=== PATIENT | female | born 1950 | race Caucasian/White ===

== ENCOUNTER 2020-08-12 10:22 | Emergency (ER) | payer MEDICARE, MEDICAID, SELFPAY ==
[2020-08-12 10:31] VITALS: BP 144/82; PULSE 79; RESP 14; TEMP 36.2; O2SAT 100; BMI 26.2
--- NOTE | 2020-08-12 12:04 | ED.GENADULT ---
HPI - General Adult General Chief complaint: General Medical Stated complaint: RT ARM NUMBNESS Time Seen by Provider: 08/12/20 12:03 History of Present Illness HPI narrative: patient complains of right shoulder pain after getting a flu shot yesterday as well as out of her chronic pain meds for left hip pain with no injury or acute change in the left hip Related Data Home Medications Medication Instructions Recorded Confirmed gabapentin 300 mg capsule mg PO 08/09/20 08/10/20 omeprazole 20 mg capsule,delayed mg PO 08/09/20 08/10/20 release Previous Rx's Medication Instructions Recorded buprenorphine HCl 900 mcg buccal 900 mcg BUCCAL Q12H #60 ea 07/11/20 film mirtazapine 15 mg tablet 15 mg PO DAILY #90 tab 07/26/20 oxycodone-acetaminophen [Percocet] 1 tab PO Q6H PRN #10 tab 08/12/20 Allergies Allergy/AdvReac Type Severity Reaction Status Date / Time aspirin [ASPIRIN] Allergy Mild STOMACH Verified 08/09/20 15:27 UPSET codeine [CODEINE] AdvReac Unknown STOMACH Verified 08/09/20 15:27 UPSET Review of Systems Review of Systems: no fever no chills no dizziness no weakness no rash denies redness or warmth PMFSH Past Medical History Source: nursing notes reviewed Medical History (Updated 08/13/20 @ 00:02 by Emmett Sylvester) Arthritis Back pain Scoliosis Surgical History History of open reduction and internal fixation (ORIF) procedure Family History Family History (Updated 06/21/20 @ 14:09 by Shital Roger Lorri) Father Medical history unknown Mother Medical history unknown Social History Social History (Updated 08/09/20 @ 15:34 by ROSHAN Castillo) Alcohol intake: current Alcohol intake frequency: holidays/special occasions only Smoking Status: Never smoker Advance Directives: No Advance Directives Information Provided: No Physical Exam Vital Signs: Vital Signs: Last Vital Signs Temp 97.2 F 08/12/20 10:31 Pulse 79 08/12/20 10:31 Resp 14 08/12/20 10:31 BP 144/82 H 08/12/20 10:31 Pulse Ox 100 08/12/20 10:31 Body Mass Index 26.2 general appearance comfortable cooperative no acute distress Exam normocephalic atraumatic The neck is supple and nontender Respiratory no acute distress The right shoulder the skin is normal there is no redness no warmth there is pain with movement, there is no swelling, it is neurovascular intact distal, there is tenderness anterior lateral and posterior shoulder but otherwise normal in appearance Skin no rashes Neuro no focal deficit Course Course Course Narrative: x-ray of right shoulder had some arthritic changes She is given a prescription for Percocet for her chronic pain And it she will follow with primary care doctor or orthopedist if her right shoulder pain continues right now there is no evidence of joint infection or bony injury Discharge Plan Discharge Clinical Impression: Acute pain of right shoulder Patient Disposition: Home, Self-Care Additional Instructions: pain in your right shoulder started after your flu shot incidental finding of x-ray showed some arthritis in the right shoulder there is no sign of any infection or serious condition Follow with orthopedist if pain continues For your chronic pain I wrote a 1 time prescription for 10 Percocets, I advise checking with your regular prescriber before you fill it as you may have a pain contract For chronic pain follow with regular doctor Prescriptions: New oxycodone-acetaminophen [Percocet] 5-325 mg tablet 1 tab PO Q6H PRN (Reason: pain) Qty: 10 RF: 0 No Action Belbuca 900 mcg film 900 mcg buccal Q12H Qty: 60 RF: 0 mirtazapine 15 mg tablet 15 mg PO DAILY Qty: 90 RF: 5 gabapentin 300 mg capsule PO RF: 0 omeprazole 20 mg capsule,delayed release(DR/EC) PO RF: 0 Referrals: Lorna Carrera MD [Physician] - 2 days ( right shoulder pain) Interventions: ED Discharge Assessment Last Done: 08/12/20 13:39 Discharge Date/Time: 08/12/20 13:42
--- NOTE | 2020-08-12 12:14 | XR_ITS ---
EXAMINATION: XR SHOULDER, RIGHT CLINICAL INFORMATION: Right shoulder pain. COMPARISON: None TECHNIQUE: Three views of the right shoulder. FINDINGS: Moderate diffuse osteopenia is noted. The bony alignment is intact. The cortices are intact. Mild osteoarthrosis is noted at both the glenohumeral and acromioclavicular joints. The acromioclavicular joint space measures 0.9 cm. Mild soft tissue calcification is noted within the subacromial space. Incidental note is made of cervical osseous ribs on the right, and possibly also on the left (not optimally included within the [id number]). XR/XR shoulder RT min 2V IMPRESSION: 1. Mild osteoarthrosis of the acromioclavicular and glenohumeral joints. 2. Subtle soft tissue calcification within the subacromial space. 3. Right-sided osseous cervical rib and possible left-sided cervical osseous rib as well.
== END 2020-08-12 13:42 | disposition home or self-care (01) ==
PROVIDERS: Emergency Provider Emergency Medicine Emergency Medical Services; PCP Internal Medicine
DX: M25.511 Pain in right shoulder (principal); R93.6 Abnormal findings on diagnostic imaging of limbs; M19.011 Primary osteoarthritis, right shoulder
CPT/HCPCS: 73030; 99283

== ENCOUNTER → 2020-09-05 15:13 | Outpatient (BNVA) | payer MEDICARE, MEDICAID, SELFPAY | PROVIDERS: PCP Internal Medicine; Visit Provider Family Medicine Adult Medicine | DX: M23.91 Unspecified internal derangement of right knee (principal); Z87.81 Personal history of (healed) traumatic fracture; Z79.891 Long term (current) use of opiate analgesic | CPT/HCPCS: 99212 ==

== ENCOUNTER → 2020-09-18 14:44 | Outpatient (BNVA) | payer MEDICARE, MEDICAID, SELFPAY | PROVIDERS: PCP Internal Medicine; Visit Provider Nurse Practitioner Family | DX: M23.91 Unspecified internal derangement of right knee (principal); M17.12 Unilateral primary osteoarthritis, left knee; Z87.81 Personal history of (healed) traumatic fracture | CPT/HCPCS: 99212 ==

== ENCOUNTER → 2020-10-19 15:27 | Outpatient (BNVA) | payer MEDICARE, MEDICAID, SELFPAY | PROVIDERS: PCP Internal Medicine; Visit Provider Family Medicine Adult Medicine | DX: M23.91 Unspecified internal derangement of right knee (principal); Z87.81 Personal history of (healed) traumatic fracture | CPT/HCPCS: 99212 ==

== ENCOUNTER → 2020-11-21 15:38 | Outpatient (BNVA) | payer MEDICARE, MEDICAID, SELFPAY | PROVIDERS: PCP Internal Medicine; Visit Provider Family Medicine Adult Medicine | DX: M23.91 Unspecified internal derangement of right knee (principal); M54.12 Radiculopathy, cervical region; Z87.81 Personal history of (healed) traumatic fracture; Z79.899 Other long term (current) drug therapy | CPT/HCPCS: 99212 ==

== ENCOUNTER → 2021-01-16 14:30 | Outpatient (BNVA) | payer MEDICARE, MEDICAID, SELFPAY | PROVIDERS: PCP Internal Medicine; Visit Provider Family Medicine Adult Medicine | DX: M54.12 Radiculopathy, cervical region (principal); M23.91 Unspecified internal derangement of right knee; Z87.81 Personal history of (healed) traumatic fracture | CPT/HCPCS: Q3014 ==

== ENCOUNTER 2021-02-01 21:38 | Emergency (ER) | payer OTHER, MEDICARE, MEDICAID, SELFPAY ==
--- NOTE | ~2021-02-01 | XR_ITS ---
EXAMINATION: XR HAND, RIGHT CLINICAL INFORMATION: Pain COMPARISON: None TECHNIQUE: 3 views of the right hand FINDINGS: No fracture or dislocation. Osteopenia. Severe degenerative changes at the first carpometacarpal joint with loss of the joint space, sclerosis, and osteophyte formation. There is also joint space loss at the first interphalangeal joint with prominent osteophytes. Moderate degenerative change throughout the remaining interphalangeal joints. The soft tissues appear unremarkable. XR/XR hand wrist RT IMPRESSION: No acute osseous abnormality. Advanced arthritic changes.
--- NOTE | ~2021-02-01 | XR_ITS ---
EXAMINATION: XR KNEE, LEFT XR KNEE, RIGHT CLINICAL INFORMATION: Pain COMPARISON: None TECHNIQUE: 4 views of each knee FINDINGS: Left knee: There is a cannulated screw segment in the distal femoral diametaphysis. This appears chronically positioned with periosteal reaction noted. The bones are osteopenic. No fracture or subluxation. Severe medial compartment joint space narrowing. Mild narrowing at the lateral and patellofemoral compartments. Prominent tricompartmental marginal osteophytes. No joint effusion. Right knee: No fracture or subluxation. There is moderate to severe medial compartment joint space narrowing. Mild patellofemoral compartment narrowing. Prominent tricompartmental marginal osteophytes. On the lateral view of the right knee there is a radiopaque density seen which is likely external to the patient has this is not visualized on the other views. There is a small suprapatellar joint effusion. XR/XR knee RT 3V IMPRESSION: No acute osseous abnormality. Osteopenia. Advanced tricompartmental degenerative changes of both knees. Small right knee joint effusion.
--- NOTE | ~2021-02-01 | XR_ITS ---
EXAMINATION: XR KNEE, LEFT XR KNEE, RIGHT CLINICAL INFORMATION: Pain COMPARISON: None TECHNIQUE: 4 views of each knee FINDINGS: Left knee: There is a cannulated screw segment in the distal femoral diametaphysis. This appears chronically positioned with periosteal reaction noted. The bones are osteopenic. No fracture or subluxation. Severe medial compartment joint space narrowing. Mild narrowing at the lateral and patellofemoral compartments. Prominent tricompartmental marginal osteophytes. No joint effusion. Right knee: No fracture or subluxation. There is moderate to severe medial compartment joint space narrowing. Mild patellofemoral compartment narrowing. Prominent tricompartmental marginal osteophytes. On the lateral view of the right knee there is a radiopaque density seen which is likely external to the patient has this is not visualized on the other views. There is a small suprapatellar joint effusion. XR/XR knee LT 3V IMPRESSION: No acute osseous abnormality. Osteopenia. Advanced tricompartmental degenerative changes of both knees. Small right knee joint effusion.
[2021-02-01 21:47] VITALS: BP 140/76; PULSE 86; RESP 20; TEMP 36.8; O2SAT 100; BMI 24.7
--- NOTE | 2021-02-01 23:25 | PC.NURSE ---
IN ROOM FOR EVAL.
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
--- NOTE | 2021-02-02 01:47 | PC.NURSE ---
PT UPSET AND YELLING AT DR HAMILTON ABOUT HER RIGHT HAND NOT BEING BROKEN ON X-RAY. PT IS NOT BELIEVING THE X-RAY.
== END 2021-02-02 01:53 | disposition home or self-care (01) ==
PROVIDERS: Emergency Provider Emergency Medicine Emergency Medical Services; PCP Family Medicine Adult Medicine
DX: S89.92XA Unspecified injury of left lower leg, initial encounter (principal); S89.91XA Unspecified injury of right lower leg, initial encounter; M79.605 Pain in left leg; M79.604 Pain in right leg; M79.642 Pain in left hand; M79.641 Pain in right hand; V43.52XA Car driver injured in collision with other type car in traffic accident, initial encounter; Y93.9 Activity, unspecified; Y92.410 Unspecified street and highway as the place of occurrence of the external cause; Y99.9 Unspecified external cause status; Z79.899 Other long term (current) drug therapy
CPT/HCPCS: 73110; 73130; 73562; 99283

== ENCOUNTER → 2021-03-13 13:05 | Outpatient (BNVA) | payer MEDICARE, MEDICAID, SELFPAY | PROVIDERS: Visit Provider Family Medicine Adult Medicine | DX: M54.12 Radiculopathy, cervical region (principal); M23.91 Unspecified internal derangement of right knee; Z87.81 Personal history of (healed) traumatic fracture | CPT/HCPCS: 99212 ==

== ENCOUNTER 2021-03-16 16:43 | Emergency (ER) | payer MEDICARE, MEDICAID, SELFPAY ==
--- NOTE | ~2021-03-16 | XR_ITS ---
EXAMINATION: XR chest 1V CLINICAL INFORMATION: Dyspnea COMPARISON: Prior chest x-ray 02/11/2020 TECHNIQUE: XR chest 1V Tubes and lines: None Lungs and pleura: Right apical pleural-based thickening pleural capping unchanged. Lungs otherwise are clear. Heart and mediastinum: The mediastinum is within normal limits.. Bones/soft tissue: Skeletal structures included are normal for patient's age. XR/XR chest 1V IMPRESSION: Right apical pleural-based opacity probably pleural thickening pleural capping unchanged. No radiographic evidence of acute cardiopulmonary disease.
[2021-03-16 17:05] VITALS: BP 149/66; PULSE 71; RESP 16; TEMP 36.7; O2SAT 97; BMI 27.9
--- NOTE | 2021-03-16 17:12 | ECG_ITS ---
Test Reason : SOB/LEG SWELLING Blood Pressure : / mmHG Vent. Rate : 071 BPM Atrial Rate : 071 BPM P-R Int : 168 ms QRS Dur : 074 ms QT Int : 402 ms P-R-T Axes : 038 002 002 degrees QTc Int : 436 ms Normal sinus rhythm Cannot rule out Anterior infarct , age undetermined - more likely from body habitus and lead placement Otherwise normal ECG When compared with ECG of 11-FEB-2020 12:30, No significant change was found Referred By: Generic ED Physician Electronically Signed By:DERIK PALMA
[2021-03-16 18:41] LABS: MANUAL DIFF FLAG NO
[2021-03-16 18:58] LABS: Basophils Percent Auto 0.3 % (0-2); Eosinophils Absolute Auto 0.1 X10*3/uL (0.0-0.4); Eosinophils Percent Auto 0.9 % (0-4); Hematocrit 37.7 % (37-47); Hemoglobin 11.9 g/dl (12.0-16.0); Imm Gran Abs Auto 0.01 X10*3/uL (0.00-0.03); Imm Gran Pct Auto 0.1 % (0.0-0.4); Lymphocytes Absolute Auto 3.2 X10*3/uL (1.2-4.9); Lymphocytes Percent Auto 41.5 % (20-40); Mean Corpuscular HGB Conc 31.6 g/dl (31.0-35.0); Mean Corpuscular Hemoglobin 29.6 pg (27.0-33.0); Mean Corpuscular Volume 93.8 fL (80-98); Mean Platelet Volume 10.2 fL (9.4-12.3); Monocytes Absolute Auto 0.8 X10*3/uL (0.1-1.2); Neutrophils Absolute Auto 3.7 X10*3/uL (2.0-8.3); Neutrophils Percent Auto 47.2 % (45-73); Platelet Count 234 X10*3/uL (160-400); Red Blood Count 4.02 X10*6/uL (4.20-5.50); White Blood Count 7.7 X10*3/uL (4.8-10.8)
[2021-03-16 19:08] LABS: Anion Gap 11 (12-20); Blood Urea Nitrogen 14 mg/dL (9-16); Calcium 9.2 mg/dL (8.4-10.2); Carbon Dioxide 30 mmol/L (22-29); Chloride 105 mmol/L (96-108); Creatinine Clr Calc Pharmacy 79.7; Estimated Glomerular Filt Rate > 60; Glucose Random 89 mg/dL (60-115); Magnesium 2.1 mg/dL (1.6-2.6); Potassium 4.8 mmol/L (3.3-5.1); Sodium 141 mmol/L (135-145)
[2021-03-16 19:15] LABS: B Type Natriuretic Peptide 202 pg/mL (<100); Troponin-I High Sensitivity < 3.5 ng/L (<3.5-17.0)
[2021-03-16 21:27] VITALS: BP 122/67; PULSE 69; RESP 12; O2SAT 100
--- NOTE | 2021-03-16 22:02 | PC.NURSE ---
per ED provider patient was observed storming out of the emergency room complaining of the wait and that she did not want to wait any longer prior to this, this RN had been in to introduce self, assess patient and obtain a new set of vital signs which were stable. during this time, patient was alert and oriented- talking to this RN in a calm and happy demeanor with clear sentences and no evidence of frustration or distress. patient was informed at that time that an ED provider would be in to see her soon and the call chun was given to her with instructions to ring if she needed anything. patient agreeable at that time.
--- NOTE | 2021-03-16 22:03 | ED_ITS ---
HPI - SOB/Dyspnea General Chief Complaint: Dyspnea Stated Complaint: Chest pain/Swelling in legs Time Seen by Provider: 03/16/21 21:59 History of Present Illness HPI Narrative: Patient is a elderly female 70 years old with a history of congestive heart failure. Went to urgent care. Told she might have congestive heart failure sent to the emergency department for further evaluation. Patient claims that she had leg swelling that is been ongoing for years. He has been followed by Dr. Enrique in the past. He has been prescribed Lasix. Usually patient takes approximately 60-80 mg. She self adjust when the swelling gets worse. Patient complained that she has chest pain that is constant. Ongoing for the last couple days. There is no diaphoresis. Patient ambulates without any difficulty. Somehow the swelling actually improved today. Patient denies any coughing congestion upper respiratory symptoms. No diaphoresis. Patient is from home. She normally gets her care at [facility]. Patient has a primary at [facility] unfortunately she just left the practice. Patient is worried that her legs are swollen. She denies any trauma. Both legs are swollen. Patient denies any history of travel. No history of blood clots in the past. Currently not on blood thinners. Related Data Home Medications Medication Instructions Recorded Confirmed omeprazole 20 mg capsule,delayed mg PO 08/09/20 03/16/21 release lidocaine 5 % topical patch 1 patch TOPICAL DAILY 01/09/21 03/16/21 Previous Rx's Medication Instructions Recorded mirtazapine 15 mg tablet 15 mg PO DAILY #90 tab 07/26/20 clonazepam 0.5 mg tablet 0.5 mg PO BID 30 Days #60 tab 09/06/20 dexamethasone 4 mg tablet 4 mg PO DAILY PRN 30 Days #20 tab 11/21/20 gabapentin 300 mg capsule 300 mg PO Q8H 90 Days #270 cap 11/21/20 fluoxetine 20 mg capsule 20 mg PO DAILY #90 cap 02/07/21 ergocalciferol (vitamin D2) 1,250 1,250 mcg PO QWEEK #12 cap 02/28/21 mcg (50,000 unit) capsule buprenorphine HCl 900 mcg buccal 900 mcg BUCCAL Q8H 30 Days #90 ea 03/13/21 film Allergies Allergy/AdvReac Type Severity Reaction Status Date / Time aspirin [ASPIRIN] Allergy Mild STOMACH Verified 03/16/21 16:17 UPSET codeine [CODEINE] AdvReac Unknown STOMACH Verified 03/16/21 16:17 UPSET Review of Systems 2 Review of Systems: Positive shortness of breath. Positive leg swelling positive chest pain no diaphoresis no coughing or congestion or upper respiratory symptoms Yes all other systems are reviewed and are negative [facility] Past Medical History Attestation statement: The following information was validated with the patient. Medical History Arthritis Back pain Cervical radiculopathy Derangement of left knee History of fracture of left hip History of left shoulder fracture Scoliosis Surgical History History of open reduction and internal fixation (ORIF) procedure Family History Family History Father Medical history unknown Mother Medical history unknown Social History Social History Alcohol intake: current Alcohol intake frequency: holidays/special occasions only Advance Directives: No Advance Directives Information Provided: No Physical Exam Vital Signs: Vital Signs: Last Vital Signs Temp 98.0 F 03/16/21 17:05 Pulse 69 03/16/21 21:27 Resp 12 03/16/21 21:27 BP 122/67 03/16/21 21:27 Pulse Ox 100 03/16/21 21:27 Body Mass Index 27.9 Appearance: Alert. Oriented X3. No acute distress. Eyes: Pupils equal, round and reactive to light. ENT: Pharynx normal. Neck: Normal inspection. Neck supple. No lymph nodes noted. No crepitus CVS: Normal heart rate and rhythm. Pulses normal. Normal S1 and S2 Respiratory: No respiratory distress. Breath sounds normal. No Wheezing. No rales Abdomen: Soft and nontender. No rigidity. No distention. good BS x4 Skin: Skin warm and dry. Normal skin color. Normal skin turgor. Extremities: 1+ pitting edema bilaterally up to approximately the distal leg. Neurovascular intact to all extremities. No Lacerations. No Rash Neuro: Oriented X 3. No motor deficit. No sensory deficit. Moving all extermities. No slurred speech MDM - SOB/Dyspnea MDM Narrative Medical decision making narrative: Patient's labs showed a BNP of 200. Otherwise patient's troponin was negative. In the setting patient having chest pain for the last 2 days. Normal EKG. Atypical history for ACS. Risk of ACS still low. Patient's EKG showed a sinus pattern. NV QRS QT within normal limits is no acute ST segment elevation. Patient's BNP is 200 question if patient has mild congestive heart failure causing the leg swelling. Patient's shortness of breath is not positional. She ambulates without any difficulty. Her room air O2 was 100% in the emergency department. This is despite the fact patient has extremely thick nail Arabic. Patient's lungs were clear to exam. Patient worry about her leg swelling. Her risk of having PE is low. Her leg swellings are bilateral. Question of patient had chronic congestive heart failure. Patient does not have follow-up until April. While talking to patient she gets very upset. Wanting to leave. Patient stormed out of the emergency department. Patient told she needs close follow-up. Was sorry that she did not get a chance to see her doctor secondary to COVID. At this time there is no massive evidence of congestive heart failure. Her blood clot risk is low. Per ACS risk is also low. She does need close follow-up. Patient stormed out of the emergency department. She has no fever no chills. Her x-ray showed no evidence of pneumonia. Differential Diagnosis Differential diagnosis: Likely congestive heart failure and pneumonia Lab Data Attestation: I reviewed the patient's lab results. Result diagrams: 03/16/21 18:30 03/16/21 18:30 Labs: Lab Results 03/16/21 03/16/21 03/16/21 Range/Units 18:30 18:30 18:30 WBC 7.7 (4.8-10.8) X10*3/uL RBC 4.02 L (4.20-5.50) X10*6/uL Hgb 11.9 L (12.0-16.0) g/dl Hct 37.7 (37-47) % MCV 93.8 (80-98) fL MCH 29.6 (27.0-33.0) pg MCHC 31.6 (31.0-35.0) g/dl RDW 15.0 (11.0-16.0) % Plt Count 234 (160-400) X10*3/uL MPV 10.2 (9.4-12.3) fL Immature Gran % (Auto) 0.1 (0.0-0.4) % Neut % (Auto) 47.2 (45-73) % Lymph % (Auto) 41.5 H (20-40) % Yancey % (Auto) 10.0 (2-11) % Eos % (Auto) 0.9 (0-4) % Baso % (Auto) 0.3 (0-2) % Lymph # (Auto) 3.2 (1.2-4.9) X10*3/uL Yancey # (Auto) 0.8 (0.1-1.2) X10*3/uL Eos # (Auto) 0.1 (0.0-0.4) X10*3/uL Baso # (Auto) 0.0 (0.0-0.2) X10*3/uL Abs Immat Gran (auto) 0.01 (0.00-0.03) X10*3/uL Absolute Neuts (auto) 3.7 (2.0-8.3) X10*3/uL Absolute Nucleated RBC 0.000 (0.0-0.012) X10*3/uL Nucleated RBC % (auto) 0.0 (0.0-0.2) /100WBC Sodium 141 (135-145) mmol/L Potassium 4.8 (3.3-5.1) mmol/L Chloride 105 (96-108) mmol/L Carbon Dioxide 30 H (22-29) mmol/L Anion Gap 11 L (12-20) BUN 14 (9-16) mg/dL Creatinine 0.67 (0.5-1.4) mg/dL Estim Creat Clear Calc 79.7 Estimated GFR > 60 Random Glucose 89 (60-115) mg/dL Calcium 9.2 (8.4-10.2) mg/dL Magnesium 2.1 (1.6-2.6) mg/dL Troponin I High Sens < 3.5 (<3.5-17.0) ng/L B-Natriuretic Peptide 202 H (<100) pg/mL ECG Data Attestation: I personally reviewed and interpreted this ECG as follows: Interpretation: Sinus heart rate is 70 NV QRS QT within normal limits is no acute ST segment elevation noted. Nonspecific T-wave inversion and flattening noted in the inferior leads. Discharge Plan Discharge Patient Disposition: Elopement Prescriptions: No Action mirtazapine 15 mg tablet 15 mg PO DAILY Qty: 90 RF: 5 clonazepam 0.5 mg tablet 0.5 mg PO BID 30 Days Qty: 60 RF: 0 lidocaine 5 % adhesive patch,medicated 1 patch topical DAILY RF: 0 fluoxetine 20 mg capsule 20 mg PO DAILY Qty: 90 RF: 0 ergocalciferol (vitamin D2) 1,250 mcg (50,000 unit) capsule 1,250 mcg PO QWEEK Qty: 12 RF: 2 omeprazole 20 mg capsule,delayed release(DR/EC) PO RF: 0 gabapentin 300 mg capsule 300 mg PO Q8H 90 Days Qty: 270 RF: 1 dexamethasone 4 mg tablet 4 mg PO DAILY PRN (Reason: breakthrough cervical pain) 30 Days Qty: 20 RF: 1 Belbuca 900 mcg film 900 mcg buccal Q8H 30 Days Qty: 90 RF: 1 Discharge Date/Time: 03/16/21 22:07
== END 2021-03-16 22:07 | disposition left against medical advice (07) ==
PROVIDERS: Emergency Provider Emergency Medicine Emergency Medical Services
DX: R06.00 Dyspnea, unspecified (principal); R60.0 Localized edema; I50.9 Heart failure, unspecified; Z79.899 Other long term (current) drug therapy
CPT/HCPCS: 36415; 71045; 80048; 83735; 83880; 84484; 85025; 93005; 99284

== ENCOUNTER → 2021-03-28 08:03 | Outpatient (BNVA) | payer MEDICARE, MEDICAID, SELFPAY | PROVIDERS: Visit Provider Internal Medicine | CPT/HCPCS: Q3014 ==

== ENCOUNTER → 2021-04-03 13:08 | Outpatient (BNVA) | payer MEDICARE, MEDICAID, SELFPAY | PROVIDERS: Visit Provider Internal Medicine Cardiovascular Disease | DX: I50.30 Unspecified diastolic (congestive) heart failure (principal); R60.0 Localized edema; E66.3 Overweight; Z68.27 Body mass index [BMI] 27.0-27.9, adult; Z88.6 Allergy status to analgesic agent; Z88.5 Allergy status to narcotic agent; Z79.899 Other long term (current) drug therapy | CPT/HCPCS: 99212 ==

== ENCOUNTER 2021-04-06 08:08 | Outpatient (REF) | payer MEDICARE, MEDICAID, SELFPAY ==
[2021-04-06 08:53] LABS: Estimated Average Glucose 94 mg/dL; Hemoglobin A1c % 4.9 %
[2021-04-06 09:03] LABS: Glucose Fasting 83 mg/dL (60-99)
[2021-04-06 09:08] LABS: Cholesterol 138 mg/dL; HDL Cholesterol 40 mg/dL; LDL Cholesterol Calculated 68 mg/dl; Triglycerides 152 mg/dL
[2021-04-06 09:30] LABS: Free T4 (Free Thyroxine) 0.88 ng/dL (0.71-1.85); Thyroid Stimulating Hormone 1.89 uIU/mL (0.32-4.0)
[2021-04-06 10:31] LABS: Glucose 1 Hour 76 mg/dL
[2021-04-06 11:25] LABS: Glucose 2 Hour 63 mg/dL
[2021-04-07 07:26] LABS: LDL Cholesterol Direct 72 mg/dL (<100)
[2021-04-09 18:01] LABS: Adrenocorticotropic Hormone 8 pg/mL (6-50)
== END 2021-04-06 08:09 | disposition home or self-care (01) ==
LOC: HO.LAB 08:08
PROVIDERS: Absent Provider Internal Medicine Cardiovascular Disease; Visit Provider Internal Medicine
DX: Z13.89 Encounter for screening for other disorder (principal)
CPT/HCPCS: 36415; 80061; 82024; 82533; 83036; 83721; 84439; 84443

== ENCOUNTER 2021-04-06 11:22 | Emergency (ER) | payer MEDICARE, MEDICAID, SELFPAY ==
--- NOTE | ~2021-04-06 | XR_ITS ---
EXAMINATION: XR CHEST CLINICAL INFORMATION: SOB. COMPARISON: Chest 03/16/2021 TECHNIQUE: Frontal view of the chest was obtained. FINDINGS: No significant abnormality is noted involving the heart, lungs, mediastinum, bony thorax or soft tissues. XR/XR chest 1V IMPRESSION: Unremarkable chest examination. No change from 03/16/2021.
[2021-04-06 11:59] VITALS: BP 151/63; PULSE 78; RESP 16; TEMP 36.7; O2SAT 100; BMI 27.9
[2021-04-06 12:38] VITALS: BP 148/51; PULSE 83; RESP 20; O2SAT 99
--- NOTE | 2021-04-06 12:43 | ECG_ITS ---
Test Reason : DYSPNEA Blood Pressure : / mmHG Vent. Rate : 073 BPM Atrial Rate : 073 BPM P-R Int : 154 ms QRS Dur : 086 ms QT Int : 412 ms P-R-T Axes : 019 000 -09 degrees QTc Int : 453 ms Normal sinus rhythm Normal ECG When compared with ECG of 16-MAR-2021 16:55, No significant change was found Referred By: Generic ED Physician Electronically Signed By:DERIK PALMA
[2021-04-06 12:57] LABS: MANUAL DIFF FLAG NO
[2021-04-06 13:04] LABS: Basophils Percent Auto 0.4 % (0-2); Eosinophils Absolute Auto 0.2 X10*3/uL (0.0-0.4); Eosinophils Percent Auto 2.1 % (0-4); Hematocrit 39.6 % (37-47); Imm Gran Abs Auto 0.02 X10*3/uL (0.00-0.03); Imm Gran Pct Auto 0.3 % (0.0-0.4); Lymphocytes Absolute Auto 2.5 X10*3/uL (1.2-4.9); Lymphocytes Percent Auto 33.6 % (20-40); Mean Corpuscular HGB Conc 30.3 g/dl (31.0-35.0); Mean Corpuscular Hemoglobin 28.7 pg (27.0-33.0); Mean Corpuscular Volume 94.7 fL (80-98); Mean Platelet Volume 10.1 fL (9.4-12.3); Monocytes Absolute Auto 0.8 X10*3/uL (0.1-1.2); Monocytes Percent Auto 10.1 % (2-11); Neutrophils Percent Auto 53.5 % (45-73); Platelet Count 200 X10*3/uL (160-400); Red Blood Count 4.18 X10*6/uL (4.20-5.50); Red Cell Distribution Width 14.6 % (11.0-16.0); White Blood Count 7.5 X10*3/uL (4.8-10.8)
--- NOTE | 2021-04-06 13:14 | ED.GENADULT ---
HPI - General Adult General Chief complaint: Dyspnea Stated complaint: swollen feet and legs Time Seen by Provider: 04/06/21 12:57 Source: patient Mode of arrival: ambulatory Limitations: no limitations History of Present Illness HPI narrative: Patient comes emergency room complaining of lower extremity edema. Patient states she has had bilateral lower extremity edema for over 10 years. Patient states that she needs to sleep almost sitting up otherwise she gets short of breath. Patient was seen by Dr. Willett 3 days ago, an echocardiogram is pending for the 1st week of April. Also, patient's Lasix was discontinued and she was started on 5 mg of Bumex. Patient states that her feet are more swollen than before her medication was switched. Patient denies chest pain Related Data Home Medications Medication Instructions Recorded Confirmed omeprazole 20 mg capsule,delayed 20 mg PO DAILY cap 03/28/21 04/03/21 release pregabalin 150 mg capsule (Lyrica) 150 mg PO BID 03/28/21 04/03/21 Previous Rx's Medication Instructions Recorded mirtazapine 15 mg tablet 15 mg PO DAILY #90 tab 07/26/20 clonazepam 0.5 mg tablet 0.5 mg PO BID 30 Days #60 tab 09/06/20 fluoxetine 20 mg capsule 20 mg PO DAILY #90 cap 02/07/21 ergocalciferol (vitamin D2) 1,250 1,250 mcg PO QWEEK #12 cap 02/28/21 mcg (50,000 unit) capsule bumetanide 2 mg tablet 2 mg PO DAILY #30 tab 04/03/21 buprenorphine HCl 900 mcg buccal 900 mcg BUCCAL Q8H 30 Days #90 ea 04/05/21 film (Belbuca) bumetanide 2 mg tablet 2 mg PO BID #30 tab 04/06/21 Allergies Allergy/AdvReac Type Severity Reaction Status Date / Time aspirin [ASPIRIN] Allergy Mild STOMACH Verified 03/28/21 08:37 UPSET codeine [CODEINE] AdvReac Unknown STOMACH Verified 03/28/21 08:37 UPSET Review of Systems Review of Systems: Constitutional : No Weight loss, No Fever, No Chills, No Night Sweats, No Fatigue, No Malaise ENT/Mouth : No Hearing loss, No Ear Pain, No Nasal Congestion, No Sinus Pain, No Hoarseness, No sore throat, No Rhinorrhea, No Swallowing Difficulty Eyes: No Eye Pain, No Swelling, No Redness, No Foreign Body, No Discharge, No Vision Changes Cardiovascular : No Chest Pain, No SOB, complaining of dyspnea on exertion, positive orthopnea, bilateral lower extremity edema, no palpitations Respiratory : No Cough, No Sputum, No Wheezing, No Smoke Exposure, No Dyspnea Gastrointestinal : No Nausea, No Vomiting, No Diarrhea, No Constipation, No abdominal Pain, No Hematochezia, No Melena Genitourinary : no irregular bleeding, No Dysuria, No Urinary Frequency, No Hematuria, No Urinary Incontinence, No Urgency, No Flank Pain, No Urinary Flow Changes, No Hesitancy Musculoskeletal : No joint pain, No Myalgias, No Joint Swelling Skin : No Skin Lesions, No rash Neuro : No Weakness, No Numbness, No Paresthesias, No Loss of Consciousness, No Dizziness, No Headache Psych : No Anxiety/Panic, No Depression, No SI/HI/AH/VH, No Social Issues, Heme/Lymph: No Bruising, No Bleeding,No Lymphadenopathy Endocrine : No Polyuria, No Polydipsia, No Temperature Intolerance [facility] Past Medical History Medical History Arthritis Back pain Cervical radiculopathy Derangement of left knee History of fracture of left hip History of left shoulder fracture Overweight (BMI 25.0-29.9) Scoliosis Surgical History History of open reduction and internal fixation (ORIF) procedure Family History Family History Father Medical history unknown Mother Medical history unknown Social History Social History Alcohol intake: current Alcohol intake frequency: does not drink Patient Tobacco Use Status: Never used Tobacco Use of substances other than those prescribed or required for medical reasons: No Advance Directives: No Advance Directives Information Provided: No Physical Exam Vital Signs: Vital Signs: Last Vital Signs Temp 98.0 F 04/06/21 11:59 Pulse 83 04/06/21 12:38 Resp 20 04/06/21 12:38 BP 148/51 H 04/06/21 12:38 Pulse Ox 99 04/06/21 12:38 Body Mass Index 27.9 Const: Other: Appearance: Alert. Oriented X3. No acute distress. Eyes: Pupils equal, round and reactive to light. ENT: Pharynx normal. Neck: Normal inspection. Neck supple. No lymph nodes noted. No crepitus CVS: Normal heart rate and rhythm. Pulses normal. Normal S1 and S2 Respiratory: No respiratory distress. Breath sounds normal. No Wheezing. No rales Abdomen: Soft and nontender. No rigidity. No distention. Skin: Skin warm and dry. Normal skin color. Normal skin turgor. Extremities: Bilateral +3 pitting edema from the feet to both knees, No Lacerations. No Rash Neuro: Oriented X 3. No motor deficit. No sensory deficit. Moving all extermities. No slurred speech. Course Course Course Narrative: I discussed the labs with the patient, at this time, we will go ahead and double her Bumex dose. She is currently taking 2 mg once a day, patient's creatinine is normal, blood pressure between 140 and 150. 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 Willett Medical Decision Making Lab Data Result diagrams: 04/06/21 12:54 04/06/21 12:54 Labs: Lab Results 04/06/21 04/06/21 04/06/21 Range/Units 12:54 12:54 12:54 WBC 7.5 (4.8-10.8) X10*3/uL RBC 4.18 L (4.20-5.50) X10*6/uL Hgb 12.0 (12.0-16.0) g/dl Hct 39.6 (37-47) % MCV 94.7 (80-98) fL MCH 28.7 (27.0-33.0) pg MCHC 30.3 L (31.0-35.0) g/dl RDW 14.6 (11.0-16.0) % Plt Count 200 (160-400) X10*3/uL MPV 10.1 (9.4-12.3) fL Immature Gran % (Auto) 0.3 (0.0-0.4) % Neut % (Auto) 53.5 (45-73) % Lymph % (Auto) 33.6 (20-40) % [place] % (Auto) 10.1 (2-11) % Eos % (Auto) 2.1 (0-4) % Baso % (Auto) 0.4 (0-2) % Lymph # (Auto) 2.5 (1.2-4.9) X10*3/uL [place] # (Auto) 0.8 (0.1-1.2) X10*3/uL Eos # (Auto) 0.2 (0.0-0.4) X10*3/uL Baso # (Auto) 0.0 (0.0-0.2) X10*3/uL Abs Immat Gran (auto) 0.02 (0.00-0.03) X10*3/uL Absolute Neuts (auto) 4.0 (2.0-8.3) X10*3/uL Absolute Nucleated RBC 0.000 (0.0-0.012) X10*3/uL Nucleated RBC % (auto) 0.0 (0.0-0.2) /100WBC Sodium 143 (135-145) mmol/L Potassium 4.5 (3.3-5.1) mmol/L Chloride 105 (96-108) mmol/L Carbon Dioxide 30 H (22-29) mmol/L Anion Gap 13 (12-20) BUN 11 (9-16) mg/dL Creatinine 0.75 (0.5-1.4) mg/dL Estim Creat Clear Calc 71.2 Estimated GFR > 60 Random Glucose 106 (60-115) mg/dL Calcium 9.4 (8.4-10.2) mg/dL Troponin I High Sens < 3.5 (<3.5-17.0) ng/L B-Natriuretic Peptide 69 (<100) pg/mL Imaging Data Chest x-ray: Radiologist's impression: No significant abnormality is noted involving the heart, lungs, mediastinum, bony thorax or soft tissues. XR/XR chest 1V IMPRESSION: Unremarkable chest examination. No change from 03/16/2021. ECG Data Attestation: I personally reviewed and interpreted this ECG as follows: (Normal sinus rhythm, heart rate 73, no ST segment depression or elevation, nonspecific T-wave inversion in lead 3, QTC 453) Discharge Plan Discharge Clinical Impression: Edema of both legs Patient Disposition: Home, Self-Care Instructions: Leg Edema (ED) Additional Instructions: Please follow-up with your primary care physician tomorrow. If you have any worsening or new symptoms, please return to the emergency room or call 911 Prescriptions: New bumetanide 2 mg tablet 2 mg PO BID Qty: 30 RF: 0 No Action mirtazapine 15 mg tablet 15 mg PO DAILY Qty: 90 RF: 5 clonazepam 0.5 mg tablet 0.5 mg PO BID 30 Days Qty: 60 RF: 0 fluoxetine 20 mg capsule 20 mg PO DAILY Qty: 90 RF: 0 ergocalciferol (vitamin D2) 1,250 mcg (50,000 unit) capsule 1,250 mcg PO QWEEK Qty: 12 RF: 2 [place] 900 mcg film 900 mcg buccal Q8H 30 Days Qty: 90 RF: 1 omeprazole 20 mg capsule,delayed release(DR/EC) 20 mg PO DAILY RF: 0 bumetanide 2 mg tablet 2 mg PO DAILY Qty: 30 RF: 1 pregabalin [Lyrica] 150 mg capsule 150 mg PO BID RF: 0 Referrals: Errol Willett MD [Physician] - 2 days (f/u increase in bumex)
[2021-04-06 13:20] LABS: Anion Gap 13 (12-20); Blood Urea Nitrogen 11 mg/dL (9-16); Calcium 9.4 mg/dL (8.4-10.2); Carbon Dioxide 30 mmol/L (22-29); Chloride 105 mmol/L (96-108); Creatinine Clr Calc Pharmacy 71.2; Estimated Glomerular Filt Rate > 60; Glucose Random 106 mg/dL (60-115); Potassium 4.5 mmol/L (3.3-5.1); Sodium 143 mmol/L (135-145)
[2021-04-06 13:28] LABS: B Type Natriuretic Peptide 69 pg/mL (<100); Troponin-I High Sensitivity < 3.5 ng/L (<3.5-17.0)
[2021-04-06 14:18] VITALS: BP 103/68; PULSE 72; RESP 14; O2SAT 100
== END 2021-04-06 14:23 | disposition home or self-care (01) ==
PROVIDERS: Emergency Provider Emergency Medicine
DX: R60.0 Localized edema (principal); R06.02 Shortness of breath
CPT/HCPCS: 36415; 71045; 80048; 80061; 82024; 82533; 83036; 83721; 83880; 84439; 84443; 84484; 85025; 93005; 99284

== ENCOUNTER → 2021-05-08 11:32 | Outpatient (BNVA) | payer OTHER, MEDICARE, MEDICAID, SELFPAY | PROVIDERS: Visit Provider Family Medicine Adult Medicine | DX: M54.9 Dorsalgia, unspecified (principal); M54.12 Radiculopathy, cervical region; M23.92 Unspecified internal derangement of left knee; Z87.81 Personal history of (healed) traumatic fracture; Z88.6 Allergy status to analgesic agent; Z88.5 Allergy status to narcotic agent; Z79.899 Other long term (current) drug therapy | CPT/HCPCS: 99212 ==

== ENCOUNTER → 2021-07-03 11:34 | Outpatient (BNVA) | payer MEDICARE, MEDICAID, SELFPAY | PROVIDERS: Visit Provider Family Medicine Adult Medicine | DX: Z51.81 Encounter for therapeutic drug level monitoring (principal); M54.12 Radiculopathy, cervical region; L03.115 Cellulitis of right lower limb; L03.116 Cellulitis of left lower limb; Z87.81 Personal history of (healed) traumatic fracture | CPT/HCPCS: Q3014 ==

== ENCOUNTER 2021-08-27 06:34 | Observation (INO) | payer MEDICARE, MEDICAID, SELFPAY ==
--- NOTE | ~2021-08-27 | CT_ITS ---
EXAMINATION: CT ABDOMEN AND PELVIS WITH CONTRAST CLINICAL INFORMATION: Upper abdominal pain and vomiting COMPARISON: None TECHNIQUE: Multidetector volumetric images were obtained from the superior aspect of the liver through the pubic symphysis following administration 85 mL of Omnipaque 350 intravenous contrast. Sagittal and coronal reformatted images were obtained on the technologist's workstation. Oral contrast: Yes This CT examination was performed using dose optimization techniques as appropriate, variously including the following: *Automated exposure control *Adjustment of mA and/or kV according to patient size (this includes techniques or standardized protocols for targeted exams where dose is matched to indication/reason for exam; i.e. extremities or head) *Use of iterative reconstruction technique DLP: 577 mGy-cm FINDINGS: LUNG BASES: The visualized lung bases are unremarkable. LIVER, GALLBLADDER, AND BILIARY TREE: The liver is normal in size, shape, and attenuation. No focal hepatic lesion or biliary ductal dilatation is present. The gallbladder is unremarkable with no evidence of radiopaque gallstones, gallbladder wall thickening, or obvious pericholecystic inflammatory changes. PANCREAS: Unremarkable. SPLEEN: Unremarkable. ADRENAL GLANDS: Unremarkable. KIDNEYS AND URETERS: There are multiple bilateral renal cysts, right greater than left. No imaging follow-up needed. The kidneys are otherwise unremarkable. BLADDER: Unremarkable. GASTROINTESTINAL TRACT: There is diverticulosis of the colon. There is no evidence of diverticulitis. There is stool throughout the colon questionable for constipation. There are no dilated loops of bowel to suggest obstruction. The appendix is normal. There is a high attenuation density seen in the second portion duodenum measuring 3 x 19 mm questionable for something the patient is recently ingested. Clinical correlation is recommended. No evidence of obstruction or perforation is seen. The stomach is unremarkable. ABDOMINAL WALL: There is a small umbilical hernia containing fat. LYMPH NODES: Normal. VASCULAR: Unremarkable. PELVIC VISCERA: Unremarkable. OSSEOUS STRUCTURES: There are degenerative changes of the spine and scoliosis. There is a left hip replacement. CT/CT abdomen pelvis w con IMPRESSION: Diverticulosis. No evidence of diverticulitis. Stool throughout the colon questionable for constipation. 3 x 19 mm high attenuation density in the second portion of duodenum, question representing something the patient has ingested. Clinical correlation recommended. No evidence of obstruction or perforation seen. Bilateral renal cysts. Fleischner guidelines were followed.
--- NOTE | ~2021-08-27 | XR_ITS ---
EXAMINATION: XR CHEST CLINICAL INFORMATION: Dyspnea COMPARISON: None TECHNIQUE: Frontal view of the chest was obtained. FINDINGS: The lungs are well-expanded and clear. The heart size and pulmonary vascularity is normal. No gross bony abnormality seen XR/XR chest 1V IMPRESSION: Unremarkable chest exam
[2021-08-27 06:44] VITALS: BP 150/71; PULSE 65; RESP 20; TEMP 36.4; O2SAT 97
--- NOTE | 2021-08-27 06:46 | ECG_ITS ---
Test Reason : chest pain Blood Pressure : / mmHG Vent. Rate : 073 BPM Atrial Rate : 073 BPM P-R Int : 168 ms QRS Dur : 074 ms QT Int : 424 ms P-R-T Axes : 071 037 045 degrees QTc Int : 467 ms Sinus rhythm with marked sinus arrhythmia Otherwise normal ECG When compared with ECG of 06-APR-2021 14:05, T wave inversion no longer evident in Inferior leads Referred By: Generic ED Physician Electronically Signed By:DERIK PALMA
[2021-08-27 07:24] LABS: MANUAL DIFF FLAG NO
[2021-08-27 07:47] LABS: Alanine Aminotransferase 9 U/L (0-31); Albumin Level 4.2 g/dL (3.5-5.0); Alkaline Phosphatase 82 U/L (39-117); Anion Gap 14 (12-20); Aspartate Amino Transferase 17 U/L (5-31); Bilirubin Total 0.4 mg/dL (0.0-1.0); Blood Urea Nitrogen 12 mg/dL (9-16); Calcium 9.3 mg/dL (8.4-10.2); Carbon Dioxide 28 mmol/L (22-29); Chloride 103 mmol/L (96-108); Creatinine Clr Calc Pharmacy 61.5; Estimated Glomerular Filt Rate > 60; Glucose Random 135 mg/dL (60-115); Potassium 3.5 mmol/L (3.3-5.1); Sodium 141 mmol/L (135-145); Total Protein 6.7 g/dL (6.5-8.0)
[2021-08-27 07:51] LABS: Troponin-I High Sensitivity < 3.5 ng/L (<3.5-17.0)
[2021-08-27 08:06] LABS: Basophils Percent Auto 0.1 % (0-2); Eosinophils Percent Auto 0.1 % (0-4); Hematocrit 38.7 % (37.0-47.0); Hemoglobin 12.4 g/dl (12.0-16.0); Imm Gran Abs Auto 0.03 X10*3/uL (0.00-0.03); Imm Gran Pct Auto 0.3 % (0.0-0.4); Lymphocytes Absolute Auto 0.8 X10*3/uL (1.2-4.9); Lymphocytes Percent Auto 8.7 % (20-40); Mean Corpuscular Hemoglobin 29.1 pg (27.0-33.0); Mean Corpuscular Volume 90.8 fL (80.0-98.0); Mean Platelet Volume 9.9 fL (9.4-12.3); Monocytes Absolute Auto 0.5 X10*3/uL (0.1-1.2); Monocytes Percent Auto 5.6 % (2-11); Neutrophils Absolute Auto 7.7 x10*3/uL (2.0-8.3); Neutrophils Percent Auto 85.2 % (45-73); Platelet Count 220 X10*3/uL (160-400); Red Blood Count 4.26 X10*6/uL (4.20-5.50); Red Cell Distribution Width 15.2 % (11.0-16.0)
--- NOTE | 2021-08-27 09:29 | ED_ITS ---
HPI - Abdominal Pain General Chief Complaint: Chest Pain Stated Complaint: ABD PAIN W/VOMITING Time Seen by Provider: 08/27/21 09:28 Source: patient Mode of arrival: EMS Limitations: no limitations History of Present Illness MD elicited complaint: abdominal pain (chest pain, nausea and vomiting) Pertinent past history: none Onset (ago): day(s) (intermittent on and off since two days) Pain Consistency: intermittent Location: chest and epigastric Severity: moderate Quality: fullness Radiation: chest Migration to: no migration Exacerbating factors: eating Relieving factors: nothing Associated symptoms: nausea, vomiting and constipation Related Data Home Medications Medication Instructions Recorded Confirmed omeprazole 20 mg capsule,delayed 20 mg PO DAILY cap 03/28/21 07/03/21 release Previous Rx's Medication Instructions Recorded clonazepam 0.5 mg tablet 0.5 mg PO BID 30 Days #60 tab 09/06/20 ergocalciferol (vitamin D2) 1,250 1,250 mcg PO QWEEK #12 cap 02/28/21 mcg (50,000 unit) capsule bumetanide 2 mg tablet 2 mg PO BID #30 tab 04/06/21 bumetanide 2 mg tablet 2 mg PO DAILY 90 Days #90 tab 04/25/21 naloxone 4 mg/actuation nasal 4 mg INTRANASAL Q2M #2 ea 07/03/21 spray (Narcan) pregabalin 150 mg capsule (Lyrica) 150 mg PO Q8H 30 Days #90 cap 07/03/21 fluoxetine 20 mg capsule 20 mg PO DAILY #90 cap 07/25/21 mirtazapine 15 mg tablet 15 mg PO DAILY #90 tab 07/29/21 furosemide 80 mg tablet (Lasix) 80 mg PO DAILY 90 Days #90 tab 07/30/21 buprenorphine HCl 900 mcg buccal 900 mcg BUCCAL Q12H 30 Days #60 ea 08/22/21 film (Belbuca) Allergies Allergy/AdvReac Type Severity Reaction Status Date / Time aspirin [ASPIRIN] Allergy Mild STOMACH Verified 07/03/21 12:34 UPSET codeine [CODEINE] AdvReac Unknown STOMACH Verified 07/03/21 12:34 UPSET Review of Systems Review of Systems Constitutional : No Weight loss, No Fever, No Chills ENT/Mouth : No sore throat, No Rhinorrhea Eyes: No Swelling, No Redness Cardiovascular : pos Chest Pain, pos SOB, NoEdema Respiratory : No Cough, No Sputum, No Wheezing Gastrointestinal : Positive Nausea, Positive Vomiting, no Diarrhea, positive abdominal Pain, No Hematochezia, No Melena, pos constipation Genitourinary : No Dysuria, No Urinary Frequency, No Hematuria, No Urgency Musculoskeletal : No joint pain, No Myalgias, No Joint Swelling Skin : No Skin Lesions, No rash Neuro : No Weakness, No Numbness, No Dizziness, No Headache Psych : No Anxiety/Panic, No Depression Heme/Lymph: No Bruising, No Lymphadenopathy Endocrine : No Polyuria, No Polydipsia All other systems reviewed and are negative. Physical Exam Vital Signs: Vital Signs: Last Vital Signs Temp 97.5 F 08/27/21 09:40 Pulse 98 08/27/21 14:29 Resp 18 08/27/21 14:29 BP 150/75 H 08/27/21 14:29 Pulse Ox 94 08/27/21 14:29 BMI result Body Mass Index 20.0 Appearance: Alert. Oriented X3. No acute distress. Eyes: Pupils equal, round and reactive to light. ENT: Pharynx mildly dry Neck: Normal inspection. Neck supple. CVS: Normal heart rate and rhythm. Pulses normal. Respiratory: No respiratory distress. Breath sounds normal. Abdomen: Soft and moderate epigastric ttp no rebound mild distention Skin: Skin warm and dry. pale skin color. Normal skin turgor. Extremities: No lower extremity edema. No calf ttp Neuro: Oriented X 3. No motor deficit. No sensory deficit. Course Course Course Narrative: + UA for infection at this time infection suspected 108pm - lactic acid cultures and IV ceftriaxone ordered for UTI if she fails PO challenge will need admission cannot tolerate PO - admit MDM - Abdominal Pain MDM Narrative Medical decision making narrative: 70 yo female hx of CHF but preserved EF, back pain, arthritis here with c/o upper abdominal pain radiating to chest on and off x 2 days worse overnight resulting in vomiting - she denies any abdominal surgery at this time labs, CXR, troponin x 2, CT scan of abdomen to r/o obstruction/mass. IV morphine for pain, Dispo per results and findings. No hyp oxia signs of DVT to suggest VTE Lab Data Result diagrams: 08/27/21 07:20 08/27/21 07:20 Labs: Lab Results 08/27/21 08/27/21 08/27/21 Range/Units 07:20 07:20 07:20 WBC 9.0 (4.8-10.8) X10*3/uL RBC 4.26 (4.20-5.50) X10*6/uL Hgb 12.4 (12.0-16.0) g/dl Hct 38.7 (37.0-47.0) % MCV 90.8 (80.0-98.0) fL MCH 29.1 (27.0-33.0) pg MCHC 32.0 (31.0-35.0) g/dl RDW 15.2 (11.0-16.0) % Plt Count 220 (160-400) X10*3/uL MPV 9.9 (9.4-12.3) fL Immature Gran % (Auto) 0.3 (0.0-0.4) % Neut % (Auto) 85.2 H (45-73) % Lymph % (Auto) 8.7 L (20-40) % [place] % (Auto) 5.6 (2-11) % Eos % (Auto) 0.1 (0-4) % Baso % (Auto) 0.1 (0-2) % Lymph # (Auto) 0.8 L (1.2-4.9) X10*3/uL [place] # (Auto) 0.5 (0.1-1.2) X10*3/uL Eos # (Auto) 0.0 (0.0-0.4) X10*3/uL Baso # (Auto) 0.0 (0.0-0.2) X10*3/uL Abs Immat Gran (auto) 0.03 (0.00-0.03) X10*3/uL Absolute Neuts (auto) 7.7 (2.0-8.3) x10*3/uL Absolute Nucleated RBC 0.000 (0.0-0.012) X10*3/uL Nucleated RBC % (auto) 0.0 (0.0-0.2) /100WBC Sodium 141 (135-145) mmol/L Potassium 3.5 D (3.3-5.1) mmol/L Chloride 103 (96-108) mmol/L Carbon Dioxide 28 (22-29) mmol/L Anion Gap 14 (12-20) BUN 12 (9-16) mg/dL Creatinine 0.73 (0.5-1.4) mg/dL Estim Creat Clear Calc 61.5 Estimated GFR > 60 Random Glucose 135 H (60-115) mg/dL Lactic Acid (0.5-2.0) mmol/L Calcium 9.3 (8.4-10.2) mg/dL Magnesium 1.7 (1.6-2.6) mg/dL Total Bilirubin 0.4 (0.0-1.0) mg/dL AST 17 (5-31) U/L ALT 9 (0-31) U/L Alkaline Phosphatase 82 (39-117) U/L Troponin I High Sens < 3.5 (<3.5-17.0) ng/L Total Protein 6.7 (6.5-8.0) g/dL Albumin 4.2 (3.5-5.0) g/dL Lipase 8 (8-78) U/L Urine Color Urine Appearance Urine pH (5.0-8.0) Ur Specific [place] (1.005-1.025) Urine Protein (NEG-TRACE) MG/DL Urine Glucose (UA) (NEG) MG/DL Urine Ketones (NEG) MG/DL Urine Blood (NEG) Urine Nitrite (NEG) Ur Leukocyte Esterase (NEG) Urine RBC (0) /HPF Urine WBC (0-4) /HPF Ur Squamous Epith Cells /LPF Urine Bacteria /LPF COVID-19 ([facility]) (Negative) COVID-19 Clin Com 08/27/21 08/27/21 08/27/21 Range/Units 09:47 11:43 11:44 WBC (4.8-10.8) X10*3/uL RBC (4.20-5.50) X10*6/uL Hgb (12.0-16.0) g/dl Hct (37.0-47.0) % MCV (80.0-98.0) fL MCH (27.0-33.0) pg MCHC (31.0-35.0) g/dl RDW (11.0-16.0) % Plt Count (160-400) X10*3/uL MPV (9.4-12.3) fL Immature Gran % (Auto) (0.0-0.4) % Neut % (Auto) (45-73) % Lymph % (Auto) (20-40) % [place] % (Auto) (2-11) % Eos % (Auto) (0-4) % Baso % (Auto) (0-2) % Lymph # (Auto) (1.2-4.9) X10*3/uL [place] # (Auto) (0.1-1.2) X10*3/uL Eos # (Auto) (0.0-0.4) X10*3/uL Baso # (Auto) (0.0-0.2) X10*3/uL Abs Immat Gran (auto) (0.00-0.03) X10*3/uL Absolute Neuts (auto) (2.0-8.3) x10*3/uL Absolute Nucleated RBC (0.0-0.012) X10*3/uL Nucleated RBC % (auto) (0.0-0.2) /100WBC Sodium (135-145) mmol/L Potassium (3.3-5.1) mmol/L Chloride (96-108) mmol/L Carbon Dioxide (22-29) mmol/L Anion Gap (12-20) BUN (9-16) mg/dL Creatinine (0.5-1.4) mg/dL Estim Creat Clear Calc Estimated GFR Random Glucose (60-115) mg/dL Lactic Acid (0.5-2.0) mmol/L Calcium (8.4-10.2) mg/dL Magnesium (1.6-2.6) mg/dL Total Bilirubin (0.0-1.0) mg/dL AST (5-31) U/L ALT (0-31) U/L Alkaline Phosphatase (39-117) U/L Troponin I High Sens < 3.5 (<3.5-17.0) ng/L Total Protein (6.5-8.0) g/dL Albumin (3.5-5.0) g/dL Lipase (8-78) U/L Urine Color YELLOW Urine Appearance CLEAR Urine pH 8.0 (5.0-8.0) Ur Specific [place] <= 1.005 (1.005-1.025) Urine Protein NEG (NEG-TRACE) MG/DL Urine Glucose (UA) NEG (NEG) MG/DL Urine Ketones 40 (NEG) MG/DL Urine Blood TRACE (NEG) Urine Nitrite POS H (NEG) Ur Leukocyte Esterase NEG (NEG) Urine RBC 0-2 (0) /HPF Urine WBC 5-9 H (0-4) /HPF Ur Squamous Epith Cells TRACE /LPF Urine Bacteria 2+ /LPF COVID-19 ([facility]) Negative (Negative) COVID-19 Clin Com See Note 08/27/21 Range/Units 13:38 WBC (4.8-10.8) X10*3/uL RBC (4.20-5.50) X10*6/uL Hgb (12.0-16.0) g/dl Hct (37.0-47.0) % MCV (80.0-98.0) fL MCH (27.0-33.0) pg MCHC (31.0-35.0) g/dl RDW (11.0-16.0) % Plt Count (160-400) X10*3/uL MPV (9.4-12.3) fL Immature Gran % (Auto) (0.0-0.4) % Neut % (Auto) (45-73) % Lymph % (Auto) (20-40) % [place] % (Auto) (2-11) % Eos % (Auto) (0-4) % Baso % (Auto) (0-2) % Lymph # (Auto) (1.2-4.9) X10*3/uL [place] # (Auto) (0.1-1.2) X10*3/uL Eos # (Auto) (0.0-0.4) X10*3/uL Baso # (Auto) (0.0-0.2) X10*3/uL Abs Immat Gran (auto) (0.00-0.03) X10*3/uL Absolute Neuts (auto) (2.0-8.3) x10*3/uL Absolute Nucleated RBC (0.0-0.012) X10*3/uL Nucleated RBC % (auto) (0.0-0.2) /100WBC Sodium (135-145) mmol/L Potassium (3.3-5.1) mmol/L Chloride (96-108) mmol/L Carbon Dioxide (22-29) mmol/L Anion Gap (12-20) BUN (9-16) mg/dL Creatinine (0.5-1.4) mg/dL Estim Creat Clear Calc Estimated GFR Random Glucose (60-115) mg/dL Lactic Acid 0.7 (0.5-2.0) mmol/L Calcium (8.4-10.2) mg/dL Magnesium (1.6-2.6) mg/dL Total Bilirubin (0.0-1.0) mg/dL AST (5-31) U/L ALT (0-31) U/L Alkaline Phosphatase (39-117) U/L Troponin I High Sens (<3.5-17.0) ng/L Total Protein (6.5-8.0) g/dL Albumin (3.5-5.0) g/dL Lipase (8-78) U/L Urine Color Urine Appearance Urine pH (5.0-8.0) Ur Specific [place] (1.005-1.025) Urine Protein (NEG-TRACE) MG/DL Urine Glucose (UA) (NEG) MG/DL Urine Ketones (NEG) MG/DL Urine Blood (NEG) Urine Nitrite (NEG) Ur Leukocyte Esterase (NEG) Urine RBC (0) /HPF Urine WBC (0-4) /HPF Ur Squamous Epith Cells /LPF Urine Bacteria /LPF COVID-19 ([facility]) (Negative) COVID-19 Clin Com ECG Data Attestation: I personally reviewed and interpreted this ECG as follows: ECG interpretation date: 08/27/21 ECG interpretation time: 09:30 Interpretation: Rate: 73 Rhythm: NSR with sinus arrhythmia [place]: normal Normal P waves. Normal CHUY. Normal QRS complex. ST T wave : no EDIS, nonspecific artifact noted qTC: normal prior studies: no acute ischemia The study has been interpreted contemporaneously by me. . Discharge Plan Discharge Clinical Impression: Acute UTI Vomiting Qualifiers: Vomiting type: unspecified Nausea presence: with nausea Qualified Code(s): R11.2 - Nausea with vomiting, unspecified Abdominal pain Qualifiers: Abdominal location: epigastric Qualified Code(s): R10.13 - Epigastric pain Patient Disposition: Admitted As Inpatient [facility] Past Medical History Medical History Arthritis Back pain Cellulitis of both feet Cervical radiculopathy Derangement of left knee History of fracture of left hip History of left shoulder fracture Overweight (BMI 25.0-29.9) Scoliosis Surgical History History of open reduction and internal fixation (ORIF) procedure Family History Family History Father Medical history unknown Mother Medical history unknown Social History Social History Alcohol intake: current Alcohol intake frequency: holidays/special occasions only Patient Tobacco Use Status: Never used Tobacco Use of substances other than those prescribed or required for medical reasons: No Advance Directives: No Advance Directives Information Provided: No
[2021-08-27 09:40] VITALS: BP 151/76; PULSE 85; RESP 16; TEMP 36.4; O2SAT 98
[2021-08-27 10:06] LABS: Lipase 8 U/L (8-78); Magnesium 1.7 mg/dL (1.6-2.6)
[2021-08-27 10:13] LABS: Troponin-I High Sensitivity < 3.5 ng/L (<3.5-17.0)
[2021-08-27] MEDS: 0.9 % Sodium Chloride 500 ML IV (10:21)
[2021-08-27] MEDS: ondansetron HCL 4 MG/2 ML VIAL IVPUSH (10:22)
[2021-08-27] MEDS: Famotidine/PF 20 MG/2 ML VIAL IVPUSH (10:22)
[2021-08-27] MEDS: Morphine Sulfate 4 MG/ML CARTRIDGE IVPUSH (10:22)
--- NOTE | 2021-08-27 10:25 | PC.NURSE ---
pt alert and oriented,skin pwd, respirations even and unlabored, pt reports sever umbilical pain and pain under her right breast that started at 0100, vomiting, pain at 10/10
[2021-08-27] MEDS: iohexoL 350 MG/ML 100 ML INFUS..BTL IV (10:36)
[2021-08-27 10:49] VITALS: BP 126/60; PULSE 90; RESP 20; O2SAT 95
--- NOTE | 2021-08-27 11:30 | PC.NURSE ---
pt resting with her eyes shut, reports no improvement in her pain still 10/10 and having nausea, no vomiting at this time
[2021-08-27] MEDS: Metoclopramide HCl 10 MG/2 ML VIAL 5 MG IVPUSH (12:01)
[2021-08-27] MEDS: diphenhydrAMINE HCL 50 MG/ML VIAL 25 MG IVPUSH (12:02)
[2021-08-27 12:08] LABS: Appearance Urine CLEAR; Color Urine YELLOW; Glucose Urine UA NEG (NEG); Leukocyte Esterase Urine NEG (NEG); Nitrite Urine POS (NEG); Specific Gravity - Urine <= 1.005 (1.005-1.025); UACC Culture Trigger YES; Urine Blood TRACE (NEG); Urine Ketones 40 MG/DL (NEG); Urine Protein NEG (NEG-TRACE)
[2021-08-27 12:23] LABS: Bacteria Urine 2+ /LPF; RBC Urine 0-2 /HPF (0); Squamous Epithelial Cell Urine TRACE /LPF
[2021-08-27 12:48] LABS: COVID-19 Test Negative (Negative)
[2021-08-27 14:16] LABS: Lactic Acid 0.7 mmol/L (0.5-2.0)
[2021-08-27] MEDS: cefTRIAXone sodium 1 GM in 0.9 % Sodium Chloride 50 ML IV (14:28)
[2021-08-27 14:29] VITALS: BP 150/75; PULSE 98; RESP 18; O2SAT 94
--- NOTE | 2021-08-27 16:26 | PM.IMHP ---
History of Present Illness Date of Service: 08/27/21 <Stefany Brooks NP - Last Filed: 08/27/21 16:54> Chief Complaint: Abdominal pain <Stefany Brooks NP - Last Filed: 08/27/21 16:54> 70 year old women presenting with abdominal pain, intractable nausea and vomiting for the last week. She denied chest pain, shortness of breath, fever, recent travel or sick contacts. She reported poor appetite. Abdominal CT showed constipation with no other acute abnormality. She takes buprenorphine at home and this likely is contributing. her vital signs are stable, labs within acceptable limits. She was given a dose of ceftriaxone, bisacodyl, Reglan, morphine, Pepcid, Zofran. She will be placed on observation for UTI and intractable nausea vomiting with abdominal pain <Stefany Brooks NP - Last Filed: 08/27/21 16:54> Review of Systems Review of Systems: Denies any recent fever chills or decrease in appetite respiratory denies any shortness of breath coverage production cardiovascular See HPI gastrointestinal denies any dysphagia abdominal pain nausea vomiting or diarrhea genitourinary denies any dysuria frequency or hematuria musculoskeletal denies any joint pain or swelling neuropsych denies any weakness or seizures all other systems reviewed are negative <Stefany Brooks NP - Last Filed: 08/27/21 16:54> [facility] Medical History: Medical History Arthritis Back pain Cellulitis of both feet Cervical radiculopathy Derangement of left knee History of fracture of left hip History of left shoulder fracture Overweight (BMI 25.0-29.9) Scoliosis <Stefany Brooks NP - Last Filed: 08/27/21 16:54> Family History: Family History Father Medical history unknown Mother Medical history unknown <Stefany Brooks NP - Last Filed: 08/27/21 16:54> Surgical History: Surgical History History of open reduction and internal fixation (ORIF) procedure <Stefany Brooks NP - Last Filed: 08/27/21 16:54> Social History: Social History Alcohol intake: current Alcohol intake frequency: holidays/special occasions only Patient Tobacco Use Status: Never used Tobacco Use of substances other than those prescribed or required for medical reasons: No Advance Directives: No Advance Directives Information Provided: No <Stefany Brooks NP - Last Filed: 08/27/21 16:54> Meds Allergies/Adverse reactions: Allergies Allergy/AdvReac Type Severity Reaction Status Date / Time aspirin [ASPIRIN] Allergy Mild STOMACH Verified 07/03/21 12:34 UPSET codeine [CODEINE] AdvReac Unknown STOMACH Verified 07/03/21 12:34 UPSET <Stefany Brooks NP - Last Filed: 08/27/21 16:54> Active Medications: Current Medications Acetaminophen (Acetaminophen 325 Mg Tablet) 650 mg PO Q6H PRN PRN Reason: Pain, Mild (Pain Scale 1-3) Enoxaparin Sodium (Enoxaparin Sodium 40 Mg/0.4 Ml Syringe) 40 mg SUBCUT Q24H SARAH Ceftriaxone Sodium 1 gm/ (Sodium Chloride) 50 mls @ 100 mls/hr IV Q24H SARAH Ondansetron HCl (Ondansetron Hcl 4 Mg/2 Ml Vial) 4 mg IVPUSH Q8H PRN PRN Reason: Nausea and Vomiting Pharmacy Consult (Consult Rx Perform Med Rec) 1 each MISCELLANE ONCE PRN PRN Reason: Consult order Sodium Chloride (0.9 % Sodium Chloride Flush 3 Ml Syringe) 3 ml IVFLUSH QSHIFT SARAH <Stefany Brooks NP - Last Filed: 08/27/21 16:54> Home medications: Home Medications Medication Instructions Recorded Confirmed Last Taken Type omeprazole 20 mg capsule,delayed 20 mg PO DAILY cap 03/28/21 07/03/21 Unknown History release <Stefany Brooks NP - Last Filed: 08/27/21 16:54> Physical Exam Vital Signs and Narrative: Vital Signs: Last Vital Signs Temp 97.5 F 08/27/21 09:40 Pulse 98 08/27/21 14:29 Resp 18 08/27/21 14:29 BP 150/75 H 08/27/21 14:29 Pulse Ox 94 08/27/21 14:29 BMI result Body Mass Index 20.0 <Stefany Brooks NP - Last Filed: 08/27/21 16:54> Appearing in no acute distress head is normocephalic atraumatic eyes pupils are PERRLA sclera is anicteric mouth throat mucous membranes are intact and moist neck is supple no lymphadenopathy, no JVD noted lung sounds are clear to auscultation heart regular rate rhythm, clear S1, S2 positive bowel sounds, abdomen is soft, nontender neuro patient is alert x3, no focal deficits <Stefany Brooks RETAIL SPECIALIST - Last Filed: 08/27/21 16:54> Results Labs CBC and Chem 7: : 08/27/21 07:20 08/27/21 07:20 <Stefany Brooks RETAIL SPECIALIST - Last Filed: 08/27/21 16:54> Labs: Laboratory Results - last 24 hr 08/27/21 08/27/21 08/27/21 07:20 07:20 07:20 MCV 90.8 MCH 29.1 MCHC 32.0 RDW 15.2 Plt Count 220 MPV 9.9 Immature Gran % (Auto) 0.3 Neut % (Auto) 85.2 H Lymph % (Auto) 8.7 L [place] % (Auto) 5.6 Eos % (Auto) 0.1 Baso % (Auto) 0.1 Lymph # (Auto) 0.8 L [place] # (Auto) 0.5 Eos # (Auto) 0.0 Baso # (Auto) 0.0 Abs Immat Gran (auto) 0.03 Absolute Neuts (auto) 7.7 Absolute Nucleated RBC 0.000 Nucleated RBC % (auto) 0.0 Anion Gap 14 Estim Creat Clear Calc 61.5 Estimated GFR > 60 Random Glucose 135 H Lactic Acid Calcium 9.3 Magnesium 1.7 Total Bilirubin 0.4 AST 17 ALT 9 Alkaline Phosphatase 82 Troponin I High Sens < 3.5 Total Protein 6.7 Albumin 4.2 Lipase 8 Urine Color Urine Appearance Urine pH Ur Specific [place] Urine Protein Urine Glucose (UA) Urine Ketones Urine Blood Urine Nitrite Ur Leukocyte Esterase Urine RBC Urine WBC Ur Squamous Epith Cells Urine Bacteria COVID-19 ([facility]) COVID-19 Clin Com 08/27/21 08/27/21 08/27/21 09:47 11:43 11:44 MCV MCH MCHC RDW Plt Count MPV Immature Gran % (Auto) Neut % (Auto) Lymph % (Auto) [place] % (Auto) Eos % (Auto) Baso % (Auto) Lymph # (Auto) [place] # (Auto) Eos # (Auto) Baso # (Auto) Abs Immat Gran (auto) Absolute Neuts (auto) Absolute Nucleated RBC Nucleated RBC % (auto) Anion Gap Estim Creat Clear Calc Estimated GFR Random Glucose Lactic Acid Calcium Magnesium Total Bilirubin AST ALT Alkaline Phosphatase Troponin I High Sens < 3.5 Total Protein Albumin Lipase Urine Color YELLOW Urine Appearance CLEAR Urine pH 8.0 Ur Specific [place] <= 1.005 Urine Protein NEG Urine Glucose (UA) NEG Urine Ketones 40 Urine Blood TRACE Urine Nitrite POS H Ur Leukocyte Esterase NEG Urine RBC 0-2 Urine WBC 5-9 H Ur Squamous Epith Cells TRACE Urine Bacteria 2+ COVID-19 ([facility]) Negative COVID-19 Clin Com See Note 08/27/21 13:38 MCV MCH MCHC RDW Plt Count MPV Immature Gran % (Auto) Neut % (Auto) Lymph % (Auto) [place] % (Auto) Eos % (Auto) Baso % (Auto) Lymph # (Auto) [place] # (Auto) Eos # (Auto) Baso # (Auto) Abs Immat Gran (auto) Absolute Neuts (auto) Absolute Nucleated RBC Nucleated RBC % (auto) Anion Gap Estim Creat Clear Calc Estimated GFR Random Glucose Lactic Acid 0.7 Calcium Magnesium Total Bilirubin AST ALT Alkaline Phosphatase Troponin I High Sens Total Protein Albumin Lipase Urine Color Urine Appearance Urine pH Ur Specific [place] Urine Protein Urine Glucose (UA) Urine Ketones Urine Blood Urine Nitrite Ur Leukocyte Esterase Urine RBC Urine WBC Ur Squamous Epith Cells Urine Bacteria COVID-19 ([facility]) COVID-19 Clin Com <Stefany Brooks NP - Last Filed: 08/27/21 16:54> Imaging Radiologist's Impressions: Impressions Chest X-Ray 08/27/21 10:04 IMPRESSION: Unremarkable chest exam Abdomen/Pelvis CT 08/27/21 10:54 IMPRESSION: Diverticulosis. No evidence of diverticulitis. Stool throughout the colon questionable for constipation. 3 x 19 mm high attenuation density in the second portion of duodenum, question representing something the patient has ingested. Clinical correlation recommended. No evidence of obstruction or perforation seen. Bilateral renal cysts. Fleischner guidelines were followed. <Stefany Brooks NP - Last Filed: 08/27/21 16:54> Assessment and Plan (1) Acute UTI: Status: Acute <Stefany Brooks NP - Last Filed: 08/27/21 16:54> (2) Abdominal pain: Qualifiers: Abdominal location: epigastric Qualified Code(s): R10.13 - Epigastric pain <Stefany Brooks NP - Last Filed: 08/27/21 16:54> Status: Acute <Stefany Brooks NP - Last Filed: 08/27/21 16:54> (3) Nausea and vomiting: Status: Acute <Stefany Brooks NP - Last Filed: 08/27/21 16:54> 70 year old women placed on observation with acute UTI and constipation UTI Rocephin follow urine cx Constipation. Likely related to pain medication suppository MiraLax Right upper quadrant abdominal pain. Likely secondary constipation Nausea and vomiting. Likely secondary to urinary tract infection with some component of constipation Antiemetics Encourage oral intake Mental health Continue home medications DVT prophylaxis Lovenox Attending Dr. Parish Full code <Stefany Brooks NP - Last Filed: 08/27/21 16:54> 70 year old women placed on observation with acute UTI and constipation UTI Rocephin follow urine cx Constipation. Likely related to pain medication suppository MiraLax Right upper quadrant abdominal pain. Likely secondary constipation Nausea and vomiting. Likely secondary to urinary tract infection with some component of constipation Antiemetics Encourage oral intake Mental health Continue home medications DVT prophylaxis Lovenox Attending Dr. Parish Full code I personally examined pt and reviewed records. Agree with H+P/plan as outlined by Ms. Todd SÁNCHEZ <Cain Parish, - Last Filed: 08/27/21 17:05> Quality Stroke Does the patient have a stroke diagnosis?: No <Stefany Brooks NP - Last Filed: 08/27/21 16:54> VTE Prior VTE?: No <Stefany Brooks NP - Last Filed: 08/27/21 16:54> VTE Risk Level:: Medical - moderate - high <Stefany Brooks NP - Last Filed: 08/27/21 16:54> VTE Device Contraindication: Treatment Not Indicated <Stefany Brooks NP - Last Filed: 08/27/21 16:54> VTE Drug Contraindication: N/A - Med Ordered <Stefany Brooks NP - Last Filed: 08/27/21 16:54>
--- NOTE | 2021-08-27 17:27 | PHA.MEDREC ---
Pharmacy Consult ? Medication Reconciliation Pharmacy has completed the medication reconciliation.
[2021-08-27] MEDS: bisacodyL 10 MG SUPP.RECT PR (18:10)
== END 2021-08-27 18:40 | disposition home or self-care (01) ==
LOC: HO.ED 14:30 → HO.EDOVER 15:29
PROVIDERS: Admitting Provider Nurse Practitioner Acute Care; Emergency Provider Emergency Medicine; PCP Physician Assistant Medical; Visit Provider Nurse Practitioner Acute Care
DX: N39.0 Urinary tract infection, site not specified (principal); R11.2 Nausea with vomiting, unspecified; R10.13 Epigastric pain; R07.9 Chest pain, unspecified; K59.00 Constipation, unspecified; K57.30 Diverticulosis of large intestine without perforation or abscess without bleeding; Q61.3 Polycystic kidney, unspecified; I49.8 Other specified cardiac arrhythmias; I50.30 Unspecified diastolic (congestive) heart failure; Z20.822 Contact with and (suspected) exposure to COVID-19; Z88.6 Allergy status to analgesic agent; Z79.899 Other long term (current) drug therapy
CPT/HCPCS: 36415; 71045; 74177; 80053; 81001; 81003; 83605; 83690; 83735; 84484; 85025; 87040; 87086; 87088; 87186; 87635; 93005; 96361; 96365; 96375; 99218; 99284; 99285; J0696; J1200; J2270; J2405; J2765; Q9967

== ENCOUNTER → 2021-08-28 08:32 | Outpatient (BNVA) | payer MEDICARE, MEDICAID, SELFPAY | PROVIDERS: Visit Provider Nurse Practitioner Family | DX: Z51.81 Encounter for therapeutic drug level monitoring (principal); F11.20 Opioid dependence, uncomplicated; M54.12 Radiculopathy, cervical region; M79.18 Myalgia, other site; Z87.81 Personal history of (healed) traumatic fracture | CPT/HCPCS: 99212 ==

== ENCOUNTER → 2021-11-02 11:39 | Outpatient (BNVA) | payer MEDICARE, MEDICAID, SELFPAY | PROVIDERS: Visit Provider Nurse Practitioner Family | DX: Z13.89 Encounter for screening for other disorder (principal) ==

== ENCOUNTER → 2021-12-28 09:51 | Outpatient (BNVA) | payer MEDICARE, MEDICAID, SELFPAY | PROVIDERS: Visit Provider Nurse Practitioner Family | DX: Z51.81 Encounter for therapeutic drug level monitoring (principal); Z79.891 Long term (current) use of opiate analgesic | CPT/HCPCS: 99211 ==

== ENCOUNTER → 2022-02-20 13:45 | Outpatient (BNVA) | payer MEDICARE, MEDICAID, SELFPAY | PROVIDERS: Visit Provider Nurse Practitioner Family | DX: Z79.891 Long term (current) use of opiate analgesic (principal) | CPT/HCPCS: 99211 ==

== ENCOUNTER → 2022-04-17 13:34 | Outpatient (BNVA) | payer MEDICARE, MEDICAID, SELFPAY | PROVIDERS: Visit Provider Nurse Practitioner Family | DX: M54.12 Radiculopathy, cervical region (principal); M79.18 Myalgia, other site; M47.816 Spondylosis without myelopathy or radiculopathy, lumbar region; M47.814 Spondylosis without myelopathy or radiculopathy, thoracic region; M25.561 Pain in right knee; M25.562 Pain in left knee; Z79.891 Long term (current) use of opiate analgesic; Z87.81 Personal history of (healed) traumatic fracture | CPT/HCPCS: 99212 ==

== ENCOUNTER → 2022-06-14 14:09 | Outpatient (BNVA) | payer MEDICARE, MEDICAID, SELFPAY | PROVIDERS: Visit Provider Nurse Practitioner Family | DX: Z51.81 Encounter for therapeutic drug level monitoring (principal); F11.90 Opioid use, unspecified, uncomplicated; M79.18 Myalgia, other site; M47.816 Spondylosis without myelopathy or radiculopathy, lumbar region; M47.814 Spondylosis without myelopathy or radiculopathy, thoracic region; G89.4 Chronic pain syndrome; Z87.81 Personal history of (healed) traumatic fracture | CPT/HCPCS: 99212 ==

== ENCOUNTER → 2022-08-09 15:16 | Outpatient (BNVA) | payer MEDICARE, MEDICAID, SELFPAY | PROVIDERS: Visit Provider Nurse Practitioner Family | DX: Z51.81 Encounter for therapeutic drug level monitoring (principal); F11.20 Opioid dependence, uncomplicated | CPT/HCPCS: 99211 ==

== ENCOUNTER → 2022-10-15 15:22 | Outpatient (BNVA) | payer MEDICARE, MEDICAID, SELFPAY | PROVIDERS: Visit Provider Nurse Practitioner Family | DX: G89.4 Chronic pain syndrome (principal); M79.18 Myalgia, other site; M47.816 Spondylosis without myelopathy or radiculopathy, lumbar region; M47.814 Spondylosis without myelopathy or radiculopathy, thoracic region; Z79.891 Long term (current) use of opiate analgesic; Z87.81 Personal history of (healed) traumatic fracture | CPT/HCPCS: 99212 ==

== ENCOUNTER → 2022-12-10 09:36 | Outpatient (BNVA) | payer MEDICARE, MEDICAID, SELFPAY | PROVIDERS: Visit Provider Nurse Practitioner Family | DX: Z79.891 Long term (current) use of opiate analgesic (principal) | CPT/HCPCS: 99211 ==

== ENCOUNTER → 2023-01-27 15:20 | Outpatient (BNVA) | payer MEDICARE, MEDICAID, SELFPAY | PROVIDERS: PCP Physician Assistant Medical; Visit Provider Nurse Practitioner Family | DX: M54.12 Radiculopathy, cervical region (principal); M47.814 Spondylosis without myelopathy or radiculopathy, thoracic region; M47.816 Spondylosis without myelopathy or radiculopathy, lumbar region; M79.18 Myalgia, other site; G89.4 Chronic pain syndrome; F11.90 Opioid use, unspecified, uncomplicated | CPT/HCPCS: 99212 ==

== ENCOUNTER → 2023-03-25 13:13 | Outpatient (BNVA) | payer MEDICARE, MEDICAID, SELFPAY | PROVIDERS: PCP Physician Assistant Medical; Visit Provider Registered Nurse Emergency | DX: M47.814 Spondylosis without myelopathy or radiculopathy, thoracic region (principal); M47.816 Spondylosis without myelopathy or radiculopathy, lumbar region; M79.18 Myalgia, other site; M54.12 Radiculopathy, cervical region; G89.4 Chronic pain syndrome; Z79.891 Long term (current) use of opiate analgesic | CPT/HCPCS: 99212 ==

== ENCOUNTER 2023-03-25 13:14 | Outpatient (AMB) | payer MEDICARE, MEDICAID, SELFPAY ==
--- NOTE | 2023-03-25 13:16 | A.OFFVIS_ITS ---
Intake Vital Signs 03/25/23 13:17 Height 5 ft 5 in Weight 139 lb BMI 23.1 BP 174/80 H Blood Pressure Location Rt brachial Position Sitting Respiration 14 Intake Visit Reasons: Film Count/random UDS Intake Note: Pt states she last took belbuca 03/25/23 @ 12pm Allergies aspirin [ASPIRIN] Allergy (Mild, Verified 03/25/23 13:18) STOMACH UPSET codeine [CODEINE] Adverse Reaction (Unknown, Verified 03/25/23 13:18) STOMACH UPSET Medication List - Last Reconciled 03/25/23 by Kena Edmonds LPN buprenorphine HCl 900 mcg buccal Q12H 30 days clonazepam 0.5 mg PO BID 30 days ergocalciferol (vitamin D2) 1,250 mcg PO MCCARTNEY furosemide (Lasix) 80 mg PO DAILY 90 days lidocaine 5% 2 patches topical DAILY PRN 30 days mirtazapine 15 mg PO BEDTIME pregabalin mg PO HPI HPI Comments History of Present Illness Details Michelle is a pleasant 72 year old female who presents to the office for follow up chronic back pain and chronic opioid therapy management. Patient is prescribed belbuca 900mcg films, take 1 film twice daily. Patient arrived today with the expectation of having 0 films, she presented 4 films which were counted in the presence of 2 staff and return to the patient in the original prescription box. This demonstrates responsible attitude toward patient's opioid medications. Pain is well managed on current opioid regimen. Patient denies any recent changes or exacerbations of chronic pain and states she is able to engage in activities of daily living with minimal interruption due to chronic pain. Patient denies side effects including somnolence, constipation, itching, dyspnea, rash, dizziness or weakness. Prior: Patient a pleasant 72 year old female who has been receiving medical management for multiple pain generators related to osteoarthritis, thoracic/lumbar spondylosis and fibromyalgia. Today she returns for a film count. This patient is supposed to have #2 belbuca films and she presents with #5. This demonstrates a responsible attitude in regards to the opioid regimen. Denies any constipation, sedation, nausea, dizziness or urinary retention. Patient reports she is less symptomatic and more funcitonal on her current regimen. Patient states she is continuing therapeutic injections for her neck, knees and right foot pain through [facility] with Dr. Zaldivar with good results. She reports recent cervical spine MRI and is scheduled for therapeutic cervical injections. [facility] Medical History Arthritis Back pain Cellulitis of both feet Cervical radiculopathy Derangement of left knee History of fracture of left hip History of left shoulder fracture Overweight (BMI 25.0-29.9) Scoliosis Surgical History History of open reduction and internal fixation (ORIF) procedure Family History Father Medical history unknown Mother Medical history unknown Social History Alcohol intake: current Alcohol intake frequency: holidays/special occasions only Patient Tobacco Use Status: Never used Tobacco Review of Systems Const All systems reviewed & are unremarkable except as noted in HPI and below Physical Exam Vital Signs: Last Vital Signs Resp 14 03/25/23 13:17 BP 174/80 H 03/25/23 13:17 BMI result Body Mass Index 23.1 General: awake, alert, oriented. Answers questions appropriately. Fully engaged in examination. Skin: warm, dry, intact HEENT: Normocephalic. Conjuntivae clear without exudate. Sclera non-icteric. Hearing intact. Cardiac: External chest normal in appearance. Respiratory: No signs of trauma. No signs of respiratory distress. No cough, audible wheezing or stridor. Abdomen: without gross distension. MS: No obvious swelling or deformities. Able to transition from sit to stand unassisted. Ambulates with bilaterally normal heel strike and toe off Neurological: Oriented to person, place, time and situation. Thought process intact. Psychiatric: Appropriate mood and affect. Good judgment and insight. Assessment & Plan Assessment & Plan (1) Myofascial pain: Code(s): M79.18 - Myalgia, other site (2) Spondylosis of lumbar spine: Code(s): M47.816 - Spondylosis without myelopathy or radiculopathy, lumbar region (3) Spondylosis of thoracic spine: Code(s): M47.814 - Spondylosis without myelopathy or radiculopathy, thoracic region (4) Chronic, continuous use of opioids: Code(s): F11.90 - Opioid use, unspecified, uncomplicated (5) Chronic pain syndrome: Code(s): G89.4 - Chronic pain syndrome (6) Cervical radiculopathy: Code(s): M54.12 - Radiculopathy, cervical region Plan [place] was reviewed and without concerns. No obvious signs of diversion, abuse or misuse of the opioid medications. Will send in prescription for belbuca 900mcg buccal films, take one film twice daily #60films with 1 refill. Patient to follow-up in the office in 2 months, sooner if needed. All questions and concerns have been answered and patient agrees with the plan. Medications: Refilled buprenorphine HCl Partial Fill upon patient request. 900 mcg buccal Q12H 30 days 60 ea 1RF pain, severe F11.90 - Opioid use, unspecified, uncomplicated, G89.4 - Chronic pain syndrome, M47.814 - Spondylosis without myelopathy or radiculopathy, thoracic region, M47.816 - Spondylosis without myelopathy or radiculopathy, lumbar region Coding Level of Care Code Est Pt Level 3 (11553) Diagnoses Myofascial pain M79.18 Spondylosis of lumbar spine M47.816 Spondylosis of thoracic spine M47.814 Chronic, continuous use of opioids F11.90 Chronic pain syndrome G89.4 Cervical radiculopathy M54.12
[2023-03-25 13:17] VITALS: BP 174/80; RESP 14; BMI 23.1
== END 2023-03-25 13:39 | disposition home or self-care (01) ==
PROVIDERS: PCP Physician Assistant Medical; Visit Provider Registered Nurse Emergency
DX: M79.18 Myalgia, other site (principal); M47.816 Spondylosis without myelopathy or radiculopathy, lumbar region; M47.814 Spondylosis without myelopathy or radiculopathy, thoracic region; Z79.891 Long term (current) use of opiate analgesic; G89.4 Chronic pain syndrome; M54.12 Radiculopathy, cervical region
CPT/HCPCS: 99213

== ENCOUNTER → 2023-05-01 13:24 | Outpatient (BNVA) | payer MEDICARE, MEDICAID, SELFPAY | PROVIDERS: PCP Physician Assistant Medical; Visit Provider Nurse Practitioner Family ==

== ENCOUNTER 2023-05-20 13:12 | Outpatient (AMB) | payer MEDICARE, MEDICAID, SELFPAY ==
--- NOTE | 2023-05-20 13:14 | A.OFFVIS_ITS ---
Intake Vital Signs 05/20/23 13:15 Height 5 ft 5 in Weight 131 lb BMI 21.8 BP 126/70 Blood Pressure Location Lt brachial Position Sitting Respiration 14 Pulse 97 Pulse Source Pulse Oximeter Pulse Oximetry (%) 97 Oxygen Delivery Method Room Air Intake Visit Reasons: Film count Intake Note: Pt states she last took Belbuca 05/20/23 @ 8am Allergies aspirin [ASPIRIN] Allergy (Mild, Verified 05/20/23 13:17) STOMACH UPSET codeine [CODEINE] Adverse Reaction (Unknown, Verified 05/20/23 13:17) STOMACH UPSET Medication List - Last Reconciled 05/20/23 by Kena Edmonds LPN alendronate 70 mg PO QWEEK buprenorphine HCl 900 mcg buccal Q12H 30 days clonazepam 0.5 mg PO BID 30 days duloxetine 120 mg PO DAILY ergocalciferol (vitamin D2) 1,250 mcg PO MCCARTNEY furosemide (Lasix) 80 mg PO DAILY 90 days lidocaine 5% 2 patches topical DAILY PRN 30 days mirtazapine 15 mg PO BEDTIME HPI HPI Comments History of Present Illness Details Michelle is a very pleasant 72 year old female who presents to the office for follow up chronic pain and chronic opioid therapy management. Patient is prescribed belbuca 900mcg films, take 1 film twice daily. Patient arrived today with the expectation of having 22 films, she presented 25 films which were counted in the presence of two staff members and returned to the patient in the original prescription box. This demonstrates responsible attitude toward patient's opioid medications. Pain is well managed on current opioid regimen. Patient denies any recent changes or exacerbations of chronic pain and states she is able to engage in activities of daily living with minimal interruption due to chronic pain. She is also requesting a refill of her lidocaine patches today. Patient denies side effects including somnolence, constipation, itching, dyspnea, rash, dizziness or weakness. Previously: Patient a pleasant 72 year old female who has been receiving medical management for multiple pain generators related to osteoarthritis, thoracic/lumbar spondylosis and fibromyalgia. Today she returns for a film count. This patient is supposed to have #2 belbuca films and she presents with #5. This demonstrates a responsible attitude in regards to the opioid regimen. Denies any constipation, sedation, nausea, dizziness or urinary retention. Patient reports she is less symptomatic and more funcitonal on her current regimen. Patient states she is continuing therapeutic injections for her neck, knees and right foot pain through [facility]SS[facility] with Dr. Zaldivar with good results. She reports recent cervical spine MRI and is scheduled for therapeutic cervical injections. [facility] Medical History Arthritis Back pain Cellulitis of both feet Cervical radiculopathy Derangement of left knee History of fracture of left hip History of left shoulder fracture Overweight (BMI 25.0-29.9) Scoliosis Surgical History History of open reduction and internal fixation (ORIF) procedure Family History Father Medical history unknown Mother Medical history unknown Social History Alcohol intake: current Alcohol intake frequency: holidays/special occasions only Patient Tobacco Use Status: Never used Tobacco Review of Systems Const All systems reviewed & are unremarkable except as noted in HPI and below Physical Exam Vital Signs: Last Vital Signs Pulse 97 05/20/23 13:15 Resp 14 05/20/23 13:15 BP 126/70 05/20/23 13:15 Pulse Ox 97 05/20/23 13:15 Oxygen Delivery Method Room Air 05/20/23 13:15 BMI result Body Mass Index 21.8 General: awake, alert, oriented. Answers questions appropriately. Fully engaged in examination. Skin: warm, dry, intact HEENT: Normocephalic. Conjuntivae clear without exudate. Sclera non-icteric. Hearing intact. Cardiac: External chest normal in appearance. Respiratory: No signs of trauma. No signs of respiratory distress. No cough, audible wheezing or stridor. Abdomen: without gross distension. MS: No obvious swelling or deformities. Able to transition from sit to stand unassisted. Ambulates with bilaterally normal heel strike and toe off Neurological: Oriented to person, place, time and situation. Thought process intact. Psychiatric: Appropriate mood and affect. Good judgment and insight. Assessment & Plan Assessment & Plan (1) Myofascial pain: Code(s): M79.18 - Myalgia, other site (2) Spondylosis of lumbar spine: Code(s): M47.816 - Spondylosis without myelopathy or radiculopathy, lumbar region (3) Spondylosis of thoracic spine: Code(s): M47.814 - Spondylosis without myelopathy or radiculopathy, thoracic region (4) Chronic, continuous use of opioids: Code(s): F11.90 - Opioid use, unspecified, uncomplicated (5) Chronic pain syndrome: Code(s): G89.4 - Chronic pain syndrome (6) Cervical radiculopathy: Code(s): M54.12 - Radiculopathy, cervical region Plan Masspat was reviewed and without concerns. No obvious signs of diversion, abuse or misuse of the opioid medications. Will send in prescription for belbuca 900mcg buccal films, take one film twice daily #60 films with 1 refill with advanced date 06/02/23. Lidocaine patches refilled today. Patient to follow-up in the office in 2 months, sooner if needed. All questions and concerns have been answered and patient agrees with the plan. Medications: Refilled lidocaine 5% leave on most painful area for up to 12 hrs 2 patches topical DAILY 30 days PRN 60 ea 5RF pain M25.561 - Pain in right knee, M25.562 - Pain in left knee buprenorphine HCl Partial Fill upon patient request. 900 mcg buccal Q12H 30 days 60 ea 1RF pain, severe F11.90 - Opioid use, unspecified, uncomplicated, G89.4 - Chronic pain syndrome, M47.814 - Spondylosis without myelopathy or radiculopathy, thoracic region, M47.816 - Spondylosis without myelopathy or radiculopathy, lumbar region Coding Level of Care Code Est Pt Level 3 (40890) Diagnoses Myofascial pain M79.18 Spondylosis of lumbar spine M47.816 Spondylosis of thoracic spine M47.814 Chronic, continuous use of opioids F11.90 Chronic pain syndrome G89.4 Cervical radiculopathy M54.12
[2023-05-20 13:15] VITALS: BP 126/70; PULSE 97; RESP 14; O2SAT 97; BMI 21.8
== END 2023-05-20 13:50 | disposition home or self-care (01) ==
PROVIDERS: PCP Physician Assistant Medical; Visit Provider Registered Nurse Emergency
DX: G89.4 Chronic pain syndrome (principal); M79.18 Myalgia, other site; M47.816 Spondylosis without myelopathy or radiculopathy, lumbar region; Z79.891 Long term (current) use of opiate analgesic; M47.814 Spondylosis without myelopathy or radiculopathy, thoracic region; M54.12 Radiculopathy, cervical region
CPT/HCPCS: 99213

== ENCOUNTER → 2023-05-20 13:12 | Outpatient (BNVA) | payer MEDICARE, MEDICAID, SELFPAY | PROVIDERS: PCP Physician Assistant Medical; Visit Provider Registered Nurse Emergency | DX: G89.4 Chronic pain syndrome (principal); M79.18 Myalgia, other site; M47.814 Spondylosis without myelopathy or radiculopathy, thoracic region; M47.816 Spondylosis without myelopathy or radiculopathy, lumbar region; M54.12 Radiculopathy, cervical region; Z79.891 Long term (current) use of opiate analgesic | CPT/HCPCS: 99212 ==

== ENCOUNTER 2023-07-18 12:59 | Outpatient (AMB) | payer MEDICARE, MEDICAID, SELFPAY ==
--- NOTE | 2023-07-18 13:04 | MHC.OFFVIS ---
Intake Vital Signs 07/18/23 13:05 Height 5 ft 5 in Weight 124 lb BMI 20.6 BP 122/69 Blood Pressure Location Lt brachial Position Sitting Respiration 14 Pulse 101 H Pulse Source Pulse Oximeter Pulse Oximetry (%) 97 Oxygen Delivery Method Room Air Intake Visit Reasons: PILL COUNT/NO VM Allergies aspirin [ASPIRIN] Allergy (Mild, Verified 07/18/23 13:05) STOMACH UPSET codeine [CODEINE] Adverse Reaction (Unknown, Verified 07/18/23 13:05) STOMACH UPSET HPI HPI Comments History of Present Illness Details Michelle is a very pleasant 72 year old female who presents to the office for follow up chronic pain and chronic opioid therapy management. Patient is prescribed belbuca 900mcg films, take 1 film twice daily. Patient arrived today with the expectation of having 14 films, she presented 13 films which were counted in the presence of two staff members and returned to the patient in the original prescription box. This demonstrates responsible attitude toward patient's opioid medications. Pain is adequately managed on current opioid regimen. Pain today rated as 9/10 with last dose of medication taken at 8:00 this morning. Patient denies any recent changes or exacerbations of chronic pain and states she is able to engage in activities of daily living with minimal interruption due to chronic pain. Patient denies side effects including somnolence, constipation, itching, dyspnea, rash, dizziness or weakness. Previously: Patient a pleasant 72 year old female who has been receiving medical management for multiple pain generators related to osteoarthritis, thoracic/lumbar spondylosis and fibromyalgia. Today she returns for a film count. This patient is supposed to have #2 belbuca films and she presents with #5. This demonstrates a responsible attitude in regards to the opioid regimen. Denies any constipation, sedation, nausea, dizziness or urinary retention. Patient reports she is less symptomatic and more funcitonal on her current regimen. Patient states she is continuing therapeutic injections for her neck, knees and right foot pain through [facility]SS[facility] with Dr. Zaldivar with good results. She reports recent cervical spine MRI and is scheduled for therapeutic cervical injections. [facility] Medical History Arthritis Back pain Cellulitis of both feet Cervical radiculopathy Derangement of left knee History of fracture of left hip History of left shoulder fracture Overweight (BMI 25.0-29.9) Scoliosis Surgical History History of open reduction and internal fixation (ORIF) procedure Family History Father Medical history unknown Mother Medical history unknown Social History Alcohol intake: current Alcohol intake frequency: holidays/special occasions only Patient Tobacco Use Status: Never used Tobacco Review of Systems Const All systems reviewed & are unremarkable except as noted in HPI and below Physical Exam Vital Signs: Last Vital Signs Pulse 101 H 07/18/23 13:05 Resp 14 07/18/23 13:05 BP 122/69 07/18/23 13:05 Pulse Ox 97 07/18/23 13:05 Oxygen Delivery Method Room Air 07/18/23 13:05 BMI result Body Mass Index 20.6 General: awake, alert, oriented. Answers questions appropriately. Fully engaged in examination. Skin: warm, dry, intact HEENT: Normocephalic. Conjuntivae clear without exudate. Sclera non-icteric. Hearing intact. Cardiac: External chest normal in appearance. Respiratory: No signs of trauma. No signs of respiratory distress. No cough, audible wheezing or stridor. Abdomen: without gross distension. MS: No obvious swelling or deformities. Able to transition from sit to stand unassisted. Ambulates with bilaterally normal heel strike and toe off Neurological: Oriented to person, place, time and situation. Thought process intact. Psychiatric: Appropriate mood and affect. Good judgment and insight. Assessment & Plan Assessment & Plan (1) Myofascial pain: Code(s): M79.18 - Myalgia, other site (2) Spondylosis of lumbar spine: Code(s): M47.816 - Spondylosis without myelopathy or radiculopathy, lumbar region (3) Spondylosis of thoracic spine: Code(s): M47.814 - Spondylosis without myelopathy or radiculopathy, thoracic region (4) Chronic, continuous use of opioids: Code(s): F11.90 - Opioid use, unspecified, uncomplicated (5) Chronic pain syndrome: Code(s): G89.4 - Chronic pain syndrome (6) Cervical radiculopathy: Code(s): M54.12 - Radiculopathy, cervical region Plan Masspat was reviewed and without concerns. No obvious signs of diversion, abuse or misuse of the opioid medications. Will send in prescription for belbuca 900mcg buccal films, take one film twice daily #60 films with 1 refill Patient to follow-up in the office in 2 months, sooner if needed. All questions and concerns have been answered and patient agrees with the plan. Medications: Refilled buprenorphine HCl Partial Fill upon patient request. 900 mcg buccal Q12H 30 days 60 ea 1RF pain, severe F11.90 - Opioid use, unspecified, uncomplicated, G89.4 - Chronic pain syndrome, M47.814 - Spondylosis without myelopathy or radiculopathy, thoracic region, M47.816 - Spondylosis without myelopathy or radiculopathy, lumbar region Coding Level of Care Code Est Pt Level 3 (94390) Diagnoses Myofascial pain M79.18 Spondylosis of lumbar spine M47.816 Spondylosis of thoracic spine M47.814 Chronic, continuous use of opioids F11.90 Chronic pain syndrome G89.4 Cervical radiculopathy M54.12
[2023-07-18 13:05] VITALS: BP 122/69; PULSE 101; RESP 14; O2SAT 97; BMI 20.6
== END 2023-07-18 13:16 | disposition home or self-care (01) ==
PROVIDERS: PCP Physician Assistant Medical; Visit Provider Registered Nurse Emergency
DX: M79.18 Myalgia, other site (principal); M47.816 Spondylosis without myelopathy or radiculopathy, lumbar region; M47.814 Spondylosis without myelopathy or radiculopathy, thoracic region; Z79.891 Long term (current) use of opiate analgesic; G89.4 Chronic pain syndrome; M54.12 Radiculopathy, cervical region
CPT/HCPCS: 99213

== ENCOUNTER → 2023-07-18 12:59 | Outpatient (BNVA) | payer MEDICARE, MEDICAID, SELFPAY | PROVIDERS: PCP Physician Assistant Medical; Visit Provider Registered Nurse Emergency | DX: Z51.81 Encounter for therapeutic drug level monitoring (principal); F11.20 Opioid dependence, uncomplicated; M79.18 Myalgia, other site; M47.816 Spondylosis without myelopathy or radiculopathy, lumbar region; M47.814 Spondylosis without myelopathy or radiculopathy, thoracic region; M54.12 Radiculopathy, cervical region; G89.4 Chronic pain syndrome | CPT/HCPCS: 99212 ==

== ENCOUNTER 2023-09-16 13:54 | Outpatient (AMB) | payer MEDICARE, MEDICAID, SELFPAY ==
--- NOTE | 2023-09-16 13:58 | A.OFFVIS_ITS ---
Intake Vital Signs 09/16/23 14:00 Height 5 ft 5 in Weight 124 lb BMI 20.6 Blood Pressure Location Lt brachial Position Sitting Respiration 12 Pulse 89 Pulse Source Pulse Oximeter Pulse Oximetry (%) 98 Oxygen Delivery Method Room Air Intake Visit Reasons: Medication Count Intake Note: Pt states she last took belbuca 09/16/23 @ 8am Allergies aspirin [ASPIRIN] Allergy (Mild, Verified 09/16/23 14:01) STOMACH UPSET codeine [CODEINE] Adverse Reaction (Unknown, Verified 09/16/23 14:01) STOMACH UPSET Medication List - Last Reconciled 09/16/23 by Kena Edmonds LPN alendronate 70 mg PO QWEEK amitriptyline 25 mg PO BEDTIME buprenorphine HCl 900 mcg buccal Q12H 30 days cholecalciferol (vitamin D3) 125 mcg PO DAILY clonazepam 0.5 mg PO BID 30 days duloxetine 120 mg PO DAILY ergocalciferol (vitamin D2) 1,250 mcg PO MCCARTNEY furosemide (Lasix) 80 mg PO DAILY 90 days hydroxyzine HCl 25 mg PO Q8H PRN lidocaine 5% 2 patches topical DAILY PRN 30 days mirtazapine 15 mg PO BEDTIME HPI HPI Comments History of Present Illness Details Michelle is a very pleasant 72 year old female who presents to the office for follow up chronic pain and chronic opioid therapy management. Patient is prescribed belbuca 900mcg films, take 1 film twice daily. Patient arrived today with the expectation of having 6 films, she presented 7.5 films which were counted in the presence of two staff members and returned to the patient in the original prescription box. This demonstrates responsible attitude toward patient's opioid medications. Pain is adequately managed on current opioid regimen. Pain today rated as 6/10 with last dose of medication taken at 8:00 this morning. Patient denies any recent changes or exacerbations of chronic pain and states she is able to engage in activities of daily living with minimal interruption due to chronic pain. Patient denies side effects including somnolence, constipation, itching, dyspnea, rash, dizziness or weakness. She is planning on having dental surgery in the near future. No date yet. Previously: Patient a pleasant 72 year old female who has been receiving medical management for multiple pain generators related to osteoarthritis, thoracic/lumbar spondylosis and fibromyalgia. Today she returns for a film count. This patient is supposed to have #2 belbuca films and she presents with #5. This demonstrates a responsible attitude in regards to the opioid regimen. Denies any constipation, sedation, nausea, dizziness or urinary retention. Patient reports she is less symptomatic and more funcitonal on her current regimen. Patient states she is continuing therapeutic injections for her neck, knees and right foot pain through [facility]SS[facility] with Dr. Zaldivar with good results. She reports recent cervical spine MRI and is scheduled for therapeutic cervical injections. [facility] Medical History Arthritis Back pain Cellulitis of both feet Cervical radiculopathy Derangement of left knee History of fracture of left hip History of left shoulder fracture Overweight (BMI 25.0-29.9) Scoliosis Surgical History History of open reduction and internal fixation (ORIF) procedure Family History Father Medical history unknown Mother Medical history unknown Social History Alcohol intake: current Alcohol intake frequency: holidays/special occasions only Patient Tobacco Use Status: Never used Tobacco Review of Systems Const All systems reviewed & are unremarkable except as noted in HPI and below Physical Exam Vital Signs: Last Vital Signs Pulse 89 09/16/23 14:00 Resp 12 09/16/23 14:00 Pulse Ox 98 09/16/23 14:00 Oxygen Delivery Method Room Air 09/16/23 14:00 BMI result Body Mass Index 20.6 General: awake, alert, oriented. Answers questions appropriately. Fully engaged in examination. Skin: warm, dry, intact HEENT: Normocephalic. Conjuntivae clear without exudate. Sclera non-icteric. Hearing intact. Cardiac: External chest normal in appearance. Respiratory: No signs of trauma. No signs of respiratory distress. No cough, audible wheezing or stridor. Abdomen: without gross distension. MS: No obvious swelling or deformities. Able to transition from sit to stand unassisted. Ambulates with bilaterally normal heel strike and toe off Neurological: Oriented to person, place, time and situation. Thought process intact. Psychiatric: Appropriate mood and affect. Good judgment and insight. Assessment & Plan Assessment & Plan (1) Myofascial pain: Code(s): M79.18 - Myalgia, other site (2) Spondylosis of lumbar spine: Code(s): M47.816 - Spondylosis without myelopathy or radiculopathy, lumbar region (3) Spondylosis of thoracic spine: Code(s): M47.814 - Spondylosis without myelopathy or radiculopathy, thoracic region (4) Chronic, continuous use of opioids: Code(s): F11.90 - Opioid use, unspecified, uncomplicated (5) Chronic pain syndrome: Code(s): G89.4 - Chronic pain syndrome (6) Cervical radiculopathy: Code(s): M54.12 - Radiculopathy, cervical region Plan Masspat was reviewed and without concerns. No obvious signs of diversion, abuse or misuse of the opioid medications. Will send in prescription for belbuca 900mcg buccal films, take one film twice daily #60 films with 1 refill Patient aware to keep the office updated on any pending procedures or potential for prescription opioid medications. She was advised that after surgery she may take prescription pain medications from the surgeon but our office must be notified prior to filling any other prescriptions and we will need documentation from the surgeons office. Patient to follow-up in the office in 2 months, sooner if needed. All questions and concerns have been answered and patient agrees with the plan. Medications: Refilled buprenorphine HCl Partial Fill upon patient request. 900 mcg buccal Q12H 30 days 60 ea 1RF pain, severe F11.90 - Opioid use, unspecified, uncomplicated, G89.4 - Chronic pain syndrome, M47.814 - Spondylosis without myelopathy or radiculopathy, thoracic region, M47.816 - Spondylosis without myelopathy or radiculopathy, lumbar region Coding Level of Care Code Est Pt Level 4 (61459) Diagnoses Myofascial pain M79.18 Spondylosis of lumbar spine M47.816 Spondylosis of thoracic spine M47.814 Chronic, continuous use of opioids F11.90 Chronic pain syndrome G89.4 Cervical radiculopathy M54.12
[2023-09-16 14:00] VITALS: PULSE 89; RESP 12; O2SAT 98; BMI 20.6
== END 2023-09-16 14:17 | disposition home or self-care (01) ==
PROVIDERS: PCP Physician Assistant Medical; Visit Provider Registered Nurse Emergency
DX: G89.4 Chronic pain syndrome (principal); M47.814 Spondylosis without myelopathy or radiculopathy, thoracic region; M79.18 Myalgia, other site; Z79.891 Long term (current) use of opiate analgesic; M47.816 Spondylosis without myelopathy or radiculopathy, lumbar region; M54.12 Radiculopathy, cervical region
CPT/HCPCS: 99214

== ENCOUNTER → 2023-09-16 13:54 | Outpatient (BNVA) | payer MEDICARE, MEDICAID, SELFPAY | PROVIDERS: PCP Physician Assistant Medical; Visit Provider Registered Nurse Emergency | DX: Z51.81 Encounter for therapeutic drug level monitoring (principal); F11.20 Opioid dependence, uncomplicated; M79.18 Myalgia, other site; M47.816 Spondylosis without myelopathy or radiculopathy, lumbar region; M47.814 Spondylosis without myelopathy or radiculopathy, thoracic region; M54.12 Radiculopathy, cervical region; G89.4 Chronic pain syndrome | CPT/HCPCS: 99212 ==

== ENCOUNTER 2023-11-13 14:47 | Outpatient (AMB) | payer MEDICARE, SELFPAY ==
--- NOTE | 2023-11-13 14:56 | MHC.OFFVIS ---
Intake Vital Signs 11/13/23 14:57 Height 5 ft 5 in Weight 126 lb BMI 21.0 BP 124/72 Blood Pressure Location Rt brachial Position Sitting Pulse 104 H Pulse Source Pulse Oximeter Pulse Oximetry (%) 98 Oxygen Delivery Method Room Air Intake Visit Reasons: Medication Count Intake Note: Michelle comes in today for a film count to [facility], patient should have 10 films and presents with 10 films which she last took today 11/13/23. Pain today 10/10 [employer] Required: No Accompanied by: Self / Same As Patient Allergies aspirin [ASPIRIN] Allergy (Mild, Verified 11/13/23 14:57) STOMACH UPSET codeine [CODEINE] Adverse Reaction (Unknown, Verified 11/13/23 14:57) STOMACH UPSET HPI HPI Comments History of Present Illness Details Patient presents today for a film count. She is medically managed for multiple pain generators related to osteoarthritis, thoracic/lumbar spondylosis and fibromyalgia. This patient is supposed to have #10 Belbuca films and she presents with #10. This demonstrates a responsible attitude in regards to the opioid regimen. Denies any constipation, sedation, nausea, dizziness or urinary retention. Patient reports she is under significant stress due to personal and medical issues involving her lower extremities, especially on the left lower leg. Patient reports she is scheduled for MRI tomorrow. [facility] Medical History Cellulitis of both feet Overweight (BMI 25.0-29.9) Cervical radiculopathy Derangement of left knee History of left shoulder fracture History of fracture of left hip Arthritis Scoliosis Back pain Surgical History History of open reduction and internal fixation (ORIF) procedure Family History Father Medical history unknown Mother Medical history unknown Social History Alcohol intake: current Alcohol intake frequency: holidays/special occasions only Patient Tobacco Use Status: Never used Tobacco Review of Systems Const All systems reviewed & are unremarkable except as noted in HPI and below Reports as per HPI, Denies body aches, Denies chills, Denies difficulty sleeping, Denies fatigue, Denies fever(s), Denies night sweats and Denies weakness Neuro Denies memory loss and Denies weakness Psych Reports anxiety, Reports irritability, Denies memory loss, Denies panic attacks, Denies tactile hallucinations and Denies homicidal ideation Endo Denies fatigue Physical Exam Vital Signs: Last Vital Signs Pulse 104 H 11/13/23 14:57 BP 124/72 11/13/23 14:57 Pulse Ox 98 11/13/23 14:57 Oxygen Delivery Method Room Air 11/13/23 14:57 BMI result Body Mass Index 21.0 General: Appears afebrile. Alert and oriented. Mood and affect appropriate. Follows and participates in conversation appropriately. Respiratory effort is unlabored. No cough. Able to transition from sit to stand unassisted. Ambulates with bilaterally normal heel strike and toe off. Psych Appearance: grossly normal Mental Status: mental status grossly normal Speech and movement: Normal speech and movement present, Pressured speech present and Psychomotor agitation in speech present Affect: Hostile affect present and Irritable affect present Attitude: cooperative Thought process: Normal thought process present Thought content: Normal thought content present, suicidality (none), no hallucinations and Depressive thoughts present Insight: Good insight present (Psych) Judgement: Good judgement present (Psych) Results Reviewed Results Reviewed: No imaging reports are available for review. Assessment & Plan Assessment & Plan (1) Myofascial pain: Code(s): M79.18 - Myalgia, other site (2) Spondylosis of lumbar spine: Code(s): M47.816 - Spondylosis without myelopathy or radiculopathy, lumbar region (3) Spondylosis of thoracic spine: Code(s): M47.814 - Spondylosis without myelopathy or radiculopathy, thoracic region (4) Chronic, continuous use of opioids: Code(s): F11.90 - Opioid use, unspecified, uncomplicated (5) Chronic pain syndrome: Code(s): G89.4 - Chronic pain syndrome (6) Cervical radiculopathy: Code(s): M54.12 - Radiculopathy, cervical region Plan Masspat was reviewed and without concerns. No obvious signs of diversion, abuse or misuse of the opioid medication Prescription sent for [facility] 900mcg Q12H buccal films with advanced date on 11/17/23. One refill provided. All questions and concerns have been answered and patient agrees with the plan. Patient to follow-up in the office in 2 months, sooner if needed. Medications: Refilled buprenorphine HCl Partial Fill upon patient request. 900 mcg buccal Q12H 60 ea 1RF pain, severe 30 days F11.90 - Opioid use, unspecified, uncomplicated, G89.4 - Chronic pain syndrome, M47.814 - Spondylosis without myelopathy or radiculopathy, thoracic region, M47.816 - Spondylosis without myelopathy or radiculopathy, lumbar region Coding Level of Care Code Est Pt Level 4 (76088) Diagnoses Myofascial pain M79.18 Spondylosis of lumbar spine M47.816 Spondylosis of thoracic spine M47.814 Chronic, continuous use of opioids F11.90 Chronic pain syndrome G89.4 Cervical radiculopathy M54.12
[2023-11-13 14:57] VITALS: BP 124/72; PULSE 104; O2SAT 98; BMI 21.0
== END 2023-11-13 15:04 | disposition home or self-care (01) ==
PROVIDERS: PCP Physician Assistant Medical; Visit Provider Nurse Practitioner Family
DX: G89.4 Chronic pain syndrome (principal); M79.18 Myalgia, other site; M47.816 Spondylosis without myelopathy or radiculopathy, lumbar region; Z79.891 Long term (current) use of opiate analgesic; M47.814 Spondylosis without myelopathy or radiculopathy, thoracic region; M54.12 Radiculopathy, cervical region
CPT/HCPCS: 99214

== ENCOUNTER → 2023-11-13 14:47 | Outpatient (BNVA) | payer MEDICARE, MEDICAID, SELFPAY | PROVIDERS: PCP Physician Assistant Medical; Visit Provider Nurse Practitioner Family | DX: Z51.81 Encounter for therapeutic drug level monitoring (principal); F11.20 Opioid dependence, uncomplicated; M79.18 Myalgia, other site; M47.816 Spondylosis without myelopathy or radiculopathy, lumbar region; M47.814 Spondylosis without myelopathy or radiculopathy, thoracic region; M54.12 Radiculopathy, cervical region; G89.4 Chronic pain syndrome | CPT/HCPCS: 99212 ==

== ENCOUNTER 2024-01-09 12:55 | Outpatient (AMB) | payer OTHER, SELFPAY ==
[2024-01-09 13:13] VITALS: BP 113/70; PULSE 95; RESP 16; O2SAT 97; BMI 20.5
--- NOTE | 2024-01-09 13:13 | MHC.OFFVIS ---
Vital Signs 01/09/24 13:13 Height 5 ft 5 in Weight 123 lb 6 oz BMI 20.5 BP 113/70 Blood Pressure Location Lt brachial Position Sitting Respiration 16 Pulse 95 Pulse Source Pulse Oximeter Pulse Oximetry (%) 97 Oxygen Delivery Method Room Air Intake Visit Reasons: Patch count Allergies aspirin [ASPIRIN] Allergy (Mild, Verified 01/09/24 13:17) STOMACH UPSET codeine [CODEINE] Adverse Reaction (Unknown, Verified 01/09/24 13:17) STOMACH UPSET HPI Comments Details: Michelle is a very pleasant 73 year old female who presents to the office for follow up chronic pain and chronic opioid therapy management. Patient is prescribed belbuca 900mcg films, take 1 film twice daily. Patient arrived today with the expectation of having 10 films, she presented 9 films which were counted in the presence of two staff members and returned to the patient in the original prescription box. This demonstrates responsible attitude toward patient's opioid medications. Pain is adequately managed on current opioid regimen. Pain today rated as 6/10 with last dose of medication taken at 8:00 this morning. Patient denies any recent changes or exacerbations of chronic pain and states she is able to engage in activities of daily living with minimal interruption due to chronic pain. Patient denies side effects including somnolence, constipation, itching, dyspnea, rash, dizziness or weakness. [facility] Medical History Cellulitis of both feet Overweight (BMI 25.0-29.9) Cervical radiculopathy Derangement of left knee History of left shoulder fracture History of fracture of left hip Arthritis Scoliosis Back pain Surgical History History of open reduction and internal fixation (ORIF) procedure Family History Father Medical history unknown Mother Medical history unknown Social History Alcohol intake: current Alcohol intake frequency: holidays/special occasions only Patient Tobacco Use Status: Never used Tobacco Review of Systems Const All systems reviewed & are unremarkable except as noted in HPI and below Physical Exam Vital Signs: Last Vital Signs Pulse 95 01/09/24 13:13 Resp 16 01/09/24 13:13 BP 113/70 01/09/24 13:13 Pulse Ox 97 01/09/24 13:13 Oxygen Delivery Method Room Air 01/09/24 13:13 BMI result Body Mass Index 20.5 General: awake, alert, oriented. Answers questions appropriately. Fully engaged in examination. Skin: warm, dry, intact HEENT: Normocephalic. Conjuntivae clear without exudate. Sclera non-icteric. Hearing intact. Cardiac: External chest normal in appearance. Respiratory: No signs of trauma. No signs of respiratory distress. No cough, audible wheezing or stridor. Abdomen: without gross distension. MS: No obvious swelling or deformities. Able to transition from sit to stand unassisted. Ambulates with bilaterally normal heel strike and toe off Neurological: Oriented to person, place, time and situation. Thought process intact. Psychiatric: Appropriate mood and affect. Good judgment and insight. Assessment & Plan Assessment & Plan (1) Myofascial pain: Code(s): M79.18 - Myalgia, other site Category: Medical (2) Spondylosis of lumbar spine: Code(s): M47.816 - Spondylosis without myelopathy or radiculopathy, lumbar region Category: Medical (3) Spondylosis of thoracic spine: Code(s): M47.814 - Spondylosis without myelopathy or radiculopathy, thoracic region Category: Medical (4) Chronic, continuous use of opioids: Code(s): F11.90 - Opioid use, unspecified, uncomplicated Category: Medical (5) Chronic pain syndrome: Code(s): G89.4 - Chronic pain syndrome Category: Medical (6) Cervical radiculopathy: Code(s): M54.12 - Radiculopathy, cervical region Category: Medical Plan Masspat was reviewed and without concerns. No obvious signs of diversion, abuse or misuse of the opioid medications. Will send in prescription for belbuca 900mcg buccal films, take one film twice daily #60 films with 1 refill Patient to follow-up in the office in 2 months, sooner if needed. All questions and concerns have been answered and patient agrees with the plan. Medications: Refilled buprenorphine HCl Partial Fill upon patient request. 900 mcg buccal Q12H 60 ea 1RF pain, severe 30 days F11.90 - Opioid use, unspecified, uncomplicated, G89.4 - Chronic pain syndrome, M47.814 - Spondylosis without myelopathy or radiculopathy, thoracic region, M47.816 - Spondylosis without myelopathy or radiculopathy, lumbar region Coding Level of Care Code Est Pt Level 4 (39019) Diagnoses Myofascial pain M79.18 Spondylosis of lumbar spine M47.816 Spondylosis of thoracic spine M47.814 Chronic, continuous use of opioids F11.90 Chronic pain syndrome G89.4 Cervical radiculopathy M54.12
== END 2024-01-09 13:35 | disposition home or self-care (01) ==
PROVIDERS: PCP Physician Assistant Medical; Visit Provider Registered Nurse Emergency
DX: M79.18 Myalgia, other site (principal); M47.816 Spondylosis without myelopathy or radiculopathy, lumbar region; M47.814 Spondylosis without myelopathy or radiculopathy, thoracic region; Z79.891 Long term (current) use of opiate analgesic; G89.4 Chronic pain syndrome; M54.12 Radiculopathy, cervical region
CPT/HCPCS: 99214

== ENCOUNTER → 2024-01-09 12:55 | Outpatient (BNVA) | payer MEDICARE, SELFPAY | PROVIDERS: PCP Physician Assistant Medical; Visit Provider Registered Nurse Emergency | DX: M79.18 Myalgia, other site (principal); M47.816 Spondylosis without myelopathy or radiculopathy, lumbar region; M47.814 Spondylosis without myelopathy or radiculopathy, thoracic region; G89.4 Chronic pain syndrome; M54.12 Radiculopathy, cervical region; Z79.891 Long term (current) use of opiate analgesic | CPT/HCPCS: 99212 ==

== ENCOUNTER 2024-03-10 11:25 | Outpatient (AMB) | payer OTHER, SELFPAY ==
[2024-03-10 11:34] VITALS: BP 128/66; PULSE 85; RESP 14
--- NOTE | 2024-03-10 11:34 | MHC.OFFVIS ---
Vital Signs 03/10/24 11:34 Height 5 ft 5 in BP 128/66 Blood Pressure Location Lt brachial Position Sitting Respiration 14 Pulse 85 Intake Visit Reasons: PILL COUNT Intake Note: Pt states she last took belbuca 03/10/24 @ 12am Allergies aspirin [ASPIRIN] Allergy (Mild, Verified 03/10/24 11:35) STOMACH UPSET codeine [CODEINE] Adverse Reaction (Unknown, Verified 03/10/24 11:35) STOMACH UPSET Medication List - Last Reconciled 03/10/24 by Kena Edmonds LPN alendronate 70 mg PO QWEEK amitriptyline 25 mg PO BEDTIME buprenorphine HCl 900 mcg buccal Q12H 30 days cholecalciferol (vitamin D3) 125 mcg PO DAILY clonazepam 0.5 mg PO BID 30 days duloxetine 120 mg PO DAILY ergocalciferol (vitamin D2) 1,250 mcg PO MCCARTNEY furosemide (Lasix) 80 mg PO DAILY 90 days hydroxyzine HCl 25 mg PO Q8H PRN lidocaine 5% 2 patches topical DAILY PRN 30 days mirtazapine 15 mg PO BEDTIME HPI Comments Details: Michelle is a very pleasant 73 year old female who presents to the office for follow up chronic pain and chronic opioid therapy management. Patient is prescribed belbuca 900mcg films, take 1 film twice daily. Patient arrived today with the expectation of having 4 films, she presented 4 films which were counted in the presence of two staff members and returned to the patient in the original prescription box. This demonstrates responsible attitude toward patient's opioid medications. Pain is adequately managed on current opioid regimen. Pain today rated as 5/10 with last dose of medication taken at 12:00 this morning. Denies any recent changes or exacerbations of chronic pain and states she is able to engage in activities of daily living with minimal interruption due to chronic pain. Denies side effects including somnolence, constipation, itching, dyspnea, rash, dizziness or weakness. Has been working in the yard, enjoying being able to take care of the menezes and be active outside. [facility] Medical History Cellulitis of both feet Overweight (BMI 25.0-29.9) Cervical radiculopathy Derangement of left knee History of left shoulder fracture History of fracture of left hip Arthritis Scoliosis Back pain Surgical History History of open reduction and internal fixation (ORIF) procedure Family History Father Medical history unknown Mother Medical history unknown Social History Alcohol intake: current Alcohol intake frequency: holidays/special occasions only Patient Tobacco Use Status: Never used Tobacco Review of Systems Const All systems reviewed & are unremarkable except as noted in HPI and below Physical Exam Vital Signs: Last Vital Signs Pulse 85 03/10/24 11:34 Resp 14 03/10/24 11:34 BP 128/66 03/10/24 11:34 General: awake, alert, oriented. Answers questions appropriately. Fully engaged in examination. Skin: warm, dry, intact HEENT: Normocephalic. Conjuntivae clear without exudate. Sclera non-icteric. Hearing intact. Cardiac: External chest normal in appearance. Respiratory: No signs of trauma. No signs of respiratory distress. No cough, audible wheezing or stridor. Abdomen: without gross distension. MS: No obvious swelling or deformities. Able to transition from sit to stand unassisted. Ambulates with bilaterally normal heel strike and toe off Neurological: Oriented to person, place, time and situation. Thought process intact. Psychiatric: Appropriate mood and affect. Good judgment and insight. Assessment & Plan Assessment & Plan (1) Myofascial pain: Code(s): M79.18 - Myalgia, other site Category: Medical (2) Spondylosis of lumbar spine: Code(s): M47.816 - Spondylosis without myelopathy or radiculopathy, lumbar region Category: Medical (3) Spondylosis of thoracic spine: Code(s): M47.814 - Spondylosis without myelopathy or radiculopathy, thoracic region Category: Medical (4) Chronic, continuous use of opioids: Code(s): F11.90 - Opioid use, unspecified, uncomplicated Category: Medical (5) Chronic pain syndrome: Code(s): G89.4 - Chronic pain syndrome Category: Medical (6) Cervical radiculopathy: Code(s): M54.12 - Radiculopathy, cervical region Category: Medical Plan Masspat was reviewed and without concerns. No obvious signs of diversion, abuse or misuse of the opioid medications. Will send in prescription for belbuca 900mcg buccal films, take one film twice daily #60 films with 1 refill Patient to follow-up in the office in 2 months, sooner if needed. All questions and concerns have been answered and patient agrees with the plan. Medications: Refilled buprenorphine HCl Partial Fill upon patient request. 900 mcg buccal Q12H 60 ea 1RF pain, severe 30 days F11.90 - Opioid use, unspecified, uncomplicated, G89.4 - Chronic pain syndrome, M47.814 - Spondylosis without myelopathy or radiculopathy, thoracic region, M47.816 - Spondylosis without myelopathy or radiculopathy, lumbar region Coding Level of Care Code Est Pt Level 4 (38416) Diagnoses Myofascial pain M79.18 Spondylosis of lumbar spine M47.816 Spondylosis of thoracic spine M47.814 Chronic, continuous use of opioids F11.90 Chronic pain syndrome G89.4 Cervical radiculopathy M54.12
== END 2024-03-10 11:56 | disposition home or self-care (01) ==
PROVIDERS: PCP Physician Assistant Medical; Visit Provider Registered Nurse Emergency
DX: M79.18 Myalgia, other site (principal); M47.816 Spondylosis without myelopathy or radiculopathy, lumbar region; M47.814 Spondylosis without myelopathy or radiculopathy, thoracic region; Z79.891 Long term (current) use of opiate analgesic; G89.4 Chronic pain syndrome; M54.12 Radiculopathy, cervical region
CPT/HCPCS: 99214

== ENCOUNTER → 2024-03-10 11:25 | Outpatient (BNVA) | payer OTHER, SELFPAY | PROVIDERS: PCP Physician Assistant Medical; Visit Provider Registered Nurse Emergency ==

== ENCOUNTER 2024-05-12 13:38 | Outpatient (AMB) | payer OTHER, SELFPAY ==
[2024-05-12 13:45] VITALS: BP 127/74; PULSE 90; O2SAT 96; BMI 18.3
--- NOTE | 2024-05-12 13:45 | MHC.OFFVIS ---
Vital Signs 05/12/24 13:45 Height 5 ft 5 in Weight 110 lb BMI 18.3 BP 127/74 Blood Pressure Location Rt brachial Position Sitting Pulse 90 Pulse Source Pulse Oximeter Pulse Oximetry (%) 96 Oxygen Delivery Method Room Air Intake Visit Reasons: PILL COUNT Allergies aspirin [ASPIRIN] Allergy (Mild, Verified 05/12/24 13:45) STOMACH UPSET codeine [CODEINE] Adverse Reaction (Unknown, Verified 05/12/24 13:45) STOMACH UPSET Medication List - Last Reconciled 05/12/24 by Susan Zhang alendronate 70 mg PO QWEEK amitriptyline 25 mg PO BEDTIME buprenorphine HCl 900 mcg buccal Q12H 30 days buprenorphine HCl 900 mcg buccal Q12H 30 days cholecalciferol (vitamin D3) 125 mcg PO DAILY clonazepam 0.5 mg PO BID 30 days duloxetine 120 mg PO DAILY ergocalciferol (vitamin D2) 1,250 mcg PO MCCARTNEY furosemide (Lasix) 80 mg PO DAILY 90 days hydroxyzine HCl 25 mg PO Q8H PRN lidocaine 5% 2 patches topical DAILY PRN 30 days mirtazapine 15 mg PO BEDTIME HPI Comments Details: Michelle is a very pleasant 73 year old female who presents to the office for follow up chronic pain and chronic opioid therapy management. Patient is prescribed belbuca 900mcg films, take 1 film twice daily. Patient arrived today with the expectation of having 48 films, she presented 51 films which were counted in the presence of two staff members and returned to the patient in the original prescription box. This demonstrates responsible attitude toward patient's opioid medications. Pain is adequately managed on current opioid regimen. Pain today rated as 7/10 with last dose of medication taken at 08:00 this morning. Denies any recent changes or exacerbations of chronic pain and states she is able to engage in activities of daily living with minimal interruption due to chronic pain. Denies side effects including somnolence, constipation, itching, dyspnea, rash, dizziness or weakness. [facility] Medical History Cellulitis of both feet Overweight (BMI 25.0-29.9) Cervical radiculopathy Derangement of left knee History of left shoulder fracture History of fracture of left hip Arthritis Scoliosis Back pain Surgical History History of open reduction and internal fixation (ORIF) procedure Family History Father Medical history unknown Mother Medical history unknown Social History Alcohol intake: current Alcohol intake frequency: holidays/special occasions only Patient Tobacco Use Status: Never used Tobacco Review of Systems Const All systems reviewed & are unremarkable except as noted in HPI and below Physical Exam Vital Signs: Last Vital Signs Pulse 90 05/12/24 13:45 BP 127/74 05/12/24 13:45 Pulse Ox 96 05/12/24 13:45 Oxygen Delivery Method Room Air 05/12/24 13:45 BMI result Body Mass Index 18.3 General: awake, alert, oriented. Answers questions appropriately. Fully engaged in examination. Skin: warm, dry, intact HEENT: Normocephalic. Conjuntivae clear without exudate. Sclera non-icteric. Hearing intact. Cardiac: External chest normal in appearance. Respiratory: No signs of trauma. No signs of respiratory distress. No cough, audible wheezing or stridor. Abdomen: without gross distension. MS: No obvious swelling or deformities. Able to transition from sit to stand unassisted. Ambulates with bilaterally normal heel strike and toe off Neurological: Oriented to person, place, time and situation. Thought process intact. Psychiatric: Appropriate mood and affect. Good judgment and insight. Assessment & Plan Assessment & Plan (1) Myofascial pain: Code(s): M79.18 - Myalgia, other site Category: Medical (2) Spondylosis of lumbar spine: Code(s): M47.816 - Spondylosis without myelopathy or radiculopathy, lumbar region Category: Medical (3) Spondylosis of thoracic spine: Code(s): M47.814 - Spondylosis without myelopathy or radiculopathy, thoracic region Category: Medical (4) Chronic, continuous use of opioids: Code(s): F11.90 - Opioid use, unspecified, uncomplicated Category: Medical (5) Chronic pain syndrome: Code(s): G89.4 - Chronic pain syndrome Category: Medical (6) Cervical radiculopathy: Code(s): M54.12 - Radiculopathy, cervical region Category: Medical Plan Masspat was reviewed and without concerns. No obvious signs of diversion, abuse or misuse of the opioid medications. Will send in prescription for belbuca 900mcg buccal films, take one film twice daily #60 films with 1 refill Patient to follow-up in the office in 2 months, sooner if needed. All questions and concerns have been answered and patient agrees with the plan. Medications: Refilled buprenorphine HCl Partial Fill upon patient request. 900 mcg buccal Q12H 60 ea 1RF pain, severe 30 days F11.90 - Opioid use, unspecified, uncomplicated, G89.4 - Chronic pain syndrome, M47.814 - Spondylosis without myelopathy or radiculopathy, thoracic region, M47.816 - Spondylosis without myelopathy or radiculopathy, lumbar region Coding Level of Care Code Est Pt Level 4 (48834) Complex EM visit Add On G2211 Diagnoses Myofascial pain M79.18 Spondylosis of lumbar spine M47.816 Spondylosis of thoracic spine M47.814 Chronic, continuous use of opioids F11.90 Chronic pain syndrome G89.4 Cervical radiculopathy M54.12
== END 2024-05-12 14:14 | disposition home or self-care (01) ==
PROVIDERS: PCP Physician Assistant Medical; Visit Provider Registered Nurse Emergency
DX: M79.18 Myalgia, other site (principal); M47.816 Spondylosis without myelopathy or radiculopathy, lumbar region; M47.814 Spondylosis without myelopathy or radiculopathy, thoracic region; Z79.891 Long term (current) use of opiate analgesic; G89.4 Chronic pain syndrome; M54.12 Radiculopathy, cervical region
CPT/HCPCS: 99214; G2211

== ENCOUNTER → 2024-05-12 13:38 | Outpatient (BNVA) | payer OTHER, SELFPAY | PROVIDERS: PCP Physician Assistant Medical; Visit Provider Registered Nurse Emergency ==

== ENCOUNTER 2024-08-11 11:01 | Outpatient (AMB) | payer OTHER, SELFPAY ==
--- NOTE | 2024-08-11 11:02 | MHC.OFFVIS ---
Vital Signs 08/11/24 11:16 Height 5 ft 5 in Weight 107 lb 6 oz BMI 17.9 BP 128/68 Blood Pressure Location Lt brachial Position Sitting Respiration 14 Pulse 90 Pulse Source Pulse Oximeter Pulse Oximetry (%) 97 Oxygen Delivery Method Room Air Intake Visit Reasons: Pill Count/random UDS Intake Note: Patient comes in for pill count. Allergies aspirin [ASPIRIN] Allergy (Mild, Verified 08/11/24 11:17) STOMACH UPSET codeine [CODEINE] Adverse Reaction (Unknown, Verified 08/11/24 11:17) STOMACH UPSET HPI Comments Details: Michelle presents to the office for follow up chronic pain and chronic opioid therapy management. Patient is prescribed belbuca 900mcg films, take 1 film twice daily. Patient arrived today with the expectation of having 36 films, she presented 33 films which were counted in the presence of two staff members and returned to the patient in the original prescription box. Patient is 1.5 days short of her medication, this is a violation of her opioid medication contract. Patient states the fill date on the prescription 07/29/2024 was the date she picked it up from the pharmacy. AUTOMATION MACHINE OPERATOR shows sold date 07/30/24, this date was verified via phone with the pharmacy. Patient continued to argue about the fill date, pharmacy was called on speaker phone with patient and 2 staff members where picker and packer date was again confirmed as 07/30/24 at 9:34am. She is already receiving interventional management at [facility] but states they will not prescribe her belbuca. Pain today rated as 9/10 with last dose of medication taken at 09:00 this morning. Reports Belbuca is the only thing that helps her pain. Denies side effects including somnolence, constipation, itching, dyspnea, rash, dizziness or weakness. [facility] Medical History Cellulitis of both feet Overweight (BMI 25.0-29.9) Cervical radiculopathy Derangement of left knee History of left shoulder fracture History of fracture of left hip Arthritis Scoliosis Back pain Surgical History History of open reduction and internal fixation (ORIF) procedure Family History Father Medical history unknown Mother Medical history unknown Social History Alcohol intake: current Alcohol intake frequency: holidays/special occasions only Patient Tobacco Use Status: Never used Tobacco Review of Systems Const All systems reviewed & are unremarkable except as noted in HPI and below Physical Exam Vital Signs: Last Vital Signs Pulse 90 08/11/24 11:16 Resp 14 08/11/24 11:16 BP 128/68 08/11/24 11:16 Pulse Ox 97 08/11/24 11:16 Oxygen Delivery Method Room Air 08/11/24 11:16 BMI result Body Mass Index 17.9 General: awake, alert, oriented. Answers questions appropriately. Fully engaged in examination. Patient anxious and tearful during visit. Skin: warm, dry, intact HEENT: Normocephalic. Conjuntivae clear without exudate. Sclera non-icteric. Hearing intact. Cardiac: External chest normal in appearance. Respiratory: No signs of trauma. No signs of respiratory distress. No cough, audible wheezing or stridor. Abdomen: without gross distension. MS: No obvious swelling or deformities. Neurological: Oriented to person, place, time and situation. Thought process intact. Psychiatric: Appropriate mood and affect. Good judgment and insight. Assessment & Plan Assessment & Plan (1) Myofascial pain: Code(s): M79.18 - Myalgia, other site Category: Medical (2) Spondylosis of lumbar spine: Code(s): M47.816 - Spondylosis without myelopathy or radiculopathy, lumbar region Category: Medical (3) Spondylosis of thoracic spine: Code(s): M47.814 - Spondylosis without myelopathy or radiculopathy, thoracic region Category: Medical (4) Chronic, continuous use of opioids: Code(s): F11.90 - Opioid use, unspecified, uncomplicated Category: Medical (5) Chronic pain syndrome: Code(s): G89.4 - Chronic pain syndrome Category: Medical (6) Cervical radiculopathy: Code(s): M54.12 - Radiculopathy, cervical region Category: Medical Plan Patient indefinitely suspended from the opioid program. She is high-risk. The suspension was reviewed with the patient, including reasons for the suspension and violation of the contract. Patient visibly upset, argumentative. She was accompanied by her friend who was also upset and arguing loudly throughout the visit. Patient requested public health service officer, Page, be invited into the visit. Page is currently out of the office therefore Dr. Herrera, internist medical doctor md, was requested. He reiterated to the patient that she is in violation of the contract and will be suspended indefinitely. Patient was advised that we will taper her off this medication over the next several months to assist with withdrawal symptoms. Will send in prescription for belbuca 750mcg buccal films, take one film twice daily #60 films. Next prescription will be for 600 mcg twice daily. Patient to follow-up in the office in 2 months, sooner if needed. Ultimately the patient and her friend abruptly left the office. Medications: New buprenorphine HCl (Belbuca) 750 mcg buccal Q12H 60 ea 0RF Discontinued buprenorphine HCl Partial Fill upon patient request. Discontinued Reason: Doctor's Order 900 mcg buccal Q12H 30 days 60 ea 1RF pain, severe F11.90 - Opioid use, unspecified, uncomplicated, G89.4 - Chronic pain syndrome, M47.814 - Spondylosis without myelopathy or radiculopathy, thoracic region, M47.816 - Spondylosis without myelopathy or radiculopathy, lumbar region Coding Level of Care Code Est Pt Level 4 (62324) Complex EM visit Add On G2211 Diagnoses Myofascial pain M79.18 Spondylosis of lumbar spine M47.816 Spondylosis of thoracic spine M47.814 Chronic, continuous use of opioids F11.90 Chronic pain syndrome G89.4 Cervical radiculopathy M54.12
[2024-08-11 11:16] VITALS: BP 128/68; PULSE 90; RESP 14; O2SAT 97; BMI 17.9
== END 2024-08-11 12:33 | disposition home or self-care (01) ==
PROVIDERS: PCP Physician Assistant Medical; Visit Provider Registered Nurse Emergency
DX: M79.18 Myalgia, other site (principal); M47.816 Spondylosis without myelopathy or radiculopathy, lumbar region; M47.814 Spondylosis without myelopathy or radiculopathy, thoracic region; Z79.891 Long term (current) use of opiate analgesic; G89.4 Chronic pain syndrome; M54.12 Radiculopathy, cervical region
CPT/HCPCS: 99214; G2211

== ENCOUNTER 2024-08-17 16:14 | Outpatient (AMB) | payer OTHER, SELFPAY ==
--- NOTE | 2024-08-17 16:15 | AM.OFFWIN_ITS ---
Intake Vital Signs 08/17/24 16:17 Height 5 ft 5 in Weight 109 lb BMI 18.1 BP 122/78 Blood Pressure Location Rt brachial Position Sitting Pulse 92 Pulse Source Pulse Oximeter Temp 97.5 F Temp Source Oral Pulse Oximetry (%) 97 Oxygen Delivery Method Room Air Intake Visit Reasons: EP Congestion, Cough Intake Note: Patient here for cough, chest congestion and wheezing which has been present for about 2 weeks. Patient Tobacco Use Status: Never used Tobacco Allergies aspirin [ASPIRIN] Allergy (Mild, Verified 08/17/24 16:17) STOMACH UPSET codeine [CODEINE] Adverse Reaction (Unknown, Verified 08/17/24 16:17) STOMACH UPSET Do you need a note to return to daycare/school/sports/work: No HPI HPI Comments History of Present Illness Details This is a 73-year-old female with a past medical history CHF, neuropathy and anxiety presenting for evaluation of chest congestion, wheezing and cough that she has had for the past 2 weeks. Patient denies having any fevers, chills, ear pain, sore throat, chest pain, hemoptysis, nausea, vomiting, abdominal pain or back pain. Patient has been taking Mucinex and Tylenol for her symptoms. Patient comes for evaluation today secondary to fatigue. FOR[facility], [facility] Medical History Cellulitis of both feet Overweight (BMI 25.0-29.9) Cervical radiculopathy Derangement of left knee History of left shoulder fracture History of fracture of left hip Arthritis Scoliosis Back pain Surgical History History of open reduction and internal fixation (ORIF) procedure Family History Father Medical history unknown Mother Medical history unknown Social History Alcohol intake: current Alcohol intake frequency: holidays/special occasions only Patient Tobacco Use Status: Never used Tobacco Review of Systems Const All systems reviewed & are unremarkable except as noted in HPI and below Reports no additional complaints Eyes Reports no additional complaints ENT Reports no additional complaints Card Reports no additional complaints, Denies chest pain, Denies edema and Denies dyspnea Resp Reports chest congestion, Reports cough, Denies dyspnea and Reports wheezing GI Reports no additional complaints Reports no additional complaints Musc Reports no additional complaints Skin/Breast Reports system reviewed and no additional complaints, except as documented Neuro Reports no additional complaints Psych Reports no additional complaints Endo Reports no additional complaints Donny/Lymph Reports no additional complaints Aller/Immun Reports no additional complaints and Reports wheezing Physical Exam Vital Signs: Last Vital Signs Temp 97.5 F 08/17/24 16:17 Pulse 92 08/17/24 16:17 BP 122/78 08/17/24 16:17 Pulse Ox 97 08/17/24 16:17 Oxygen Delivery Method Room Air 08/17/24 16:17 BMI result Body Mass Index 18.1 Const General: cooperative, comfortable, no acute distress, well developed, alert, awake and Physically active; No acute distress Nutritional Appearance: thin Orientation/consciousness: patient oriented x3 Limitations: no limitations HEENT Head: Yes normal to inspection and Yes normocephalic Ears: hearing grossly normal bilaterally, external ears normal, TM's normal bilaterally and EAC's normal General nose exam: Normal external nose present Face and sinus: Yes normal facial exam Mouth: Normal oral and palatal mucosa present and moist mucous membranes Throat: Yes posterior oropharynx normal and No postnasal drainage Eyes General: appearance normal, both eyes and all related structures Neck Lymphatic: no lymphadenopathy noted Resp Effort & Inspection: normal respiratory effort, able to speak in complete sentences, normal respiratory pattern, no audible wheezes, no cough and no respiratory distress Auscultation: wheezes expiratory wheezes and upper bilaterally Cardio Rate: regular rate Rhythm: regular rhythm Skin General skin exam: no rashes or lesions noted Neuro General: patient oriented x3 Psych Appearance: grossly normal Mental Status: mental status grossly normal Insight: Good insight present (Psych) Judgement: Good judgement present (Psych) Assessment & Plan Assessment & Plan (1) Bronchitis: Comment: Patient is afebrile and is not hypoxic or tachypneic. Breath sounds are equal bilaterally and therefore imaging is deferred at this time. Code(s): J40 - Bronchitis, not specified as acute or chronic Plan: Mucinex OTC with increase clear fluids daily, rest as tolerated and Tylenol as needed for any discomfort. Patient is urged to follow up with her primary care provider if her symptoms are not improving after 7-10 days. Coding Level of Care Code Est Pt Level 3 (18019) Diagnoses Bronchitis J40 Time Spent (min) 20
[2024-08-17 16:17] VITALS: BP 122/78; PULSE 92; TEMP 36.4; O2SAT 97; BMI 18.1
== END 2024-08-17 16:54 | disposition home or self-care (01) ==
PROVIDERS: PCP Physician Assistant Medical; Visit Provider Physician Assistant
DX: J40 Bronchitis, not specified as acute or chronic (principal)

== ENCOUNTER → 2024-08-17 16:14 | Outpatient (BNVA) | payer OTHER, SELFPAY | PROVIDERS: PCP Physician Assistant Medical; Visit Provider Physician Assistant ==

== ENCOUNTER 2025-02-07 16:03 | Inpatient (IN) | payer MEDICARE, SELFPAY ==
[2025-02-07] VITALS (10 sets, daily range): BP systolic 85–140; BP diastolic 47–74; PULSE 75–89; RESP 18–20; TEMP 36.4; O2SAT 86–97; BMI 19.9
--- NOTE | ~2025-02-07 | CT_ITS ---
CLINICAL HISTORY: post op dyspnea, ?recent R pna. Crackles R CT angiogram of the chest. Multiplanar MIPS were obtained. No comparison. Findings: There is mild motion artifact. No definite PE or acute abnormality of the thoracic aorta is identified. There is mild mediastinal adenopathy. No pleural or pericardial effusion. There are mild ill-defined airspace opacities in the lower lobes. While this likely partially represents atelectasis a coexisting inflammatory/infectious process is a possibility. There are scattered areas of mucous plugging with mild bronchiectasis. Impression: No definite PE is identified. Mild ill-defined densities in the lower lobes could represent an infectious or inflammatory process consider follow-up. Mild mucous plugging and bronchiectasis bilaterally. There is mild mediastinal adenopathy. There are also small supraclavicular and axillary lymph nodes bilaterally. No pathologically enlarged nodes are seen however the number of nodes is mildly prominent consider comparison to previous or follow-up to assess for interval change. This document has been electronically signed by: Taj Ramos MD on 02/07/2025 18:21:44
--- NOTE | 2025-02-07 16:23 | ED_ITS ---
HPI - General Adult General Chief complaint: General Medical Stated complaint: DEMENTIA? PER EMS Time Seen by Provider: 02/07/25 16:15 History of Present Illness ED Provider: Patricio Neil MD HPI narrative: 74-year-old female who presents with generalized malaise unable to walk due to dyspnea and generalized weakness to her follow up appointment with her PCP. Over 3 weeks ago patient had right total hip replacement, she had prophylaxis Lovenox but is no longer on that. She has never had DVT or PE. She has no underlying pulmonary history to her knowledge. Bout a week ago she was diagnosed with pneumonia treated with a Z-Hiro and another oral antibiotic she is not sure the name of. She finished a Z-Hiro in his still continued to take the other antibiotic. She has not noticed any wheezing but has felt more short of breath on exertion. On arrival here she was found to be hypoxic. Patient denies hemoptysis unilateral leg swelling abdominal pain she has chronic and persistent right hip pain which is generally unchanged Related Data Home Medications ?Medication ?Instructions ?Recorded ?Confirmed mirtazapine 15 mg tablet 15 mg PO BEDTIME 08/27/21 02/07/25 amitriptyline 25 mg tablet 25 mg PO BEDTIME PRN Anxiety/Sleep 09/15/23 02/07/25 cholecalciferol (vitamin D3) 125 125 mcg PO DAILY 09/15/23 02/07/25 mcg (5,000 unit) capsule acetaminophen 500 mg capsule 1,000 mg PO DAILY@1530 PRN Pain 02/07/25 02/07/25 acetaminophen 500 mg capsule 1,500 mg PO DAILY@0930 PRN Pain 02/07/25 02/07/25 amoxicillin 875 mg-potassium 1 tab PO BID 02/07/25 02/07/25 clavulanate 125 mg tablet buprenorphine HCl 900 mcg buccal 900 mcg buccal BID 02/07/25 02/07/25 film ([place]) clonazepam 0.5 mg tablet 0.5 mg PO BID PRN anxiety 02/07/25 02/07/25 duloxetine 60 mg capsule,delayed 60 mg PO BID 02/07/25 02/07/25 release furosemide 80 mg tablet 40 mg PO DAILY@1530 02/07/25 02/07/25 hydroxyzine HCl 25 mg tablet 25 mg PO TID 02/07/25 02/07/25 Previous Rx's ?Medication ?Instructions ?Recorded furosemide 80 mg tablet (Lasix) 80 mg PO DAILY 90 days #90 tabs 07/30/21 lidocaine 5 % topical patch 2 patch topical DAILY PRN pain 30 05/06/24 days #60 ea Allergies Allergy/AdvReac Type Severity Reaction Status Date / Time aspirin [ASPIRIN] Allergy Mild STOMACH Verified 02/07/25 16:20 UPSET codeine [CODEINE] AdvReac Unknown STOMACH Verified 02/07/25 16:20 UPSET PMFSH Past Medical History Medical History Cellulitis of both feet Overweight (BMI 25.0-29.9) Cervical radiculopathy Derangement of left knee History of left shoulder fracture History of fracture of left hip Arthritis Scoliosis Back pain Surgical History History of open reduction and internal fixation (ORIF) procedure Family History Family History Father Medical history unknown Mother Medical history unknown Social History Social History Alcohol intake: current Alcohol intake frequency: holidays/special occasions only Patient Tobacco Use Status: Never used Tobacco Smoked in Last 30 Days: No Advance Directives: No Advance Directives Information Provided: No Physical Exam ED Vital Signs: Vital Signs - 24 hr 02/07/25 16:17 02/07/25 16:22 02/07/25 18:00 Temperature 97.6 F Pulse Rate 83 78 81 Respiratory Rate 20 20 20 Blood Pressure 140/54 H 121/60 131/58 L Pulse Oximetry 94 97 95 Oxygen Delivery Method Nasal Cannula Nasal Cannula Nasal Cannula Oxygen Flow Rate 2 2 02/07/25 19:08 02/07/25 19:08 02/07/25 19:20 Temperature Pulse Rate 86 Respiratory Rate 18 Blood Pressure 134/74 Pulse Oximetry 86 L 95 Oxygen Delivery Method Room Air Nasal Cannula Oxygen Flow Rate 2 BMI result Body Mass Index 19.9 Const Other: EXAM: Gen: Alert, awake, thin, dry oral mucosa mild tachypnea respiratory rate about 22 not distressed Head: Atraumatic Eyes: Anicteric, Normal conjunctiva. ENT: Moist mucosa, no pallor. ? Neck: Supple. Respiratory: Mild tachypnea. Perhaps subtle basilar crackles no retractions Cardiovascular: Regular rate and rhythm. No murmurs or rub. Well perfused periphery, warm extremities. No edema. ? Abdominal: No FOCAL TENDERNESS. Soft, no objective distension. No palpable masses or obvious organomegaly. ?No guarding, no rebound tenderness or other peritoneal findings. Vital signs: See flowsheet Course Reevaluation(s) Reevaluation #1: Sepsis focused exam performed. Reviewed labs lactate 0.6 Nurse notified me blood pressure 95/49 this is the 1st low blood pressure measurement additional crystalloid ordered Time: 22:48 Medications Administered Discontinued Medications Generic Name Dose Route Start Last Admin Trade Name Freq PRN Reason Stop Dose Admin Lactated Ringer's 1,629 mls @ 1,629 mls/hr 02/07/25 20:04 02/07/25 22:33 Lr 30 ml/kg infuse over 1 hr (1629 ml) 02/07/25 21:03 Infused IV Infusion .Q1H ONE Piperacillin Sod/Tazobactam 50 mls @ 100 mls/hr 02/07/25 20:13 02/07/25 21:30 Sod 3.375 gm/ Sodium Chloride IV 02/07/25 20:42 Infused ONCE ONE Infusion Vancomycin HCl 1,250 mg/ 250 mls @ 166.667 mls/hr 02/07/25 22:00 02/07/25 22:45 Sodium Chloride IV 02/07/25 23:29 166.67 mls/hr ONCE ONE Administration Sodium Chloride 1,000 mls @ 999 mls/hr 02/07/25 23:00 02/07/25 22:55 Ns IV 02/08/25 00:00 999 mls/hr .Q1H1M SARAH Administration Iohexol 100 ml 02/07/25 17:36 02/07/25 17:36 Iohexol 350 Mg/Ml 100 Ml Infus..Btl IV 02/07/25 17:37 65 ml ONCE ONE Administration Oxycodone HCl 5 mg 02/07/25 18:00 02/07/25 18:08 Oxycodone Hcl Immed Release 5 Mg Tablet PO 02/07/25 18:01 5 mg ONCE ONE Administration Potassium Chloride 40 meq 02/07/25 18:09 02/07/25 18:31 Potassium Chloride Er 20 Meq Tab.Er.Prt PO 02/07/25 18:10 40 meq ONCE ONE Administration Medical Decision Making Medical Decision Making [facility] Narrative: 74-year-old female with dyspnea generalized malaise. She has recently and treated empirically with a Z-Hiro and another antibiotic which she has nearly completed the course of. She was hypoxic on arrival 88% on room air. Patient has not distress but appears frail minimally dyspneic. She can not speak in full sentences. Respiratory rate is 18 during my exam. Initial suspicion given the patient is postop with hypoxia and no fever was likely PE. Thankfully this was excluded by CT however there was evidence of infiltrate. Differential Diagnosis Differential Diagnoses: The differential diagnosis associated with the presentation includes Primary concern for PE given the recent surgical history. Could be reactive airway disease, COPD, pneumonia with failure of outpatient antibiotics Admission/Observation Consideration of admission/observation: Escalation of care including admission/observation considered Consult Healthcare Provider Management of the patient was discussed with: Hospitalist Lab Data [facility] Lab Attestation statement: I reviewed the patient's lab results. 02/07/25 16:57 02/07/25 16:57 Labs: Lab Results 02/07/25 02/07/25 Range/Units 16:57 20:29 WBC 13.0 H (4.8-10.8) X10*3/uL RBC 4.02 L (4.20-5.50) X10*6/uL Hgb 12.2 (12.0-16.0) g/dl Hct 37.7 (37.0-47.0) % MCV 93.8 (80.0-98.0) fL MCH 30.3 (27.0-33.0) pg MCHC 32.4 (31.0-35.0) g/dl RDW 14.3 (11.0-16.0) % Plt Count 236 (160-400) X10*3/uL MPV 9.6 (9.4-12.3) fL Immature Gran % (Auto) 0.5 H (0.0-0.4) % Neut % (Auto) 80.5 H (45-73) % Lymph % (Auto) 11.0 L (20-40) % [place] % (Auto) 7.7 (2-11) % Eos % (Auto) 0.1 (0-4) % Baso % (Auto) 0.2 (0-2) % Lymph # (Auto) 1.4 (1.2-4.9) X10*3/uL [place] # (Auto) 1.0 (0.1-1.2) X10*3/uL Eos # (Auto) 0.0 (0.0-0.4) X10*3/uL Baso # (Auto) 0.0 (0.0-0.2) X10*3/uL Abs Immat Gran (auto) 0.06 H (0.00-0.03) X10*3/uL Absolute Neuts (auto) 10.5 H (2.0-8.3) x10*3/uL Absolute Nucleated RBC 0.000 (0.0-0.012) X10*3/uL Nucleated RBC % (auto) 0.0 (0.0-0.2) /100WBC Sodium 146 H (135-145) mmol/L Potassium 3.2 L (3.3-5.1) mmol/L Chloride 102 (96-108) mmol/L Carbon Dioxide 32 H (22-29) mmol/L Anion Gap 15 (12-20) BUN 10 (9-16) mg/dL Creatinine 0.63 (0.5-1.4) mg/dL Estim Creat Clear Calc 67.2 Estimated GFR > 60 Random Glucose 140 H (60-115) mg/dL Lactic Acid 0.6 (0.5-2.0) mmol/L Calcium 9.2 (8.4-10.2) mg/dL Total Bilirubin 0.4 (0.0-1.0) mg/dL AST 21 (5-31) U/L ALT < 6 (0-31) U/L Alkaline Phosphatase 99 (39-117) U/L Troponin I High Sens < 2.7 (<3.5-17.0) ng/L B-Natriuretic Peptide 55 (<100) pg/mL Total Protein 6.5 (6.5-8.0) g/dL Albumin 3.9 (3.5-5.0) g/dL Radiology Impression Discussion of test interpretation with radiology: I have reviewed the radiologist's reading. Critical Care Time Critical Care Time Critical Care Time: Yes Total Critical Care Time: 30 Attestation: ED Critical Care: Authorized and Performed by: Patricio Neil MD Total critical care time: Approximately 30 Due to a high probability of clinically significant, life threatening deterioration, the patient required my highest level of preparedness to intervene emergently and I personally spent this critical care time directly and personally managing the patient. This critical care time included obtaining a history; examining the patient; pulse oximetry; ordering and review of studies; arranging urgent treatment with development of a management plan; evaluation of patient's response to treatment; frequent reassessment; and, discussions with other providers. This critical care time was performed to assess and manage the high probability of imminent, life-threatening deterioration that could result in multi-organ failure. It was exclusive of separately billable procedures and treating other patients and teaching time. Discharge Plan Discharge Clinical Impression: Pneumonia Patient Disposition: Home, Self-Care
[2025-02-07 17:01] LABS: MANUAL DIFF FLAG NO
[2025-02-07 17:05] LABS: Basophils Percent Auto 0.2 % (0-2); Eosinophils Percent Auto 0.1 % (0-4); Hematocrit 37.7 % (37.0-47.0); Hemoglobin 12.2 g/dl (12.0-16.0); Imm Gran Abs Auto 0.06 X10*3/uL (0.00-0.03); Imm Gran Pct Auto 0.5 % (0.0-0.4); Lymphocytes Absolute Auto 1.4 X10*3/uL (1.2-4.9); Mean Corpuscular HGB Conc 32.4 g/dl (31.0-35.0); Mean Corpuscular Hemoglobin 30.3 pg (27.0-33.0); Mean Corpuscular Volume 93.8 fL (80.0-98.0); Mean Platelet Volume 9.6 fL (9.4-12.3); Monocytes Percent Auto 7.7 % (2-11); Neutrophils Absolute Auto 10.5 x10*3/uL (2.0-8.3); Neutrophils Percent Auto 80.5 % (45-73); Platelet Count 236 X10*3/uL (160-400); Red Blood Count 4.02 X10*6/uL (4.20-5.50); Red Cell Distribution Width 14.3 % (11.0-16.0)
--- OUTSIDE RECORDS SUMMARY | 2025-02-07 17:12 | XMS_ITS | Clinical Summary ---
Author Organization [facility] [address] [place] [address] Address [address] [facility] [place] Phone Care Team Providers Care Sales Developer Name Role Phone Luis Montero Primary Care Provider [phone] Allergies Active Allergy Reactions Criticality Noted Date Comments Aspirin Nausea And Vomiting 01/29/2013 Medications triamcinolone (KENALOG) 0.1 % cream Apply to affected areas twice daily as needed for 2 weeks 07/07/20 24 025 Active cholecalcifero l (VITAMIN D-3) 125 mcg (5,000 unit) capsule Take 1 Capsule by mouth once a week. 04/23/20 24 Active diphenhydrAMIN E HCL (BenadryL) 2 % gel Apply 1 g topically 2 times daily as needed (itching). 02/11/20 24 Active clonazePAM (KlonoPIN) 0.5 mg tablet Take 1 tablet (0.5 mg total) by mouth 2 (two) times a day. Max Daily Amount: 1 mg 02/14/20 21 Active albuterol HFA (PROAIR HFA ; PROVENTIL HFA ; VENTOLIN HFA) 90 mcg/actuation inhaler Inhale 2 Puffs into the lungs 4 times daily as needed for Cough, Wheezing or Shortness of Breath. 09/25/19 22 Active buprenorphine HCL (Belbuca) [address] 3 Film inside cheek daily. 07/12/20 21 Active lidocaine 4 % patch Apply 1 Patch topically as needed for Other. 07/12/20 21 Active furosemide (LASIX) 80 mg tablet TAKE 1 TABLET BY MOUTH EVERY DAY 90 tablet 1 08/11/20 24 Active pregabalin (LYRICA) 100 mg capsule Take 1 capsule (100 mg total) by mouth 2 (two) times a day. Max Daily Amount: 200 mg 60 each 5 09/03/20 24 Active furosemide (LASIX) 80 mg tablet Take 1 tablet in the morning and a half a tablet in the afternoon every day 45 each 11 12/02/19 25 Active amoxicillin-cl avulanate (AUGMENTIN) 875-125 mg per tablet Take 1 tablet by mouth 2 (two) times a day for 10 days. 20 each 01/29/20 25 025 Active hydrOXYzine HCL (ATARAX) 25 mg tablet TAKE 1 TABLET BY MOUTH EVERY 8 HOURS NEEDED FOR ITCHING OR FOR ANXIETY 270 tablet 1 02/05/20 25 Active mirtazapine (REMERON) 15 mg tablet TAKE 1 TABLET BY MOUTH EVERYDAY AT BEDTIME 90 tablet 1 02/05/20 25 Active hydrOXYzine HCL (ATARAX) 25 mg tablet TAKE 1 TABLET BY MOUTH EVERY 8 HOURS NEEDED FOR ITCHING OR FOR ANXIETY 270 tablet 1 08/11/20 24 025 Discontinued mirtazapine (REMERON) 15 mg tablet Take 1 tablet (15 mg total) by mouth at bedtime. 90 tablet 1 08/15/20 24 025 Discontinued azithromycin (ZITHROMAX) 250 mg tablet Take 2 tablets (500 mg total) by mouth 1 (one) time each day for 1 day, THEN 1 tablet (250 mg total) 1 (one) time each day for 4 days. 6 each 01/29/20 25 025 Active Problems Problem Noted Date Diagnosed Date History of right hip hemiarthroplasty 02/07/2025 Abnormal EKG 06/22/2024 Overview (07/20/2024): Tachycardic at 129 bpm. Appears in sinus rhythm with frequent multiform PVCs. Refused ER evaluation AGAINST MEDICAL ADVICE. PVC (premature ventricular contraction) 06/22/20 24 MASSEY (dyspnea on exertion) 09/13/2021 Bilateral lower extremity edema 07/12/2021 DDD (degenerative disc disease), cervical 2020 Histrionic personality disorder (CMS/HCC V24, CM S/HCC V28) 07/12/2021 Neural foraminal stenosis of lumbar spine 2020 Overview (07/20/2024): MRI 02/2021, Severe R sided at L4-L5 w/ significant compression of exiting R L4 nerve root. Osteoarthritis 07/12/2021 Overview (07/20/2024): Bilateral knees and hands. Osteonecrosis ([facility] V24, [facility] V28) 021 Overview (07/20/2024): Hx L femoral fracture (? original injury date 07/2010 or fall 07/11/2019. ORIF, s/p femoral juan alberto, revision and L total hip arthroplasty 05/2020. Osteoporosis 07/12/2021 Overview (07/20/2024): Started 01/2023 Rheumatoid arthritis ([facility] V24, [facility] V28) 07/12/2021 Anxiety 03/18/2019 Cervical radiculitis 03/12/2019 Overview (07/20/2024): 08/2019 CT: Multilevel cervical stenosis, greatest at C5-C6. Hypertension 03/12/2019 Diastolic CHF, acute ([facility] V24, [facility] V28) 01/26/2014 Vitamin D deficiency 11/03/2013 Depression 05/03/2013 Back pain 01/29/2013 Fibromyalgia 01/29/2013 Peptic ulcer disease 01/29/2013 Restless leg syndrome 01/29/2013 Encounters Date Type Department Care Team Description 02/07/2025 Telephone Adult Medicine [address] [phone] Harriett Crandall MA Vomiting 02/02/2025 Telephone Adult Medicine [address] [phone] Harriett Crandall MA VNA 01/28/2025 Telephone Adult Medicine [address] [phone] Luis Montero PA Pneumonia 01/27/2025 Telephone Adult Medicine [address] [phone] Luis Montero, PA vna 01/26/2025 Telephone Adult Medicine [address] [phone] Luis Montero PA VNA 01/25/2025 Telephone Adult [address] [phone] Harriett Crandall MA Hospital Follow-up 01/20/2025 Lab Requisition [facility] - Main Lab [address] [facility] [employer] [place] [address] Florian Richmond MD Essential (primary) hypertension 12/13/2024 Telephone Adult [address] [phone] Luis Montero, PA Referral (Neurosurgery ([facility])) 11/29/2024 11:17 AM EDT - 11/29/2024 11:59 PM EDT Hospital Encounter XRAY - [address] [phone] Achilles tendon pain Discharge Disposition: Home or Self Care 11/29/2024 10:56 AM EDT - 11/29/2024 11:59 PM EDT Hospital Encounter CT Scan - [address] [phone] Opacity of lung on imaging study Discharge Disposition: Home or Self Care 11/29/2024 10:30 AM EDT Office Visit Adult [address] [phone] Lachelle Gibson NP Achilles tendon pain (Primary Dx); Weight gain; Diastolic CHF, acute (CMS/HCC V24, CMS/HCC V28) 11/29/2024 Telephone Adult Medicine [address] [phone] Sharri Trevizo MA low energy 11/26/2024 Telephone Adult Medicine [address], [place] [phone] Luis Montero PA provider call back 11/25/2024 Telephone Adult Medicine [facility] [address] [place], [place] [phone] Harriett Crandall MA Medication Problem 11/11/[address] [facility] [address] [place] [phone] Luis Montero PA Referral from Last 3 Months Immunizations Name Administration Dates Next Due Influenza Quadravalent, MDCK , 0.5ml, with preservative (Flucelvax) 6mo and older 08/09/2020,08/19/2018 Influenza trivalent, 0.5mL ( Fluad) 65yo and older 09/03/2024,08/06/2023,07/12/2022 Influenza trivalent, 0.5mL, preservative free (Fluarix; FluLaval; Fluzone) ages 6mo and older (Afluria) 3 years and older 08/29/2017 Influenza, Unspecified 06/03/2014 Pneumococcal conjugate 13 va lent (Prevnar 13, PCV13) 2mo and older 03/08/2016 Pneumococcal polysaccharide 23 valent (Pneumovax 23) 2yo and older 08/09/2020,08/29/2017,01/17/2014 Pneumococcal, Unspecified 08/29/2017 Td Tetanus diptheria (Tdvax) 7yo and older 08/29 Surgical History Surgery Date Site/Laterality Comments HIP ARTHROPLASTY 05/2020 Left PROCEDURE: HISTORICAL HIP REPLACEMENT HIP SURGERY Right ORIF hip 2024 Medical History Medical History Date Comments Depression 05/03/2013 DX:Depression Fibromyalgia 01/29/2013 DX:Fibromyalgia Osteoarthritis 07/12/2021 DX:Osteoarthriti s; COMMENT: Bilateral knees Osteonecrosis ([facility] V24, [facility] V28) 07/12/2021 DX:Osteonecrosis ([facility]); COMM ENT: Hx L femoral fracture (? original injury date 07/2010 or fall 07/11/2019. ORIF, s/p femoral juan alberto, revision and L total hip arthroplasty 05/2020. Rheumatoid arthritis ([facility]/ C V24, [facility]/HCC V28) 07/12/2021 DX:Rheumatoid arthritis (HCC ) Bilateral lower extremity edema 07/12/2021 DX:Bilateral lower extremity edema Neural foraminal stenosis of lumbar spine 07/12/2021 DX:Neural foraminal stenosis of lumbar spine; COMMENT: MRI 02/2021, Severe R sided at L4-L5 w/ significant compression of exiting R L4 nerve root. Vitamin D deficiency 11/03/2013 DX:Vitamin D deficiency Diastolic CHF, acute (CMS/HC C V24, CMS/HCC V28) 01/26/2014 DX:Diastolic CHF, acute (HCC ) Cervical radiculitis 03/12/2019 DX:Cervical radiculitis; COMMENT: 08/2019 CT: Multilevel cervical stenosis, greatest at C5-C6. Hypertension 03/12/2019 DX:Hypertension DDD (degenerative disc disea se), cervical 07/12/2021 DX:DDD (degenerative disc di sease), cervical Osteoporosis 07/12/2021 DX:Osteoporosis; COMMENT: Post-menopausal History of substance use 07/12/2021 DX:Hist ory of substance use; COMMENT: PSSP noted on chart: Chronic opioid and benzodiazepine use. Family History Medical History Relation Name Comments Other: Father Hyperlipidemia Mother Thyroid disease Mother Relation Name Status Comments Father Mother Social History Tobacco Use Types Packs/Day Years Used Date Smoking Tobacco: Never Smokeless Tobacco: Never Tobacco Cessation:Counseling Given: Not Answered Alcohol Use Standard Drinks/Week Comments Not Asked 0 (1 standard drink = 0.6 oz pur e alcohol) Comments No Sex and Gender Information Value Date Recorded Sex Assigned at Not on file Legal Sex Female 12:04 PM EST Gender Identity Not on file Sexual Orientation Not on file Obstetrics History Last Filed Vital Signs Vital Sign Reading Time Taken Comments Blood Pressure 106/73 11/29/2024 10:21 AM EDT Pulse 85 11/29/2024 10:21 AM EDT Temperature 36.4 ??C (97.6 ??F) 11/29/2024 10:21 AM E DT Respiratory Rate 14 11/29/2024 10:21 AM EDT Oxygen Saturation - - Inhaled Oxygen Concentration - - Weight 57.2 kg (126 lb) 11/29/2024 10:21 AM EDT Height 165.1 cm (5' 5 ) 09/03/2024 8:24 AM EST Body Mass Index 20.97 09/03/2024 8:24 AM EST Plan of Treatment Upcoming Encounters Date Type Department Care Team (Late st Contact Info) Description 02/10/2025 9:00 AM EDT Office Visit Adult Medicine [address] [phone] Luis Montero PA [address] [place], [place] 03/08/2025 12:45 PM EDT Office Visit [address] [phone] Luis Montero, PA [address] [place], [place] Health Maintenance Due Date Last Done Comments Zoster Vaccines (1 of 2) 2000 RSV Immunization Adult Patients (1 - Risk 60-74 years 1-dose series) 2010 Colorectal Cancer Screening: Stool Based Tests (FOBT/FIT) 08/18/2022 Medicare Annual Wellness Visit 08/18/2022 Social Influencers of Health Screening 08/18/2022 COVID-19 Vaccine ( season) 2024 Depression Screening 08/06/2024 08/06/2023 Falls Risk Assessment 08/06/2024 08/06/2023 Breast Cancer Screening 01/06/2025 01/06/2023, 10/04 DTaP,Tdap,and Td Vaccines (2 - Td or Tdap) 08/29/2025 08/29/2015 Hypertension/CHF/CAD Annual BMP Blood Test 01/20/2026 01/20/2025, 09/03/2024, 04/15/2024, Additional history exists Cholesterol Screening (Lipid Panel) 09/03/2029 09/03/2024, 11/13/2023 Osteoporosis Screening (Bone Density Screening) 01/06/2033 01/06/2023 Pneumococcal Vaccine: 50+ Years Completed 08/09/2020, 08/29/2017, 08/29/2017, Additional history exists Hepatitis C Screening Completed 07/12/2021 Influenza Vaccine Completed 09/03/2024, , 07/12/2022, Additional history exists HIB Vaccines Aged Out No longer eligi ble based on patient's age to complete this topic HPV Vaccines Aged Out No longer eligi ble based on patient's age to complete this topic Hepatitis A Vaccines Aged Out No long er eligible based on patient's age to complete this topic Hepatitis B Vaccines Aged Out No long er eligible based on patient's age to complete this topic IPV Vaccines Aged Out No longer eligi ble based on patient's age to complete this topic MMR Vaccines Aged Out No longer eligi ble based on patient's age to complete this topic Meningococcal ACWY Vaccine Aged Out N o longer eligible based on patient's age to complete this topic Meningococcal B Vaccine Aged Out No l onger eligible based on patient's age to complete this topic RSV Immunization Patients Under 20 months Aged Out No longer eligible based on patient's age to complete this topic Varicella Vaccines Aged Out No longer eligible based on patient's age to complete this topic Procedures Procedure Name Priority Date/Time Associated Diagnosis Comments BASIC METABOLIC PANEL Routine 01/20/2025 5:06 AM EDT Essential (primary) hypertension COMPLETE BLOOD COUNT Routine 01/20/2025 5:06 AM EDT Essential (primary) hypertension XR FOOT 3+ VIEWS LEFT Routine 11/29/2024 11:29 AM EDT Achilles tendon pain CT CHEST WO CONTRAST Routine 11/29/2024 11:09 AM EDT Opacity of lung on imaging study LIPID PANEL WITH REFLEX TO DIRECT LDL Routine 09/03/2024 9:35 AM EST Acute cough Need for prophylactic vaccination and inoculation against influenza Diastolic CHF, acute (CMS/HCC V24, CMS/HCC V28) Fibromyalgia Depression, unspecified depression type Primary hypertension Osteoporosis, unspecified osteoporosis type, unspecified pathological fracture presence DEPRESSION SCREENING Routine 08/06/2023 FALLS RISK ASSESSMENT Routine 08/06/2023 SCREENING MAMMOGRAPHY BI 2-VIEW BREAST INC CAD Routine 01/06/2023 12:05 PM EDT Encounter for screening mammogram for malignant neoplasm of breast DXA BONE DENSITY STUDY 1+ SITS AXIAL SKEL Routine 01/06/2023 11:58 AM EDT History of falling Encounter for screening for depression Rheumatoid arthritis, unspecified ([facility] V24, [facility] V28) Age-related osteoporosis without current pathological fracture Vitamin D deficiency, unspecified Acute diastolic (congestive) heart failure ([facility] V24, [facility] V28) Essential (primary) hypertension Restless legs syndrome Peptic ulcer, site unspecified, unspecified as acute or chronic, without hemorrhage or perforation Dorsalgia, unspecified Fibromyalgia Anxiety disorder, unspecified Depression, unspecified HEPATITIS C SCREENING Routine 07/12/2021 from Last 3 Months or Most Recently Relevant to Health Maintenance Results * (ABNORMAL) Complete blood count (01/20/2025 5:06 AM EDT) [facility] WBC 9.8 4.8 - 10.8 K/mcL LAB HEMETOLOGY METHOD 01/20/2025 9:31 AM [facility] RBC 3.20(L) 3.80 - 4.80 M/mcL LAB HEMETOLOGY METHOD 01/20/2025 9:31 AM [facility] Hemoglobin 9.6(L) 11.5 - 16.0 g/dL LAB HEMETOLOGY METHOD 01/20/2025 9:31 AM [facility] Hematocrit 31.1(L) 35.0 - 47.0 % LAB HEMETOLOGY METHOD 01/20/2025 9:31 AM [facility] MCV 97.8 79.0 - 98.0 FL LAB HEMETOLOGY METHOD 01/20/2025 9:31 AM [facility] MCH 30.2 27.0 - 32.0 pcg LAB HEMETOLOGY METHOD 01/20/2025 9:31 AM EDT [facility] MCHC 30.9(L) 32.0 - 37.0 g/dL LAB H[facility] RDW 15.4(H) 11.0 - 15.0 % LAB HEMETOLOGY METHOD 01/20/2025 9:31 AM [facility] Platelets 384 130 - 400 K/mcL LAB HEMETOLOGY METHOD 01/20/2025 9:31 AM EDT [facility] MPV 9.5 7.0 - 11.0 FL LAB HEMETOLOGY METHOD 01/20/2025 9:31 AM [facility] NRBC 0.0 <1.0 % LAB HEMETOLOGY METHOD 01/20/2025 9:31 AM [facility] NRBC Absolute 0.00 <0.10 K/mcL LAB HEMETOLOGY METHOD 01/20/2025 9:31 AM [facility] Blood Venous blood specimen / Unknown Venipuncture / Unknown 01/20/2025 5:06 AM EDT 01/20/2025 9:08 AM EDT us Florian Richmond MD LAB BLOOD ORDERABLES Final Resu lt [facility] [address] [place] [address], * Basic metabolic panel (01/20/2025 5:06 AM EDT) Sodium 141 133 - 145 mmol/L LAB CHEMISTRY METHOD 01/20/2025 10:09 AM [facility] Potassium 3.7 3.5 - 5.5 mmol/L LAB CHEMISTRY METHOD 01/20/2025 10:09 AM [facility] Chloride 103 96 - 110 mmol/L LAB CHEMISTRY METHOD 01/20/2025 10:09 AM [facility] CO2 32 21 - 32 mmol/L LAB CHEMISTRY METHOD 01/20/2025 10:09 AM [facility] Anion Gap 6 3 - 11 LAB CHEMISTRY METHOD 01/20/2025 10:09 AM [facility] Glucose 93 70 - 100 mg/dL LAB CHEMISTRY METHOD 01/20/2025 10:09 AM [facility] BUN 8 5 - 25 mg/dL LAB CHEMISTRY METHOD 01/20/2025 10:09 AM [facility] Creatinine 0.50 0.50 - 1.10 mg/dL LAB CHEMISTRY METHOD 01/20/2025 10:09 AM [facility] eGFR 99 >=60 mL/min/1. 73m2 LAB CHEMISTRY METHOD 01/20/2025 10:09 AM [facility] Comment:Calculation based on the Chronic Kidney Disease Epidemiology Collaboration (CKD-EPI) equation refit without adjustment for race. BUN/Creatinine Ratio 16.0 LAB CHEMISTRY METHOD 01/20/2025 10:09 AM [facility] Calcium 8.5 8.5 - 10.5 mg/dL LAB CHEMISTRY METHOD 01/20/2025 10:09 AM [facility] Blood Venous blood specimen / Unknown Venipuncture / Unknown 01/20/2025 5:06 AM EDT 01/20/2025 9:08 AM EDT us Florian Richmond MD LAB BLOOD ORDERABLES Final Resu lt [facility] [address] [place] [address], [place] [phone] * XR Foot 3+ Views Left (11/29/2024 11:29 AM EDT) Anatomical Region Laterality Modality Lower Extremities, Foot Left Radiogra phic Imaging 11/29/2024 5:15 PM EDT Narrative 11/29/2024 5:16 PM EDT Left foot, 3 views. History pain in the Achilles area. There is no evidence of fractures or dislocations. There is no evidence of calcaneal spurs. There is hypertrophy deformity of multiple digits and mild degenerative changes in the first metatarsophalangeal joint. CONCLUSIONS: No evidence of fractures or dislocations. Hammertoe deformity of the toes. No calcaneal spurring. Degenerative changes. -------- FINAL REPORT -------- Dictated By: Amara Arias Dictated Date: 11/29/2024 17:15 ET Assigned Physician: Amara Arias Reviewed and Electronically Signed By: Amara Arias Signed Date: 11/29/2024 17:16 ET Workstation ID: [id number] Transcribed By: Self Edit Transcribed Date: 11/29/2024 17:15 ET Procedure Note Amara Arias MD - 11/29/2024 Left foot, 3 views. History pain in the Achilles area. There is no evidence of fractures or dislocations. There is no evidence ofcalcaneal spurs. There is hypertrophy deformity of multiple digits andmild degenerative changes in the first metatarsophalangeal joint. CONCLUSIONS: No evidence of fractures or dislocations. Hammertoe deformityof the toes. No calcaneal spurring. Degenerative changes. -------- FINAL REPORT -------- Dictated By: Amara Arias Dictated Date: 11/29/2024 17:15 ET Assigned Physician: Amara Arias Reviewed and Electronically Signed By: Amara Arias Signed Date: 11/29/2024 17:16 ET Workstation ID: [id number] Transcribed By: Self Edit Transcribed Date: 11/29/2024 17:15 ET us Lachelle Gibson NP IMG XR PROCEDURES Final Resu lt * CT Chest wo Contrast (11/29/2024 11:09 AM EDT) Anatomical Region Laterality Modality Body Computed Tomogra phy 11/29/2024 8:55 PM EDT Narrative 11/29/2024 9:[address] without intravenous contrast. HISTORY: Right apical opacity on plain films of the chest from 09/03/2024. Examination was performed on multidetector scanner without administration of intravenous contrast. No prior chest CTs are available for comparison. Plain films of the chest from 09/03/2024 was reviewed. Major airways are patent. There is 3 mm groundglass opacity nodule in the right upper lobe, axial image 115. There is arm 4 mm subpleural nodule in the right lower lobe posteriorly axial image #193. There is 5 mm nodule in the right lower lobe laterally axial image 198. There is area of atelectasis versus air bronchogram in the right middle lobe anterior medially, better appreciated on sagittal image #83. There is approximately 3 mm rounded nodule in the anterior inferior lingula. There is arm focal area of groundglass opacity at the left base measuring approximately 2.7 x 5.5 cm, but appreciated on the sagittal image 142. There are areas of peribronchial thickening in the central zones bilaterally. There is no gross mediastinal or hilar lymphadenopathy. Evaluation is limited due to lack of intravenous contrast. Visualized portions of the abdominal organs appear to be unremarkable. There is mild compression deformity of the superior endplate of the L2 of uncertain chronicity. CONCLUSIONS: Bilateral pulmonary small nodules as detailed. Atelectasis with air bronchogram in the right middle lobe. Groundglass opacity at the left base. Please correlate clinically. Follow-up chest CT in 3/6 months is recommended. -------- FINAL REPORT -------- Dictated By: Amara Arias Dictated Date: 11/29/2024 20:55 ET Assigned Physician: Amara Arias Reviewed and Electronically Signed By: Amara Arias Signed Date: 11/29/2024 21:06 ET Workstation ID: [id number] Transcribed By: Self Edit Transcribed Date: 11/29/2024 20:55 ET Procedure Note Amara Arias MD - 11/29/[address] without intravenous contrast. HISTORY: Right apical opacity on plain films of the chest from09/03/2024. Examination was performed on multidetector scanner without administrationof intravenous contrast. No prior chest CTs are available for comparison.Plain films of the chest from 09/03/2024 was reviewed. Major airways are patent. There is 3 mm groundglass opacity nodule in theright upper lobe, axial image 115. There is arm 4 mm subpleural nodule inthe right lower lobe posteriorly axial image #193. There is 5 mm nodule inthe right lower lobe laterally axial image 198. There is area ofatelectasis versus air bronchogram in the right middle lobe anteriormedially, better appreciated on sagittal image #83. There is approximately3 mm rounded nodule in the anterior inferior lingula. There is arm focalarea of groundglass opacity at the left base measuring approximately 2.7 x5.5 cm, but appreciated on the sagittal image 142. There are areas of peribronchial thickening in the central zonesbilaterally. There is no gross mediastinal or hilar lymphadenopathy. Evaluation islimited due to lack of intravenous contrast. Visualized portions of the abdominal organs appear to be unremarkable.There is mild compression deformity of the superior endplate of the L2 ofuncertain chronicity. CONCLUSIONS: Bilateral pulmonary small nodules as detailed. Atelectasiswith air bronchogram in the right middle lobe. Groundglass opacity at theleft base. Please correlate clinically. Follow-up chest CT in 3/6 monthsis recommended. -------- FINAL REPORT -------- Dictated By: Amara Arias Dictated Date: 11/29/2024 20:55 ET Assigned Physician: Amara Arias Reviewed and Electronically Signed By: Amara Arisa Signed Date: 11/29/2024 21:06 ET Workstation ID: [id number] Transcribed By: Self Edit Transcribed Date: 11/29/2024 20:55 ET Luis [place] [facility] [place]EDURES Final R esult * Lipid panel with reflex to direct LDL (09/03/2024 9:35 AM EST) Cholesterol 181 0 - 200 mg/dL LAB CHEMISTRY METHOD 09/03/2024 11:58 AM EST [facility] Triglycerides 149 0 - 150 mg/dL LAB CHEMISTRY METHOD 09/03/2024 11:58 AM [facility] HDL 62 >=40 mg/dL LAB CHEMISTRY METHOD 09/03/2024 11:58 AM [facility] LDL Calculated 89 0 - 100 mg/dL LAB CHEMISTRY METHOD 09/03/2024 11:58 AM [facility] VLDL Cholesterol Jurgen 29.8 mg/dL LAB CHEMISTRY METHOD 09/03/2024 11:58 AM [facility] Non HDL Chol. (LDL+VLDL) 119 <145 mg/dL LAB CHEMISTRY METHOD 09/03/2024 11:58 AM [facility] Chol/HDL Ratio 2.9 0.0 - 4.4 LAB CHEMISTRY METHOD 09/03/2024 11:58 AM [facility] Blood Venous blood specimen / Unknown Venipuncture / Unknown 09/03/2024 9:35 AM EST 09/03/2024 9:35 AM EST Luis JIMENEZ LAB BLOOD ORDERABLES Shanda l Result [facility] [address] [place] [address], * Falls Risk Assessment (08/06/2023) Falls Risk Assessment abstracted Historical Provider MD HEALTH MAINTENANCE Final Result * Depression Screening (08/06/2023) Depression Screening abstracted Historical Provider MD HEALTH MAINTENANCE Final Result * SCREENING MAMMOGRAPHY BI 2-VIEW BREAST INC CAD (01/06/2023 12:05 PM EDT) Anatomical Region Laterality Modality Radiographic Neema ging 10/04/2021 3:58 PM EST Narrative 01/07/2023 2:30 PM EDT This is a summary report. The complete report is available in the patient's medical record. If you cannot access the medical record, please contact the sending organization for a detailed fax or copy. BILATERAL 3D DIGITAL SCREENING MAMMOGRAM History: Routine screening. ??No current breast complaints. Comparison: Mammogram from 10/04/2021 Technique: Bilateral full-field digital 3D mammography was performed using standard CC and MLO projections CAD was used to evaluate this mammogram. Findings: Density: ??There are scattered areas of fibroglandular density-B RIGHT: No suspicious masses, groups of microcalcification or areas of architectural distortion identified. Stable typically benign parenchymal asymmetries LEFT: No suspicious masses, groups of microcalcifications or areas of architectural distortion identified. Stable typically benign parenchymal asymmetries IMPRESSION: : 1. ??No mammographic evidence of malignancy. BI-RADS Category 2 benign findings Recommendation: Routine annual screening mammography is recommended Procedure Note Fernandez Bazan MD - 10/13/2023 This is a summary report. The complete report is available in thepatient's medical record. If you cannot access the medical record, pleasecontact the sending organization for a detailed fax or copy. BILATERAL 3D DIGITAL SCREENING MAMMOGRAM History: Routine screening. No current breast complaints. Comparison: Mammogram from 10/04/2021 Technique: Bilateral full-field digital 3D mammography was performed usingstandard CC and MLO projections CAD was used to evaluate this mammogram. Findings: Density: There are scattered areas of fibroglandular density-B RIGHT: No suspicious masses, groups of microcalcification or areas ofarchitectural distortion identified. Stable typically benign parenchymalasymmetries LEFT: No suspicious masses, groups of microcalcifications or areas ofarchitectural distortion identified. Stable typically benign parenchymalasymmetries IMPRESSION: : 1. No mammographic evidence of malignancy. BI-RADS Category 2 benign findings Recommendation: Routine annual screening mammography is recommended us Luis JIMENEZ IMG XR PROCEDURES Final R esult * DXA BONE DENSITY STUDY 1+ SITS AXIAL SKEL (01/06/2023 11:58 AM EDT) Anatomical Region Laterality Modality Bone Densitometr y 07/12/2022 2:57 PM EDT Narrative 01/06/2023 12:14 PM EDT BONE DENSITY ? Lumbar Spine T-score is -2.9 ?? (SD relative to 20-29 y/o adult) Z-score is -0.7 ??(SD relative to age matched peers) This is consistent with osteoporosis by criteria defined by the WHO. Left Hip T-score is -3.0 Z-score is -1.1 This is consistent with osteoporosis by criteria defined by the WHO. Impression: Based on the World Health Organization criteria, Nathan Lai should be classified as having osteoporosis. [facility] Department of Internal Medicine recommends using National Osteoporosis Foundation (NOF) guidelines in treatment decisions related to osteoporosis. NOF guidelines suggest considering treatment for postmenopausal women and men aged 50 or older presenting with the following: History of hip or vertebral fracture. T-score less than or equal to -2.5 (DXA) at the femoral neck, total hip, or spine, after appropriate evaluation to exclude secondary causes. Low bone mass (T-score between -1.0 and -2.5 at the femoral neck or spine) AND a 10-year probability of a hip fracture greater than or equal to 3% OR a 10-year probability of a major osteoporosis-related fracture greater than or equal to 20% based on the [place]-adapted WHO algorithm Please note that all treatment decisions require clinical judgment and consideration of individual patient factors, including patient preferences, co-morbidities, previous drug use, risk factors not captured in the FRAX model (e.g., frailty, falls, vitamin D deficiency, increased bone turnover, interval significant decline in bone density) and possible under- or over-estimation of fracture risk by FRAX. Procedure Note Amara Arias MD - 10/14/2023 BONE DENSITY Lumbar Spine T-score is -2.9 (SD relative to 20-29 y/o adult) Z-score is -0.7 (SD relative to age matched peers) This is consistent with osteoporosis by criteria defined by the WHO. Left Hip T-score is -3.0 Z-score is -1.1 This is consistent with osteoporosis by criteria defined by the WHO. Impression: Based on the World Health Organization criteria, Nathan Lai should beclassified as having osteoporosis. [facility] Department of Internal Medicine recommendsusing National Osteoporosis Foundation (NOF) guidelines in treatmentdecisions related to osteoporosis. NOF guidelines suggest consideringtreatment for postmenopausal women and men aged 50 or older presentingwith the following: History of hip or vertebral fracture. T-score less than or equal to -2.5 (DXA) at the femoral neck, total hip,or spine, after appropriate evaluation to exclude secondary causes. Low bone mass (T-score between -1.0 and -2.5 at the femoral neck or spine)AND a 10-year probability of a hip fracture greater than or equal to 3% ORa 10-year probability of a major osteoporosis-related fracture greaterthan or equal to 20% based on the [place]-adapted WHO algorithm Please note that all treatment decisions require clinical judgment andconsideration of individual patient factors, including patientpreferences, co-morbidities, previous drug use, risk factors not capturedin the FRAX model (e.g., frailty, falls, vitamin D deficiency, increasedbone turnover, interval significant decline in bone density) and possibleunder- or over-estimation of fracture risk by FRAX. Luis JIMENEZ [facility] [place]ED[place] Final Result * Hepatitis C Screening (07/12/2021) [facility] Hepatitis C Screening abstracted Historical Provider HEALTH MAINTENANCE Final Result from Last 3 Months or Most Recently Relevant to Health Maintenance Insurance [facility] MEDICARE ADVANTAGE on file Care Teams Sales Developer Relationship Specialty Start Date End Date Luis Montero PA [address] [place] [address] PCP - General Internal Medicine 07/13/21
[2025-02-07 17:20] LABS: Alanine Aminotransferase < 6 U/L (0-31); Albumin Level 3.9 g/dL (3.5-5.0); Alkaline Phosphatase 99 U/L (39-117); Anion Gap 15 (12-20); Aspartate Amino Transferase 21 U/L (5-31); Bilirubin Total 0.4 mg/dL (0.0-1.0); Blood Urea Nitrogen 10 mg/dL (9-16); Calcium 9.2 mg/dL (8.4-10.2); Carbon Dioxide 32 mmol/L (22-29); Chloride 102 mmol/L (96-108); Creatinine Clr Calc Pharmacy 67.2; Estimated Glomerular Filt Rate > 60; Glucose Random 140 mg/dL (60-115); Potassium 3.2 mmol/L (3.3-5.1); Sodium 146 mmol/L (135-145); Total Protein 6.5 g/dL (6.5-8.0)
[2025-02-07 17:25] LABS: B Type Natriuretic Peptide 55 pg/mL (<100)
[2025-02-07 17:28] LABS: Troponin-I High Sensitivity < 2.7 ng/L (<3.5-17.0)
--- NOTE | 2025-02-07 17:33 | PC.NURSE ---
Patient is a 74 yo female who presents from home via EMS with N/V secondary to cough. Patient was recently in a STR for a right THR. Steri strips intact and wound appears well approximated with no evidence of infection. States when left rehab was diagnosed with pneumonia and prescribed oral abx. Patient alert and oriented. Lungs with diffuse coarse crackles. Congested cough noted. POX on room air 88-89A%. Placed on o2 therapy at 2L with good effect. Respirations even and non-labored. c/o chest pain secondary to cough. Abdomen flat soft, non-tender with positive bowel sounds. Positive pedal pulses with no edema. PMH: Cellulitis of both feet Overweight (BMI 25.0-29.9) Cervical radiculopathy Derangement of left knee History of left shoulder fracture History of fracture of left hip Arthritis Scoliosis Back pain
[2025-02-07] MEDS: iohexoL 350 MG/ML 100 ML INFUS..BTL IV (17:36)
[2025-02-07] MEDS: oxyCODONE HCl Immed Release 5 MG TABLET PO (18:08)
--- NOTE | 2025-02-07 18:29 | PC.NURSE ---
CT: No definite PE is identified. Mild ill-defined densities in the lower lobes could represent an infectious or inflammatory process consider follow-up. Mild mucous plugging and bronchiectasis bilaterally. There is mild mediastinal adenopathy. There are also small supraclavicular and axillary lymph nodes bilaterally. No pathologically enlarged nodes are seen however the number of nodes is mildly prominent consider comparison to previous or follow-up to assess for interval change
[2025-02-07] MEDS: Potassium Chloride ER 20 MEQ TAB.ER.PRT 40 MEQ PO (18:31)
[2025-02-07] MEDS: Piperacillin Sodium/Tazobactam 3.375 GM in 0.9 % Sodium Chloride 50 ML IV (20:47)
[2025-02-07] MEDS: LACTATED RINGERS 1629 ML IV (20:47)
[2025-02-07 20:51] LABS: Lactic Acid 0.6 mmol/L (0.5-2.0)
--- NOTE | 2025-02-07 21:17 | PM.IMHP ---
History of Present Illness Date of Service: 02/07/25 Chief Complaint: SOB 74-year-old female with a past medical history of HFpEF, cervical radiculopathy, chronic back pain, recent hip surgery; presented to the hospital with a chief complaint of cough and shortness of breath. Patient reported that about a month ago she had hip surgery; she was in the rehab and discharged from rehab about a week ago. Her carmenza were removed. She has been walking fine without any difficulty. Over the past week to 10 days she has been having cough and shortness of breath. Has seen her PCP who diagnosed with her pneumonia and given Z-Hiro. Today she has a follow-up appoint with her PCP but her symptoms never improved and today she had severe cough with sputum production and also had couple of episodes of vomiting. Denies any abdominal pain per se. Hence presented to the ER for further evaluation. Denies any chest pain or palpitations. Denies any urinary symptoms. Patient denies any swallowing difficulty Review of all other systems is negative except mentioned above ER course: Per ER team, patient on presentation noted to be short of breath, hypoxic to 86%; placed on supplemental oxygen; given Zosyn. CT chest showed no evidence of PE but noted to have findings concerning for pneumonia. [facility] Medical History Cellulitis of both feet Overweight (BMI 25.0-29.9) Cervical radiculopathy Derangement of left knee History of left shoulder fracture History of fracture of left hip Arthritis Scoliosis Back pain Family History Father Medical history unknown Mother Medical history unknown Surgical History History of open reduction and internal fixation (ORIF) procedure Social History Alcohol intake: current Alcohol intake frequency: holidays/special occasions only Patient Tobacco Use Status: Never used Tobacco Smoked in Last 30 Days: No Advance Directives: No Advance Directives Information Provided: No Meds Allergies Allergy/AdvReac Type Severity Reaction Status Date / Time aspirin [ASPIRIN] Allergy Mild STOMACH Verified 02/07/25 16:20 UPSET codeine [CODEINE] AdvReac Unknown STOMACH Verified 02/07/25 16:20 UPSET Active Medications: Current Medications Acetaminophen (Acetaminophen 325 Mg Tablet) 650 mg PO Q6H PRN PRN Reason: Pain, Mild 1-3,fever,headache Calcium Carbonate (Calcium Carbonate 750 Mg Tab.Chew) 750 mg PO Q4H PRN PRN Reason: Heartburn Piperacillin Sod/Tazobactam (Sod 3.375 gm/ Sodium Chloride) 50 mls @ 100 mls/hr IV Q6H [facility] Vancomycin HCl 1,250 mg/ (Sodium Chloride) 250 mls @ 166.667 mls/hr IV ONCE ONE Stop: 02/07/25 23:29 Magnesium Hydroxide (Milk Of Magnesia 30 Ml Oral.Susp) 30 ml PO DAILY PRN PRN Reason: Constipation Melatonin (Melatonin 3 Mg Tablet) 6 mg PO BEDTIME PRN PRN Reason: Insomnia Pharmacy Consult (Consult Rx Vancomycin Dosing) 1 each MISCELLANE DAILY PRN PRN Reason: Consult order Sodium Chloride (0.9 % Sodium Chloride Flush 3 Ml Syringe) [facility] Medications ?Medication ?Instructions ?Recorded ?Confirmed ?Last Taken ?Type ergocalciferol (vitamin D2) 1,250 1,250 mcg PO MCCARTNEY 08/27/21 05/12/24 08/26/21 History mcg (50,000 unit) capsule mirtazapine 15 mg tablet 15 mg PO BEDTIME 08/27/21 05/12/24 08/26/21 History amitriptyline 25 mg tablet 25 mg PO BEDTIME 09/15/23 05/12/24 Unknown History cholecalciferol (vitamin D3) 125 125 mcg PO DAILY 09/15/23 05/12/24 Unknown History mcg (5,000 unit) capsule buprenorphine HCl 900 mcg buccal 900 mcg buccal BID 02/07/25 02/07/25 02/06/25 History film (Belbuca) hydroxyzine HCl 25 mg tablet 25 mg PO TID 02/07/25 02/07/25 02/06/25 History Physical Exam Vital Signs and Narrative: Vital Signs: Last Vital Signs Temp 97.6 F 02/07/25 16:17 Pulse 86 02/07/25 19:08 Resp 18 02/07/25 19:08 BP 134/74 02/07/25 19:08 Pulse Ox 95 02/07/25 19:20 O2 Del Method Nasal Cannula 02/07/25 19:20 O2 Flow Rate 2 02/07/25 19:20 Oxygen Flow Rate 2 02/07/25 16:17 BMI result Body Mass Index 19.9 Gen: Appears be in no acute distress HEENT: NCAT, Moist mucosa. Pulmonary: Coarse breath sounds CVS: Normal S1-S2 Abdomen: BS+, Soft, Nontender Extremities: Warm well perfused Neuro: Alert and awake. Results Labs 02/07/25 16:57 02/07/25 16:57 Labs: Laboratory Results - last 24 hr 02/07/25 02/07/25 16:57 20:29 MCV 93.8 MCH 30.3 MCHC 32.4 RDW 14.3 Plt Count 236 MPV 9.6 Immature Gran % (Auto) 0.5 H Neut % (Auto) 80.5 H Lymph % (Auto) 11.0 L [place] % (Auto) 7.7 Eos % (Auto) 0.1 Baso % (Auto) 0.2 Lymph # (Auto) 1.4 [place] # (Auto) 1.0 Eos # (Auto) 0.0 Baso # (Auto) 0.0 Abs Immat Gran (auto) 0.06 H Absolute Neuts (auto) 10.5 H Absolute Nucleated RBC 0.000 Nucleated RBC % (auto) 0.0 Anion Gap 15 Estim Creat Clear Calc 67.2 Estimated GFR > 60 Random Glucose 140 H Lactic Acid 0.6 Calcium 9.2 Total Bilirubin 0.4 AST 21 ALT < 6 Alkaline Phosphatase 99 Troponin I High Sens < 2.7 B-Natriuretic Peptide 55 Total Protein 6.5 Albumin 3.9 Assessment and Plan (1) HCAP (healthcare-associated pneumonia): Status: Acute Plan 74-year-old female with a past medical history of HFpEF, cervical radiculopathy, chronic back pain, recent hip surgery; presented to the hospital with a chief complaint of cough and shortness of breath. Admitted for following Acute hypoxic respiratory failure: HCAP: CT chest showed no evidence of pulmonary embolism but noted to have lower lobe pneumonia, mild mucus plugging, bronchiectasis, mild mediastinal adenopathy. Placed on supplemental oxygen. Not in respiratory distress. Continue vancomycin and Zosyn Trending pulse oximetry when ready for discharge Follow up cultures Follow-up CT chest in 4-6 weeks to ensure improvement in the CT findings. HFpEF: Stable. Anxiety/depression: Continue home medications once med rec is completed DVT prophylaxis: Lovenox Code status: DNR/DNI, confirmed. Quality Stroke Does the patient have a stroke diagnosis?: No VTE Prior VTE?: No VTE Risk Level:: Medical - moderate - high VTE Device Contraindication: Treatment Not Indicated VTE Drug Contraindication: N/A - Med Ordered
--- NOTE | 2025-02-07 22:21 | PC.NURSE ---
4 buprenorphine films secured and sent to pharmacy per policy
--- NOTE | 2025-02-07 22:29 | PHA.MEDREC ---
Addendum entered by Sharon Rascon [facility] 02/07/25 22:55: [facility] REVIEWED. Addendum entered by Myriam [place] 02/07/25 22:51: Pt confirmed she is still taking Amoxicillin 875-125mg tabs taking them 1 BID for 10 days but states she started them 01/28/2025 and should be done today but states she has a few more days left at home. She confirmed she finished the Azithromycin and Oxycodone regimens last week and she was started on Enoxaparin injections in the hospital and when she was in PT but states she never got sent home with any to continue. Original Note: Pharmacy Consult ? Medication Reconciliation Pharmacy has completed the medication reconciliation. Spoke with pt who was very pleasant and respectful during our interaction, and she was able to confirm her medications. Patient confirmed she still has Amitriptyline 25mg tabs at home as needed for anxiety/sleep and stated she was filling them at [facility] in [place] on [address]; I was able to call the [facility] and they stated the Amitriptyline has not been filled since 08/2023 for a QTY of 90 tabs. Patient confirmed her Furosemide 80mg tab once in the morning and states she takes 1/2 tab (40mg) in the afternoon around 1500
[2025-02-07] MEDS: vancomycin HCL 1,250 MG in 0.9 % Sodium Chloride 250 ML 166.67 MG IV (22:45)
--- NOTE | 2025-02-07 22:48 | PC.NURSE ---
pt found to be hypotensive. no mentation changes, pt denies changes/new symptoms. appears calm, no dyspne. call chun in reach. MD Contreras notified. remainder of LR infused for a total of 2000mL. BP quickly improved. see VS. perry dove
[2025-02-07] MEDS: 0.9 % Sodium Chloride 1,000 ML 999 ML IV (22:55)
[2025-02-08] VITALS (19 sets, daily range): BP systolic 77–117; BP diastolic 43–62; PULSE 62–85; RESP 12–20; TEMP 36.2–36.9; O2SAT 93–99; BMI 21.8
--- NOTE | 2025-02-08 00:20 | PC.NURSE ---
mentation remains unchanged, alert and oriented x4. up to commode with standby assist for tele wires/O2 tubing. no symptoms. SpO2 and HR stable on exertion. BP remains soft 100s/50s after 3L IVF. MD Peralta notified. back in bed now with call chun in reach
--- NOTE | 2025-02-08 00:30 | MHC.EDTECH ---
pt voided 300ml on commode captured with hat.
--- NOTE | 2025-02-08 00:47 | PC.NURSE ---
mentation unchanged. states her BPs have been 90s sytolic her whole life. when asked if she feels any differently at this time, patient states she feels alot better than when I came in. call chun in reach with demonstrated proper use. MD Peralta notified again. no further orders
[2025-02-08] MEDS: Lactated Ringers 1,000 ML 100 ML IVCONT ×3 (01:00→20:52)
[2025-02-08] MEDS: 0.9 % Sodium Chloride Flush 3 ML SYRINGE IVFLUSH (01:07)
--- NOTE | 2025-02-08 01:09 | PC.NURSE ---
skin warm thrughout, positive peripheral pulses 2+, no edema. patient is now on room air with SpO2 >95 stable. phone call with hospitalist. plan to draw lactic
[2025-02-08] MEDS: Albumin Human 25 % 50 ML 100 ML IV ×2 (01:38→04:57)
[2025-02-08 01:42] LABS: Lactic Acid 2.2 mmol/L (0.5-2.0)
[2025-02-08] MEDS: Lactated Ringers 500 ML 999 ML IV (01:49)
--- NOTE | 2025-02-08 02:15 | PC.NURSE ---
hospitalist aware of charted BPs
[2025-02-08 03:20] LABS: Reflex Lactate? Lactic Acid Added
[2025-02-08] MEDS: Piperacillin Sodium/Tazobactam 3.375 GM in 0.9 % Sodium Chloride 50 ML IV ×4 (03:48→22:53)
--- NOTE | 2025-02-08 03:55 | PC.NURSE ---
hospitalist states second lactic can be added to morning labs
[2025-02-08 04:45] LABS: Lactic Acid 1.1 mmol/L (0.5-2.0)
--- NOTE | 2025-02-08 04:49 | PC.NURSE ---
MD aware of current BP, new lactic of 1.1. albumin ordered
[2025-02-08 05:04] LABS: Basophils Percent Auto 0.3 % (0-2); Eosinophils Absolute Auto 0.1 X10*3/uL (0.0-0.4); Eosinophils Percent Auto 0.5 % (0-4); Hematocrit 28.5 % (37.0-47.0); Hemoglobin 9.1 g/dl (12.0-16.0); Imm Gran Abs Auto 0.03 X10*3/uL (0.00-0.03); Imm Gran Pct Auto 0.3 % (0.0-0.4); Lymphocytes Absolute Auto 3.4 X10*3/uL (1.2-4.9); Lymphocytes Percent Auto 37.6 % (20-40); MANUAL DIFF FLAG SCAN; Mean Corpuscular HGB Conc 31.9 g/dl (31.0-35.0); Mean Corpuscular Hemoglobin 30.1 pg (27.0-33.0); Mean Corpuscular Volume 94.4 fL (80.0-98.0); Mean Platelet Volume 10.1 fL (9.4-12.3); Monocytes Absolute Auto 0.9 X10*3/uL (0.1-1.2); Neutrophils Absolute Auto 4.7 x10*3/uL (2.0-8.3); Neutrophils Percent Auto 51.3 % (45-73); Platelet Count 215 X10*3/uL (160-400); Red Blood Count 3.02 X10*6/uL (4.20-5.50); Red Cell Distribution Width 14.7 % (11.0-16.0); SCAN SMEAR FLAG 1; White Blood Count 9.1 X10*3/uL (4.8-10.8)
[2025-02-08 05:20] LABS: Alanine Aminotransferase < 6 U/L (0-31); Albumin Level 2.9 g/dL (3.5-5.0); Alkaline Phosphatase 68 U/L (39-117); Anion Gap 11 (12-20); Aspartate Amino Transferase 16 U/L (5-31); Bilirubin Total 0.4 mg/dL (0.0-1.0); Blood Urea Nitrogen 7 mg/dL (9-16); Calcium 8.1 mg/dL (8.4-10.2); Carbon Dioxide 29 mmol/L (22-29); Chloride 107 mmol/L (96-108); Creatinine Clr Calc Pharmacy 71.7; Estimated Glomerular Filt Rate > 60; Glucose Random 100 mg/dL (60-115); Potassium 3.6 mmol/L (3.3-5.1); Sodium 143 mmol/L (135-145); Total Protein 4.8 g/dL (6.5-8.0)
[2025-02-08 05:31] LABS: SLIDE REVIEW VERIFIED
--- NOTE | 2025-02-08 07:16 | HO.PM.IMPN ---
Subjective Subjective Date of Service: 02/08/25 Interval History: f/u on pna, weakness, hypotension interval history: feels better, hypotension resolved. Physical Exam Vital Signs: Vital Signs: Last Vital Signs Temp 98.1 F 02/08/25 01:29 Pulse 78 02/08/25 06:40 Resp 16 02/08/25 06:10 BP 100/55 L 02/08/25 06:40 Pulse Ox 96 02/08/25 06:10 O2 Del Method Room Air 02/08/25 06:10 O2 Flow Rate 1 02/08/25 05:35 Oxygen Flow Rate 2 02/07/25 16:17 BMI result Body Mass Index 19.9 Const: Other: General: AO X 3, no acute distress Resp: CTA bilateral CVS: S1,S2,RRR GI: +BS, NT, no distention Skin: No rash Neuro: motor grossly intact Psych: appropriate affect Objective Data Active Medications Acetaminophen (Acetaminophen 325 Mg Tablet) 650 mg PO Q6H PRN PRN Reason: Pain, Mild 1-3,fever,headache Amitriptyline HCl (Amitriptyline Hcl 25 Mg Tablet) 25 mg PO BEDTIME PRN PRN Reason: Anxiety/Sleep Calcium Carbonate (Calcium Carbonate 750 Mg Tab.Chew) 750 mg PO Q4H PRN PRN Reason: Heartburn Clonazepam (Clonazepam 0.5 Mg Tablet) 0.5 mg PO BID SARAH Furosemide (Furosemide 40 Mg Tablet) 80 mg PO DAILY SARAH; Protocol Hydroxyzine HCl (Hydroxyzine Hcl 25 Mg Tablet) 25 mg PO TID SARAH Piperacillin Sod/Tazobactam (Sod 3.375 gm/ Sodium Chloride) 50 mls @ 100 mls/hr IV Q6H [facility] Last Infusion: 02/08/25 04:19 Dose: Infused Documented By: DARREL Vancomycin HCl 750 mg/ Sodium (Chloride) 265 mls @ 265 mls/hr IV Q12H SARAH Lactated Ringer's (Lr) 1,000 mls @ 100 mls/hr IVCONT .Q10H [facility] Last Admin: 02/08/25 01:00 Dose: 100 mls/hr Documented By: DARREL Magnesium Hydroxide (Milk Of Magnesia 30 Ml Oral.Susp) 30 ml PO DAILY PRN PRN Reason: Constipation Melatonin (Melatonin 3 Mg Tablet) 6 mg PO BEDTIME PRN PRN Reason: Insomnia Mirtazapine (Mirtazapine 15 Mg Tablet) 15 mg PO BEDTIME [facility] Non-Formulary Medication (Buprenorphine Hcl [Belbuca]) 900 mcg BUCCAL BID [facility] Pharmacy Consult (Consult Rx Vancomycin Dosing) 1 each MISCELLANE DAILY PRN PRN Reason: Consult order Sodium Chloride (0.9 % Sodium Chloride Flush 3 Ml Syringe) 3 ml IVFLUSH QSHIFT [facility] Last Admin: 02/08/25 01:07 Dose: 3 ml Documented By: DARREL Labs 02/08/25 04:20 02/08/25 04:20 Labs: Laboratory Results - last 24 hr 02/07/25 02/07/25 02/08/25 16:57 20:29 01:17 MCV 93.8 MCH 30.3 MCHC 32.4 RDW 14.3 Plt Count 236 MPV 9.6 Immature Gran % (Auto) 0.5 H Neut % (Auto) 80.5 H Lymph % (Auto) 11.0 L [place] % (Auto) 7.7 Eos % (Auto) 0.1 Baso % (Auto) 0.2 Lymph # (Auto) 1.4 [place] # (Auto) 1.0 Eos # (Auto) 0.0 Baso # (Auto) 0.0 Abs Immat Gran (auto) 0.06 H Absolute Neuts (auto) 10.5 H Absolute Nucleated RBC 0.000 Nucleated RBC % (auto) 0.0 Smear Tech's Comments Anion Gap 15 Estim Creat Clear Calc 67.2 Estimated GFR > 60 Random Glucose 140 H Lactic Acid 0.6 2.2 H* Calcium 9.2 Total Bilirubin 0.4 AST 21 ALT < 6 Alkaline Phosphatase 99 Troponin I High Sens < 2.7 B-Natriuretic Peptide 55 Total Protein 6.5 Albumin 3.9 02/08/25 04:20 MCV 94.4 MCH 30.1 MCHC 31.9 RDW 14.7 Plt Count 215 MPV 10.1 Immature Gran % (Auto) 0.3 Neut % (Auto) 51.3 Lymph % (Auto) 37.6 [place] % (Auto) 10.0 Eos % (Auto) 0.5 Baso % (Auto) 0.3 Lymph # (Auto) 3.4 [place] # (Auto) 0.9 Eos # (Auto) 0.1 Baso # (Auto) 0.0 Abs Immat Gran (auto) 0.03 Absolute Neuts (auto) 4.7 Absolute Nucleated RBC 0.000 Nucleated RBC % (auto) 0.0 Smear Tech's Comments VERIFIED Anion Gap 11 L Estim Creat Clear Calc 71.7 Estimated GFR > 60 Random Glucose 100 Lactic Acid 1.1 Calcium 8.1 L D Total Bilirubin 0.4 AST 16 ALT < 6 Alkaline Phosphatase 68 Troponin I High Sens B-Natriuretic Peptide Total Protein 4.8 L Albumin 2.9 L Assessment and Plan (1) HCAP (healthcare-associated pneumonia): Status: Acute (2) Hypotension: Status: Acute Plan 74-year-old female with a past medical history of HFpEF, cervical radiculopathy, chronic back pain, recent hip surgery, s/p rehab here with sob/cough, nausea and vomitting and found to have PNA, hypotension Acute hypoxic respiratory failure, had O2 sat of 86 on RA, CT probable PNA, doesn't meet sepsis by criter continue Zosyn, Vanco started 02/07 MRSA nasal screen follo cultures O2 with goal of O2 sat 94% Hypotension, not due to sepsis, likely from vomiting, BP has improved with IVF Continue LR HFpEF: Euvolemic hold lasix today in light of low BP Anxiety/depression: Continue home medications once med rec is completed DVT prophylaxis: Lovenox Code status: DNR/DNI, confirmed. Quality Stroke Does the patient have a stroke diagnosis?: No VTE Prior VTE?: No VTE Risk Level:: Medical - moderate - high VTE Device Contraindication: Treatment Not Indicated VTE Drug Contraindication: N/A - Med Ordered
[2025-02-08] MEDS: hydrOXYzine HCL 25 MG TABLET PO ×3 (08:49→20:50)
[2025-02-08] MEDS: Furosemide 40 MG TABLET 80 MG PO (08:49)
[2025-02-08] MEDS: clonazePAM 0.5 MG TABLET PO (08:50)
[2025-02-08] MEDS: vancomycin HCL 750 MG in 0.9 % Sodium Chloride 250 ML 265 MG IV ×2 (11:02→22:53)
[2025-02-08] MEDS: DULoxetine HCl 60 MG CAPSULE.DR PO ×2 (12:02→20:51)
--- NOTE | 2025-02-08 12:10 | MHC.CM.PN ---
EMR REVIEWED, PT W/PNA, CM MET W/PT WHO REPORTS SHE LIVES W/A ROOMMATE, IS INDEP W/ALL CARE, USES A CANE AT BASELINE AND DOES HAVE A WALKER FROM WHEN SHE FX'D HER HIP LAST YEAR, NO HOME SERVICES AND GOAL FOR PT IS HOME. PCP ON FILE VERIFIED AND PT REPORTS HER HCP IS HER ROOMMATE/FRIEND MANUEL FINE [phone] AND THAT HCP WAS COMPLETED AT [facility], REQUEST FAXED TO [employer] [facility] [phone].
[2025-02-08] MEDS: Mirtazapine 15 MG TABLET PO (23:06)
[2025-02-09] MEDS: Piperacillin Sodium/Tazobactam 3.375 GM in 0.9 % Sodium Chloride 50 ML IV ×4 (03:20→21:42)
[2025-02-09 03:52] VITALS: BP 100/58; PULSE 70; RESP 18; TEMP 36.1; O2SAT 92
[2025-02-09 07:20] LABS: Creatinine Clr Calc Pharmacy 70.5; Estimated Glomerular Filt Rate > 60
[2025-02-09 07:52] VITALS: BP 121/58; PULSE 71; RESP 18; TEMP 36.6; O2SAT 94
[2025-02-09] MEDS: Cholecalciferol (Vitamin D3) 25 MCG TABLET 125 MCG PO (08:18)
[2025-02-09] MEDS: DULoxetine HCl 60 MG CAPSULE.DR PO ×2 (08:19→21:41)
[2025-02-09] MEDS: clonazePAM 0.5 MG TABLET PO ×2 (08:19→21:41)
[2025-02-09] MEDS: hydrOXYzine HCL 25 MG TABLET PO ×3 (08:19→21:41)
[2025-02-09] MEDS: 0.9 % Sodium Chloride Flush 3 ML SYRINGE IVFLUSH (08:22)
[2025-02-09] MEDS: Lactated Ringers 1,000 ML 100 ML IVCONT (08:22)
[2025-02-09] MEDS: BUPRENORPHINE HCL 900 MCG 900 EACH BUCCAL (08:25)
--- NOTE | 2025-02-09 09:55 | HO.PM.IMPN ---
Subjective Subjective Date of Service: 02/09/25 Interval History: f/u on pna, weakness, hypotension interval history: feels better, hypotension resolved. no sob Physical Exam Vital Signs: Vital Signs: Last Vital Signs Temp 97.8 F 02/09/25 07:52 Pulse 71 02/09/25 07:52 Resp 18 02/09/25 07:52 BP 121/58 L 02/09/25 07:52 Pulse Ox 94 02/09/25 07:52 O2 Del Method Nasal Cannula 02/09/25 07:52 O2 Flow Rate 1 02/09/25 07:52 Oxygen Flow Rate 2 02/07/25 16:17 BMI result Body Mass Index 21.8 Const: Other: General: AO X 3, no acute distress Resp: CTA bilateral CVS: S1,S2,RRR, mild rales at the bases GI: +BS, NT, no distention Skin: No rash Neuro: motor grossly intact Psych: appropriate affect Objective Data Active Medications Acetaminophen (Acetaminophen 325 Mg Tablet) 650 mg PO Q6H PRN PRN Reason: Pain, Mild 1-3,fever,headache Amitriptyline HCl (Amitriptyline Hcl 25 Mg Tablet) 25 mg PO BEDTIME PRN PRN Reason: Anxiety/Sleep Calcium Carbonate (Calcium Carbonate 750 Mg Tab.Chew) 750 mg PO Q4H PRN PRN Reason: Heartburn Clonazepam (Clonazepam 0.5 Mg Tablet) 0.5 mg PO BID [facility] Last Admin: 02/09/25 08:19 Dose: 0.5 mg Documented By: GO Clonazepam (Clonazepam 0.5 Mg Tablet) 0.5 mg PO BID PRN PRN Reason: anxiety Doxycycline Monohydrate (Doxycycline Monohydrate 100 Mg Capsule) 100 mg PO BID [facility] Duloxetine HCl (Duloxetine Hcl 60 Mg Capsule.Dr) 60 mg PO BID [facility] Last Admin: 02/09/25 08:19 Dose: 60 mg Documented By: GO Hydroxyzine HCl (Hydroxyzine Hcl 25 Mg Tablet) 25 mg PO TID [facility] Last Admin: 02/09/25 08:19 Dose: 25 mg Documented By: GO Piperacillin Sod/Tazobactam (Sod 3.375 gm/ Sodium Chloride) 50 mls @ 100 mls/hr IV Q6H [facility] Last Infusion: 02/09/25 04:03 Dose: Infused Documented By: LORIN Lidocaine (Lidocaine 4 % Patch Adh..Patch) 2 patch TRANSDERMA DAILY PRN PRN Reason: pain Magnesium Hydroxide (Milk Of Magnesia 30 Ml Oral.Susp) 30 ml PO DAILY PRN PRN Reason: Constipation Melatonin (Melatonin 3 Mg Tablet) 6 mg PO BEDTIME PRN PRN Reason: Insomnia Mirtazapine (Mirtazapine 15 Mg Tablet) 15 mg PO BEDTIME [facility] Last Admin: 02/08/25 23:06 Dose: 15 mg Documented By: LORIN Comments: per patient to take med at this time Pt Own ( Buprenorphine Hcl [ Belbuca] 900 Mcg Film) 900 mcg BUCCAL BID [facility] Last Admin: 02/09/25 08:25 Dose: 900 mcg Documented By: GO Pharmacy Consult (Consult Rx Vancomycin Dosing) 1 each MISCELLANE DAILY PRN PRN Reason: Consult order Sodium Chloride (0.9 % Sodium Chloride Flush 3 Ml Syringe) 3 ml IVFLUSH QSHIFT [facility] Last Admin: 02/09/25 08:22 Dose: 3 ml Documented By: GO Vitamin D (Cholecalciferol (Vitamin D3) 25 Mcg Tablet) 125 mcg PO DAILY [facility] Last Admin: 02/09/25 08:18 Dose: 125 mcg Documented By: GO Labs 02/08/25 04:20 02/09/25 06:59 Labs: Laboratory Results - last 24 hr 02/09/25 06:59 Estim Creat Clear Calc 70.5 Estimated GFR > 60 Microbiology Microbiology Results: Microbiology 02/07/25 20:29 Blood Culture - Preliminary Blood - Venous No growth after 24 hours. 02/07/25 20:30 Blood Culture - Preliminary Blood - Venous No growth after 24 hours. Assessment and Plan (1) HCAP (healthcare-associated pneumonia): Status: Acute (2) Hypotension: Status: Acute Plan 74-year-old female with a past medical history of HFpEF, cervical radiculopathy, chronic back pain, recent hip surgery, s/p rehab here with sob/cough, nausea and vomitting and found to have PNA, hypotension Acute hypoxic respiratory failure, had O2 sat of 86 on RA, CT probable PNA, doesn't meet sepsis by criteria, hypoxia resolved continue Zosyn 6/2 change to PO Augmentin tomorrow, Vanco 6/2 to 02/09, change to Doxy, MRSA nasal screen follo cultures O2 with goal of O2 sat 94% HypOtension, not due to sepsis, likely from vomiting, resolved BP has improved with IVF, stop IVF HFpEF: Euvolemic resume lasix Anxiety/depression: Continue home medications once med rec is completed DVT prophylaxis: Lovenox Code status: DNR/DNI, confirmed. Quality Stroke Does the patient have a stroke diagnosis?: No VTE Prior VTE?: No VTE Risk Level:: Medical - moderate - high VTE Device Contraindication: Treatment Not Indicated VTE Drug Contraindication: N/A - Med Ordered
[2025-02-09 10:00] LABS: Vancomycin Trough 16.8 mcg/mL (10.0-20.0)
[2025-02-09] MEDS: Furosemide 40 MG TABLET PO (10:51)
[2025-02-09] MEDS: Doxycycline Monohydrate 100 MG CAPSULE PO ×2 (10:52→21:41)
[2025-02-09 11:22] VITALS: BP 115/55; PULSE 85; RESP 18; TEMP 36.3; O2SAT 92
[2025-02-09 15:44] VITALS: BP 96/55; PULSE 75; RESP 18; TEMP 36.4; O2SAT 96
--- NOTE | 2025-02-09 16:04 | MHC.CM.PN ---
EMR REVIEWED, PT W/PNA REMAINS ON IV ABX, RECEIVED IV FLUIDS, ANTIC PT WILL DC HOME NO SERVICES ONCE MEDICALLY CLEARED, CM WILL CONT TO FOLLOW DC NEEDS.
[2025-02-09] MEDS: guaiFENesin LA 600 MG TAB.ER.12H PO ×2 (16:55→21:41)
--- NOTE | 2025-02-09 18:29 | P.CDIM_ITS ---
PROVIDER RESPONSE TEXT: To clarify, the appropriate diagnosis supported by the clinical indicators: Hypernatremia: resolved QUERY TEXT: PHYSICIAN'S DOCUMENTATION REQUEST Date of Query: 02/09/2025 08:34 AM EDT Patient Name: Michelle Miner Admit Date: 02/08/2025 Dear Gunnar Hurd MD, A review of the medical record indicates additional documentation may be needed. Please review below and update the documentation accordingly. Clinical Indicators: LABS: sodium 146 H 143 IV fluids Based on the above, is there a diagnosis that correlates with these findings? Hypernatremia resolved, possible, probable, suspected etc. Labs indicate a diagnosis of (please specify) Other (explain) Clinically unable to determine (explain) Thank you, Bianka Garvin, CCS, CDIS Use of terms such as suspected, likely, concern for, or probable (associated with a specific diagnosi s that is being evaluated, monitored, or treated as if it exists) are acceptable and can be coded in the inpatient se tting, when documented at the time of discharge. Please use your independent medical judgment in providing your response. THIS QUERY IS PART OF THE PERMANENT MEDICAL RECORD
[2025-02-09 20:00] VITALS: BP 108/56; PULSE 86; RESP 16; TEMP 36.4; O2SAT 99
[2025-02-09] MEDS: Mirtazapine 15 MG TABLET PO (21:41)
[2025-02-10] VITALS: BP 95/53; PULSE 71; RESP 16; TEMP 36.3; O2SAT 95
[2025-02-10 04:00] VITALS: BP 107/59; PULSE 72; RESP 16; TEMP 36.4; O2SAT 93
[2025-02-10] MEDS: Piperacillin Sodium/Tazobactam 3.375 GM in 0.9 % Sodium Chloride 50 ML IV ×2 (05:44→09:13)
[2025-02-10 06:53] VITALS: BP 119/65; PULSE 79; RESP 16; TEMP 36.3; O2SAT 94
[2025-02-10] MEDS: Furosemide 40 MG TABLET PO (09:14)
[2025-02-10] MEDS: clonazePAM 0.5 MG TABLET PO (09:14)
[2025-02-10] MEDS: DULoxetine HCl 60 MG CAPSULE.DR PO (09:14)
[2025-02-10] MEDS: Doxycycline Monohydrate 100 MG CAPSULE PO (09:14)
[2025-02-10] MEDS: guaiFENesin LA 600 MG TAB.ER.12H PO (09:14)
[2025-02-10] MEDS: hydrOXYzine HCL 25 MG TABLET PO (09:15)
[2025-02-10] MEDS: Cholecalciferol (Vitamin D3) 25 MCG TABLET 125 MCG PO (09:15)
[2025-02-10] MEDS: BUPRENORPHINE HCL 900 MCG 900 EACH BUCCAL (09:16)
[2025-02-10] MEDS: 0.9 % Sodium Chloride Flush 3 ML SYRINGE IVFLUSH (09:16)
--- NOTE | 2025-02-10 09:56 | P.DS_ITS ---
DS: Providers Provider Date of Service: 02/10/25 Date of admission: 02/07/25 21:02 Date of discharge: 02/10/25 Primary care physician: BARBARA Cid DS: Diagnosis Discharge Diagnosis (1) HCAP (healthcare-associated pneumonia): Status: Acute (2) Hypotension: Status: Acute DS: Summary Hospital Course Hospital Course: admission hpi Chief Complaint: SOB 74-year-old female with a past medical history of HFpEF, cervical radiculopathy, chronic back pain, recent hip surgery; presented to the hospital with a chief complaint of cough and shortness of breath. Patient reported that about a month ago she had hip surgery; she was in the rehab and discharged from rehab about a week ago. Her carmenza were removed. She has been walking fine without any difficulty. Over the past week to 10 days she has been having cough and shortness of breath. Has seen her PCP who diagnosed with her pneumonia and given Z-Hiro. Today she has a follow-up appoint with her PCP but her symptoms never improved and today she had severe cough with sputum production and also had couple of episodes of vomiting. Denies any abdominal pain per se. Hence presented to the ER for further evaluation. Denies any chest pain or palpitations. Denies any urinary symptoms. Patient denies any swallowing difficulty Review of all other systems is negative except mentioned above ER course: Per ER team, patient on presentation noted to be short of breath, hypoxic to 86%; placed on supplemental oxygen; given Zosyn. CT chest showed no evidence of PE but noted to have findings concerning for pneumonia. Hospital course: 74-year-old female with a past medical history of HFpEF, cervical radiculopathy, chronic back pain, recent hip surgery, s/p rehab here with sob/cough, nausea and vomitting and found to have PNA, hypotension Acute hypoxic respiratory failure, had an O2 sat of 86 on RA, improved with oxygen, CT showed Mild ill-defined densities in the lower lobes could represent an infectious or inflammatory process consider follow-up. Mild mucous plugging and bronchiectasis bilaterally. There is mild mediastinal adenopathy. There are also small supraclavicular and axillary lymph nodes bilaterally. No pathologically enlarged nodes are seen , did not meet sepsis by criteria, hypoxia resolved rapidly. She was treated with Vancomcyin and Zosyn from 6/2, Vanco changed to Doxy on 02/09. She's been afebrile and no longer hypoxic, Will transition to oral Ceftin and Doxycline for a total of 7 days. No longer hypoxic, Mucinex for cough and congestion. Cutlures thus far negative. Will follow up with pulmonology with repeat imaging HypOtension, not due to sepsis, likely from vomiting, and high doses of Lasix, takes 120 mg daily, resolved with IVF, was not due to sepsis and blood pressure continue to be good HFpEF: Euvolemic resume lasix at 40 mg twice daily, rather than total 120 a day Anxiety/depression: Continue home medications once med rec is completed Time Attestation Discharge Coordination Time (in mins): 40 Quality: Safe Use of Opioids Does Pt have an Active Cancer Diagnosis on the Problem List?: No Quality: Stroke Does the patient have a stroke diagnosis?: No Physical Exam Vital Signs: Vital Signs: Last Vital Signs Temp 97.4 F 02/10/25 06:53 Pulse 79 02/10/25 06:53 Resp 16 02/10/25 06:53 BP 119/65 02/10/25 06:53 Pulse Ox 94 02/10/25 06:53 O2 Del Method Room Air 02/10/25 06:53 O2 Flow Rate 1 02/09/25 07:52 Oxygen Flow Rate 2 02/07/25 16:17 BMI result Body Mass Index 21.8 Const: Other: General: AO X 3, no acute distress Resp: CTA bilateral CVS: S1,S2,RRR GI: +BS, NT, no distention Skin: No rash Neuro: motor grossly intact Psych: appropriate affect DS: Data Data Completed and Pending Labs on day of discharge: Laboratory Results - last 24 hr 02/09/25 09:09 Vancomycin Trough 16.8 Preliminary micro results at discharge 02/07/25 20:29 Blood Culture - Preliminary Blood - Venous No growth after 48 hours. 02/07/25 20:30 Blood Culture - Preliminary Blood - Venous No growth after 48 hours. Discharge Plan Discharge Anticipated Discharge Date/Time: 02/10/25 10:12 Patient Disposition: Home, Self-Care Discharge Diagnosis: Pneumonia Referrals: Nando Villatoro MD [Physician] - 1 Month (Follow up on pneumonia, mucus plug bronchiectasis on CT) Luis Montero PA [Primary Care Provider] - 1 Week Discharge Medications: New cefuroxime axetil 500 mg tablet 500 mg PO BID 5 Days Qty: 10 0RF doxycycline monohydrate 100 mg Capsule 100 mg PO BID Qty: 8 0RF guaifenesin [Mucinex] 600 mg Tablet Extended Release 12hr 600 mg PO BID Qty: 10 0RF Continued lidocaine 5 % adhesive patch,medicated 2 patch topical DAILY PRN (Reason: pain) 30 Days Qty: 60 5RF Rx Instructions: leave on most painful area for up to 12 hrs mirtazapine 15 mg tablet 15 mg PO BEDTIME hydroxyzine HCl 25 mg tablet 25 mg PO TID buprenorphine HCl [Belbuca] 900 mcg film 900 mcg BUCCAL BID acetaminophen 500 mg Capsule 1,000 mg PO DAILY@1530 PRN (Reason: Pain) acetaminophen 500 mg Capsule 1,500 mg PO DAILY@0930 PRN (Reason: Pain) clonazepam 0.5 mg tablet 0.5 mg PO BID PRN (Reason: anxiety) duloxetine 60 mg capsule,delayed release(DR/EC) 60 mg PO BID cholecalciferol (vitamin D3) 125 mcg (5,000 unit) capsule 125 mcg PO DAILY amitriptyline 25 mg tablet 25 mg PO BEDTIME PRN (Reason: Anxiety/Sleep) Changed furosemide 80 mg tablet 40 mg PO BID Qty: 180 0RF Discontinued furosemide [Lasix] 80 mg tablet 80 mg PO DAILY 90 Days Qty: 90 0RF Rx Instructions: Please call and schedule follow-up appt amoxicillin-pot clavulanate 875-125 mg tablet 1 tab PO BID Rx Instructions: PATIENT HAS A FEW DAYS LEFT Discharge Orders: Discharge Order (Routine); Ordered 02/10/25 Ordered By: Gunnar Hurd Diet: Advance to usual diet Activity on Discharge: As tolerated Stand Alone Forms: Patient Portal Discharge page Print Language: Tristanian Care Plan Goals: recovery from pneumonia Health Concerns: pneumonia Plan of Treatment: take Ceftin and doxycycline aas recommended and follow up with your doctor in a week Lasix dose changed to 40 mg twice daily Follow up with Lung Dro[facility] Dr. Villatoro in 4 weeks, if you do not hear from the office, call :? Assessment: seen above Discharge Date/Time: 02/10/25 11:42
--- NOTE | 2025-02-10 10:31 | MHC.CM.PN ---
Patient has been medically cleared for dc to home today, self care.
== END 2025-02-10 11:42 | disposition home or self-care (01) | DRG 194 ==
LOC: HO.ED 16:49 → HO.EDOVER 21:11 → HO.IMC 02-08 07:31
PROVIDERS: Admitting Provider Hospitalist; Emergency Provider Emergency Medicine; PCP Physician Assistant Medical; Visit Provider Internal Medicine
DX: J18.9 Pneumonia, unspecified organism (principal); E87.0 Hyperosmolality and hypernatremia; I50.32 Chronic diastolic (congestive) heart failure; J47.0 Bronchiectasis with acute lower respiratory infection; F41.9 Anxiety disorder, unspecified; F32.A Depression, unspecified; Z66 Do not resuscitate; I95.9 Hypotension, unspecified; Z79.899 Other long term (current) drug therapy
CPT/HCPCS: 36415; 71275; 80053; 80202; 82565; 83605; 83880; 84484; 85025; 87040; 99285; J2543; J3370; J3371; J7120; P9047; Q9967

== ENCOUNTER → 2025-02-07 16:42 | Outpatient (BNV) | payer OTHER, SELFPAY | PROVIDERS: Emergency Provider Emergency Medicine; PCP Physician Assistant Medical; Visit Provider Radiology Diagnostic Radiology | DX: J47.9 Bronchiectasis, uncomplicated (principal) | CPT/HCPCS: 71275 ==

== ENCOUNTER → 2025-02-07 21:02 | Outpatient (BNV) | payer OTHER, SELFPAY | PROVIDERS: Admitting Provider Hospitalist; Emergency Provider Emergency Medicine; PCP Physician Assistant Medical; Visit Provider Hospitalist | DX: J96.01 Acute respiratory failure with hypoxia (principal); J18.9 Pneumonia, unspecified organism; I95.9 Hypotension, unspecified | CPT/HCPCS: 99222; 99232; 99239 ==

== ENCOUNTER 2025-06-08 14:04 | Outpatient (AMB) | payer MEDICARE, SELFPAY ==
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
[2025-06-08 14:10] VITALS: BMI 21.3
--- OUTSIDE RECORDS SUMMARY | 2025-06-08 15:15 | XMS_ITS | Encounter Summary ---
Author Organization [facility] Address [address] [place] [address] Phone Care Team Providers Care Manager Ecommerce Name Role Phone Tito Enrique MD Primary Care Provider [phone] Tito Enrique MD Unavailable [phone] Pcp, Unknown Primary Care Provider Unavailabl e Encounter Details Date Type Department Care Team (Late st Contact Info) Description 05/02/2020 Procedure Pass [facility] [place] [facility] [address] [place] [id number] Social History Tobacco Use Types Packs/Day Years Used Date Smoking Tobacco: Never Smokeless Tobacco: Never Alcohol Use Standard Drinks/Week Comments Yes 0 (1 standard drink = 0.6 oz pur e alcohol) social Comments Unknown Sex and Gender Information Value Date Recorded Sex Assigned at Female 03/09/2020 8:53 AM EDT Legal Sex Female 10:36 PM EDT Gender Identity Female 03/09/2020 8:53 AM EDT Sexual Orientation Straight 03/09/2020 8: 53 AM EDT documented as of this encounter Plan of Treatment Not on file documented as of this encounter Visit Diagnoses Not on filedocumented in this encounter Additional Health Concerns Infection Onset Date Last Indicated Resolved Time MRSA 05/15/2020 05/15/2020 10/23/2022 1:44 AM EST documented as of this encounter Care Teams Manager Ecommerce Relationship Specialty Start Date End Date Tito Enrique MD [address] [place] [address] Dr [id number] PCP - General Internal Medicine 03/13/20 02/08/21 Pcp, Unknown PCP - General 02/09/21 Tito Enrique MD [address] [place] [address] [place] [address] Primary Care Physician Internal Medicine 04/26/20 documented as of this encounter Additional Source Comments The information contained in this document represents components of the legal health record. It is not the complete legal health record.[facility]
--- OUTSIDE RECORDS SUMMARY | 2025-06-08 15:15 | XMS_ITS | Clinical Summary ---
Author Organization [facility] [address] [place] [address] Address [address] [facility] [place] Phone Care Team Providers Care Housekeeping Coordinator Name Role Phone Luis Montero Primary Care Provider [phone] Allergies Active Allergy Reactions Criticality Noted Date Comments Aspirin Nausea And Vomiting 01/29/2013 Medications triamcinolone (KENALOG) 0.1 % cream Apply to affected areas twice daily as needed for 2 weeks 07/07/20 24 025 Active diphenhydrAMI NE HCL (BenadryL) 2 % gel Apply 1 g topically 2 times daily as needed (itching). 02/11/20 24 Active clonazePAM (KlonoPIN) 0.5 mg tablet Take 1 tablet (0.5 mg total) by mouth 2 (two) times a day. 02/14/20 21 Active albuterol HFA (PROAIR HFA [...] as needed for Other. 07/12/20 21 Active hydrOXYzine HCL (ATARAX) 25 mg tablet TAKE 1 TABLET BY MOUTH EVERY 8 HOURS NEEDED FOR ITCHING OR FOR ANXIETY 270 tablet 1 02/05/20 25 Active pregabalin (LYRICA) 75 mg capsule Take 1 capsule (75 mg total) by mouth 2 (two) times a day. Max Daily Amount: 150 mg 60 each 5 02/10/20 25 Active guaiFENesin (Mucinex) 600 mg 12 hr tablet Take 2 tablets (1,200 mg total) by mouth 2 (two) times a day. Do not crush, chew, or split. 120 each 02/19/20 026 Active Additional Information Patient not taking.Reported on 02/22/2025 furosemide (LASIX) 80 mg tablet Take 1 tablet (80 mg total) by mouth 2 (two) times a day. 180 tablet 3 02/23/20 25 Active Additional Information Patient taking differently:80 mg oral 2 times daily,Takes 80 mg every morning and 40 mg every afternoon, Reported on 03/29/2025 diclofenac (VOLTAREN) 1 % topical gel Apply 2 gram four times daily to affected joint 100 g 3 02/23/20 Active Additional Information Patient not taking.Reported on 03/29/2025 mirtazapine (REMERON) 7.5 mg tablet Take 1 tablet (7.5 mg total) by mouth at bedtime. 30 each 03/29/20 Active senna 8.6 mg tablet Take 2 tablets (17.2 mg total) by mouth 1 (one) time each day. 60 each 04/20/20 25 Active amoxicillin-c lavulanate (AUGMENTIN) 875-125 mg per tablet Take 1 tablet by mouth 2 (two) times a day for 14 days. 28 each 05/26/20 025 Active phentermine 15 mg capsule Take 1 capsule (15 mg total) by mouth 1 (one) time each day before breakfast. Max Daily Amount: 15 mg 30 each 05/26/20 25 025 Active cholecalcifer ol (VITAMIN D-3) 125 mcg (5,000 unit) capsule Take 1 capsule (5,000 Units total) by mouth 1 (one) time each day. 90 capsule 05/30/20 25 Active cholecalcifer ol (VITAMIN D-3) 125 mcg (5,000 unit) capsule Take 1 Capsule by mouth once a week. 04/23/20 24 025 Discontinued cholecalcifer ol (VITAMIN D-3) 125 mcg (5,000 unit) capsule TAKE 1 CAPSULE BY MOUTH ONE TIME PER WEEK 90 capsule 3 05/24/20 25 025 Discontinued(Re order) predniSONE (DELTASONE) 20 mg tablet Take 3 tabs (60mg) daily for 3 days, then take 2 tabs (40mg) daily for 3 days, then take 1 tab (20mg) daily for 3 days. 18 tablet 05/26/20 25 025 Active Problems Problem Noted Date Diagnosed Date History of right hip hemiarthroplasty 02/07/2025 Abnormal EKG 06/22/2024 Overview (07/20/2024): Tachycardic at 129 bpm. Appears in sinus rhythm with frequent multiform PVCs. Refused ER evaluation AGAINST MEDICAL ADVICE. PVC (premature ventricular contraction) 06/22/20 24 MASSEY (dyspnea on exertion) 09/13/2021 Bilateral lower extremity edema 07/12/2021 DDD (degenerative disc disease), cervical 2020 Histrionic personality disorder ([facility] V24, S/[facility] V28) 07/12/2021 Neural foraminal stenosis of lumbar spine 2020 Overview (07/20/2024): MRI 02/2021, Severe R sided at L4-L5 w/ significant compression of exiting R L4 nerve root. Osteoarthritis 07/12/2021 Overview (07/20/2024): Bilateral knees and hands. Osteonecrosis ([facility] V24, [facility] V28) 021 Overview (07/20/2024): Hx L femoral fracture (? original injury date 07/2010 or fall 07/11/2019. ORIF, s/p femoral juan alberto, revision and L total hip arthroplasty 05/2020. Osteoporosis 07/12/2021 Overview (07/20/2024): Started 01/2023 Rheumatoid arthritis ([facility] V24, [facility] V28) 07/12/2021 Anxiety 03/18/2019 Cervical radiculitis 03/12/2019 Overview (07/20/2024): 08/2019 CT: Multilevel cervical stenosis, greatest at C5-C6. Hypertension 03/12/2019 Diastolic CHF, acute ([facility] V24, [facility] V28) 01/26/2014 Vitamin D deficiency 11/03/2013 Depression 05/03/2013 Back pain 01/29/2013 Fibromyalgia 01/29/2013 Peptic ulcer disease 01/29/2013 Restless leg syndrome 01/29/2013 Encounters Date Type Department Care Team Description 05/26/2025 Telephone Adult [address] [phone] Luis Montero, PA 05/24/2025 3:00 PM EDT - 05/24/2025 11:59 PM EDT Hospital Encounter CT Scan [address] [phone] Hospital discharge follow-up; Acute right ankle pain; Right foot pain; Arthritis of knee, right; Nosocomial pneumonia Discharge Disposition: Home or Self Care 05/24/[address] [phone] Luis Montero PA 05/24/2025 Telephone Adult [address] [phone] Luis Montero, PA 04/14/2025 [place] Adult [address] [phone] Luis Montero PA 03/29/2025 2:00 PM EDT Office Visit Adult [address] [phone] Luis Montero, PA Acquired deformity of right toe (Primary Dx); Encounter for screening mammogram for malignant neoplasm of breast; Screen for colon cancer; Bilateral lower extremity edema; Anxiety; Diastolic CHF, acute (CMS/HCC V24, CMS/[facility] V28); Fibromyalgia; Primary hypertension; Osteonecrosis (CMS/HCC V24, CMS/[facility] V28); Vitamin D deficiency; Restless leg syndrome; Osteoporosis, unspecified osteoporosis type, unspecified pathological fracture presence; Peptic ulcer disease 03/24/2025 Telephone Adult Medicine [address] [place] [phone] Luis Montero PA from Last 3 Months Immunizations Immunization Administration Dates Next Due Influenza Quadravalent, MDCK [...] 07/12/2021 DX:Osteoarthriti s; COMMENT: Bilateral knees Osteonecrosis ([facility] V24, [facility] V28) 07/12/2021 DX:Osteonecrosis ([facility]); COMM ENT: Hx L femoral fracture (? original injury date 07/2010 or fall 07/11/2019. ORIF, s/p femoral juan alberto, revision and L total hip arthroplasty 05/2020. Rheumatoid arthritis ([facility]/ C V24, [facility]/HCC V28) 07/12/2021 DX:Rheumatoid arthritis (HCC ) Bilateral [...] drink = 0.6 oz pur e alcohol) Housing Instability Answer Date Recorde d Are you worried that in the next 2 months you may not have stable housing? No 02/22/2025 Food Access & Nutrition Answer Date Rec orded Do you have access to a vari ety of food including fruits and vegetables? Yes 02/22/2025 Health Literacy Answer Date Recorded How often do you need to hav e someone help you when you read instructions, pamphlets, or other written material from your doctor or pharmacy? Never 02/22/2025 Caregiver: How often do you need to have someone help you when you read instructions, pamphlets, or other written material from your doctor or pharmacy? Not on file 02/22/2025 Financial Risk Answer Date Recorded How hard is it for you to pa y for the very basics like food, housing, medical care, and air conditioning / heating? Not very hard 02/22/2025 Transportation Answer Date Recorded Has the lack of transportati on kept you from meetings, work, or from getting things needed for daily living? No Has the lack of transportati on kept you from medical appointments or from getting medications? No 02/22/2025 Social Isolation Answer Date Recorded How often do you feel lonely or isolated from th ose around you? Never 02/22/2025 Food Risk Answer Date Recorded Within the past 12 months we worried whether our food would run out before we got money to buy more. Never true 02/22/2025 Within the past 12 months th e food we bought just didn't last and we didn't have money to get more. Never true 02/22/2025 Dependent Care Answer Date Recorded Do you need help finding or paying for care for your loved ones. For example, childcare director or elderly care for an older adult? No 02/22/2025 Education Answer Date Recorded Do you think completing more education or training, like finishing a GED, going to college, or learning a trade, would be helpful for you? No 02/22/2025 Employment and Income Answer Date Recor ded During the last four weeks, have you been actively looking for work? No 02/22/2025 Living Situation Answer Date Recorded What is your living situation? Unrecognized valu e 02/22/2025 Comments No Sex and Gender Information Value Date Recorded Sex Assigned at Not on file Legal Sex Female 12:04 PM EST Gender Identity Not on file Sexual Orientation Not on file Obstetrics History Last Filed Vital Signs Vital Sign Reading Time Taken Comments Blood Pressure 108/62 03/29/2025 2:00 PM EDT Pulse 78 03/29/2025 2:00 PM EDT Temperature 36.4 C (97.6 F) 03/29/2025 2:00 PM EDT Respiratory Rate 14 03/29/2025 2:00 PM EDT Oxygen Saturation 98% 03/29/2025 2:00 PM EDT Inhaled Oxygen Concentration - - Weight 57.2 kg (126 lb) 03/29/2025 2:00 PM EDT Height 165.1 cm (5' 5 ) 03/29/2025 2:00 PM EDT Body Mass Index 20.97 03/29/2025 2:00 PM EDT Plan of Treatment Upcoming Encounters Date Type Department Care Team (Late st Contact Info) Description 10/03/2025 2:30 PM EST Office Visit Adult Medicine [address] [phone] Luis Montero [place] [phone] Health Maintenance Due Date Last Done Comments Zoster Vaccines (1 of 2) 2000 RSV Immunization Adult Patients (1 - Risk 60-74 years 1-dose series) 2010 Colorectal Cancer Screening: Stool Based Tests (FOBT/FIT) 08/18/2022 Medicare Annual Wellness Visit 08/18/2022 Breast Cancer Screening 01/06/2025 01/06/2023, 10/04 COVID-19 Vaccine ( - season) 2025 Influenza Vaccine (#1) 2025 , 08/06/2023, 07/12/2022, Additional history exists DTaP,Tdap,and Td Vaccines (2 - Td or Tdap) 08/29/2025 08/29/2015 Falls Risk Assessment 02/22/2026 02/22/2025 , 02/22/2025, 08/06/2023 Hypertension/CHF/CAD Annual BMP Blood Test 02/22/2026 02/22/2025, 01/20/2025, 09/03/2024, Additional history exists Social Influencers of Health Screening 02/22/2026 02/22/2025 Cholesterol Screening (Lipid Panel) 09/03/2029 09/03/2024, 11/13/2023 Osteoporosis Screening (Bone Density Screening) 01/06/2033 01/06/2023 Pneumococcal Vaccine: 50+ Years Completed 08/09/2020, 08/29/2017, 08/29/2017, Additional history exists Hepatitis C Screening Completed 07/12/2021 Depression Screening Completed 02/22/2025, 08/06/20 23 HIB Vaccines Aged Out No longer eligi [...] Procedure Name Priority Date/Time Associated Diagnosis Comments CT CHEST WO CONTRAST Routine 05/24/2025 3:12 PM EDT Hospital discharge follow-up Acute right ankle pain Right foot pain Arthritis of knee, right Nosocomial pneumonia COMPREHENSIVE METABOLIC PANEL Routine 02/22/2025 4:23 PM EDT Hospital discharge follow-up Acute right ankle pain Right foot pain Arthritis of knee, right Nosocomial pneumonia LIPID PANEL WITH REFLEX TO DIRECT LDL [...] for screening for depression Rheumatoid arthritis, unspecified (CMS/HCC V24, CMS/HCC V28) Age-related osteoporosis without current pathological fracture Vitamin D deficiency, unspecified Acute diastolic (congestive) heart failure (CMS/HCC V24, CMS/HCC V28) Essential (primary) hypertension Restless legs syndrome Peptic ulcer, site unspecified, unspecified as acute or chronic, without hemorrhage or perforation Dorsalgia, unspecified Fibromyalgia Anxiety disorder, unspecified Depression, unspecified HEPATITIS C SCREENING Routine 07/12/2021 from Last 3 Months or Most Recently Relevant to Health Maintenance Results * CT Chest wo Contrast (05/24/2025 3:12 PM EDT) Anatomical Region Laterality Modality Body Computed Tomogra phy 05/24/2025 8:30 PM EDT Impressions 05/25/2025 7:23 PM EDT 1. Marked improvement of the previously identified patchy groundglass opacities throughout the bilateral lower lobes with bronchial wall thickening. 2. Multiple small areas of reticulonodular opacities within the posterior right upper lobe and lateral left lower lobe. Findings are most consistent with an infectious/inflammatory process. -------- FINAL REPORT -------- Dictated By: Fernandez Bazan Dictated Date: 05/24/2025 20:30 ET Assigned Physician: Fernandez Bazan Reviewed and Electronically Signed By: Fernandez Bazan Signed Date: 05/25/2025 19:23 ET Workstation ID: [id number] Transcribed By: Self Edit Transcribed Date: 05/24/2025 20:31 ET Narrative 05/25/2025 7:[address] CHEST HISTORY: Abnormal xray - lung nodule, < 1 cm, mod-high risk b/l opacities, pneumonia. TECHNIQUE: Chest CT was performed utilizing contiguous noncontrasted axial images from the thoracic inlet to below the diaphragm. The images were reformatted in the coronal and sagittal planes. Radiation dosage is 7.92mGy COMPARISON: CTA chest from 02/07/2025 FINDINGS: Base of neck: The thyroid is grossly within normal limits. Multiple subcentimeter lymph nodes at the base the neck. Mediastinum: The heart is normal in size, no pericardial effusion. Subcentimeter lymph nodes within the mediastinal stations. Mild atherosclerosis of the thoracic aorta. Lungs: Evaluation of the lung parenchyma demonstrates apical pleural-parenchymal scarring. There are multiple areas of mucus inspissation throughout the lung parenchyma. Multiple reticulonodular opacities are present within the posterior right upper lobe (series 2, image 153). A few small reticulonodular opacities are present within the lateral left lower lobe (series 2, image 208). Small amount of bronchiectasis within the medial right middle lobe. There is been marked improvement of the previously identified patchy groundglass opacities throughout the bilateral lower lobes with bronchial wall thickening. The trachea and mainstem bronchi are patent. Upper Abdomen: Limited visualization of the extreme upper abdomen are within normal limits. MSK: Soft tissues are normal. The osseous structures are grossly stable. Procedure Note Fernandez Bazan MD - 05/25/2025 CT CHEST HISTORY: Abnormal xray - lung nodule, < 1 cm, mod-high risk b/l opacities, pneumonia. TECHNIQUE: Chest CT was performed utilizing contiguous noncontrasted axialimages from the thoracic inlet to below the diaphragm. The images werereformatted in the coronal and sagittal planes. Radiation dosage is7.92mGy COMPARISON: CTA chest from 02/07/2025 FINDINGS: Base of neck: The thyroid is grossly within normal limits. Multiplesubcentimeter lymph nodes at the base the neck. Mediastinum: The heart is normal in size, no pericardial effusion.Subcentimeter lymph nodes within the mediastinal stations. Mildatherosclerosis of the thoracic aorta. Lungs: Evaluation of the lung parenchyma demonstrates apicalpleural-parenchymal scarring. There are multiple areas of mucusinspissation throughout the lung parenchyma. Multiple reticulonodularopacities are present within the posterior right upper lobe (series 2,image 153). A few small reticulonodular opacities are present within thelateral left lower lobe (series 2, image 208). Small amount ofbronchiectasis within the medial right middle lobe. There is been markedimprovement of the previously identified patchy groundglass opacitiesthroughout the bilateral lower lobes with bronchial wall thickening. Thetrachea and mainstem bronchi are patent. Upper Abdomen: Limited visualization of the extreme upper abdomen arewithin normal limits. MSK: Soft tissues are normal. The osseous structures are grossly stable. IMPRESSION: 1. Marked improvement of the previously identified patchy groundglassopacities throughout the bilateral lower lobes with bronchial wallthickening. 2. Multiple small areas of reticulonodular opacities within the posteriorright upper lobe and lateral left lower lobe. Findings are most consistentwith an infectious/inflammatory process. -------- FINAL REPORT -------- Dictated By: Fernandez Bazan Dictated Date: 05/24/2025 20:30 ET Assigned Physician: Fernandez Bazan Reviewed and Electronically Signed By: Fernandez Bazan Signed Date: 05/25/2025 19:23 ET Workstation ID: [id number] Transcribed By: Self Edit Transcribed Date: 05/24/2025 20:31 ET Luis JIMENEZ IMG CT PROCEDURES Final R esult * (ABNORMAL) Comprehensive metabolic panel (02/22/2025 4:23 PM EDT) Sodium 142 133 - 145 mmol/L LAB CHEMISTRY METHOD 02/22/2025 7:28 PM [facility] Potassium 3.7 3.5 - 5.5 mmol/L LAB CHEMISTRY METHOD 02/22/2025 7:28 PM [facility] Chloride 105 96 - 110 mmol/L LAB CHEMISTRY METHOD 02/22/2025 7:28 PM [facility] CO2 32 21 - 32 mmol/L LAB CHEMISTRY METHOD 02/22/2025 7:28 PM [facility] Anion Gap 5 3 - 11 LAB CHEMISTRY METHOD 02/22/2025 7:28 PM [facility] Glucose 76 70 - 100 mg/dL LAB CHEMISTRY METHOD 02/22/2025 7:28 PM [facility] BUN 8 5 - 25 mg/dL LAB CHEMISTRY METHOD 02/22/2025 7:28 PM [facility] Creatinine 0.72 0.50 - 1.10 mg/dL LAB CHEMISTRY METHOD 02/22/2025 7:28 PM [facility] eGFR 88 >=60 mL/min/1. 73m2 LAB CHEMISTRY METHOD 02/22/2025 7:28 PM [facility] Comment:Calculation based on the Chronic Kidney Disease Epidemiology Collaboration (CKD-EPI) equation refit without adjustment for race. BUN/Creatinine Ratio 11.1 LAB CHEMISTRY METHOD 02/22/2025 7:28 PM [facility] Calcium 8.7 8.5 - 10.5 mg/dL LAB CHEMISTRY METHOD 02/22/2025 7:28 PM EDT [facility] AST (SGOT) 20 10 - 42 unit/L LAB CHEMISTRY METHOD [facility]2025 7[facility] ALT (SGPT) 12 10 - 60 unit/L LAB CHEMISTRY METHOD 02/22/2025 7:28 PM EDT [facility] Alkaline Phosphatase 126(H) 42 - 121 unit/L LAB CHEMISTRY METHOD 02/22/2025 7:28 PM EDT [facility] Total Protein 6.6 6.0 - 8.0 g/dL LAB CHEMISTRY METHOD [facility]25 [facility] Albumin 3.6 3.2 - 5.0 g/dL LAB CHEMISTRY METHOD 02/22/2025 7:28 PM [facility] Total Bilirubin 0.4 0.0 - 1.4 mg/dL LAB CHEMISTRY METHOD 02/22/2025 7:28 PM T [facility] Blood Venous blood specimen / Unknown Venipuncture / Unknown 02/22/2025 4:23 PM EDT 02/22/2025 4:23 PM EDT us Luis JIMENEZ LAB BLOOD ORDERABLES Shanda l Result [facility] [address] [place] [address], * Lipid panel with reflex to direct LDL (09/03/2024 9:35 AM EST) Cholesterol 181 0 - 200 mg/dL LAB CHEMISTRY METHOD 09/03/2024 11:58 AM EST [facility] Triglycerides 149 0 - 150 mg/dL LAB CHEMISTRY METHOD 09/03/2024 11:58 AM EST [facility] HDL 62 >=40 mg/dL LAB CHEMISTRY METHOD 09/03/2024 11:58 AM [facility] LDL Calculated 89 0 - 100 mg/dL LAB CHEMISTRY METHOD 09/03/2024 11:58 AM [facility] VLDL Cholesterol Jurgen 29.8 mg/dL LAB CHEMISTRY METHOD 09/03/2024 11:58 AM [facility] Non HDL Chol. (LDL+VLDL) 119 <145 mg/dL LAB CHEMISTRY METHOD 09/03/2024 11:58 AM [facility] Chol/HDL Ratio 2.9 0.0 - 4.4 LAB CHEMISTRY METHOD 09/03/2024 11:58 AM [facility] Blood Venous blood specimen / Unknown Venipuncture / Unknown 09/03/2024 9:35 AM EST 09/03/2024 9:35 AM EST Luis JIMENEZ LAB BLOOD ORDERABLES Shanda l Result [facility] [address] [place] [address], * Falls Risk Assessment (08/06/2023) Falls Risk Assessment abstracted Historical Provider HEALTH MAINTENANCE Final Result * Depression Screening (08/06/2023) Depression Screening abstracted [facility] Provider HEALTH MAINTENANCE Final Result * SCREENING MAMMOGRAPHY [...] typically benign parenchymal asymmetries IMPRESSION: : 1. No mammographic evidence of [...] Recommendation: Routine annual screening mammography is recommended Luis JIMENEZ IMG XR PROCEDURES Final R esult * DXA BONE DENSITY STUDY 1+ SITS AXIAL SKEL (01/06/2023 11:58 AM EDT) Anatomical Region Laterality Modality Bone Densitometr y 07/12/2022 2:57 PM EDT Narrative 01/06/2023 12:14 PM EDT BONE DENSITY Lumbar Spine T-score is -2.9 [...] should be classified as having osteoporosis. [facility] Department of Internal Medicine recommends using [...] Lai should beclassified as having osteoporosis. The [facility] Department of Internal Medicine recommendsusing National [...] of fracture risk by FRAX. Luis JIMENEZ IMG DXA PROCEDURES Final Result * Hepatitis C Screening (07/12/2021) [facility] Hepatitis C Screening abstracted Historical Provider HEALTH MAINTENANCE Final Result from Last 3 Months or Most Recently Relevant to Health Maintenance Insurance [facility] MEDICARE ADVANTAGE on file Care Teams Housekeeping Coordinator Relationship Specialty Start Date End Date Luis Montero PA [address] [place] [address] PCP - General Internal Medicine 07/13/21
--- OUTSIDE RECORDS SUMMARY | 2025-06-08 15:15 | XMS_ITS | Encounter Summary ---
Author Organization [facility] Address [address] [place] [address] Phone Care Team Providers Care Production Machine Computer Operator Name Role Phone Tito Enrique MD Primary Care Provider [phone] Tito Enriqeu MD Unavailable [phone] Pcp, Unknown Primary Care Provider Unavailabl e Encounter Details Date Type Department Care Team (Late st Contact Info) Description 05/16/2020 Procedure Pass [facility] PERIOPERATIVE DEPT [address] [place] [address] [phone] Social History Tobacco Use Types Packs/Day Years [...] documented as of this encounter Care Teams Production Machine Computer Operator Relationship Specialty Start Date End Date Tito Enrique MD [address] [place] [address] Dr [place]INA [id number] PCP - General Internal Medicine 03/13/20 02/08/21 Pcp, Unknown PCP - General 02/09/21 Tito Enrique MD [address] [place] [address] [place] [address] Primary Care Physician Internal Medicine 04/26/20 documented as of this encounter Additional Source Comments The information contained in this document represents components of the legal health record. It is not the complete legal health record.[facility]
--- OUTSIDE RECORDS SUMMARY | 2025-06-08 15:15 | XMS_ITS | Encounter Summary ---
Author Organization [facility] Address [address] [place] [address] Care Team Providers Care Food Service Agent Name Role Phone Luis Montero Primary Care Provider [phone] Encounter Details Date Type Department Care Team (Late st Contact Info) Description 01/20/2025 Lab Requisition [facility] - Main Lab [address] [facility] [place] [address] Florian Richmond MD [address] [place] [id number] Essential (primary) hypertension Social History Tobacco Use Types Packs/Day Years Used Date Smoking Tobacco: Never Smokeless Tobacco: Never Alcohol Use Standard Drinks/Week Comments Not Asked 0 (1 standard drink = 0.6 oz pur e alcohol) Comments No Sex and Gender Information Value Date Recorded Sex Assigned at Not on file Legal Sex Female 12:04 PM EST Gender Identity Not on file Sexual Orientation Not on file documented as of this encounter Plan of Treatment Upcoming Encounters Date Type Department Care Team (Late Contact Info) Description 10/03/2025 2:30 PM EST Office Visit Adult Medicine [address] [address] Luis Montero PA [address] [place] [address] documented as of this encounter Procedures Procedure Name Priority Date/Time Associated Diagnosis Comments COMPLETE BLOOD COUNT Routine 01/20/2025 5:06 AM EDT Essential (primary) hypertension BASIC METABOLIC PANEL Routine 01/20/2025 5:06 AM EDT Essential (primary) hypertension documented in this encounter Results * Basic metabolic panel (01/20/2025 5:06 AM EDT) Sodium 141 133 - 145 mmol/L LAB CHEMISTRY METHOD 01/20/2025 10:09 AM [facility] Potassium 3.7 3.5 - 5.5 mmol/L LAB CHEMISTRY METHOD 01/20/2025 10:09 AM [facility] Chloride 103 96 - 110 mmol/L LAB CHEMISTRY METHOD 01/20/2025 10:09 AM [facility] CO2 32 21 - 32 mmol/L LAB CHEMISTRY METHOD 01/20/2025 10:09 AM [facility] Anion Gap 6 3 - 11 LAB CHEMISTRY METHOD 01/20/2025 10:09 AM [facility] Glucose 93 70 - 100 mg/dL LAB CHEMISTRY METHOD 01/20/2025 10:09 AM [facility] BUN 8 5 - 25 mg/dL LAB CHEMISTRY METHOD 01/20/2025 10:09 AM [facility] Creatinine 0.50 0.50 - 1.10 mg/dL LAB CHEMISTRY METHOD 01/20/2025 10:09 AM [facility] eGFR 99 >=60 mL/min/1. 73m2 LAB CHEMISTRY METHOD 01/20/2025 10:09 AM [facility] Comment:Calculation based on the Chronic Kidney Disease Epidemiology Collaboration (CKD-EPI) equation refit without adjustment for race. BUN/Creatinine Ratio 16.0 LAB CHEMISTRY METHOD 01/20/2025 10:09 AM [facility] Calcium 8.5 8.5 - 10.5 mg/dL LAB CHEMISTRY METHOD 01/20/2025 10:09 AM [facility] Blood Venous blood specimen / Unknown Venipuncture / Unknown 01/20/2025 5:06 AM EDT 01/20/2025 9:08 AM EDT us Florian Richmond MD LAB BLOOD ORDERABLES Final Resu lt [facility] [address] [place] [address], [place] [phone] * (ABNORMAL) Complete blood count (01/20/2025 5:06 AM EDT) WBC 9.8 4.8 - 10.8 K/mcL LAB HEMETOLOGY METHOD 01/20/2025 9:[address] [facility] RBC 3.20(L) 3.80 - 4.80 M/mcL LAB HEMETOLOGY METHOD 01/20/2025 9:[address] [facility] Hemoglobin 9.6(L) 11.5 - 16.0 g/dL LAB [facility]OLOGY [facility] Hematocrit 31.1(L) 35.0 - 47.0 % LAB [facility]OLOGY [facility] MCV 97.8 79.0 - 98.0 FL LAB HEMETOLOGY [facility] MCH 30.2 27.0 - 32.0 pcg LAB HEMETOLOGY [facility] MCHC 30.9(L) 32.0 - 37.0 g/dL LAB HEMETOLOGY [facility]20[facility] RDW 15.4(H) 11.0 - 15.0 % LAB HEMETOLOGY [facility]20[facility]25 [facility] Platelets 384 130 - 400 K/mcL LAB HEMETOLOGY METHOD 01/20/2025 9:[address] [facility] MPV 9.5 7.0 - 11.0 FL LAB HEMETOLOGY METHOD 01/20/2025 9:[address] [facility] NRBC 0.0 <1.0 % LAB [facility] METHOD 01/20/2025 9:[address] [facility] NRBC Absolute 0.00 <0.10 K/mcL LAB [facility] METHOD 01/20/2025 9:[address] [facility] Blood Venous blood specimen / Unknown Venipuncture / Unknown 01/20/2025 5:06 AM EDT 01/20/2025 9:08 AM EDT us Florian Richmond MD LAB BLOOD ORDERABLES Final Resu lt [facility] [address] [place] [address], documented in this encounter Visit Diagnoses Diagnosis Essential (primary) hypertension Unspecified essential hypertension documented in this encounter Care Teams Food Service Agent Relationship Specialty Start Date End Date Luis Montero PA [address] [place] [address] PCP - General Internal Medicine 07/13/21 documented as of this encounter
--- OUTSIDE RECORDS SUMMARY | 2025-06-08 15:15 | XMS_ITS | Clinical Summary ---
Author Organization [facility] Address [address] [place] [address] Phone Care Team Providers Care Epic Ambulatory Specialists Name Role Phone Pcp, Unknown Primary Care Provider Unavailabl e Allergies Active Allergy Reactions Criticality Noted Date Comments Aspirin GI Upset 03/27/2020 Medications omeprazole (PRILOSEC) 20 MG capsule Take 20 mg by mouth daily. Active mirtazapine (REMERON) 15 MG tablet Take 15 mg by mouth nightly at bedtime. Active clonazePAM (KLONOPIN) 0.5 MG tablet Take 1 tablet (0.5 mg total) by mouth 2 (two) times a day as needed. 0 Active furosemide (LASIX) 20 MG tablet Take 3 tablets (60 mg total) by mouth every morning. 0 Active acetaminophen (TYLENOL) 325 mg tablet Take 3 tablets (975 mg total) by mouth every 8 (eight) hours. 0 0 Active calcium citrate-vitamin D3 315 mg- 250 unit per tablet Take 1 tablet by mouth 2 (two) times a day with meals. 0 Active enoxaparin (LOVENOX) 40 mg/0.4 mL Syrg subcutaneous syringe Inject 0.4 mL (40 mg total) under the skin nightly at bedtime. 0 Active gabapentin (NEURONTIN) 300 MG capsule Take 1 capsule (300 mg total) by mouth nightly at bedtime. 0 Active senna (SENOKOT) 8.6 mg tablet Take 2 tablets by mouth nightly at bedtime. 0 Active predniSONE (DELTASONE) 20 MG tablet Take 3 PO qd x3 days, then 2 PO qd x3 days, then 1 PO qd x3 days, then 1/2 tablet PO qd x4 days 20 tablet 1 Active triamcinolone acetonide 0.1 % ointment Apply topically 2 (two) times a day. 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 Gastroesophageal reflux disease Congestive heart failure (CHF) Overview (02/13/2021): treated with lasix Chronic pain Anxiety Immunizations Immunization Administration Dates Next Due Influenza High-Dose Quadriva lent Preservative Free IM 05/24/2020(Deferred: Contraindication) Pneumococcal conjugate PCV13 05/24/2020( Deferred: Patient Refused),05/15/2020(Deferred: Contraindication) Social History Tobacco Use Types Packs/Day Years Used Date Smoking Tobacco: Never Smokeless Tobacco: Never Alcohol Use Standard Drinks/Week Comments Yes 0 (1 standard drink = 0.6 oz pur e alcohol) social Education Answer Date Recorded Are you interested in more education? Not on meli e 01/03/2023 Are you concerned about learning? Not on file 01/03/2023 No 01/03/2023 No 01/03/2023 Digital Access Answer Date Recorded No 02/03/2023 No 02/03/2023 No 02/03/2023 Reliable internet access at home? Not on file 02/03/2023 Device with a working camera? Not on file Comments No Sex and Gender Information Value Date Recorded Sex Assigned at Female 03/09/2020 8:53 AM EDT Legal Sex Female 10:36 PM EDT Gender Identity Female 03/09/2020 8:53 AM EDT Sexual Orientation Straight 03/09/2020 8: 53 AM EDT Last Filed Vital Signs Vital Sign Reading Time Taken Comments Blood Pressure 122/66 02/09/2021 6:08 PM EDT Pulse 106 02/09/2021 6:08 PM EDT Temperature 36.5 C (97.7 F) 02/09/2021 6:08 PM EDT Respiratory Rate 16 02/09/2021 6:08 PM EDT Oxygen Saturation 98% 02/09/2021 6:08 PM EDT Inhaled Oxygen Concentration - - Weight 70.3 kg (155 lb) 02/09/2021 6:08 PM EDT Height 165.1 cm (5' 5 ) 02/09/2021 6:08 PM EDT Body Mass Index 25.79 02/09/2021 6:08 PM EDT Plan of Treatment Health Maintenance Due Date Last Done Comments LIPID PANEL 1950 DEPRESSION SCREENING 1962 HEPATITIS C SCREENING 1968 MAMMOGRAM 1990 COLOGUARD 1995 COLONOSCOPY 1995 COLORECTAL CANCER SCREENING 1995 FIT TEST 1995 FOBT 1995 SIGMOIDOSCOPY 1995 VIRTUAL COLONOSCOPY 1995 ZOSTER VACCINES (1 of 2) 2000 RSV VACCINE (1 - Risk 60-74 years 1-dose series) 2010 OSTEOPOROSIS SCREENING INITIAL (ONE-TIME) 2015 INFLUENZA VACCINE (#1) 2025 3, 07/12/2022, 08/09/2020, Additional history exists COVID-19 VACCINE ( season) 2025 Adult Td,Tdap Booster 08/29/2025 08/29/2015 PNEUMOCOCCAL VACCINES (50+ years) Completed 08/09/2020, 08/29/2017, 03/08/2016 SMOKING STATUS SCREENING (Once After 26 Yrs) Completed 02/09/2021 HEPATITIS A VACCINES Aged Out No long er eligible based on patient's age to complete this topic HIB VACCINES Aged Out No longer eligi ble based on patient's age to complete this topic MENINGOCOCCAL VACCINES (ACWY) Aged Out No longer eligible based on patient's age to complete this topic MENINGOCOCCAL VACCINES (B) Aged Out N o longer eligible based on patient's age to complete this topic Medical Devices Implanted Type Area Aerial Photographer Device Identifier Shelf Expiration Date Model / Serial / Lot Hip Stem [id number] Latter Day Conical Titanium Straight Modular - [id number] Implanted:Qty: 1 on 05/16/2020 by Farrukh García MD at [facility] Left: Hip [employer] 07/09/2023 6276-7-0 20 / / [id number] Acetabular Insert 28.0x48mm Latter Day Crosslinked Polyethylene Dual Mobility - [id number] Implanted:Qty: 1 on 05/16/2020 by Farrukh García MD at [facility] Left: Hip [employer] 03/13/2025 1236-2-8 48 / / [id number] Acetabular Liner 42mm Size E She Module Dual Mobility Titanium Noncemented - [id number] Implanted:Qty: 1 on 05/16/2020 by Farrukh García MD at [facility] Left: Hip [employer] 04/27/2025 626-00-4 2E / / [id number] Dante Dante Left: Femur Hip Stem 20mm Modular Latter Day Cone Body Proximalimal 27 Plus - [id number] Implanted:Qty: 1 on 05/16/2020 by Farrukh García MD at [facility] STANDARD Left: Hip [employer] 06/02/2022 6276-1-2 27 / / [id number] Screw Screw Left: Hip Shell Acetabular 52e Clusterhole 3d Surface Tritanium Trident Ii - [id number] Implanted:Qty: 1 on 05/16/2020 by Farrukh García MD at [facility] Acetabulum [employer] 10/11/2024 702-04-5 2E / / [id number] A Hip 4.0mm 28 Implant Biolox Delta Ceramic V40 04 - [id number] Implanted:Qty: 1 on 05/16/2020 by Farrukh García MD at [facility] Left: Hip [employer] 04/11/2025 6570-0-2 28 / / [id number] Screw Hex 6.5x30mm Low Profile - [id number] Implanted:Qty: 1 on 05/16/2020 by Farrukh García MD at [facility] Left: Hip [employer] 10/05/2024 7030-653 0 / / [id number] Screw Hex 6.5x30mm Low Profile - [id number] Implanted:Qty: 1 on 05/16/2020 by Farrukh García MD at [facility] Left: Hip [employer] 10/05/2024 7030-653 0 / / [id number] Screw Hex 6.5x20mm Low Profile - [id number] Implanted:Qty: 1 on 05/16/2020 by Farrukh García MD at [facility] Left: Hip [employer] 05/10/2024 7030-652 0 / / [id number] Insurance MEDICARE PART A & B [facility] MEDICARE PART A & B [place] [facility] & [facility] PART [facility] B HEALTH MEDICARE PART A & B [id number] [place] [address] MEDICARE PART A & B Member Subscriber Plan / Payer ( fective 2015-Present) Name:Michelle Miner Member ID:[id number] Relation to Subscriber:Self Name:Michelle Miner Subscriber ID:[id number] Payer ID:[id number] Group ID:Not on file Type:Medicare Address: [place] [address] B [id number] [place], [place] [address]HEALTH MEDICARE PART A & B MEDICARE PART A & B [id number] [place] [address] [employer] Advance Directives For more information, please contact: [phone] (9AM - 5PM [facility], Friday-Friday) * Full Code (Latest Code Status on File) Date Activated Date Inactivated Comments 05/15/2020 10:33 AM Question Answer Comments Code Status Confirmed With: Patient Care Teams Epic Ambulatory Specialists Relationship Specialty Start Date End Date Pcp, Unknown PCP - General 02/09/21 Additional Source Comments The information contained in this document represents components of the legal health record. It is not the complete legal health record.[facility]
== END 2025-06-08 14:45 | disposition home or self-care (01) ==
LOC: HO.HNS 14:04
PROVIDERS: PCP Physician Assistant Medical; Referring Provider Physical Medicine & Rehabilitation; Visit Provider Neurological Surgery
DX: M50.30 Other cervical disc degeneration, unspecified cervical region (principal)
CPT/HCPCS: 99204

== ENCOUNTER → 2025-06-08 14:04 | Outpatient (BNVA) | payer MEDICARE, SELFPAY | PROVIDERS: PCP Physician Assistant Medical; Referring Provider Physical Medicine & Rehabilitation; Visit Provider Neurological Surgery | DX: M50.30 Other cervical disc degeneration, unspecified cervical region (principal) | CPT/HCPCS: 99202 ==

== ENCOUNTER 2025-06-29 11:24 | Outpatient (REF) | payer MEDICARE, SELFPAY ==
--- NOTE | ~2025-06-29 | XR_ITS ---
EXAMINATION: X-ray bilateral knees CLINICAL INFORMATION: Bilateral knee pain COMPARISON: X-ray 02/02/2021 TECHNIQUE: Right knee 3 views. Left knee 3 views. FINDINGS: Right knee: Bone mineralization is decreased. Severe medial and lateral compartment arthritis, marked joint space loss, small osteophytes. Moderate patellofemoral arthritis. No visible acute fracture or dislocation. Small-moderate joint effusion. No abnormal soft tissue calcification. Left knee: Bone mineralization is decreased. Severe medial compartment, moderate-severe lateral, moderate patellofemoral arthritis. Joint space loss, osteophytes. No visible acute fracture or dislocation. No significant effusion. There is a partial screw projected over the distal femoral diaphysis. There is partially imaged hardware projected over the distal femoral femoral diaphysis.. XR/XR Knee Gopal 3V IMPRESSION: Right knee: Advanced tricompartment arthritis. Interval worsening from previous. No visible acute osseous findings. Small-moderate joint effusion. Interval worsening from previous. Left knee: Tricompartment osteoarthritis. Severe medial compartment arthritis. Interval worsening from previous. No acute fracture. Electronically signed by: Kem Quach MD 06/29/2025 12:22 PM EDT
--- OUTSIDE RECORDS SUMMARY | 2025-06-30 14:33 | XMS_ITS | Clinical Summary ---
Author Organization [facility] [address] [place] [address] Address [address] [facility] [place] Phone Care Team Providers Care Courtesy Driver Name Role Phone Luis Montero Primary Care Provider [phone] Allergies Active Allergy Reactions Criticality Noted Date Comments Aspirin Nausea And Vomiting 01/29/2013 Medications triamcinolone (KENALOG) 0.1 % cream Apply to affected areas twice daily as needed for 2 weeks 07/07/20 24 025 Active diphenhydrAMIN E HCL (BenadryL) 2 % [...] Film inside cheek daily. 07/12/20 21 Active hydrOXYzine HCL (ATARAX) 25 [...] crush, chew, or split. 120 each 02/19/20 25 026 Active Additional Information Patient not taking.Reported on 02/22/2025 furosemide (LASIX) 80 mg tablet Take 1 tablet (80 mg total) by mouth 2 (two) times a day. 180 tablet 3 02/23/20 Active Additional Information Patient taking differently:80 mg [...] (one) time each day. 60 each 04/20/20 Active phentermine 15 mg capsule Take 1 capsule (15 mg total) by mouth 1 (one) time each day before breakfast. Max Daily Amount: 15 mg 30 each 05/26/20 25 Active cholecalcifero l (VITAMIN D-3) 125 mcg (5,000 unit) capsule Take 1 capsule (5,000 Units total) by mouth 1 (one) time each day. 90 capsule 3 05/30/20 25 Active lidocaine (LIDODERM) 5 % patch APPLY 2 PATCH TOPICALLY DAILY NEEDED FOR PAIN FOR 30 DAYS LEAVE ON MOST PAINFUL AREA FOR UP TO 12 HRSP 60 patch 5 06/20/20 25 Active lidocaine 4 % patch Apply 1 Patch topically as needed for Other. 07/12/20 21 025 Discontinued amoxicillin-cl avulanate (AUGMENTIN) 875-125 mg per tablet Take 1 tablet by mouth 2 (two) times a day for 14 days. 28 each 05/26/20 25 025 predniSONE (DELTASONE) 20 mg tablet Take 3 [...] disc disease), cervical 2020 Histrionic personality disorder ([facility] V24, CM S/[facility] V28) 07/12/2021 Neural foraminal stenosis of lumbar spine 2020 Overview (07/20/2024): MRI 02/2021, Severe R sided at L4-L5 w/ significant compression of exiting R L4 nerve root. Osteoarthritis 07/12/2021 Overview (07/20/2024): Bilateral knees and hands. Osteonecrosis ([facility] V24, [facility] V28) 021 Overview (07/20/2024): Hx L femoral fracture (? original injury date 07/2010 or fall 07/11/2019. ORIF, s/p femoral juan alberto, revision and L total hip arthroplasty 05/2020. Osteoporosis 07/12/2021 Overview (07/20/2024): Started 01/2023 Rheumatoid arthritis ([facility] V24, [facility] V28) 07/12/2021 Anxiety 03/18/2019 Cervical radiculitis 03/12/2019 Overview (07/20/2024): 08/2019 CT: Multilevel cervical stenosis, greatest at C5-C6. Hypertension 03/12/2019 Diastolic CHF, acute ([facility] V24, [facility] V28) 01/26/2014 Vitamin D deficiency 11/03/2013 Depression 05/03/2013 Back pain 01/29/2013 Fibromyalgia 01/29/2013 Peptic ulcer disease 01/29/2013 Restless leg syndrome 01/29/2013 Encounters Date Type Department Care Team Description 05/26/2025 Telephone Adult [address] [phone] Luis Montero, [place] 05/24/2025 3:00 PM EDT - 05/24/2025 11:59 PM EDT Hospital Encounter CT Scan - [address] [phone] Hospital discharge follow-up; Acute right ankle pain; Right foot pain; Arthritis of knee, right; Nosocomial pneumonia Discharge Disposition: Home or Self Care 05/24/2025 Telephone Adult [address] [phone] Luis Montero, PA 05/24/2025 Telephone Adult [address] [phone] Luis Montero, PA 04/14/2025 Telephone Adult [address] [phone] Luis Montero, PA from Last 3 Months Immunizations Immunization [...] 07/12/2021 DX:Osteoarthriti s; COMMENT: Bilateral knees Osteonecrosis (CMS/HCC V24, CMS/HCC V28) 07/12/2021 DX:Osteonecrosis (HCC); COMM ENT: Hx L femoral fracture (? original injury date 07/2010 or fall 07/11/2019. ORIF, s/p femoral juan alberto, revision and L total hip arthroplasty 05/2020. Rheumatoid arthritis (CMS/HC C V24, CMS/HCC V28) 07/12/2021 DX:Rheumatoid arthritis ([facility] ) Bilateral lower extremity edema 07/12/2021 DX:Bilateral lower extremity edema Neural foraminal stenosis of lumbar spine 07/12/2021 DX:Neural foraminal stenosis of lumbar spine; COMMENT: MRI 02/2021, Severe R sided at L4-L5 w/ significant compression of exiting R L4 nerve root. Vitamin D deficiency 11/03/2013 DX:Vitamin D deficiency Diastolic CHF, acute (CMS/HC C V24, CMS/HCC V28) 01/26/2014 DX:Diastolic CHF, acute ([facility] ) Cervical radiculitis 03/12/2019 DX:Cervical radiculitis; COMMENT: [...] care for your loved ones. For example, early childhood teacher or elderly care for an older adult? [...] 2:30 PM EST Office Visit Adult Medicine [address] [phone] Luis Montero [address] [address] Health Maintenance Due Date Last Done Comments RSV Immunization Adult Patients (1 - Risk 50-74 years 1-dose series) 2000 Zoster Vaccines (1 of 2) 2000 Colorectal Cancer Screening: Stool Based Tests (FOBT/FIT) [...] Completed 07/12/2021 Depression Screening Completed 02/22/2025, 08/06/20 HIB Vaccines Aged Out No longer eligi [...] Signed Date: 05/25/2025 19:23 ET Workstation ID: [id number] Transcribed By: Self Edit Transcribed Date: 05/24/2025 [...] Signed Date: 05/25/2025 19:23 ET Workstation ID: [id number] Transcribed By: Self Edit Transcribed Date: 05/24/2025 20:31 ET Luis JIMENEZ [facility] CT PROCEDURES Final R esult * (ABNORMAL) Comprehensive metabolic panel (02/22/2025 4:23 PM EDT) Sodium 142 133 - 145 mmol/L LAB CHEMISTRY METHOD 02/22/2025 7:28 PM EDT [facility] Potassium 3.7 3.5 - 5.5 mmol/L LAB CHEMISTRY METHOD 02/22/2025 7:28 PM EDT [facility] Chloride 105 96 - 110 mmol/L LAB CHEMISTRY METHOD 02/22/2025 7:28 PM EDT [facility] CO2 32 21 - 32 mmol/L LAB CHEMISTRY METHOD 02/22/2025 7:28 PM [facility] Anion Gap 5 3 - 11 LAB CHEMISTRY METHOD 02/22/2025 7:28 PM [facility] Glucose 76 70 - 100 mg/dL LAB CHEMISTRY METHOD 02/22/2025 7:28 PM [facility] BUN 8 5 - 25 mg/dL LAB CHEMISTRY METHOD 02/22/2025 7:28 PM [facility] Creatinine 0.72 0.50 - 1.10 mg/dL LAB CHEMISTRY METHOD 02/22/2025 7:28 PM [facility] eGFR 88 >=60 mL/min/1. 73m2 LAB CHEMISTRY METHOD 02/22/2025 7:28 PM [facility] Comment:Calculation based on the Chronic Kidney Disease Epidemiology Collaboration (CKD-EPI) equation refit without adjustment for race. BUN/Creatinine Ratio 11.1 LAB CHEMISTRY METHOD 02/22/2025 7:28 PM [facility] Calcium 8.7 8.5 - 10.5 mg/dL LAB CHEMISTRY METHOD 02/22/2025 7:28 PM [facility] AST (SGOT) 20 10 - 42 unit/L LAB CHEMISTRY METHOD 02/22/2025 7:28 PM [facility] ALT (SGPT) 12 10 - 60 unit/L LAB CHEMISTRY METHOD 02/22/2025 7:28 PM [facility] Alkaline Phosphatase 126(H) 42 - 121 unit/L LAB CHEMISTRY METHOD 02/22/2025 7:28 PM [facility] Total Protein 6.6 6.0 - 8.0 g/dL LAB CHEMISTRY METHOD 02/22/2025 7:28 PM [facility] Albumin 3.6 3.2 - 5.0 g/dL LAB CHEMISTRY METHOD 02/22/2025 7:28 PM [facility] Total Bilirubin 0.4 0.0 - 1.4 mg/dL LAB CHEMISTRY METHOD 02/22/2025 7:28 PM EDT [facility] Blood Venous blood specimen / Unknown Venipuncture / Unknown 02/22/2025 4:23 PM EDT 02/22/2025 4:23 PM EDT Luis JIMENEZ LAB BLOOD ORDERABLES Shanda l Result [facility] [address] [place] [address], [place] [phone] * Lipid panel with reflex to direct LDL (09/03/2024 9:35 AM EST) Cholesterol 181 0 - 200 mg/dL LAB CHEMISTRY METHOD 09/03/2024 11:58 AM EST [facility] Triglycerides 149 0 - 150 mg/dL LAB CHEMISTRY METHOD 09/03/2024 11:58 AM EST [facility] HDL 62 >=40 mg/dL LAB CHEMISTRY METHOD 09/03/2024 11:58 AM EST [facility] LDL Calculated 89 0 - 100 mg/dL LAB CHEMISTRY METHOD 09/03/2024 11:58 AM EST [facility] VLDL Cholesterol Jurgen 29.8 mg/dL LAB CHEMISTRY METHOD 09/03/2024 11:58 AM EST [facility] Non HDL Chol. (LDL+VLDL) 119 <145 mg/dL LAB CHEMISTRY METHOD 09/03/2024 11:58 AM EST [facility] Chol/HDL Ratio 2.9 0.0 - 4.4 LAB CHEMISTRY METHOD 09/03/2024 11:58 AM EST [facility] Blood Venous blood specimen / Unknown Venipuncture / Unknown 09/03/2024 9:35 AM EST 09/03/2024 9:35 AM EST Luis JIMENEZ LAB BLOOD ORDERABLES Shanda l Result [facility] [address] [place] [address], * Falls Risk Assessment (08/06/2023) Falls Risk Assessment abstracted us Historical Provider MD HEALTH MAINTENANCE Final Result * Depression Screening (08/06/2023) Depression Screening abstracted us Historical Provider MD HEALTH MAINTENANCE Final Result [...] should be classified as having osteoporosis. [facility] Department of Internal Medicine recommends using National [...] Lai should beclassified as having osteoporosis. [facility] Department of Internal Medicine recommendsusing National Osteoporosis [...] over-estimation of fracture risk by FRAX. Luis NEWELL DXA PROCEDURES Final Result * Hepatitis C Screening (07/12/2021) [facility] Hepatitis C Screening abstracted Historical Provider HEALTH MAINTENANCE Final Result from Last 3 Months or Most Recently Relevant to Health Maintenance Insurance [facility] MEDICARE ADVANTAGE on file Care Teams Courtesy Driver Relationship Specialty Start Date End Date Luis Montero PA [address] [place] [id number] PCP - General Internal Medicine 07/13/21
--- OUTSIDE RECORDS SUMMARY | 2025-06-30 14:34 | XMS_ITS | Encounter Summary ---
Author Organization [facility] Address [address] [place] [address] Care Team Providers Care Applications Project Manager Name Role Phone Luis Montero Primary Care Provider [phone] Encounter Details Date Type Department Care Team (Late st Contact Info) Description 01/20/2025 Lab Requisition [facility] - Main Lab [address] [facility] [place] [address] Florian Richmond MD [address] [place] [id number] Essential (primary) hypertension Social History Tobacco Use [...] 2:30 PM EST Office Visit Adult Medicine [address] [phone] Luis Montero PA [address] [place] [address] documented as of this encounter Procedures Procedure Name Priority Date/Time Associated Diagnosis Comments COMPLETE BLOOD COUNT Routine 01/20/2025 5:06 AM EDT Essential (primary) hypertension BASIC METABOLIC PANEL Routine 01/20/2025 5:06 AM EDT Essential (primary) hypertension documented in this encounter Results * Basic metabolic panel (01/20/2025 5:06 AM EDT) Sodium 141 133 - 145 mmol/L LAB CHEMISTRY METHOD 01/20/2025 10:09 AM [facility] Potassium 3.7 3.5 - 5.5 mmol/L LAB CHEMISTRY METHOD 01/20/2025 10:09 AM [facility] Chloride 103 96 - 110 mmol/L LAB CHEMISTRY METHOD 01/20/2025 10:09 AM [facility] CO2 32 21 - 32 mmol/L LAB CHEMISTRY METHOD 01/20/2025 10:09 AM [facility] Anion Gap 6 3 - 11 LAB CHEMISTRY METHOD 01/20/2025 10:09 AM [facility] Glucose 93 70 - 100 mg/dL LAB CHEMISTRY METHOD 01/20/2025 10:09 AM [facility] BUN 8 5 - 25 mg/dL LAB CHEMISTRY METHOD 01/20/2025 10:09 AM [facility] Creatinine 0.50 0.50 - 1.10 mg/dL LAB CHEMISTRY METHOD 01/20/2025 10:09 AM [facility] eGFR 99 >=60 mL/min/1. 73m2 LAB CHEMISTRY METHOD 01/20/2025 10:09 AM [facility] Comment:Calculation based on the Chronic Kidney Disease Epidemiology Collaboration (CKD-EPI) equation refit without adjustment for race. BUN/Creatinine Ratio 16.0 LAB CHEMISTRY METHOD 01/20/2025 10:09 AM [facility] Calcium 8.5 8.5 - 10.5 mg/dL LAB CHEMISTRY METHOD 01/20/2025 10:09 AM [facility] Blood Venous blood specimen / Unknown Venipuncture / Unknown 01/20/2025 5:06 AM EDT 01/20/2025 9:08 AM EDT us Florian Richmond MD LAB BLOOD ORDERABLES Final Resu lt [facility] [address] [place] [address], [place] [phone] * (ABNORMAL) Complete blood count (01/20/2025 5:06 AM EDT) WBC 9.8 4.8 - 10.8 K/mcL LAB HEMETOLOGY METHOD 01/20/2025 9:31 AM EDT [facility] RBC 3.20(L) 3.80 - 4.80 M/mcL LAB HEMETOLOGY METHOD 01/20/2025 9:31 AM EDT [facility] Hemoglobin 9.6(L) 11.5 - 16.0 g/dL LAB [facility]OLOGY [facility] Hematocrit 31.1(L) 35.0 - 47.0 % LAB HEMETOLOGY METHOD [facility]/20/2025 9[facility] MCV 97.8 79.0 - 98.0 FL LAB HEMETOLOGY METHOD 01/20/2025 9[facility] MCH 30.2 27.0 - 32.0 pcg LAB HEMETOLOGY METHOD 01/20/2025 9:[facility] MCHC 30.9(L) 32.0 - 37.0 g/dL LAB HEMETOLOGY METHOD 01/20/2025 9:[facility] RDW 15.4(H) 11.0 - 15.0 % LAB HEMETOLOGY METHOD 01/20/2025 9:[facility] Platelets 384 130 - 400 K/mcL LAB HEMETOLOGY METHOD 01/20/2025 9:31 AM EDT [facility] MPV 9.5 7.0 - 11.0 FL LAB HEMETOLOGY METHOD 01/20/2025 9:31 AM EDT [facility] NRBC 0.0 <1.0 % LAB [facility] METHOD 01/20/2025 9:31 AM EDT [facility] NRBC Absolute 0.00 <0.10 K/mcL LAB [facility] METHOD 01/20/2025 9:31 AM EDT [facility] Blood Venous blood specimen / Unknown Venipuncture / Unknown 01/20/2025 5:06 AM EDT 01/20/2025 9:08 AM EDT us Florian Richmond MD LAB BLOOD ORDERABLES Final Resu lt [facility] [address] [place] [address], documented in this encounter Visit Diagnoses Diagnosis Essential (primary) hypertension Unspecified essential hypertension documented in this encounter Care Teams Applications Project Manager Relationship Specialty Start Date End Date Luis Montero PA [address] [place] [address] PCP - General Internal Medicine 07/13/21 documented as of this encounter
--- OUTSIDE RECORDS SUMMARY | 2025-06-30 14:34 | XMS_ITS ---
Author Name [facility] Organization Unknown History of Medication Use Medication Directions Dispensed Refills Start Date End Date Stat acetaminophen 300 mg-codeine 30 mg tablet TAKE 1 TABLET BY MOUTH EVERY DAY NEEDED FOR 14 DAYS active amoxicillin 500 mg capsule TAKE 4 CAPSULES BY MOUTH ONCE NOW active amoxicillin 875 mg-potassium clavulanate 125 mg tablet TAKE 1 TABLET BY MOUTH TWICE A DAY FOR 10 DAYS active azithromycin 250 mg tablet TAKE 2 TABLETS BY MOUTH TODAY, THEN TAKE 1 TABLET DAILY FOR 4 DAYS DIRECTED active Belbuca 600 mcg buccal film DISSOLVE 1 FILM IN CHEEK EVERY 12 HOURS active Belbuca [address] 1 FILM INSIDE CHEEK EVERY 12 HOURS. DO NOT FILL UNTIL 08/29/24 active Belbuca [address] 1 FILM IN THE CHEEK TWICE A DAY DIRECTED FOR 28 DAYS active cholecalciferol (vitamin D3) 125 mcg (5,000 unit) capsule TAKE 1 CAPSULE BY MOUTH ONCE A WEEK. active clonazepam 0.5 mg tablet TAKE 1 TABLET BY MOUTH TWICE A DAY NEEDED FOR ANXIETY active diclofenac 1 % topical gel APPLY 2 GRAM FOUR TIMES DAILY TO AFFECTED JOINT active duloxetine 60 mg capsule,delayed release TAKE 1 CAPSULE BY MOUTH TWICE A DAY active furosemide 80 mg tablet TAKE 1 TABLET BY MOUTH 2 TIMES A DAY. active hydroxyzine HCl 25 mg tablet TAKE 1 TABLET BY MOUTH EVERY 8 HOURS NEEDED FOR ITCHING OR FOR ANXIETY active levofloxacin 750 mg tablet TAKE 1 TABLET BY MOUTH 1 TIME EACH DAY FOR 10 DAYS. active lidocaine 5 % topical patch PLEASE SEE ATTACHED FOR DETAILED DIRECTIONS active mirtazapine 15 mg tablet TAKE 1 TABLET BY MOUTH EVERYDAY AT BEDTIME active mirtazapine 7.5 mg tablet TAKE 1 TABLET BY MOUTH AT BEDTIME. active naloxone 4 mg/actuation nasal spray USE DIRECTED IF NEEDED active oxycodone 5 mg tablet TAKE 1 TABLET BY MOUTH EVERY 6 HOURS NEEDED FOR SEVERE PAIN active prednisone 20 mg tablet TAKE 2 TABLETS (40 MG TOTAL) BY MOUTH ONE TIME EACH DAY FOR 5 DAYS. active pregabalin 100 mg capsule TAKE 1 CAPSULE BY MOUTH TWICE A DAY MAX DAILY AMOUNT 200MG active pregabalin 75 mg capsule TAKE 1 CAPSULE (75 MG TOTAL) BY MOUTH 2 (TWO) TIMES A DAY. MAX DAILY AMOUNT: 150 MG active senna 8.6 mg tablet TAKE 2 TABLETS (17.2 MG TOTAL) BY MOUTH 1 (ONE) TIME EACH DAY. active triamcinolone acetonide 0.1 % topical cream APPLY TO AFFECTED AREA TWICE A DAY NEEDED active valacyclovir 1 gram tablet TAKE 1 TABLET BY MOUTH 3 TIMES A DAY FOR 7 DAYS active Problems Problem Status Onset Date Problem Type Date of Resoluti on Source Osteoarthritis of right knee joint active 2025-05-20 ProblemAct [facility] Arthritis of knee active 2025-05-20 ProblemAct [facility] Encounters Encounter Type Encounter Reason Primary Diagnosis Location Date Ambulatory [facility] 05/23/2025 Ambulatory [facility] 05/20/2025 Ambulatory [facility] [place] 05/20/2025 Ambulatory [facility] [place] 03/18/2025
--- OUTSIDE RECORDS SUMMARY | 2025-06-30 14:34 | XMS_ITS | Encounter Summary ---
Author Organization [facility] Address [address] [place] [address] Phone Care Team Providers Care Manager Desktop Name Role Phone Tito Enrique MD Primary Care Provider [phone] Tito Enrique MD Unavailable [phone] Pcp, Unknown Primary Care Provider Unavailabl e Encounter Details Date Type Department Care Team (Late st Contact Info) Description 05/16/2020 Procedure Pass [facility] [address] [place] [id number] Social History Tobacco Use Types Packs/Day Years [...] as of this encounter Care Teams Manager Desktop Relationship Specialty Start Date End Date Tito Enrique MD [address] [place] [address] Dr [place] [address] PCP - General Internal Medicine 03/13/20 02/08/21 Pcp, Unknown PCP - General 02/09/21 Tito Enrique MD [address] [place] [address] [place] [address] Primary Care Physician Internal Medicine 04/26/20 documented as of this encounter Additional Source Comments The information contained in this document represents components of the legal health record. It is not the complete legal health record.[facility]
--- OUTSIDE RECORDS SUMMARY | 2025-06-30 14:34 | XMS_ITS | Clinical Summary ---
Author Organization [facility] Address [address] [place] [address] Phone Care Team Providers Care Tankroom Worker Name Role Phone Pcp, Unknown Primary Care [...] FOBT 1995 SIGMOIDOSCOPY 1995 VIRTUAL COLONOSCOPY 1995 RSV VACCINE (1 - Risk 50-74 years 1-dose series) 2000 ZOSTER VACCINES (1 of 2) 2000 OSTEOPOROSIS SCREENING INITIAL (ONE-TIME) 2015 INFLUENZA VACCINE (#1) 2025 3, 07/12/2022, 08/09/2020, Additional history exists COVID-19 VACCINE (2024- season) 2025 Adult Td,Tdap Booster 08/29/2025 08/29/2015 [...] this topic Medical Devices Implanted Type Area Metallurgical Or Materials Technician Device Identifier Shelf Expiration Date Model / Serial / Lot Hip Stem [id number] [employer] Conical Titanium Straight Modular - [id number] Implanted:Qty: 1 on 05/16/2020 by Farrukh García MD at [facility] Left: Hip [employer] 07/09/2023 6276-7-0 20 / / [id number] Acetabular Insert 28.0x48mm [employer]ism Crosslinked Polyethylene Dual Mobility - [id number] Implanted:Qty: 1 on 05/16/2020 by Farrukh García MD at [facility] Left: Hip [employer] 03/13/2025 1236-2-8 48 / / [id number] Acetabular Liner 42mm Size E She Module Dual Mobility Titanium Noncemented - [id number] Implanted:Qty: 1 on 05/16/2020 by Farrukh García MD at [facility] Left: Hip [employer] 04/27/2025 626-00-4 2E / / [id number] Dante Dante Left: Femur Hip Stem 20mm Modular [employer] Cone Body Proximalimal 27 Plus - [id number] Implanted:Qty: 1 on 05/16/2020 by Farrukh García MD at [facility] STANDARD Left: Hip [employer] 06/02/2022 6276-1-2 27 / / [id number] Screw Screw Left: Hip Shell Acetabular 52e Clusterhole 3d Surface Tritanium Trident Ii - [id number] Implanted:Qty: 1 on 05/16/2020 by Farrukh García MD at [facility] Acetabulum [employer] 10/11/2024 702-04-5 2E / / [id number] A Hip 4.0mm 28 Implant Biol[employer] Delta Ceramic V40 04 - [id number] Implanted:Qty: 1 on 05/16/2020 by Farrukh García MD at [facility] Left: Hip [employer] 04/11/2025 6570-0-2 28 / / [id number] Screw Hex 6.5x30mm Low Profile - [id number] Implanted:Qty: 1 on 05/16/2020 by Farrukh García MD at [facility] Left: Hip [employer] 10/05/2024 7030-653 0 / / [id number] Screw Hex 6.5x30mm Low Profile - [id number] Implanted:Qty: 1 on 05/16/2020 by Farrukh García MD at [facility] Left: Hip [employer] 10/05/2024 7030-653 0 / / [id number] Screw Hex 6.5x20mm Low Profile - [id number] Implanted:Qty: 1 on 05/16/2020 by Farrukh García MD at [facility] Left: Hip [employer] 05/10/2024 7030-652 0 / / [id number] Insurance MEDICARE PART A & B [facility] MEDICARE PART A & B [place] [facility] & [facility] HEALTH MEDICARE PART A & B [id number] [place] [address] MEDICARE PART A & B Member Subscriber Plan / Payer ( fective 2015-Present) Name:Michelle Miner Member ID:[id number] Relation to Subscriber:Self Name:Michelle Miner Subscriber ID:[id number] Payer ID:[id number] Group ID:Not on file Type:Medicare Address: [employer] [address] B [id number] [place], [place] [address]HEALTH MEDICARE PART A & B MEDICARE PART A & B [id number] [place] [address] [employer] Advance Directives For more information, please contact: [phone] (9AM - 5PM [facility], Friday-Friday) * Full Code (Latest Code Status on File) Date Activated Date Inactivated Comments 05/15/2020 10:33 AM Question Answer Comments Code Status Confirmed With: Patient Care Teams Tankroom Worker Relationship Specialty Start Date End Date Pcp, Unknown PCP - General 02/09/21 Additional Source Comments The information contained in this document represents components of the legal health record. It is not the complete legal health record.[facility]
--- OUTSIDE RECORDS SUMMARY | 2025-06-30 14:34 | XMS_ITS | Encounter Summary ---
Author Organization [facility] Address [address] [place] [address] Phone Care Team Providers Care Electrical Automation Engineer Name Role Phone Tito Enrique MD Primary Care Provider [phone] Tito Enrique MD Unavailable [phone] Pcp, Unknown Primary Care Provider Unavailabl e Encounter Details Date Type Department Care Team (Late st Contact Info) Description 05/02/2020 Procedure Pass [facility] [address] [place] [address] [id number] Social History Tobacco Use Types Packs/Day Years [...] documented as of this encounter Care Teams Electrical Automation Engineer Relationship Specialty Start Date End Date Tito Enrique MD [address] [place] [address] Dr [place]yokeAMINA [id number] PCP - General Internal Medicine 03/13/20 02/08/21 Pcp, Unknown PCP - General 02/09/21 Tito Enrique MD [address] [place] [address] [place] [address] Primary Care Physician Internal Medicine 04/26/20 documented as of this encounter Additional Source Comments The information contained in this document represents components of the legal health record. It is not the complete legal health record.[facility]
--- OUTSIDE RECORDS SUMMARY | 2025-06-30 14:34 | XMS_ITS | Data Portability ---
Author Organization [place] - [facility] Address [address] [place] [address] Assessment No assessment recorded. Plan of Treatment Reminders Order Date Submit Date Provider Last Modified By Organization Details Last Modified Time Details Appointments Follow up 2024 02:30P Jorge Luis Giraldo DNP Not available Not available Not available Lab None recorded. Referral None recorded. Procedures None recorded. Surgeries None recorded. Imaging XR, cervical spine, 2 or 3 view [address] (Central Scheduling), [address] [place] [address], [id number], 12/28/2024 10:30:18 XR, lumbosacr al spine, 2 or 3 view [address] (Central Scheduling), [address] [place] [address], [id number], 12/28/2024 10:30:18 Medication Orders Belbuca 900 mcg buccal film 2024 025 janes [facility] #[id number], [address] [place], [address], 05/10/2025 14:40:12 Narcan 4 mg/actuat ion nasal spray 2024 025 janes [facility] #[id number], [address] [place], [address], 05/10/2025 14:40:13 Belbuca 900 mcg buccal film 2024 025 [facility] #[id number], [address] [place], [id number], 03/02/2025 16:39:50 Narcan 4 mg/actuat ion nasal spray [address] [id number] [address] [facility] [place], [address], 03/02/2025 16:39:50 acetamino phen 300 mg-codein e 30 mg tablet [address] [id number] [address] [place], [address], 05/10/2025 14:33:49 Belbuca 900 mcg buccal film [address] [id number] [address] [facility] [place], [address], 12/24/2024 09:53:47 Narcan 4 mg/actuat ion nasal spray [address] [id number] [address] [place], [address], 12/13/2024 15:48:56 Belbuca 900 mcg buccal film [address] [id number] [address] [place], [address], 11/15/2024 13:30:20 Patient TargetsNo targets recorded. Patient Instructions Encounter Date Encounter Id Patient Instructions Last Modified By Organization Details Last Modified Time 11/15/2024 [id number] 1. PHYSICAL THERAPY: pt encouraged to stay active. home exercises 2. BEHAVIORAL THERAPY: stable depression/psych issues 3. MEDICATIONS: will continue belbuca under opioid agreement. used to be on 900 q12 hr . continue lyrica 4. INTERVENTIONS: none 5. FUNCTION: pain moderately affects her function 6. PAIN ASSESSMENT: moderate to severe , not controlled w 600mcg belbuca 7. COMPLIANCE: n/a -first visit. mpat verified 8. WEIGHT LOSS/DIET/SMOKING CESSATION: counseled 9. LABS/RADIOLOGY: will get x rays and UDS 11. REFERRALS : none 10. FOLLOW UP: 4 weeks 12. OPIOID RISK ASSESSMENT: MILD TO MOD pt w chronic lower back pain , b/l LE painful paresthesias and neck pain radiating into b/l UE kkalava Not available 11/15/2024 13:31:44 12/13/2024 [id number] 1. PHYSICAL THERAPY: pt encouraged to stay active. home exercises 2. BEHAVIORAL THERAPY: stable depression/psych issues 3. MEDICATIONS: Cont belbuca 900 q12 hr and lyrica(PCP) 4. INTERVENTIONS: none. 5. FUNCTION: pain moderately impairs her function - improved w belbuca 6. PAIN ASSESSMENT: moderate to severe- improved w belbuca 7. COMPLIANCE: no concerns. mpat verified 8. WEIGHT LOSS/DIET/SMOKING CESSATION: counseled 9. LABS/RADIOLOGY: MRI LS and cervical spine 11/2024 reviewed. UDS 11/2024 consistent 11. REFERRALS : none 10. FOLLOW UP: 8 weeks 12. OPIOID RISK ASSESSMENT: MILD TO MOD pt w chronic lower back pain , b/l LE painful paresthesias and neck pain radiating into b/l UE i agree - kk kkalava Not available 12/13/2024 15:48:38 03/02/2025 [id number] 1. PHYSICAL THERAPY: pt encouraged to stay active. home exercises 2. BEHAVIORAL THERAPY: stable depression/psych issues 3. MEDICATIONS: Cont belbuca 900 q12 hr and lyrica(PCP). will add t3 4. INTERVENTIONS: none. pt gets interventions in [place] 5. FUNCTION: pain moderately impairs her function 6. PAIN ASSESSMENT: some relief w belbuca , not controlled 7. COMPLIANCE: no concerns. mpat verified 8. WEIGHT LOSS/DIET/SMOKING CESSATION: counseled 9. LABS/RADIOLOGY: MRI LS and cervical spine 11/2024 reviewed. UDS 12/2024 consistent 11. REFERRALS : none 10. FOLLOW UP: 10 weeks 12. OPIOID RISK ASSESSMENT: MILD TO MOD pt w chronic lower back pain , b/l LE painful paresthesias and neck pain radiating into b/l UE kkalava Not available 03/02/2025 16:54:24 05/10/2025 [id number] 1. PHYSICAL THERAPY: pt encouraged to stay active. home exercises 2. BEHAVIORAL THERAPY: stable depression/psych issues 3. MEDICATIONS: Cont belbuca 900 q12 hr and lyrica(PCP) 4. INTERVENTIONS: none. pt gets interventions in [place] 5. FUNCTION: pain moderately impairs her function 6. PAIN ASSESSMENT: some relief w belbuca , not controlled 7. COMPLIANCE: no concerns. mpat verified 8. WEIGHT LOSS/DIET/SMOKING CESSATION: counseled 9. LABS/RADIOLOGY: MRI LS and cervical spine 11/2024 reviewed. UDS 12/2024 consistent UDS today, last dose this morning 11. REFERRALS : none 10. FOLLOW UP: 10 weeks 12. OPIOID RISK ASSESSMENT: MILD TO MOD pt w chronic lower back pain , b/l LE painful paresthesias and neck pain radiating into b/l UE i agree - kk kkalava Not available 05/10/2025 14:39:50 Reason for Referral None Reported. Results Created Date Observation Date Name Description Value Unit Range Abnormal Flag Note LastModifiedBy Organization Detail LastModifiedTime 11/16/19 25 11/20/2024 TOXAS SURE SELEC T 14 MINISTERIO-D IS report summary FINAL . ===== ===== ===== ===== ===== ===== ===== ===== ===== ===== ===== ===== ===== === TOXAS SURE SELEC T 14 MINISTERIO-D IS ===== ===== ===== ===== ===== ===== ===== ===== ===== ===== ===== ===== ===== === Test Resul t Flag Units Drug Prese nt 7-ami noclo nazep am 289 ng/mg creat 7-ami noclo nazep am is an expec soto metab olite of clona zepam . Sourc e of clona zepam is a sched uled presc ripti on medic ation . Bupre norph ine 27 ng/mg creat Norbu preno rphin e 173 ng/mg creat Sourc e of bupre norph ine is a sched uled presc ripti on medic ation . Norbu preno rphin e is an expec soto metab olite of bupre norph ine. ===== ===== ===== ===== ===== ===== ===== ===== ===== ===== ===== ===== ===== === Test Resul t Flag Units Ref Range Creat inine 37 mg/dL >=20 ===== ===== ===== ===== ===== ===== ===== ===== ===== ===== ===== ===== ===== === Decla red Medic ation s: Medic ation list was not provi ded. ===== ===== ===== ===== ===== ===== ===== ===== ===== ===== ===== ===== ===== === For clini scott consu ltati on, pleas e call . ===== ===== ===== ===== ===== ===== ===== ===== ===== ===== ===== ===== ===== === Not Available [facility] [address] [place], [address] 11/20/2024 23:07:42 11/16/1911/20/2024 TOXAS SURE SELEC T 14 MINISTERIO-D IS urine creatinine 37 mg/dL . REFER ENCE RANGE : Ref Range >=20 Not Available [facility] [address] [place], [address] 11/20/2024 23:07:42 11/16/1911/20/2024 TOXAS SURE SELEC T 14 MINISTERIO-D IS ethanol biomarkers NEGATI VE . Not Available [facility] [address] [place], [address] 11/20/2024 23:07:42 11/16/1911/20/2024 TOXAS SURE SELEC T 14 MINISTERIO-D IS ethyl glucuronide NOT DETECT ED . Resul t Units : ng/mg creat Not Available [facility] [address] [place] [address], [address] 11/20/2024 23:07:42 11/16/19 25 11/20/2024 TOXAS SURE SELEC T 14 MINISTERIO-D IS ethyl sulfate NOT DETECT ED . Resul t Units : ng/mg creat Not Available [facility] [address] [place] [address], [id number] 11/20/2024 23:07:42 11/16/19 25 11/20/2024 TOXAS SURE SELEC T 14 MINISTERIO-D IS amphetamines NEGATI VE . Not Available [facility] [address] [place] [address], [address] 11/20/2024 23:07:42 11/16/19 25 11/20/2024 TOXAS SURE SELEC T 14 MINISTERIO-D IS methamphetam ine NOT DETECT ED . Resul t Units : ng/mg creat Not Available [facility] [address] [place] [address], [id number] 11/20/2024 23:07:42 11/16/19 25 11/20/2024 TOXAS SURE SELEC T 14 MINISTERIO-D IS amphetamine NOT DETECT ED . Resul t Units : ng/mg creat Not Available [facility] [address] [place] [address], [address] 11/20/2024 23:07:42 11/16/19 25 11/20/2024 TOXAS SURE SELEC T 14 MINISTERIO-D IS MDMA (ecstasy) NOT DETECT ED . Resul t Units : ng/mg creat Not Available [facility] [address] [place] [address], [id number] 11/20/2024 23:07:42 11/16/19 25 11/20/2024 TOXAS SURE SELEC T 14 MINISTERIO-D IS mda (ecstasy mtb) NOT DETECT ED . Resul t Units : ng/mg creat Not Available [facility] [address] [place] [address], [id number] 11/20/2024 23:07:42 11/16/19 25 11/20/2024 TOXAS SURE SELEC T 14 MINISTERIO-D IS benzodiazepi cammie +POSIT ARIADNE+ . Not Available [facility] [address] [place], [address] 11/20/2024 23:07:42 11/16/19 25 11/20/2024 TOXAS SURE SELEC T 14 MINISTERIO-D IS diazepam NOT DETECT ED . Resul t Units : ng/mg creat Not Available [facility] [address] [place], [address] 11/20/2024 23:07:42 11/16/19 25 11/20/2024 TOXAS SURE SELEC T 14 MINISTERIO-D IS desmethyldia zepam NOT DETECT ED . Resul t Units : ng/mg creat Not Available [facility] [address] [place] [address], [address] 11/20/2024 23:07:42 11/16/19 25 11/20/2024 TOXAS SURE SELEC T 14 MINISTERIO-D IS oxazepam NOT DETECT ED . Resul t Units : ng/mg creat Not Available [facility] [address] [place] [address], [address] 11/20/2024 23:07:42 11/16/1911/20/2024 TOXAS SURE SELEC T 14 MINISTERIO-D IS temazepam NOT DETECT ED . Resul t Units : ng/mg creat Expec soto metab olism of benzo diaze pine class drugs : Paren t Drug Detec soto Metab olite s ----- ----- - ----- ----- ----- ----- Diaze catherine: Desme thyld iazep am, Temaz epam, Oxaze catherine Chlor diaze poxid e: Desme thyld iazep am, Oxaze catherine Clora zepat e: Desme thyld iazep am, Oxaze catherine Halaz epam: Desme thyld iazep am, Oxaze catherine Temaz epam: Oxaze catherine Oxaze catherine: None Not Available [facility] [address] [place], [address] 11/20/2024 23:07:42 11/16/19 25 11/20/2024 TOXAS SURE SELEC T 14 MINISTERIO-D IS alprazolam NOT DETECT ED . Resul t Units : ng/mg creat Not Available [facility] [address] [place] [address], [id number] 11/20/2024 23:07:42 11/16/19 25 11/20/2024 TOXAS SURE SELEC T 14 MINISTERIO-D IS alpha-hydrox yalprazolam NOT DETECT ED . Resul t Units : ng/mg creat Not Available [facility] [address] [place] [address], [id number] 11/20/2024 23:07:42 11/16/19 25 11/20/2024 TOXAS SURE SELEC T 14 MINISTERIO-D IS desalkylflur azepam NOT DETECT ED . Resul t Units : ng/mg creat Not Available [facility] [address] [place] [address], [id number] 11/20/2024 23:07:42 11/16/19 25 11/20/2024 TOXAS SURE SELEC T 14 MINISTERIO-D IS lorazepam NOT DETECT ED . Resul t Units : ng/mg creat Not Available [facility] [address] [place] [address], [id number] 11/20/2024 23:07:42 11/16/19 25 11/20/2024 TOXAS SURE SELEC T 14 MINISTERIO-D IS alpha-hydrox ytriazolam NOT DETECT ED . Resul t Units : ng/mg creat Not Available [facility] [address] [place] [address], [address] 11/20/2024 23:07:42 11/16/19 25 11/20/2024 TOXAS SURE SELEC T 14 MINISTERIO-D IS clonazepam NOT DETECT ED . Resul t Units : ng/mg creat Not Available [facility] [address] [place] [address], [address]24 11/20/2024 23:07:42 11/16/19 25 11/20/2024 TOXAS SURE SELEC T 14 MINISTERIO-D IS 7-aminoclona zepam 289 . Resul t Units : ng/mg creat Not Available [facility] [address] [place] [address], [id number] 11/20/2024 23:07:42 11/16/19 25 11/20/2024 TOXAS SURE SELEC T 14 MINISTERIO-D IS midazolam NOT DETECT ED . Resul t Units : ng/mg creat Not Available [facility] [address] [place] [address], [id number] 11/20/2024 23:07:42 11/16/19 25 11/20/2024 TOXAS SURE SELEC T 14 MINISTERIO-D IS alpha-hydrox ymidazolam NOT DETECT ED . Resul t Units : ng/mg creat Not Available [facility] [address] [place] [address], [id number] 11/20/2024 23:07:42 11/16/19 25 11/20/2024 TOXAS SURE SELEC T 14 MINISTERIO-D IS flunitrazepa m NOT DETECT ED . Resul t Units : ng/mg creat Not Available [facility] [address] [place] [address], [address]83 11/20/2024 23:07:42 11/16/19 25 11/20/2024 TOXAS SURE SELEC T 14 MINISTERIO-D IS desmethylflu nitrazepam NOT DETECT ED . Resul t Units : ng/mg creat Not Available [facility] [address] [place] [address], [id number] 11/20/2024 23:07:42 11/16/19 25 11/20/2024 TOXAS SURE SELEC T 14 MINISTERIO-D IS cocaine metabolite NEGATI VE . Not Available [facility] [address] [place] [address], 10605 11/20/2024 23:07:42 11/16/19 25 11/20/2024 TOXAS SURE SELEC T 14 MINISTERIO-D IS cocaine NOT DETECT ED . Resul t Units : ng/mg creat Not Available [facility] [address] [place] [address], [id number] 11/20/2024 23:07:42 11/16/19 25 11/20/2024 TOXAS SURE SELEC T 14 MINISTERIO-D IS benzoylecgon ine NOT DETECT ED . Resul t Units : ng/mg creat Not Available [facility] [address] [place] [address], 61573 11/20/2024 23:07:42 11/16/19 25 11/20/2024 TOXAS SURE SELEC T 14 MINISTERIO-D IS cocaethylene NOT DETECT ED . Resul t Units : ng/mg creat Not Available [facility] [address] [place] [address], 48497 11/20/2024 23:07:42 11/16/19 25 11/20/2024 TOXAS SURE SELEC T 14 MINISTERIO-D IS cannabinoids NEGATI VE . Not Available [facility] [address] [place] [address], 6[address] 11/20/2024 23:07:42 11/16/19 25 11/20/2024 TOXAS SURE SELEC T 14 MINISTERIO-D IS carboxy-THC NOT DETECT ED . Resul t Units : ng/mg creat Not Available [facility] [address] [place] [address], [id number] 11/20/2024 23:07:42 11/16/19 25 11/20/2024 TOXAS SURE SELEC T 14 MINISTERIO-D IS 6-acetylmorp kathrine scr NEGATI VE . Not Available [facility] [address] [place] [address], 6[address]52 11/20/2024 23:07:42 11/16/19 25 11/20/2024 TOXAS SURE SELEC T 14 MINISTERIO-D IS 6-acetylmorp kathrine NOT DETECT ED . Resul t Units : ng/mg creat Not Available [facility] [address] [place] [address], 81766 11/20/2024 23:07:42 11/16/19 25 11/20/2024 TOXAS SURE SELEC T 14 MINISTERIO-D IS opiate class NEGATI VE . Not Available [facility] [address] [place] [address], 28415 11/20/2024 23:07:42 11/16/19 25 11/20/2024 TOXAS SURE SELEC T 14 MINISTERIO-D IS codeine NOT DETECT ED . Resul t Units : ng/mg creat Not Available [facility] [address] [place] [address], 36057 11/20/2024 23:07:42 11/16/19 25 11/20/2024 TOXAS SURE SELEC T 14 MINISTERIO-D IS morphine NOT DETECT ED . Resul t Units : ng/mg creat Not Available [facility] [address] [place] [address], 66543 11/20/2024 23:07:42 11/16/19 25 11/20/2024 TOXAS SURE SELEC T 14 MINISTERIO-D IS normorphine NOT DETECT ED . Resul t Units : ng/mg creat Not Available [facility] [address] [place], [address] 11/20/2024 23:07:42 11/16/19 25 11/20/2024 TOXAS SURE SELEC T 14 MINISTERIO-D IS norcodeine NOT DETECT ED . Resul t Units : ng/mg creat Not Available [facility] [address] [place], [address] 11/20/2024 23:07:42 11/16/19 25 11/20/2024 TOXAS SURE SELEC T 14 MINISTERIO-D IS hydrocodone NOT DETECT ED . Resul t Units : ng/mg creat Not Available [facility] [address] [place] [address], [id number] 11/20/2024 23:07:42 11/16/19 25 11/20/2024 TOXAS SURE SELEC T 14 MINISTERIO-D IS hydromorphon e NOT DETECT ED . Resul t Units : ng/mg creat Not Available [facility] [address] [place] [address], [id number] 11/20/2024 23:07:42 11/16/19 25 11/20/2024 TOXAS SURE SELEC T 14 MINISTERIO-D IS dihydrocodei ne NOT DETECT ED . Resul t Units : ng/mg creat Not Available [facility] [address] [place] [address], [id number] 11/20/2024 23:07:42 11/16/19 25 11/20/2024 TOXAS SURE SELEC T 14 MINISTERIO-D IS norhydrocodo ne NOT DETECT ED . Resul t Units : ng/mg creat Expec soto metab olism of opiat e class drugs : Paren t Drug Detec soto Metab olite s ----- ----- - ----- ----- ----- ----- Codei ne: Major : Morph ine, Millry deine Minor : [place]al[place] codon e, [place]al[place] morph one, Dihyd rocod eine, Norhy droco done, Normo rphin e Morph ine: Major : Normo rphin e Minor : Bensal[place] morph one Bensalem codon e: [place] morph one, Dihyd rocod eine, Norhy droco done [place]ens[place] morph one: None Dihyd rocod eine: None Heroi n: 6-Stepan tylmo rphin e (if inclu ded), Morph ine, Normo rphin e Codei ne, in small amoun ts in margaret rison to morph ine, is often detec soto when heroi n is the sourc e drug. Not Available [facility] [address] [place] [address], [id number] 11/20/2024 23:07:42 11/16/19 25 11/20/2024 TOXAS SURE SELEC T 14 MINISTERIO-D IS oxycodone class NEGATI VE . Not Available [facility] [address] [place] [address], 53753 11/20/2024 23:07:42 11/16/19 25 11/20/2024 TOXAS SURE SELEC T 14 MINISTERIO-D IS oxycodone NOT DETECT ED . Resul t Units : ng/mg creat Not Available [facility] [address] [place] [address], [id number] 11/20/2024 23:07:42 11/16/19 25 11/20/2024 TOXAS SURE SELEC T 14 MINISTERIO-D IS oxymorphone NOT DETECT ED . Resul t Units : ng/mg creat Not Available [facility] [address] [place] [address], [id number] 11/20/2024 23:07:42 11/16/19 25 11/20/2024 TOXAS SURE SELEC T 14 MINISTERIO-D IS noroxycodone NOT DETECT ED . Resul t Units : ng/mg creat Not Available [facility] [address] [place] [address], [id number] 11/20/2024 23:07:42 11/16/19 25 11/20/2024 TOXAS SURE SELEC T 14 MINISTERIO-D IS noroxymorpho ne NOT DETECT ED . Resul t Units : ng/mg creat Expec soto metab olism of oxyco done class drugs : Paren t Drug Detec soto Metab olite s ----- ----- - ----- ----- ----- ----- Oxyco done: Oxymo rphon e, Norox ycodo ne, Norox ymorp moncho Oxymo rphon e: Norox ymorp moncho Not Available [facility] [address] [place] [address], 16710 11/20/2024 23:07:42 11/16/19 25 11/20/2024 TOXAS SURE SELEC T 14 MINISTERIO-D IS methadone scr NEGATI VE . Not Available [facility] [address] [place] [address], [id number] 11/20/2024 23:07:42 11/16/19 25 11/20/2024 TOXAS SURE SELEC T 14 MINISTERIO-D IS methadone NOT DETECT ED . Resul t Units : ng/mg creat Not Available [facility] [address] [place] [address], 93934 11/20/2024 23:07:42 11/16/19 25 11/20/2024 TOXAS SURE SELEC T 14 MINISTERIO-D IS EDDP (methadone mtb) NOT DETECT ED . Resul t Units : ng/mg creat Not Available [facility] [address] [place] [address], 57553 11/20/2024 23:07:42 11/16/19 25 11/20/2024 TOXAS SURE SELEC T 14 MINISTERIO-D IS fentanyl analogues NEGATI VE . Not Available [facility] [address] [place] [address], 73957 11/20/2024 23:07:42 11/16/19 25 11/20/2024 TOXAS SURE SELEC T 14 MINISTERIO-D IS fentanyl NOT DETECT ED . Resul t Units : ng/mg creat Not Available [facility] [address] [place] [address], 10428 11/20/2024 23:07:42 11/16/19 25 11/20/2024 TOXAS SURE SELEC T 14 MINISTERIO-D IS norfentanyl NOT DETECT ED . Resul t Units : ng/mg creat Not Available [facility] [address] [place] [address], 13592 11/20/2024 23:07:42 11/16/19 25 11/20/2024 TOXAS SURE SELEC T 14 MINISTERIO-D IS sufentanil NOT DETECT ED . Resul t Units : ng/mg creat Not Available [facility] [address] [place] [address], 17975 11/20/2024 23:07:42 11/16/19 25 11/20/2024 TOXAS SURE SELEC T 14 MINISTERIO-D IS alfentanil NOT DETECT ED . Resul t Units : ng/mg creat Not Available [facility] [address] [place] [address], [id number] 11/20/2024 23:07:42 11/16/19 25 11/20/2024 TOXAS SURE SELEC T 14 MINISTERIO-D IS buprenorphin e scr +POSIT ARIADNE+ . Not Available [facility] [address] [place] [address], 26893 11/20/2024 23:07:42 11/16/19 25 11/20/2024 TOXAS SURE SELEC T 14 MINISTERIO-D IS buprenorphin e 27 . Resul t Units : ng/mg creat Not Available [facility] [address] [place] [address], 04044 11/20/2024 23:07:42 11/16/19 25 11/20/2024 TOXAS SURE SELEC T 14 MINISTERIO-D IS norbuprenorp kathrine 173 . Resul t Units : ng/mg creat Not Available [facility] [address] [place] [address], [id number] 11/20/2024 23:07:42 11/16/19 25 11/20/2024 TOXAS SURE SELEC T 14 MINISTERIO-D IS tapentadol scr NEGATI VE . Not Available [facility] [address] [place] [address], 84185 11/20/2024 23:07:42 11/16/19 25 11/20/2024 TOXAS SURE SELEC T 14 MINISTERIO-D IS tapentadol NOT DETECT ED . Resul t Units : ng/mg creat Not Available [facility] [address] [place] [address], 39413 11/20/2024 23:07:42 11/16/19 25 11/20/2024 TOXAS SURE SELEC T 14 MINISTERIO-D IS other opioids NEGATI VE . Not Available [facility] [address] [place] [address], 95277 11/20/2024 23:07:42 11/16/19 25 11/20/2024 TOXAS SURE SELEC T 14 MINISTERIO-D IS tramadol NOT DETECT ED . Resul t Units : ng/mg creat Not Available [facility] [address] [place], [address] 11/20/2024 23:07:42 11/16/19 25 11/20/2024 TOXAS SURE SELEC T 14 MINISTERIO-D IS O-desmethylt ramadol NOT DETECT ED . Resul t Units : ng/mg creat Not Available [facility] [address] [place], [address] 11/20/2024 23:07:42 11/16/19 25 11/20/2024 TOXAS SURE SELEC T 14 MINISTERIO-D IS N-desmethylt ramadol NOT DETECT ED . Resul t Units : ng/mg creat Not Available [facility] [address] [place] [address], 32615 11/20/2024 23:07:42 11/16/19 25 11/20/2024 TOXAS SURE SELEC T 14 MINISTERIO-D IS barbiturates NEGATI VE . Not Available [facility] [address] [place] [address], 62275 11/20/2024 23:07:42 11/16/19 25 11/20/2024 TOXAS SURE SELEC T 14 MINISTERIO-D IS amobarbital NOT DETECT ED . Not Available [facility] [address] [place] [address], 83451 11/20/2024 23:07:42 11/16/19 25 11/20/2024 TOXAS SURE SELEC T 14 MINISTERIO-D IS barbital NOT DETECT ED . Not Available [facility] [address] [place], [address] 11/20/2024 23:07:42 11/16/19 25 11/20/2024 TOXAS SURE SELEC T 14 MINISTERIO-D IS butabarbital NOT DETECT ED . Not Available [facility] [address] [place], [address] 11/20/2024 23:07:42 11/16/19 25 11/20/2024 TOXAS SURE SELEC T 14 MINISTERIO-D IS butalbital NOT DETECT ED . Not Available [facility] [address] [place], [address] 11/20/2024 23:07:42 11/16/19 25 11/20/2024 TOXAS SURE SELEC T 14 MINISTERIO-D IS mephobarbita l NOT DETECT ED . Not Available [facility] [address] [place], [address] 11/20/2024 23:07:42 11/16/19 25 11/20/2024 TOXAS SURE SELEC T 14 MINISTERIO-D IS pentobarbita l NOT DETECT ED . Not Available [facility] [address] [place], [address] 11/20/2024 23:07:42 11/16/19 25 11/20/2024 TOXAS SURE SELEC T 14 MINISTERIO-D IS phenobarbita l NOT DETECT ED . Not Available [facility] [address] [place], [address] 11/20/2024 23:07:42 11/16/19 25 11/20/2024 TOXAS SURE SELEC T 14 MINISTERIO-D IS secobarbital NOT DETECT ED . Not Available [facility] [address] [place], [address] 11/20/2024 23:07:42 11/16/19 25 11/20/2024 TOXAS SURE SELEC T 14 MINISTERIO-D IS thiopental NOT DETECT ED . Not Available [facility] [address] [place], [address] 11/20/2024 23:07:42 11/16/19 25 11/20/2024 TOXAS SURE SELEC T 14 MINISTERIO-D IS other hallucinogen s NEGATI VE . Not Available [facility] [address] [place], [address] 11/20/2024 23:07:42 11/16/19 25 11/20/2024 TOXAS SURE SELEC T 14 MINISTERIO-D IS phencyclidin e NOT DETECT ED . Not Available [facility] [address] [place], [address] 11/20/2024 23:07:42 11/16/19 25 11/20/2024 TOXAS SURE SELEC T 14 MINISTERIO-D IS level of detection: COMMEN T . TESTI NG THRES HOLDS ARE FOLLO WS: AMPHE TAMIN ES: 50 ng/mL BENZO DIAZE PINES : 20 ng/mL COCAI NE / METAB OLITE : 50 ng/mL RONALDO OL BIOMA RKERS : ETG-5 00 ng/mL ,ETS- 250 ng/mL CANNA BINOI DS: total -20 ng/mL , carbo xy-TH C-2 ng/mL 6-STEPAN TYLMO RPHIN E: 10 ng/mL OPIAT E CLASS : 50 ng/mL OXYCO DONE CLASS : 50 ng/mL METHA DONE: 50 ng/mL BUPRE NORPH INE: bupre norph ine-1 .0 ng/mL , norbu preno rphin e-5 ng/mL FENTA NYL / ANALO GUES: fenta nyl-1 .0 ng/mL , other s-5.0 ng/mL TAPEN TADOL : 50 ng/mL TRAMA DOL: 50 ng/mL GINA TURAT ES: 200 ng/mL PCP: 25 ng/mL This test was julia covarrubias and its perfo rmanc e yecenia cteri stics deter mined by [facility]. It has not been clear ed or appro nataly by the Food and Drug Admin istra tion. Perfo rmed at: 01 - [facility] [address] [address] Lab Direc tor: Ara barroso [facility] , Phone : [phone] Not Available [facility] [address] [place] [address], [address] 11/20/2024 23:07:42 12/14/19 25 12/21/2024 TOXAS SURE SELEC T 14 MINISTERIO-D IS report summary FINAL . ===== ===== ===== ===== ===== ===== ===== ===== ===== ===== ===== ===== ===== === TOXAS SURE SELEC T 14 MINISTERIO-D IS ===== ===== ===== ===== ===== ===== ===== ===== ===== ===== ===== ===== ===== === Test Resul t Flag Units Drug Prese nt 7-ami noclo nazep am 288 ng/mg creat 7-ami noclo nazep am is an expec soto metab olite of clona zepam . Sourc e of clona zepam is a sched uled presc ripti on medic ation . Bupre norph ine 42 ng/mg creat Norbu preno rphin e 242 ng/mg creat Sourc e of bupre norph ine is a sched uled presc ripti on medic ation . Norbu preno rphin e is an expec soto metab olite of bupre norph ine. ===== ===== ===== ===== ===== ===== ===== ===== ===== ===== ===== ===== ===== === Test Resul t Flag Units Ref Range Creat inine 48 mg/dL >=20 ===== ===== ===== ===== ===== ===== ===== ===== ===== ===== ===== ===== ===== === Decla red Medic ation s: Medic ation list was not provi ded. ===== ===== ===== ===== ===== ===== ===== ===== ===== ===== ===== ===== ===== === For clini scott consu ltati on, pleas e call [phone]. ===== ===== ===== ===== ===== ===== ===== ===== ===== ===== ===== ===== ===== === Not Available [facility] [address] [place] [address], [address] 12/21/2024 15:07:25 12/14/1912/21/2024 TOXAS SURE SELEC T 14 MINISTERIO-D IS urine creatinine 48 mg/dL . REFER ENCE RANGE : Ref Range >=20 Not Available [facility] [address] [place] [address], 13498 12/21/2024 15:07:25 12/14/1912/21/2024 TOXAS SURE SELEC T 14 MINISTERIO-D IS ethanol biomarkers NEGATI VE . Not Available [facility] [address] [place] [address], 10075 12/21/2024 15:07:25 12/14/1912/21/2024 TOXAS SURE SELEC T 14 MINISTERIO-D IS ethyl glucuronide NOT DETECT ED . Resul t Units : ng/mg creat Not Available [facility] [address] [place] [address], 94723 12/21/2024 15:07:25 12/14/1912/21/2024 TOXAS SURE SELEC T 14 MINISTERIO-D IS ethyl sulfate NOT DETECT ED . Resul t Units : ng/mg creat Not Available [facility] [address] [place] [address], 61138 12/21/2024 15:07:25 12/14/1912/21/2024 TOXAS SURE SELEC T 14 MINISTERIO-D IS amphetamines NEGATI VE . Not Available [facility] [address] [place] [address], 45018 12/21/2024 15:07:25 12/14/1912/21/2024 TOXAS SURE SELEC T 14 MINISTERIO-D IS methamphetam ine NOT DETECT ED . Resul t Units : ng/mg creat Not Available [facility] [address] [place] [address], 11286 12/21/2024 15:07:25 12/14/1912/21/2024 TOXAS SURE SELEC T 14 MINISTERIO-D IS amphetamine NOT DETECT ED . Resul t Units : ng/mg creat Not Available [facility] [address] [place] [address], 33436 12/21/2024 15:07:25 12/14/19 25 12/21/2024 TOXAS SURE SELEC T 14 MINISTERIO-D IS MDMA (ecstasy) NOT DETECT ED . Resul t Units : ng/mg creat Not Available [facility] [address] [place] [address], 47260 12/21/2024 15:07:25 12/14/19 25 12/21/2024 TOXAS SURE SELEC T 14 MINISTERIO-D IS mda (ecstasy mtb) NOT DETECT ED . Resul t Units : ng/mg creat Not Available [facility] [address] [place], [address] 12/21/2024 15:07:25 12/14/19 25 12/21/2024 TOXAS SURE SELEC T 14 MINISTERIO-D IS benzodiazepi cammie +POSIT ARIADNE+ . Not Available [facility] [address] [place] [address], 69413 12/21/2024 15:07:25 12/14/19 25 12/21/2024 TOXAS SURE SELEC T 14 MINISTERIO-D IS diazepam NOT DETECT ED . Resul t Units : ng/mg creat Not Available [facility] [address] [place] [address], 04015 12/21/2024 15:07:25 12/14/19 25 12/21/2024 TOXAS SURE SELEC T 14 MINISTERIO-D IS desmethyldia zepam NOT DETECT ED . Resul t Units : ng/mg creat Not Available [facility] [address] [place] [address], 58490 12/21/2024 15:07:25 12/14/19 25 12/21/2024 TOXAS SURE SELEC T 14 MINISTERIO-D IS oxazepam NOT DETECT ED . Resul t Units : ng/mg creat Not Available [facility] [address] [place] [address], 75814 12/21/2024 15:07:25 12/14/19 25 12/21/2024 TOXAS SURE SELEC T 14 MINISTERIO-D IS temazepam NOT DETECT ED . Resul t Units : ng/mg creat Expec soto metab olism of benzo diaze pine class drugs : Paren t Drug Detec soto Metab olite s ----- ----- - ----- ----- ----- ----- Diaze catherine: Desme thyld iazep am, Temaz epam, Oxaze catherine Chlor diaze poxid e: Desme thyld iazep am, Oxaze catherine Clora zepat e: Desme thyld iazep am, Oxaze catherine Halaz epam: Desme thyld iazep am, Oxaze catherine Temaz epam: Oxaze catherine Oxaze catherine: None Not Available [facility] [address] [place] [address], 86203 12/21/2024 15:07:25 12/14/1912/21/2024 TOXAS SURE SELEC T 14 MINISTERIO-D IS alprazolam NOT DETECT ED . Resul t Units : ng/mg creat Not Available [facility] [address] [place] [address], 70607 12/21/2024 15:07:25 12/14/1912/21/2024 TOXAS SURE SELEC T 14 MINISTERIO-D IS alpha-hydrox yalprazolam NOT DETECT ED . Resul t Units : ng/mg creat Not Available [facility] [address] [place] [address], 76329 12/21/2024 15:07:25 12/14/1912/21/2024 TOXAS SURE SELEC T 14 MINISTERIO-D IS desalkylflur azepam NOT DETECT ED . Resul t Units : ng/mg creat Not Available [facility] [address] [place] [address], 22043 12/21/2024 15:07:25 12/14/1912/21/2024 TOXAS SURE SELEC T 14 MINISTERIO-D IS lorazepam NOT DETECT ED . Resul t Units : ng/mg creat Not Available [facility] [address] [place] [address], 11233 12/21/2024 15:07:25 12/14/1912/21/2024 TOXAS SURE SELEC T 14 MINISTERIO-D IS alpha-hydrox ytriazolam NOT DETECT ED . Resul t Units : ng/mg creat Not Available [facility] [address] [place] [address], 30466 12/21/2024 15:07:25 12/14/19 25 12/21/2024 TOXAS SURE SELEC T 14 MINISTERIO-D IS clonazepam NOT DETECT ED . Resul t Units : ng/mg creat Not Available [facility] [address] [place] [address], 23913 12/21/2024 15:07:25 12/14/19 25 12/21/2024 TOXAS SURE SELEC T 14 MINISTERIO-D IS 7-aminoclona zepam 288 . Resul t Units : ng/mg creat Not Available [facility] [address] [place] [address], 28185 12/21/2024 15:07:25 12/14/19 25 12/21/2024 TOXAS SURE SELEC T 14 MINISTERIO-D IS midazolam NOT DETECT ED . Resul t Units : ng/mg creat Not Available [facility] [address] [place] [address], 41350 12/21/2024 15:07:25 12/14/1912/21/2024 TOXAS SURE SELEC T 14 MINISTERIO-D IS alpha-hydrox ymidazolam NOT DETECT ED . Resul t Units : ng/mg creat Not Available [facility] [address] [place] [address], 57531 12/21/2024 15:07:25 12/14/19 25 12/21/2024 TOXAS SURE SELEC T 14 MINISTERIO-D IS flunitrazepa m NOT DETECT ED . Resul t Units : ng/mg creat Not Available [facility] [address] [place] [address], 23196 12/21/2024 15:07:25 12/14/19 25 12/21/2024 TOXAS SURE SELEC T 14 MINISTERIO-D IS desmethylflu nitrazepam NOT DETECT ED . Resul t Units : ng/mg creat Not Available [facility] [address] [place] [address], 32882 12/21/2024 15:07:25 12/14/19 25 12/21/2024 TOXAS SURE SELEC T 14 MINISTERIO-D IS cocaine metabolite NEGATI VE . Not Available [facility] [address] [place] [address], 26953 12/21/2024 15:07:25 12/14/19 25 12/21/2024 TOXAS SURE SELEC T 14 MINISTERIO-D IS cocaine NOT DETECT ED . Resul t Units : ng/mg creat Not Available [facility] [address] [place] [address], 68363 12/21/2024 15:07:25 12/14/19 25 12/21/2024 TOXAS SURE SELEC T 14 MINISTERIO-D IS benzoylecgon ine NOT DETECT ED . Resul t Units : ng/mg creat Not Available [facility] [address] [place] [address], 22413 12/21/2024 15:07:25 12/14/19 25 12/21/2024 TOXAS SURE SELEC T 14 MINISTERIO-D IS cocaethylene NOT DETECT ED . Resul t Units : ng/mg creat Not Available [facility] [address] [place] [address], 16458 12/21/2024 15:07:25 12/14/19 25 12/21/2024 TOXAS SURE SELEC T 14 MINISTERIO-D IS cannabinoids NEGATI VE . Not Available [facility] [address] [place] [address], 24571 12/21/2024 15:07:25 12/14/19 25 12/21/2024 TOXAS SURE SELEC T 14 MINISTERIO-D IS carboxy-THC NOT DETECT ED . Resul t Units : ng/mg creat Not Available [facility] [address] [place] [address], 32374 12/21/2024 15:07:25 12/14/19 25 12/21/2024 TOXAS SURE SELEC T 14 MINISTERIO-D IS 6-acetylmorp kathrine scr NEGATI VE . Not Available [facility] [address] [place] [address], 25590 12/21/2024 15:07:25 12/14/19 25 12/21/2024 TOXAS SURE SELEC T 14 MINISTERIO-D IS 6-acetylmorp kathrine NOT DETECT ED . Resul t Units : ng/mg creat Not Available [facility] [address] [place] [address], 90604 12/21/2024 15:07:25 12/14/19 25 12/21/2024 TOXAS SURE SELEC T 14 MINISTERIO-D IS opiate class NEGATI VE . Not Available [facility] [address] [place] [address], 27842 12/21/2024 15:07:25 12/14/1912/21/2024 TOXAS SURE SELEC T 14 MINISTERIO-D IS codeine NOT DETECT ED . Resul t Units : ng/mg creat Not Available [facility] [address] [place] [address], [id number] 12/21/2024 15:07:25 12/14/19 25 12/21/2024 TOXAS SURE SELEC T 14 MINISTERIO-D IS morphine NOT DETECT ED . Resul t Units : ng/mg creat Not Available [facility] [address] [place] [address], 05287 12/21/2024 15:07:25 12/14/19 25 12/21/2024 TOXAS SURE SELEC T 14 MINISTERIO-D IS normorphine NOT DETECT ED . Resul t Units : ng/mg creat Not Available [facility] [address] [place] [address], 95273 12/21/2024 15:07:25 12/14/19 25 12/21/2024 TOXAS SURE SELEC T 14 MINISTERIO-D IS norcodeine NOT DETECT ED . Resul t Units : ng/mg creat Not Available [facility] [address] [place] [address], 22128 12/21/2024 15:07:25 12/14/19 25 12/21/2024 TOXAS SURE SELEC T 14 MINISTERIO-D IS hydrocodone NOT DETECT ED . Resul t Units : ng/mg creat Not Available [facility] [address] [place] [address], 95740 12/21/2024 15:07:25 12/14/19 25 12/21/2024 TOXAS SURE SELEC T 14 MINISTERIO-D IS hydromorphon e NOT DETECT ED . Resul t Units : ng/mg creat Not Available [facility] [address] [place] [address], 65518 12/21/2024 15:07:25 12/14/19 25 12/21/2024 TOXAS SURE SELEC T 14 MINISTERIO-D IS dihydrocodei ne NOT DETECT ED . Resul t Units : ng/mg creat Not Available [facility] [address] [place] [address], 30689 12/21/2024 15:07:25 12/14/1912/21/2024 TOXAS SURE SELEC T 14 MINISTERIO-D IS norhydrocodo ne NOT DETECT ED . Resul t Units : ng/mg creat Expec soto metab olism of opiat e class drugs : Paren t Drug Detec soto Metab olite s ----- ----- - ----- ----- ----- ----- Codei ne: Major : Morph ine, Millry deine Minor : Bensal[place] codon e, B[place]al[place] morph one, Dihyd rocod eine, Norhy droco done, Normo rphin e Morph ine: Major : Normo rphin e Minor : [place]ensal[place] morph one Bensalem codon e: Bensal[place] morph one, Dihyd rocod eine, Norhy droco done Bensal[place] morph one: None Dihyd rocod eine: None Heroi n: 6-Stepan tylmo rphin e (if inclu ded), Morph ine, Normo rphin e Codei ne, in small amoun ts in margaret rison to morph ine, is often detec soto when heroi n is the sourc e drug. Not Available [facility] [address] [place] [address], 30268 12/21/2024 15:07:25 12/14/1912/21/2024 TOXAS SURE SELEC T 14 MINISTERIO-D IS oxycodone class NEGATI VE . Not Available [facility] [address] [place] [address], 07339 12/21/2024 15:07:25 12/14/1912/21/2024 TOXAS SURE SELEC T 14 MINISTERIO-D IS oxycodone NOT DETECT ED . Resul t Units : ng/mg creat Not Available [facility] [address] [place] [address], 26964 12/21/2024 15:07:25 12/14/1912/21/2024 TOXAS SURE SELEC T 14 MINISTERIO-D IS oxymorphone NOT DETECT ED . Resul t Units : ng/mg creat Not Available [facility] [address] [place] [address], 36513 12/21/2024 15:07:25 12/14/19 25 12/21/2024 TOXAS SURE SELEC T 14 MINISTERIO-D IS noroxycodone NOT DETECT ED . Resul t Units : ng/mg creat Not Available [facility] [address] [place] [address], 05902 12/21/2024 15:07:25 12/14/19 25 12/21/2024 TOXAS SURE SELEC T 14 MINISTERIO-D IS noroxymorpho ne NOT DETECT ED . Resul t Units : ng/mg creat Expec soto metab olism of oxyco done class drugs : Paren t Drug Detec soto Metab olite s ----- ----- - ----- ----- ----- ----- Oxyco done: Oxymo rphon e, Norox ycodo ne, Norox ymorp moncho Oxymo rphon e: Norox ymorp moncho Not Available [facility] [address] [place] [address], [id number] 12/21/2024 15:07:25 12/14/19 25 12/21/2024 TOXAS SURE SELEC T 14 MINISTERIO-D IS methadone scr NEGATI VE . Not Available [facility] [address] [place] [address], 02804 12/21/2024 15:07:25 12/14/19 25 12/21/2024 TOXAS SURE SELEC T 14 MINISTERIO-D IS methadone NOT DETECT ED . Resul t Units : ng/mg creat Not Available [facility] [address] [place] [address], 10175 12/21/2024 15:07:25 12/14/1912/21/2024 TOXAS SURE SELEC T 14 MINISTERIO-D IS EDDP (methadone mtb) NOT DETECT ED . Resul t Units : ng/mg creat Not Available [facility] [address] [place] [address], 21109 12/21/2024 15:07:25 12/14/19 25 12/21/2024 TOXAS SURE SELEC T 14 MINISTERIO-D IS fentanyl analogues NEGATI VE . Not Available [facility] [address] [place] [address], 14551 12/21/2024 15:07:25 12/14/19 25 12/21/2024 TOXAS SURE SELEC T 14 MINISTERIO-D IS fentanyl NOT DETECT ED . Resul t Units : ng/mg creat Not Available [facility] [address] [place], [address] 12/21/2024 15:07:25 12/14/19 25 12/21/2024 TOXAS SURE SELEC T 14 MINISTERIO-D IS norfentanyl NOT DETECT ED . Resul t Units : ng/mg creat Not Available [facility] [address] [place], [address] 12/21/2024 15:07:25 12/14/19 25 12/21/2024 TOXAS SURE SELEC T 14 MINISTERIO-D IS sufentanil NOT DETECT ED . Resul t Units : ng/mg creat Not Available [facility] [address] [place] [address], 60032 12/21/2024 15:07:25 12/14/19 25 12/21/2024 TOXAS SURE SELEC T 14 MINISTERIO-D IS alfentanil NOT DETECT ED . Resul t Units : ng/mg creat Not Available [facility] [address] [place] [address], 97241 12/21/2024 15:07:25 12/14/1912/21/2024 TOXAS SURE SELEC T 14 MINISTERIO-D IS buprenorphin e scr +POSIT ARIADNE+ . Not Available [facility] [address] [place] [address], 93973 12/21/2024 15:07:25 12/14/1912/21/2024 TOXAS SURE SELEC T 14 MINISTERIO-D IS buprenorphin e 42 . Resul t Units : ng/mg creat Not Available [facility] [address] [place], [address] 12/21/2024 15:07:25 12/14/19 25 12/21/2024 TOXAS SURE SELEC T 14 MINISTERIO-D IS norbuprenorp kathrine 242 . Resul t Units : ng/mg creat Not Available [facility] [address] [place], [address] 12/21/2024 15:07:25 12/14/19 25 12/21/2024 TOXAS SURE SELEC T 14 MINISTERIO-D IS tapentadol scr NEGATI VE . Not Available [facility] [address] [place] [address], [id number] 12/21/2024 15:07:25 12/14/19 25 12/21/2024 TOXAS SURE SELEC T 14 MINISTERIO-D IS tapentadol NOT DETECT ED . Resul t Units : ng/mg creat Not Available [facility] [address] [place] [address], 39365 12/21/2024 15:07:25 12/14/19 25 12/21/2024 TOXAS SURE SELEC T 14 MINISTERIO-D IS other opioids NEGATI VE . Not Available [facility] [address] [place] [address], 89636 12/21/2024 15:07:25 12/14/19 25 12/21/2024 TOXAS SURE SELEC T 14 MINISTERIO-D IS tramadol NOT DETECT ED . Resul t Units : ng/mg creat Not Available [facility] [address] [place] [address], 20298 12/21/2024 15:07:25 12/14/19 25 12/21/2024 TOXAS SURE SELEC T 14 MINISTERIO-D IS O-desmethylt ramadol NOT DETECT ED . Resul t Units : ng/mg creat Not Available [facility] [address] [place] [address], 87119 12/21/2024 15:07:25 12/14/19 25 12/21/2024 TOXAS SURE SELEC T 14 MINISTERIO-D IS N-desmethylt ramadol NOT DETECT ED . Resul t Units : ng/mg creat Not Available [facility] [address] [place] [address], 73980 12/21/2024 15:07:25 12/14/19 25 12/21/2024 TOXAS SURE SELEC T 14 MINISTERIO-D IS barbiturates NEGATI VE . Not Available [facility] [address] [place] [address], 56727 12/21/2024 15:07:25 12/14/19 25 12/21/2024 TOXAS SURE SELEC T 14 MINISTERIO-D IS amobarbital NOT DETECT ED . Not Available [facility] [address] [place], [address] 12/21/2024 15:07:25 12/14/19 25 12/21/2024 TOXAS SURE SELEC T 14 MINISTERIO-D IS barbital NOT DETECT ED . Not Available [facility] [address] [place], [address] 12/21/2024 15:07:25 12/14/19 25 12/21/2024 TOXAS SURE SELEC T 14 MINISTERIO-D IS butabarbital NOT DETECT ED . Not Available [facility] [address] [place] [address], 38495 12/21/2024 15:07:25 12/14/19 25 12/21/2024 TOXAS SURE SELEC T 14 MINISTERIO-D IS butalbital NOT DETECT ED . Not Available [facility] [address] [place] [address], 85050 12/21/2024 15:07:25 12/14/19 25 12/21/2024 TOXAS SURE SELEC T 14 MINISTERIO-D IS mephobarbita l NOT DETECT ED . Not Available [facility] [address] [place] [address], 62258 12/21/2024 15:07:25 12/14/19 25 12/21/2024 TOXAS SURE SELEC T 14 MINISTERIO-D IS pentobarbita l NOT DETECT ED . Not Available [facility] [address] [place] [address], 15829 12/21/2024 15:07:25 12/14/19 25 12/21/2024 TOXAS SURE SELEC T 14 MINISTERIO-D IS phenobarbita l NOT DETECT ED . Not Available [facility] [address] [place] [address], 09141 12/21/2024 15:07:25 12/14/19 25 12/21/2024 TOXAS SURE SELEC T 14 MINISTERIO-D IS secobarbital NOT DETECT ED . Not Available [facility] [address] [place] [address], 37984 12/21/2024 15:07:25 12/14/19 25 12/21/2024 TOXAS SURE SELEC T 14 MINISTERIO-D IS thiopental NOT DETECT ED . Not Available [facility] [address] [place] [address], 73096 12/21/2024 15:07:25 12/14/19 25 12/21/2024 TOXAS SURE SELEC T 14 MINISTERIO-D IS other hallucinogen s NEGATI VE . Not Available [facility] [address] [place], [address] 12/21/2024 15:07:25 12/14/19 25 12/21/2024 TOXAS SURE SELEC T 14 MINISTERIO-D IS phencyclidin e NOT DETECT ED . Not Available [facility] [address] [place], [address] 12/21/2024 15:07:25 12/14/19 25 12/21/2024 TOXAS SURE SELEC T 14 MINISTERIO-D IS level of detection: JOS PEREA NG THRES HOLDS ARE FOLLO WS: AMPHE TAMIN ES: 50 ng/mL BENZO DIAZE PINES : 20 ng/mL COCAI NE / METAB OLITE : 50 ng/mL RONALDO OL BIOMA RKERS : ETG-5 00 ng/mL ,ETS- 250 ng/mL CANNA BINOI DS: total -20 ng/mL , carbo xy-TH C-2 ng/mL 6-STEPAN TYLMO RPHIN E: 10 ng/mL OPIAT E CLASS : 50 ng/mL OXYCO DONE CLASS : 50 ng/mL METHA DONE: 50 ng/mL BUPRE NORPH INE: bupre norph ine-1 .0 ng/mL , norbu preno rphin e-5 ng/mL FENTA NYL / ANALO GUES: fenta nyl-1 .0 ng/mL , other s-5.0 ng/mL TAPEN TADOL : 50 ng/mL TRAMA DOL: 50 ng/mL GINA TURAT ES: 200 ng/mL PCP: 25 ng/mL This test was devel oped and its perfo rmanc e yecenia cteri stics deter mined by [facility]. It has not been clear ed or appro nataly by the Food and Drug Admin istra tion. Perfo rmed at: 01 - [facility] [address] [place] [address] 5564 Lab Direc tor: Ara barroso [facility] , Phone : [phone] Not Available [facility] [address] [place], [address] 12/21/2024 15:07:25 Result Notes None recorded. Medical Equipment None Reported. Allergies Allergen ID Allergen Name Allergen Category Reaction Reaction Severity Criticality Documentation Date Start Date Code Code System Note Provider Name and Address Organization Details Recorded Time [id number] aspirin medicatio n Not available Not available Not available 11/15/2024 1191 RxNorm ZEKE Chaud[place]ry, [place] - [facility] 12:15:29 Medications Name Sig Start Date Stop Date Status Note LastModified by Organization Details LastModified Time amoxicilli n 500 mg capsule TAKE 4 CAPSULES BY MOUTH ONCE NOW active Not Available Not Available No t Available prednisone 10 mg tablet PLEASE SEE ATTACHED FOR DETAILED DIRECTIO NS active pt states no longer taking 11/15/24 CE Not Available Not Available Not Available azithromyc in 250 mg tablet TAKE 2 TABLETS BY MOUTH TODAY, THEN TAKE 1 TABLET DAILY FOR 4 DAYS DIRECTED active Not Available Not Available No t Available valacyclov ir 1 gram tablet TAKE 1 TABLET BY MOUTH 3 TIMES A DAY FOR 7 DAYS active Not Available Not Available No t Available senna 8.6 mg tablet TAKE 2 TABLETS (17.2 MG TOTAL) BY MOUTH 1 (ONE) TIME EACH DAY. active Not Available Not Available No t Available prednisone 20 mg tablet TAKE 2 TABLETS (40 MG TOTAL) BY MOUTH ONE TIME EACH DAY FOR 5 DAYS. active Not Available Not Available No t Available clonazepam 0.5 mg tablet TAKE 1 TABLET BY MOUTH TWICE A DAY NEEDED FOR ANXIETY active Not Available Not Available No t Available acetaminop hen 300 mg-codeine 30 mg tablet TAKE 1 TABLET BY MOUTH EVERY DAY NEEDED FOR 14 DAYS 05/10 completed Not Available Not Available Not Available triamcinol one acetonide 0.1 % topical cream APPLY TO AFFECTED AREA TWICE A DAY NEEDED active Not Available Not Available No t Available furosemide 80 mg tablet TAKE 1 TABLET BY MOUTH 2 TIMES A DAY. active Not Available Not Available No t Available lidocaine 5 % topical patch PLEASE SEE ATTACHED FOR DETAILED DIRECTIO NS active Not Available Not Available No t Available hydroxyzin e HCl 25 mg tablet TAKE 1 TABLET BY MOUTH EVERY 8 HOURS NEEDED FOR ITCHING OR FOR ANXIETY active Not Available Not Available No t Available mirtazapin e 15 mg tablet TAKE 1 TABLET BY MOUTH EVERYDAY AT BEDTIME active Not Available Not Available No t Available levofloxac in 750 mg tablet TAKE 1 TABLET BY MOUTH 1 TIME EACH DAY FOR 10 DAYS. active Not Available Not Available No t Available cholecalci ferol (vitamin D3) 125 mcg (5,000 unit) capsule TAKE 1 CAPSULE BY MOUTH ONCE A WEEK. active Not Available Not Available No t Available amoxicilli n 875 mg-potassi um clavulanat e 125 mg tablet TAKE 1 TABLET BY MOUTH TWICE A DAY FOR 10 DAYS active Not Available Not Available No t Available oxycodone 5 mg tablet TAKE 1 TABLET BY MOUTH EVERY 6 HOURS NEEDED FOR SEVERE PAIN active Not Available Not Available No t Available Klor-Con M20 mEq tablet,ext ended release TAKE 1 TABLET BY MOUTH EVERY DAY active pt states no longer taking 11/15/24 CE Not Available Not Available Not Available mirtazapin e 7.5 mg tablet TAKE 1 TABLET BY MOUTH AT BEDTIME. active Not Available Not Available No t Available duloxetine 60 mg capsule,de layed release TAKE 1 CAPSULE BY MOUTH TWICE A DAY active Not Available Not Available No t Available pregabalin 75 mg capsule TAKE 1 CAPSULE (75 MG TOTAL) BY MOUTH 2 (TWO) TIMES A DAY. MAX DAILY AMOUNT: 150 MG active Not Available Not Available No t Available pregabalin 100 mg capsule TAKE 1 CAPSULE BY MOUTH TWICE A DAY MAX DAILY AMOUNT 200MG active Not Available Not Available No t Available diclofenac 1 % topical gel APPLY 2 GRAM FOUR TIMES DAILY TO AFFECTED JOINT active Not Available Not Available No t Available Belbuca [address] 1 FILM INSIDE CHEEK EVERY 12 HOURS. DO NOT FILL UNTIL 08/29/24 active Not Available Not Available No t Available Belbuca 600 mcg buccal film DISSOLVE 1 FILM IN CHEEK EVERY 12 HOURS active Not Available Not Available No t Available Belbuca [address] FILM IN THE CHEEK TWICE A DAY DIRECTED FOR 28 DAYS active Not Available Not Available No t Available Narcan 4 mg/actuati on nasal spray as directed if needed 2024 active Not Available Not Available Not Hillai lable Vitals Date Recorded Heart rate Systolic And Diastolic Provider Name and Address Organization Details Last Updated DateTime 11/15/2024 83 /min 123/60 mm[Hg] Gloria Erwin CNA [facility] 11/15/2024 12:40:22 Date Recorded Heart rate Systolic And Diastolic Provider Name and Address Organization Details Last Updated DateTime 12/13/2024 103 /min 171/82 mm[Hg] [facility]13[facility] 14:57:17 Date Recorded Heart rate Systolic And Diastolic Provider Name and Address Organization Details Last Updated DateTime 03/02/2025 121 /min 125/85 mm[Hg] [facility]/02/2025 16:14:19 Date Recorded Heart rate Systolic And Diastolic Provider Name and Address Organization Details Last Updated DateTime 05/10/2025 80 /min 132/77 mm[Hg] FAITH ChaudhryA [facility] 05/10/2025 14:07:06 Social History Question Answer Notes LastModified by Organizat ion Details LastModified Time Tobacco Smoking Status Never Smoker [facility] 12:20:05 What Is Your Relationship Status? Information not available 11/15/2024 Sex: Unknown Functional Status Question Answer Note LastModified by Organizat ion Details LastModified Time Do you use any illicit or recreational drugs? No Information not available 11/15/2024 What is your level of alcohol consumption? Occasional Information not available 11/15/2024 Mental Status None recorded. Family History Nothing Reported. Medical History Condition Response arthritis Y heart attack ulcers Y Gynecological HistoryNo gynecological history recorded. Obstetrics History GPAL:G 0 P 0 0 0 0 Past Encounters Encounter ID Performer Location Encounter Start Date Encounter Closed Date Diagnosis/Indication Diagnosis SNOMED-CT Code Diagnosis ICD10 Code Diagnosis IMO Codes Diagnosis Note [id number] Arnaud Odell MD [facility] [address] [place] [address] [place] [address] 11/15/2024 11:54:19 11/15/2024 14:09:06 Lumbar spondylosis 867414359 M47.816 65369 Spinal katie nosis of lumbar region 03698410 M48.062 018816 Spinal katie nosis in cervical region 55470083 M48.02 92874 Cervical spondylosis 387 739424 M47.812 49558 Chronic pain 57994401 G8 9.29 807609 Idiopathic peripheral neuropathy 01180275 G60.8 02465 [id number] BARBARA MUSE [facility] [address] [place] [address] [place] [address] 12/13/2024 14:21:35 12/13/2024 15:33:54 Lumbar spondylosis 036166386 M47.816 01015 Spinal katie nosis of lumbar region 49888392 M48.062 484418 Spinal katie nosis in cervical region 63666204 M48.02 43668 Cervical spondylosis 387 176246 M47.812 74685 Chronic pain 61440626 G8 9.29 946759 Idiopathic peripheral neuropathy 35494259 G60.8 [id number] Arnaud Odell MD [facility] [address] [place] [address] [place] [address] 03/02/2025 15:58:24 03/03/2025 08:02:51 Lumbar spondylosis 013530547 M47.816 35997 Spinal katie nosis of lumbar region 71144576 M48.062 985209 Spinal katie nosis in cervical region 73904694 M48.02 13670 Cervical spondylosis 387 215014 M47.812 59783 Chronic pain 76241211 G8 9.29 832717 Idiopathic peripheral neuropathy 38059335 G60.8 31668 Myofascial pain 16039194 9 M79.18 769987 lumbar paraspinal s and traps Osteoarthr itis of right knee joint 0815636906 46179 M17.11 3530775 [id number] Mj Giraldo DNP [facility] [address] [place] [address] [place] [address] 05/10/2025 13:28:10 05/10/2025 14:43:16 Lumbar spondylosis 567823559 M47.816 66733 Spinal katie nosis of lumbar region 77327859 M48.062 011572 Spinal katie nosis in cervical region 07507919 M48.02 96197 Cervical spondylosis 387 370335 M47.812 65305 Chronic pain 95595776 G8 9.29 789784 Idiopathic peripheral neuropathy 87219914 G60.8 59305 Myofascial pain 19256198 9 M79.18 949972 lumbar paraspinal s and traps Osteoarthr itis of right knee joint 8482686730 79287 M17.11 1274540 Health Concerns Section Related Observation LastModified by Organization Detai ls LastModified Time None Recorded Concern Status LastModified by Organization Details LastModified Time None Recorded Advance Directives Directive None Recorded Payers Insurance Date Sequence Insurance Name Policy Number Policy Lira Covered Member ID Lira Member ID Guarantor Name 05/09/2025 1 [employer] (MEDICARE REPLACEMENT/A DVANTAGE - PPO) Michelle Miner [id number] Michelle Miner 05/09/2025 2 [place] Michelle Miner [id number] Michelle Miner Notes Date Note Type Note Provider Name and Address Organization Details Recorded Time 11/16/19 25 text/htm l Pain Management: New PatientReported by PatientHPIFor what caused your pain?, patient reportsother: (pinched nerve, nerve damage, neuropathy). For how often does your pain occur?, patient reportscontinuous. For how long does your pain last?, patient reportscontinuous. For described your pain, patient reportsburning,shooting, andhot. For your highest pain intensity over the past week, patient reports9. For your lowest pain intensity over the past week, patient reports9. For your usual pain intensity over the past week, patient reports9. For your pain scale today, patient reports9. For makes pain better?, patient reportsother: ( just being active... ). For makes pain worse?, patient reportslying downandwalking. For interferes with activities, patient reportsgeneral activity: 8,mood: 8,walking ability: 8,work: 8,relationships with other people: 8,sleep: 10, andenjoyment of life: 9. For prior tests?, patient reportsx-rays,mri,ct scan, andemg([facility] For conditions associated with your pain?, patient reportsmuscle weakness,difficulty walking, andnumbness / tingling / pins/ needles. For prior treatments?, patient reportsphysical therapy (spine & sports - 6 months ago for neck spine & sportshelped for a short period of time)andinjection(s) ([facility] in [facility] - cortizone injection every 3 months - neck/shoulders/kneessomewhat helpful)(ice -sometimes). For location, (neck into the arms and forearms and lower back pain and burning in the legs[facility] as she was missing 3 films). For how long have you had this pain?, (several years). For prior medications you've tried?, (belbuca - helpful). Arnaud Odell MD [address] [place], [phone], [facility] 11/15/2024 13:31:53 12/14/19 25 text/htm l Pain Management: Follow-upReported by PatientHPIFor quality, patient reportsburning. For associated symptoms, patient reportstinglingandnumbness of the legs/feet. For severity, patient reportswhat number on the pain scale best describe your pain right now?: 10 worst pain,what number on the pain scale best describes your least pain? : 1,what number on the pain scale best describes your worst pain?: 10 worst pain, andwhat number on the pain scale best describes your averge pain over the last month?: 6. For duration, patient reportsactual date: (about 40 or 50 years). For timing, patient reportsconstant. For progression, patient reportsincreased. For alleviating factors, patient reportsrest. For aggravating factors, patient reportswalking. For adl (activities of daily living), patient reportsimprove with medication(belbuca). For pain relief with current medications, patient reportsno side effects from medication. For location, (neck, both shoulders, whole back, r knee).Denies changes to PMHx or new medications since time of previous evaluation. Denies any new concerns today. Arnaud Odell MD [address] [place], [phone], [facility] 12/13/2024 15:49:02 03/02/20 25 text/htm l Pain Management: Follow-upReported by PatientHPIFor quality, patient reportsaching. For severity, patient reportswhat number on the pain scale best describe your pain right now?: 9,what number on the pain scale best describes your least pain? : 9,what number on the pain scale best describes your worst pain?: 10 worst pain, andwhat number on the pain scale best describes your averge pain over the last month?: 9. For duration, patient reportsactual date: (since january). For timing, patient reportsconstant. For progression, patient reportsincreased. For alleviating factors, patient reportsnothing helps. For aggravating factors, patient reportswalking. For adl (activities of daily living), patient reportsimprove with medication. For location, (both shoulders and arms, neck and lower back pain and neuropathy in the legs-same chronic painseeing ortho for the right knee and right hip). For pain relief with current medications, (belbuca). Arnaud Odell MD [address] [place] [address], [phone], [facility] 03/02/2025 16:54:32 05/10/20 25 text/htm l Pain Management: Follow-upReported by PatientHPIFor quality, patient reportsaching. For severity, patient reportswhat number on the pain scale best describe your pain right now?: 5,what number on the pain scale best describes your least pain? : 0 no pain,what number on the pain scale best describes your worst pain?: 10 worst pain, andwhat number on the pain scale best describes your averge pain over the last month?: 5. For duration, patient reportsactual date: (since january). For timing, patient reportsconstant. For progression, patient reportsincreased. For alleviating factors, patient reportsnothing helps. For aggravating factors, patient reportswalking. For adl (activities of daily living), patient reportsimprove with medication(belbuca). For pain relief with current medications, patient reportsno side effects from [id number]%(belbuca). For location, (chronic lower back pain , b/l le painful numbness and neck pain radiating into b/l ue).no changes Arnaud Odell MD [address] [place] [address], [phone], [facility] 05/10/2025 14:40:20 OBGyn Episode No OBEpisode recorded.
--- OUTSIDE RECORDS SUMMARY | 2025-06-30 14:34 | XMS_ITS | Data Portability ---
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 Patient comes in complaining of right knee pain. Patient has had a hip fractures to her bilateral hips. She had right total hip replacement in January for a femoral neck fracture it sounds like. This was done at [facility]. She is having increasing right knee pain. This patient is experiencing right knee pain for a period lasting greater than the last three months, which is severe (VAS score greater than or equal to 6 on a 0-10 scale) in intensity and the restriction of function (appropriate for a patient of this age) are intolerable. The pain substantially limits activities of daily living. In particular, walking tolerance and ability to stair climb is reduced. Conservative management such as non-steroidal anti-inflammatory medications available by prescription, physician directed therapy, ice and/or heat and activity modification have been minimally effective or deemed insufficient by the patient for a period lasting greater than 3-6 months in duration. Assistive devices and external support were not deemed by the patient to be helpful in improving their function. The patient is unable to tolerate further conservative measures, including physical therapy, due to the severity of arthritis and level of pain. Review of systems is negative for rapidly progressive neurological disorder, chest pain, shortness of breath, fevers, chills, or any signs of active or persistent local or systemic infection. Physical Exam : Patient is well nourished, well-developed, in no acute distress, with appropriate mood and affect. The patient is oriented to time, place, and person. Respirations are even and unlabored. Gait evaluation does reveal a limp. There is no inguinal adenopathy. Examination of the contralateral knee shows stiffness, normal strength, no tenderness, and intact skin. The affected limb is well-perfused, without skin lesions, shows a grossly normal motor and sensory examination. Right knee motion is significantly reduced and does cause significant pain. The knee moves from 10-110 degrees. The knee is stable within that [id number] to AP and ML stress. The alignment of the knee is neutral. Muscle strength is normal. Pedal pulses are palpable. Hip examination, including flexion and internal rotation, was negative in that groin pain was not produced. Assessment/Plan : The patient is an appropriate candidate for consideration of right total knee replacement. An extensive discussion was conducted of the natural history of the disease and the variety of surgical and non-surgical treatment options available to the patient. A risk/benefit analysis was discussed with the patient reviewing the advantages and disadvantages of surgical intervention at this time. A full explanation was given of the nature and the purpose of the procedure and anesthesia, its benefits, possible alternative methods of diagnosis of treatment, the risks involved, the possibility of complications, the foreseeable consequences of the procedure and the possible results of the non-treatment. No guarantee or assurance was made as to the results that may be obtained. Specifically, the risks were identified to include, but are not limited, to the following: Infection, phlebitis, pulmonary embolism, , paralysis, dislocation, pain, stiffness, instability, limp, weakness, breakage, leg-length inequality, uncontrolled bleeding, nerve injury, blood vessel injury, pressure sores, anesthetic risks, delayed healing of wound and bone, and wear and loosening. Additional risks of robotic knee replacement were discussed (if used) including but not limited to pin site infection, draining, longer incision, longer OR time, and fracture near the pin sites. Further discussion was undertaken with the patient about the details of surgical preparation, treatment and postoperative rehabilitation including medical clearance, autotransfusion, the hospital course and the postoperative rehabilitation involved. As a part of routine preoperative counseling, if the patient is a smoker, the patient recognizes the increased risk of complications in patients who utilize tobacco products. The patient has also been counseled regarding the elevated risk of surgical complications in patients with an elevated BMI. The patient demonstrates understanding of the increased risk in such patients. The patient was encouraged to participate in physical activity and diet modification under the direction of their primary care physician. We will plan on proceeding with right total knee arthroplasty using the [place] total knee replacement system. However, it is possible during the preoperative planning process or due to intraoperative findings that a different implant system may be utilized in order to optimize the patient's outcome. We had a discussion regarding implant and bearing options. We had a detailed discussion of the advantages and limitations of the specific implant designs, materials and bearing surfaces. All questions were answered to the patient's satisfaction, and the patient was asked to call the office with any further concerns. All in all, I feel that this patient is a good candidate for surgical reconstruction. An in-depth discussion of the risks and benefits of surgery as noted above were had with patient, including any reasonable alternatives and the risks and benefits of the alternatives. The patient was given time to understand and ask questions, and the surgical consent was signed and dated today. The patient is also aware that questions can be asked at any time before the surgical date to me or my team. We are assessing whether she will be able to come down to [place] for surgery based on her insurance. If yes we will plan on right total knee replacement, robotic assisted, at [place] [facility] [place]. If not we will give her referral to somebody within her network. PCM Services Statement: Principal Care Management (PCM) services were recommended to this patient with a diagnosis of osteoarthritis who has failed conservative management and is indicated for, as well as undergone shared decision-making to undergo a total joint arthroplasty procedure. PCM services provided to the patient include but not limited to structured recording of patient health information within our electronic medical record system, 31/03 access and continuity of care to qualified practitioners and/or clinical staff, comprehensive care management and planning to optimize pre-surgical needs, choice of an appropriate surgical facility, preoperative patient education, and coordination of patient-specific daija-operative needs. This will be actively managed by the clinical staff with physician supervision throughout enrollment in the program. The clinical staff will help manage care transitions as well as coordinate home and community-based care as it pertains to the patient's needs. The patient expresses understanding and awareness of PCM services, including but not limited to potential cost- sharing responsibilities; only one practitioner can furnish and bill for PCM services during a calendar month, and the patient can stop these services at any time. The patient understands and has verbally consented to accept PCM services and has been provided a copy of a written explanation of this service today. Not available 05/20/2025 15:11:15 Plan of Treatment Reminders Order Date Submit Date Provider Last Modified By Organization Details Last Modified Time Details Appointments None recorded. Lab None recorded. Referral None recorded. Procedures None recorded. Surgeries total knee arthroplast y (SURG) 2024 025 [email or web address] 0 Not available 12:13:31 Imaging XR, knee, 4 or more view 2024 025 [email or web address] 2 [facility] [facility], [address], [address], [place], [address], 15:16:06 Medication Orders None recorded. Patient TargetsNo targets recorded. Patient Instructions Encounter Date Encounter Id Patient Instructions Last Modified By Organization Details Last Modified Time 05/20/2025 [id number] AP, lateral, Long, and patellar view radiographs of the right knee taken today demonstrate right knee degenerative joint disease with joint space narrowing, osteophyte formation, and subchondral sclerosis. There is uayi-ct-[id number] articulation in the medial and lateral compartment. AP view of the left leg shows a broken screw along the distal femur area. Not available 05/20/2025 15:10:47 Reason for Referral None Reported. Problems Name Problem SNOMED Code Status Onset Date Resolution Date Notes Provider Name and Address Organization Details Recorded Time Osteoarthri tis of right knee joint 5813454937435 00 Active 2024 Franco Marie MD [address] [facility] [address], [place], [address], [place] [facility] [place], P 5 15:07:35 Arthritis of knee 987430894 Active 2024 Franco Marie MD [address] [facility] [address], [place], [address], [place] [facility] [place], P 5 15:07:41 Problem Notes None recorded. Procedures Surgical History Date Name Laterality Status Provider Name and Address Organization Details Recorded Time total replacement of hip completed [facility] [place] [facility] [place], P 05/20/2025 15:52:47 Imaging Results None recorded. Procedure Notes None recorded. Medical Equipment None Reported. Allergies Allergen ID Allergen Name Allergen Category Reaction Reaction Severity Criticality Documentation Date Start Date Code Code System Note Provider Name and Address Organization Details Recorded Time 15569 aspirin medicatio n Not available Not available Not available 05/20/2025 1191 RxNorm Margarita Dougherty null, [place] - [facility] [place], P 15:49:20 Medications Name Sig Start Date Stop Date Status Note LastModified by Organization Details LastModified Time amoxicillin 500 mg capsule TAKE 4 CAPSULES BY MOUTH ONCE NOW active Not Available Not Available No t Available azithromycin 250 mg tablet TAKE 2 TABLETS BY MOUTH TODAY, THEN TAKE 1 TABLET DAILY FOR 4 DAYS DIRECTED active Not Available Not Available No t Available valacyclovir 1 gram tablet TAKE 1 TABLET BY MOUTH 3 TIMES A DAY FOR 7 DAYS active Not Available Not Available N ot Available senna 8.6 mg tablet TAKE 2 TABLETS (17.2 MG TOTAL) BY MOUTH 1 (ONE) TIME EACH DAY. active Not Available Not Available No t Available prednisone 20 mg tablet TAKE 2 TABLETS (40 MG TOTAL) BY MOUTH ONE TIME EACH DAY FOR 5 DAYS. active Not Available Not Available Not Available clonazepam 0.5 mg tablet TAKE 1 TABLET BY MOUTH TWICE A DAY NEEDED FOR ANXIETY active Not Available Not Available No t Available acetaminophe n 300 mg-codeine 30 mg tablet TAKE 1 TABLET BY MOUTH EVERY DAY NEEDED FOR 14 DAYS active Not Available Not Available No t Available triamcinolon e acetonide 0.1 % topical cream APPLY TO AFFECTED AREA TWICE A DAY NEEDED active Not Available Not Available No t Available furosemide 80 mg tablet TAKE 1 TABLET BY MOUTH 2 TIMES A DAY. active Not Available Not Available No t Available lidocaine 5 % topical patch PLEASE SEE ATTACHED FOR DETAILED DIRECTIONS active Not Available Not Available N ot Available hydroxyzine HCl 25 mg tablet TAKE 1 TABLET BY MOUTH EVERY 8 HOURS NEEDED FOR ITCHING OR FOR ANXIETY active Not Available Not Available Not Available mirtazapine 15 mg tablet TAKE 1 TABLET BY MOUTH EVERYDAY AT BEDTIME active Not Available Not Available No t Available levofloxacin 750 mg tablet TAKE 1 TABLET BY MOUTH 1 TIME EACH DAY FOR 10 DAYS. active Not Available Not Available No t Available cholecalcife rol (vitamin D3) 125 mcg (5,000 unit) capsule TAKE 1 CAPSULE BY MOUTH ONCE A WEEK. active Not Available Not Available No t Available amoxicillin 875 mg-potassium clavulanate 125 mg tablet TAKE 1 TABLET BY MOUTH TWICE A DAY FOR 10 DAYS active Not Available Not Available No t Available oxycodone 5 mg tablet TAKE 1 TABLET BY MOUTH EVERY 6 HOURS NEEDED FOR SEVERE PAIN active Not Available Not Available Not Available mirtazapine 7.5 mg tablet TAKE 1 TABLET BY MOUTH AT BEDTIME. active Not Available Not Available No t Available duloxetine 60 mg capsule,claudette yed release TAKE 1 CAPSULE BY MOUTH TWICE [...] 28 DAYS active Not Available Not Available Not Available naloxone 4 mg/actuation nasal spray USE DIRECTED IF NEEDED active Not Available Not Available No t Available Vitals Date Recorded Body height Body mass index (BMI) Body weight Provider Name and Address Organization Details Last Updated DateTime 05/20/2025 165.1 cm 21.6 kg/m2 86519.01 g Margarita Dougherty [facility] [place], P 05/20/2025 15:49:55 Social History Question Answer Notes LastModified by Vayusaat ion Details LastModified Time Tobacco Smoking Status Never Smoker Margarita lilly [facility] [place], P 05/20/2025 15:52:24 Are You Currently In School? No [email or web address] Information not available 05/20/2025 Sex: Unknown Functional Status Question Answer Note LastModified by DataCentredizat ion Details LastModified Time How many times per week do you consume alcohol? Less than 1 time per week has a drink if she goes out for dinner [email or web address] Information not available 05/20/2025 Do you use any illicit or recreational drugs? No [email or web address] Information not available 05/20/2025 Do you or have you ever used any other forms of tobacco or nicotine? No [email or web address] Information not available 05/20/2025 What is your level of alcohol consumption? Occasional Information not available 05/20/2025 Are you currently employed? No [email or web address] Information not available 05/20/2025 Mental Status None recorded. Family History Relationship Description Onset Age of this Age Resolved Age Notes LastModified by Organization Details LastModified Time Father car accide nt [email or web address] Not available 05/20/2025 15:50:51 Medical History Condition Response Coronary Artery Disease N Gout N Hyperthyroidism N Blood Transfusion N MRSA N Emphysema N Depression N COPD Y Hypothyroidism N Pacemaker N Vascular Disease N Gastrointestinal Disease N Anxiety Disorder N Autoimmune disease N Arthritis N Cancer N Stroke N High Cholesterol N Neurologic Disorder N Liver Disease N Organ Transplant N Arrhythmia N Rheumatoid Arthritis Y Fibromyalgia N Kidney Disease N Allergies/Hayfever N Adverse Reaction to Anesthesia N Thyroid Problems N Anemia N Brain Injury N Heart Attack ([place]) N Osteopenia N Diabetes N Bleeding Disorder N Seizures/Epilepsy N AIDS/HIV N Congestive Heart Failure (CHF) N Asthma N Amputation N Reflux/GERD Y Sleep Apnea N Hepatitis N Aneurysm N Heart Disease N Pulmonary Embolism N Hypertension N Osteoporosis Y Gynecological HistoryNo gynecological history recorded. Obstetrics History GPAL:G 0 P 0 0 0 0 Past Encounters Encounter ID Performer Location Encounter Start Date Encounter Closed Date Diagnosis/Indication Diagnosis SNOMED-CT Code Diagnosis ICD10 Code Diagnosis IMO Codes Diagnosis Note [id number] MD LETHA Cardoso [address] [address] 05/20/2025 14:37:55 05/20/2025 15:16:06 Pain of right knee region 2224952577 84309 M25.561 85303260 Osteoarthr itis of right knee joint 0329003101 49537 M17.11 2956518 Arthritis of knee 901422 002 M13.869 Health Concerns Section Related Observation LastModified by Organization Detai ls LastModified Time None Recorded Concern Status LastModified by Organization Details LastModified Time None Recorded Advance Directives Directive None Recorded Payers Insurance Date Sequence Insurance Name Policy Number Policy Lira Covered Member ID Lira Member ID Guarantor Name 05/20/2025 1 [employer] (MEDICARE REPLACEMENT/A DVANTAGE - PPO) Michelle Miner [id number] Michelle Miner 05/27/2025 2 [place] [facility] Michelle Miner [id number] Michelle Miner OBGyn Episode No OBEpisode recorded.
== END 2025-06-29 11:25 | disposition home or self-care (01) ==
LOC: HO.HOSX 11:24
PROVIDERS: Visit Provider Orthopaedic Surgery
DX: M17.0 Bilateral primary osteoarthritis of knee (principal)
CPT/HCPCS: 73562; 99202

== ENCOUNTER 2025-06-29 11:51 | Outpatient (AMB) | payer MEDICARE, SELFPAY ==
--- NOTE | 2025-06-29 12:03 | A.OFFVIS_ITS ---
Intake Visit Reasons: Bilateral knee pain Intake Note: Michelle is a 74 year old male who presents with complaints of progressively worsening bilateral knee pains, left greater than right. She describes her left knee pain as sharp and severe in nature, 06/17. Her pain has gotten worse over the last few years in spite of continued non operative treatments. She has taken Tylenol, anti-inflammatory medicines and opioids which gave her minimal relief. At this point her left knee pain is interfering with her activities of daily living and her ability to sleep well through the night. She has had multiple injections in the past. The most recent injection gave her no relief. The patient has difficulty walking even short distances because of her left knee pain. Allergies aspirin (ASPIRIN) Allergy (Mild, Verified 06/29/25 12:04) STOMACH UPSET codeine (CODEINE) Adverse Reaction (Unknown, Verified 06/29/25 12:04) STOMACH UPSET Medication List - Last Reviewed 06/29/25 by SUSU Mariano acetaminophen 1,000 mg PO DAILY@1530 PRN acetaminophen 1,500 mg PO DAILY@0930 PRN buprenorphine HCl (Belbuca) 900 mcg buccal BID cefuroxime axetil 500 mg PO BID 5 days cholecalciferol (vitamin D3) 125 mcg PO DAILY clonazepam 0.5 mg PO BID PRN doxycycline monohydrate 100 mg PO BID mirtazapine 7.5 mg PO BEDTIME PFSH Medical History Cellulitis of both feet Overweight (BMI 25.0-29.9) Cervical radiculopathy Derangement of left knee History of left shoulder fracture History of fracture of left hip Arthritis Scoliosis Back pain Surgical History History of open reduction and internal fixation (ORIF) procedure Family History Father Medical history unknown Mother Medical history unknown Social History Household Members: Friend(s) Alcohol intake: current Alcohol intake frequency: holidays/special occasions only Patient Tobacco Use Status: Never used Tobacco service: No Physical Exam Const Other: Well-nourished well-developed very friendly female awake alert and oriented x3 in no acute distress Extrem Other: Bilateral knee examination shows minimal effusions, palpable crepitus with range of motion, pain with range of motion, no instability, range of motion from -3 degrees to 115 degrees Results Reviewed Results Reviewed: X-rays of the patient's bilateral knee show end-stage degenerative joint disease with grade 4 [id number] arthritis, subchondral sclerosis, osteophyte forma tion, no acute bony abnormalities Assessment & Plan Assessment & Plan (1) Bilateral knee pain: Code(s): M25.561 - Pain in right knee; M25.562 - Pain in left knee Category: Medical (2) Osteoarthritis of left knee: Code(s): M17.12 - Unilateral primary osteoarthritis, left knee Category: Medical (3) Osteoarthritis of right knee: Code(s): M17.11 - Unilateral primary osteoarthritis, right knee Category: Medical Plan Ms. Miner presents with progressively worsening bilateral knee pains, left greater than right, due to end-stage degenerative joint disease. I had a lengthy discussion with the patient regarding the treatment options. At this point she has failed continued non operative treatments. The risks and benefits of left total knee replacement surgery were discussed at length with the patient. The patient wishes to proceed with surgery. She will be scheduled for next available date. I will see her back 1 week prior to her surgery to answer any final questions that she might have. If her right knee pain does become more severe than is her left at the time of her surgery we could certainly proceed with right total knee replacement surgery first. Feel free to call me at any time should questions regarding her orthopedic management arise. Thank you very much for asking me to see this very friendly patient. I spent 21 minutes in reviewing the patient's records and imaging studies, seeing the patient and documenting in the medical record. Orders: Orders XR Knee Gopal 3V Today M25.561 - Pain in right knee, M25.562 - Pain in left knee Coding Level of Care Code New Pt Level 3 (54095) Complex EM visit Add On G2211 Diagnoses Bilateral knee pain M25.561; M25.562 Osteoarthritis of left knee M17.12 Osteoarthritis of right knee M17.11
== END 2025-06-29 12:30 | disposition home or self-care (01) ==
LOC: HO.HOS 11:51
PROVIDERS: PCP Physician Assistant Medical; Visit Provider Orthopaedic Surgery
DX: M17.0 Bilateral primary osteoarthritis of knee (principal)
CPT/HCPCS: 99203; G2211

== ENCOUNTER → 2025-06-29 11:57 | Outpatient (BNV) | payer MEDICARE, SELFPAY | PROVIDERS: Visit Provider Radiology Diagnostic Ultrasound | DX: M17.0 Bilateral primary osteoarthritis of knee (principal) | CPT/HCPCS: 73562 ==

== ENCOUNTER → 2025-08-11 10:30 | Outpatient (BNVA) | payer MEDICARE, SELFPAY | PROVIDERS: PCP Physician Assistant Medical | DX: Z01.818 Encounter for other preprocedural examination (principal) ==

== ENCOUNTER 2025-08-31 14:18 | Outpatient (REF) | payer MEDICARE, SELFPAY ==
[2025-08-31 16:20] LABS: Hematocrit 43.9 % (37.0-47.0); Hemoglobin 14.2 g/dl (12.0-16.0); Mean Corpuscular HGB Conc 32.3 g/dl (31.0-35.0); Mean Corpuscular Hemoglobin 30.0 pg (27.0-33.0); Mean Corpuscular Volume 92.6 fL (80.0-98.0); NRBC Abs Auto 0.000 X10*3/uL (0.0-0.012); NRBC Pct Auto 0.0 /100WBC (0.0-0.2); Platelet Count 260 X10*3/uL (160-400); Red Blood Count 4.74 X10*6/uL (4.20-5.50); White Blood Count 9.1 X10*3/uL (4.8-10.8)
[2025-08-31 16:49] LABS: Anion Gap 16 (12-20); Blood Urea Nitrogen 16 mg/dL (9-16); Calcium 9.8 mg/dL (8.4-10.2); Carbon Dioxide 30 mmol/L (22-29); Chloride 102 mmol/L (96-108); Estimated Glomerular Filt Rate > 60; Potassium 4.6 mmol/L (3.3-5.1); Sodium 143 mmol/L (135-145)
== END 2025-08-31 14:19 | disposition home or self-care (01) ==
LOC: HO.LNP 14:18
PROVIDERS: Physician Assistant; Visit Provider Orthopaedic Surgery
DX: Z01.818 Encounter for other preprocedural examination (principal); M25.561 Pain in right knee; M25.562 Pain in left knee; M17.11 Unilateral primary osteoarthritis, right knee; Z13.1 Encounter for screening for diabetes mellitus
CPT/HCPCS: 80048; 83036; 85027

== ENCOUNTER 2025-08-31 14:18 | Outpatient (AMB) | payer MEDICARE, SELFPAY ==
--- OUTSIDE RECORDS SUMMARY | 2025-08-31 14:22 | XMS_ITS | Encounter Summary ---
Author Organization [facility] Address [address] [place] [address] Care Team Providers Care Stockbroking Dealer Name Role Phone Luis Montero Primary Care Provider [phone] Encounter Details Date Type Department Care Team ([facility] st Contact Info) Description 08/19/2025 Results Follow-Up Adult [address] [place] [phone] Luis Montero PA [address] [place] [phone] Social History Tobacco Use Types Packs/Day Years [...] care for your loved ones. For example, director maternal child or elderly care for an older adult? [...] Care Team (Late st Contact Info) Description 10/19/2025 3:00 PM EST Office Visit Adult Medicine [address] [address] Luis Montero PA [address] [place] [phone] documented as of this encounter Visit Diagnoses Not on filedocumented in this encounter Additional Health Concerns Assessment Noted Time PHQ-9 Depression Total Score: 14 025 2:31 PM EDT A fall risk assessment has been complete d for the patient 02/22/2025 2:30 PM EDT documented as of this encounter Care Teams Stockbroking Dealer Relationship Specialty Start Date End Date Luis Montero PA [address] [place] [address] PCP - General Internal Medicine 07/13/21 documented as of this encounter
--- OUTSIDE RECORDS SUMMARY | 2025-08-31 14:22 | XMS_ITS | Data Portability ---
Author Organization [place] - [facility] [place] Address [address] [place] [address] Care Team Providers Care Manager Portable Name Role Phone SAEID ORTIZ Primary Care [...] it sounds like. This was done at [facility]. She is having increasing right knee [...] degrees. The knee is stable within that rnewq-hw-bzaxch to AP and ML stress. The alignment [...] will be able to come down to [place] for surgery based on her insurance. If yes we will plan on right total knee replacement, robotic assisted, at [facility] [place]. If not we will give her referral [...] total knee arthroplast y (SURG) 2024 025 [email or web address] 0 Not available 12:13:31 Imaging XR, knee, 4 or more view 2024 025 [email or web address] 2 [facility], [address], [address], [place], [address], 15:16:06 Medication Orders None recorded. Patient TargetsNo targets recorded. Patient Instructions Encounter Date Encounter Id Patient Instructions Last Modified By Organization Details Last Modified Time 05/20/2025 [id number] AP, lateral, Long, and patellar view radiographs of the right knee taken today demonstrate right knee degenerative joint disease with joint space narrowing, osteophyte formation, and subchondral sclerosis. There is pryf-vm-vctq articulation in the medial and lateral compartment. AP view of the left leg shows a broken screw along the distal femur area. Not available 05/20/2025 15:10:47 Reason for Referral None Reported. Problems Name Problem SNOMED Code Status Onset Date Resolution Date Notes Provider Name and Address Organization Details Recorded Time Osteoarthri tis of right knee joint 5800942031759 00 Active 2024 Franco Marie MD [address] [facility] [address], [place], [address], [place] - [facility], P 5 15:07:35 Arthritis of knee 589380680 Active 2024 Franco Marie MD [address] [facility] [address], [place], [address], [place] - [facility], P 5 15:07:41 Problem Notes None recorded. Procedures Surgical History Date Name Laterality Status Provider Name and Address Organization Details Recorded Time total replacement of hip completed [facility] [place] [facility], [facility] 05/20/2025 15:52:47 Imaging Results None recorded. Procedure Notes None recorded. Medical Equipment None Reported. Allergies Allergen ID Allergen Name Allergen Category Reaction Reaction Severity Criticality Documentation Date Start Date Code Code System Note Provider Name and Address Organization Details Recorded Time 07493 aspirin medicatio n Not available Not available Not available 05/20/2025 1191 RxNorm Margarita Dougherty null, [place] - [facility], [facility] 15:49:20 Medications Name Sig Start Date [...] Updated DateTime 05/20/2025 165.1 cm 21.6 kg/m2 90071.01 g Margarita Dougherty [facility] 05/20/2025 15:49:55 Social History Question Answer Notes LastModified by Amarinat ion Details LastModified Time Tobacco Smoking Status Never Smoker Margarita lilly [facility] 05/20/2025 15:52:24 Are You Currently In School? No gabby Information not available 05/20/2025 Sex: Unknown Functional Status Question Answer Note LastModified by [email or web address] ion Details LastModified Time How many times per week do you consume alcohol? Less than 1 time per week has a drink if she goes out for dinner Information not available 05/20/2025 Do you use any illicit or recreational drugs? No [email or web address] Information not available 05/20/2025 Do you or have you ever used any other forms of tobacco or nicotine? No [email or web address] Information not available 05/20/2025 What is your level of alcohol consumption? Occasional [email or web address] Information not available 05/20/2025 Are you currently employed? No Information not available 05/20/2025 Mental Status None recorded. Family History Relationship Description Onset Age of this Age Resolved Age Notes LastModified by Organization Details LastModified Time Father car accide nt [email or web address] Not available 05/20/2025 15:50:51 Medical History Condition [...] Anemia N Brain Injury N Heart Attack ([place]) N Osteopenia N Diabetes N Bleeding Disorder [...] ICD10 Code Diagnosis IMO Codes Diagnosis Note [id number] MD LETHA Cardoso [address] [address] 05/20/2025 14:37:55 05/20/2025 15:16:06 Pain of right knee region 6218617665 46858 M25.561 75943674 Osteoarthr itis of right knee joint 5449332677 03333 M17.11 6136635 Arthritis of knee 643550 002 M13.869 Health Concerns Section Related Observation LastModified by Organization Detai ls LastModified Time None Recorded Concern Status LastModified by Organization Details LastModified Time None Recorded Advance Directives Directive None Recorded Payers Insurance Date Sequence Insurance Name Policy Number Policy Lira Covered Member ID Lira Member ID Guarantor Name 05/20/2025 1 [employer] (MEDICARE REPLACEMENT/A DVANTAGE - PPO) Michelle Miner [id number] Michelle Miner 05/27/2025 2 [place] [facility] Michelle Miner [id number] Michelle Miner OBGyn Episode No OBEpisode recorded.
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
--- OUTSIDE RECORDS SUMMARY | 2025-08-31 14:23 | XMS_ITS | Continuity of Care Document ---
Author Organization [place] - [facility] Address [address] [facility] [place] [address] Assessment No assessment recorded. Plan of Treatment [...] Belbuca 900 mcg buccal film 2024 025 [email or web address] [id number], [address] [place], [address], 08/08/2025 09:49:00 Narcan 4 mg/actua tion nasal spray 2024 025 [id number], [address] [place], [address], 07/19/2025 14:45:42 Patient TargetsNo targets recorded. Patient Instructions Encounter Date Encounter Id Patient Instructions Last Modified By Organization Details Last Modified Time 07/19/2025 [id number] 1. PHYSICAL THERAPY: pt encouraged to stay active. home exercises 2. BEHAVIORAL THERAPY: stable depression/psych issues 3. MEDICATIONS: Cont belbuca 900 q12 hr and lyrica(PCP) 4. INTERVENTIONS: none. pt gets interventions in [place] 5. FUNCTION: pain moderately impairs her function, [...] available Not available 11/15/2024 1191 RxNorm Gloria Eliskia, COORDINATOR OF PLACEMENT vijaya, [facility] 12:15:29 174788 ibuprofen medicatio n Not available Not available Not available 08/25/2025 5640 RxNorm Not Available [employer] - External Data Service - prod 13:47:30 036731 codeine medicatio n Not available Not available Not available 08/25/20252024 2670 RxNorm unrec ogniz ed react ion (text : Stoma ch upset , code: [id number]) ([facility] Not Available [employer] External Data Service - prod 13:48:52 Medications Name Sig Start Date Stop Date [...] TABLET BY MOUTH TWICE A DAY NEEDED ANXIETY. MAY FILL FEWER active Not Available Not Available No t [...] pregabalin 100 mg capsule TAKE 1 CAPSULE (100 MG TOTAL) BY MOUTH 3 TIMES A DAY MAX DAILY AMOUNT: 300 MG active Not Available Not Available No [...] Not Available Not Available Not Avai lable naloxone 4 mg/actuati on nasal spray USE DIRECTED IF NEEDED active Not Available Not Available No t Available Vitals Date Recorded Heart rate Systolic And Diastolic Provider Name and Address Organization Details Last Updated DateTime 07/19/2025 88 /min 146/84 mm[Hg] Gloria Erwin CNA [facility] 07/19/2025 14:33:01 Social History Question Answer Notes LastModified by Nubli Details LastModified Time Tobacco Smoking Status Never Smoker Gloria Erwin CNA null [facility] 11/15/2024 12:20:05 What Is Your Relationship Status? Information not available 11/15/2024 Sex: Unknown Functional Status Question Answer Note LastModified by [email or web address] Details LastModified Time Do you use any [...] ICD10 Code Diagnosis IMO Codes Diagnosis Note [id number] Mj Giraldo DNP [facility] [address] [place] [address] [place] [address] 07/19/2025 14:15:57 07/19/2025 14:48:40 Lumbar spondylosis 206188484 M47.816 38748 Spinal katie nosis of lumbar region 57603076 M48.062 537279 Spinal katie nosis in cervical region 52475728 M48.02 74766 Cervical spondylosis 387 170573 M47.812 38140 Chronic pain 52217577 G8 9.29 673852 Idiopathic peripheral neuropathy 65172344 G60.8 66970 Myofascial pain 86415952 9 M79.18 511992 lumbar paraspinal s and traps Osteoarthr itis of right knee joint 8450313635 97752 M17.11 9056337 Health Concerns Section Related Observation LastModified by Organization Detai ls LastModified Time None Recorded Concern Status LastModified by Organization Details LastModified Time None Recorded Payers Encounter Date Sequence Insurance Name Policy Number Policy Lira Covered Member ID Lira Member ID Guarantor Name 07/19/2025 1 [employer] (MEDICARE REPLACEMENT/A DVANTAGE - PPO) Michelle Miner [id number] Michelle Miner 07/19/2025 2 [place] [facility] Michelle Miner [id number] Michelle Miner Notes Date Note Type Note [...] current medications, patient reportsno side effects from [id number]%(bel buca). For location, (chronic lower back pain , b/l le painful numbness and neck pain radiating into b/l ue).no changes Arnaud Kalava, MD [address] [place] [address], [phone], [facility] 07/20/2025 10:03:31 OBGyn Episode No OBEpisode recorded.
--- OUTSIDE RECORDS SUMMARY | 2025-08-31 14:23 | XMS_ITS | Data Portability ---
Author Organization [place] - [facility] Address [address] [place] [address] Assessment No assessment recorded. Plan of Treatment Reminders Order Date Submit Date Provider Last Modified By Organization Details Last Modified Time Details Appointments Follow up 2025 02:30P Jorge Luis Giraldo DNP Not available Not available Not available Lab None recorded. Referral None recorded. Procedures None recorded. Surgeries None recorded. Imaging XR, cervical spine, 2 or 3 view [address] (Central Scheduling), [address] [place] [address], [id number], 12/28/2024 10:30:18 XR, lumbosacr al spine, 2 or 3 view [address] (Central Scheduling), [address] [place] [address], [id number], 12/28/2024 10:30:18 Medication Orders Belbuca 900 mcg buccal film 2024 025 [email or web address] [id number], [address] [place], [address], 08/08/2025 09:49:00 Narcan 4 mg/actuat ion nasal spray 2024 025 PETER [id number], [address] [place], [address], 07/19/2025 14:45:42 Belbuca 900 mcg buccal film 2024 025 [email or web address] [id number], [address] [place], [address], 05/10/2025 14:40:12 Narcan 4 mg/actuat ion nasal spray 2024 025 [id number] [address] [place], [address], 05/10/2025 14:40:13 Belbuca 900 mcg buccal film [address] [facility] [id number], [address] [place], [address], 03/02/2025 16:39:50 Narcan 4 mg/actuat ion nasal spray [address] [facility] [id number], [address] [place], [address], 03/02/2025 16:39:50 acetamino phen 300 mg-codein e [address] [facility] [id number], [address] [place], [address], 05/10/2025 14:33:49 Belbuca 900 mcg buccal film [address] [facility] [id number], [address] [place], [address], 12/24/2024 09:53:47 Narcan 4 mg/actuat ion nasal spray [address] [facility] [id number], [address] [place], [address], 12/13/2024 15:48:56 Belbuca 900 mcg buccal film [address] [facility] [id number], [address] [place], [address], 11/15/2024 13:30:20 Patient TargetsNo targets recorded. Patient Instructions Encounter Date Encounter Id Patient Instructions Last Modified By Organization Details Last Modified Time 11/15/2024 [id number] 1. PHYSICAL THERAPY: pt encouraged to stay [...] UE kkalava Not available 11/15/2024 13:31:44 12/13/2024 [id number] 1. PHYSICAL THERAPY: pt encouraged to stay [...] kk kkalava Not available 12/13/2024 15:48:38 03/02/2025 [id number] 1. PHYSICAL THERAPY: pt encouraged to stay active. home exercises 2. BEHAVIORAL THERAPY: stable depression/psych issues 3. MEDICATIONS: Cont belbuca 900 q12 hr and lyrica(PCP). will add t3 4. INTERVENTIONS: none. pt gets interventions in [place] 5. FUNCTION: pain moderately impairs her function [...] UE kkalava Not available 03/02/2025 16:54:24 05/10/2025 [id number] 1. PHYSICAL THERAPY: pt encouraged to stay active. home exercises 2. BEHAVIORAL THERAPY: stable depression/psych issues 3. MEDICATIONS: Cont belbuca 900 q12 hr and lyrica(PCP) 4. INTERVENTIONS: none. pt gets interventions in [place] 5. FUNCTION: pain moderately impairs her function [...] kk kkalava Not available 05/10/2025 14:39:50 07/19/2025 [id number] 1. PHYSICAL THERAPY: pt encouraged to stay active. home exercises 2. BEHAVIORAL THERAPY: stable depression/psych issues 3. MEDICATIONS: Cont belbuca 900 q12 hr and lyrica(PCP) 4. INTERVENTIONS: none. pt gets interventions in [place] 5. FUNCTION: pain moderately impairs her function, improved with meds 6. PAIN ASSESSMENT: some relief w belbuca 7. COMPLIANCE: no concerns. mpat verified 8. WEIGHT LOSS/DIET/SMOKING CESSATION: counseled 9. LABS/RADIOLOGY: MRI LS and cervical spine 11/2024 reviewed. UDS 12/2024 consistent UDS 05/2025 - consistent UDS JUL 11. REFERRALS : none 10. FOLLOW UP: [...] scott consu ltati on, pleas e call [phone]. ===== ===== ===== ===== ===== ===== ===== ===== ===== ===== ===== ===== ===== === Not Available [facility] [address] [place] [address], [id number] 11/20/2024 23:07:42 11/16/19 25 11/20/2024 TOXAS SURE SELEC T 14 MINISTERIO-D IS urine creatinine 37 mg/dL . REFER ENCE RANGE : Ref Range >=20 Not Available [facility] [address] [place], [address] 11/20/2024 23:07:42 11/16/19 25 11/20/2024 TOXAS SURE SELEC T 14 MINISTERIO-D IS ethanol biomarkers NEGATI VE . Not Available [facility] [address] [place], [address] 11/20/2024 23:07:42 11/16/19 25 11/20/2024 TOXAS SURE SELEC T 14 MINISTERIO-D IS ethyl glucuronide NOT DETECT ED . Resul t Units : ng/mg creat Not Available [facility] [address] [place], [address] 11/20/2024 23:07:42 11/16/19 25 11/20/2024 TOXAS SURE SELEC T 14 MINISTERIO-D IS ethyl sulfate NOT DETECT ED . Resul t Units : ng/mg creat Not Available [facility] [address] [place], [address] 11/20/2024 23:07:42 11/16/19 25 11/20/2024 TOXAS SURE SELEC T 14 MINISTERIO-D IS amphetamines NEGATI VE . Not Available [facility] [address] [place], [address] 11/20/2024 23:07:42 11/16/19 25 11/20/2024 TOXAS SURE SELEC T 14 MINISTERIO-D IS methamphetam ine NOT DETECT ED . Resul t Units : ng/mg creat Not Available [facility] [address] [place] [address], [id number] 11/20/2024 23:07:42 11/16/19 25 11/20/2024 TOXAS SURE SELEC T 14 MINISTERIO-D IS amphetamine NOT DETECT ED . Resul t Units : ng/mg creat Not Available [facility] [address] [place] [address], [id number] 11/20/2024 23:07:42 11/16/19 25 11/20/2024 TOXAS SURE SELEC T 14 MINISTERIO-D IS MDMA (ecstasy) NOT DETECT ED . Resul t Units : ng/mg creat Not Available [facility] [address] [place] [address], [id number] 11/20/2024 23:07:42 11/16/19 25 11/20/2024 TOXAS SURE SELEC T 14 MINISTERIO-D IS mda (ecstasy mtb) NOT DETECT ED . Resul t Units : ng/mg creat Not Available [facility] [address] [place] [address], [id number] 11/20/2024 23:07:42 11/16/19 25 11/20/2024 TOXAS SURE SELEC T 14 MINISTERIO-D IS benzodiazepi cammie +POSIT ARIADNE+ . Not Available [facility] [address] [place] [address], [id number] 11/20/2024 23:07:42 11/16/19 25 11/20/2024 TOXAS SURE SELEC T 14 MINISTERIO-D IS diazepam NOT DETECT ED . Resul t Units : ng/mg creat Not Available [facility] [address] [place] [address], [id number] 11/20/2024 23:07:42 11/16/19 25 11/20/2024 TOXAS SURE SELEC T 14 MINISTERIO-D IS desmethyldia zepam NOT DETECT ED . Resul t Units : ng/mg creat Not Available [facility] [address] [place] [address], [id number] 11/20/2024 23:07:42 11/16/19 25 11/20/2024 TOXAS SURE SELEC T 14 MINISTERIO-D IS oxazepam NOT DETECT ED . Resul t Units : ng/mg creat Not Available [facility] [address] [place] [address], [id number] 11/20/2024 23:07:42 11/16/19 25 11/20/2024 TOXAS SURE [...] Oxaze catherine Oxaze catherine: None Not Available [facility] [address] [place] [address], [id number] 11/20/2024 23:07:42 11/16/19 25 11/20/2024 TOXAS SURE SELEC T 14 MINISTERIO-D IS alprazolam NOT DETECT ED . Resul t Units : ng/mg creat Not Available [facility] [address] [place] [address], [id number] 11/20/2024 23:07:42 11/16/19 25 11/20/2024 TOXAS SURE SELEC T 14 MINISTERIO-D IS alpha-hydrox yalprazolam NOT DETECT ED . Resul t Units : ng/mg creat Not Available [facility] [address] [place] [address], [id number] 11/20/2024 23:07:42 11/16/19 25 11/20/2024 TOXAS SURE SELEC T 14 MINISTERIO-D IS desalkylflur azepam NOT DETECT ED . Resul t Units : ng/mg creat Not Available [facility] [address] [place] [address], [id number] 11/20/2024 23:07:42 11/16/19 25 11/20/2024 TOXAS SURE SELEC T 14 MINISTERIO-D IS lorazepam NOT DETECT ED . Resul t Units : ng/mg creat Not Available [facility] [address] [place] [address], [id number] 11/20/2024 23:07:42 11/16/19 25 11/20/2024 TOXAS SURE SELEC T 14 MINISTERIO-D IS alpha-hydrox ytriazolam NOT DETECT ED . Resul t Units : ng/mg creat Not Available [facility] [address] [place] [address], [id number] 11/20/2024 23:07:42 11/16/19 25 11/20/2024 TOXAS SURE SELEC T 14 MINISTERIO-D IS clonazepam NOT DETECT ED . Resul t Units : ng/mg creat Not Available [facility] [address] [place] [address], [id number] 11/20/2024 23:07:42 11/16/19 25 11/20/2024 TOXAS SURE SELEC T 14 MINISTERIO-D IS 7-aminoclona zepam 289 . Resul t Units : ng/mg creat Not Available [facility] [address] [place] [address], [id number] 11/20/2024 23:07:42 11/16/19 25 11/20/2024 TOXAS SURE SELEC T 14 MINISTERIO-D IS midazolam NOT DETECT ED . Resul t Units : ng/mg creat Not Available [facility] [address] [place] [address], [id number] 11/20/2024 23:07:42 11/16/19 25 11/20/2024 TOXAS SURE SELEC T 14 MINISTERIO-D IS alpha-hydrox ymidazolam NOT DETECT ED . Resul t Units : ng/mg creat Not Available [facility] [address] [place] [address], [id number] 11/20/2024 23:07:42 11/16/19 25 11/20/2024 TOXAS SURE SELEC T 14 MINISTERIO-D IS flunitrazepa m NOT DETECT ED . Resul t Units : ng/mg creat Not Available [facility] [address] [place] [address], [id number] 11/20/2024 23:07:42 11/16/19 25 11/20/2024 TOXAS SURE SELEC T 14 MINISTERIO-D IS desmethylflu nitrazepam NOT DETECT ED . Resul t Units : ng/mg creat Not Available [facility] [address] [place] [address], [id number] 11/20/2024 23:07:42 11/16/19 25 11/20/2024 TOXAS SURE SELEC T 14 MINISTERIO-D IS cocaine metabolite NEGATI VE . Not Available [facility] [address] [place] [address], [id number] 11/20/2024 23:07:42 11/16/1911/20/2024 TOXAS SURE SELEC T 14 MINISTERIO-D IS cocaine NOT DETECT ED . Resul t Units : ng/mg creat Not Available [facility] [address] [place] [address], [id number] 11/20/2024 23:07:42 11/16/19 25 11/20/2024 TOXAS SURE SELEC T 14 MINISTERIO-D IS benzoylecgon ine NOT DETECT ED . Resul t Units : ng/mg creat Not Available [facility] [address] [place] [address], [id number] 11/20/2024 23:07:42 11/16/19 25 11/20/2024 TOXAS SURE SELEC T 14 MINISTERIO-D IS cocaethylene NOT DETECT ED . Resul t Units : ng/mg creat Not Available [facility] [address] [place] [address], [id number] 11/20/2024 23:07:42 11/16/19 25 11/20/2024 TOXAS SURE SELEC T 14 MINISTERIO-D IS cannabinoids NEGATI VE . Not Available [facility] [address] [place] [address], [id number] 11/20/2024 23:07:42 11/16/19 25 11/20/2024 TOXAS SURE SELEC T 14 MINISTERIO-D IS carboxy-THC NOT DETECT ED . Resul t Units : ng/mg creat Not Available [facility] [address] [place] [address], [id number] 11/20/2024 23:07:42 11/16/19 25 11/20/2024 TOXAS SURE SELEC T 14 MINISTERIO-D IS 6-acetylmorp kathrine scr NEGATI VE . Not Available [facility] [address] [place] [address], [id number] 11/20/2024 23:07:42 11/16/19 25 11/20/2024 TOXAS SURE SELEC T 14 MINISTERIO-D IS 6-acetylmorp kathrine NOT DETECT ED . Resul t Units : ng/mg creat Not Available [facility] [address] [place] [address], [id number] 11/20/2024 23:07:42 11/16/19 25 11/20/2024 TOXAS SURE SELEC T 14 MINISTERIO-D IS opiate class NEGATI VE . Not Available [facility] [address] [place] [address], [id number] 11/20/2024 23:07:42 11/16/19 25 11/20/2024 TOXAS SURE SELEC T 14 MINISTERIO-D IS codeine NOT DETECT ED . Resul t Units : ng/mg creat Not Available [facility] [address] [place] [address], [id number] 11/20/2024 23:07:42 11/16/19 25 11/20/2024 TOXAS SURE SELEC T 14 MINISTERIO-D IS morphine NOT DETECT ED . Resul t Units : ng/mg creat Not Available [facility] [address] [place] [address], [id number] 11/20/2024 23:07:42 11/16/19 25 11/20/2024 TOXAS SURE SELEC T 14 MINISTERIO-D IS normorphine NOT DETECT ED . Resul t Units : ng/mg creat Not Available [facility] [address] [place] [address], [id number] 11/20/2024 23:07:42 11/16/19 25 11/20/2024 TOXAS SURE SELEC T 14 MINISTERIO-D IS norcodeine NOT DETECT ED . Resul t Units : ng/mg creat Not Available [facility] [address] [place] [address], [id number] 11/20/2024 23:07:42 11/16/19 25 11/20/2024 TOXAS SURE SELEC T 14 MINISTERIO-D IS hydrocodone NOT DETECT ED . Resul t Units : ng/mg creat Not Available [facility] [address] [place], [address] 11/20/2024 23:07:42 11/16/19 25 11/20/2024 TOXAS SURE SELEC T 14 MINISTERIO-D IS hydromorphon e NOT DETECT ED . Resul t Units : ng/mg creat Not Available [facility] [address] [place], [address] 11/20/2024 23:07:42 11/16/19 25 11/20/2024 TOXAS SURE SELEC T 14 MINISTERIO-D IS dihydrocodei ne NOT DETECT ED . Resul t Units : ng/mg creat Not Available [facility] [address] [place], [address] 11/20/2024 23:07:42 11/16/19 25 11/20/2024 TOXAS SURE SELEC T 14 MINISTERIO-D IS norhydrocodo ne NOT DETECT ED . Resul t Units : ng/mg creat Expec soto metab olism of opiat e class drugs : Paren t Drug Detec soto Metab olite s ----- ----- - ----- ----- ----- ----- Codei ne: Major : Morph ine, [place] deine Minor : [place] codon e, [place] morph one, Dihyd rocod eine, Norhy droco done, Normo rphin e Morph ine: Major : Normo rphin e Minor : [place] morph one [place] codon e: [place] morph one, Dihyd rocod eine, Norhy droco done [place] morph one: None Dihyd rocod eine: None Heroi n: 6-Stepan tylmo rphin e (if inclu ded), Morph ine, Normo rphin e Codei ne, in small amoun ts in margaret rison to morph ine, is often detec soto when heroi n is the sourc e drug. Not Available [facility] [address] [place] [address], [id number] 11/20/2024 23:07:42 11/16/19 25 11/20/2024 TOXAS SURE SELEC T 14 MINISTERIO-D IS oxycodone class NEGATI VE . Not Available [facility] [address] [place], [address] 11/20/2024 23:07:42 11/16/19 25 11/20/2024 TOXAS SURE SELEC T 14 MINISTERIO-D IS oxycodone NOT DETECT ED . Resul t Units : ng/mg creat Not Available [facility] [address] [place], [address] 11/20/2024 23:07:42 11/16/19 25 11/20/2024 TOXAS SURE SELEC T 14 MINISTERIO-D IS oxymorphone NOT DETECT ED . Resul t Units : ng/mg creat Not Available [facility] [address] [place] [address], [id number] 11/20/2024 23:07:42 11/16/19 25 11/20/2024 TOXAS SURE SELEC T 14 MINISTERIO-D IS noroxycodone NOT DETECT ED . Resul t Units : ng/mg creat Not Available [facility] [address] [place], [address] 11/20/2024 23:07:42 11/16/19 25 11/20/2024 TOXAS SURE [...] rphon e: Norox ymorp moncho Not Available [facility] [address] [place] [address], [id number] 11/20/2024 23:07:42 11/16/1911/20/2024 TOXAS SURE SELEC T 14 MINISTERIO-D IS methadone scr NEGATI VE . Not Available [facility] [address] [place], [address] 11/20/2024 23:07:42 11/16/19 25 11/20/2024 TOXAS SURE SELEC T 14 MINISTERIO-D IS methadone NOT DETECT ED . Resul t Units : ng/mg creat Not Available [facility] [address] [place] [address], [id number] 11/20/2024 23:07:42 11/16/19 25 11/20/2024 TOXAS SURE SELEC T 14 MINISTERIO-D IS EDDP (methadone mtb) NOT DETECT ED . Resul t Units : ng/mg creat Not Available [facility] [address] [place] [address], [id number] 11/20/2024 23:07:42 11/16/19 25 11/20/2024 TOXAS SURE SELEC T 14 MINISTERIO-D IS fentanyl analogues NEGATI VE . Not Available [facility] [address] [place] [address], 11035 11/20/2024 23:07:42 11/16/19 25 11/20/2024 TOXAS SURE SELEC T 14 MINISTERIO-D IS fentanyl NOT DETECT ED . Resul t Units : ng/mg creat Not Available [facility] [address] [place] [address], [id number] 11/20/2024 23:07:42 11/16/19 25 11/20/2024 TOXAS SURE SELEC T 14 MINISTERIO-D IS norfentanyl NOT DETECT ED . Resul t Units : ng/mg creat Not Available [facility] [address] [place] [address], [id number] 11/20/2024 23:07:42 11/16/19 25 11/20/2024 TOXAS SURE SELEC T 14 MINISTERIO-D IS sufentanil NOT DETECT ED . Resul t Units : ng/mg creat Not Available [facility] [address] [place] [address], [id number] 11/20/2024 23:07:42 11/16/19 25 11/20/2024 TOXAS SURE SELEC T 14 MINISTERIO-D IS alfentanil NOT DETECT ED . Resul t Units : ng/mg creat Not Available [facility] [address] [place] [address], [id number] 11/20/2024 23:07:42 11/16/19 25 11/20/2024 TOXAS SURE SELEC T 14 MINISTERIO-D IS buprenorphin e scr +POSIT ARIADNE+ . Not Available [facility] [address] [place], [address] 11/20/2024 23:07:42 11/16/19 25 11/20/2024 TOXAS SURE SELEC T 14 MINISTERIO-D IS buprenorphin e 27 . Resul t Units : ng/mg creat Not Available [facility] [address] [place], [address] 11/20/2024 23:07:42 11/16/19 25 11/20/2024 TOXAS SURE SELEC T 14 MINISTERIO-D IS norbuprenorp kathrine 173 . Resul t Units : ng/mg creat Not Available [facility] [address] [place] [address], [id number] 11/20/2024 23:07:42 11/16/19 25 11/20/2024 TOXAS SURE SELEC T 14 MINISTERIO-D IS tapentadol scr NEGATI VE . Not Available [facility] [address] [place] [address], 84043 11/20/2024 23:07:42 11/16/19 25 11/20/2024 TOXAS SURE SELEC T 14 MINISTERIO-D IS tapentadol NOT DETECT ED . Resul t Units : ng/mg creat Not Available [facility] [address] [place] [address], [id number] 11/20/2024 23:07:42 11/16/19 25 11/20/2024 TOXAS SURE SELEC T 14 MINISTERIO-D IS other opioids NEGATI VE . Not Available [facility] [address] [place] [address], 32447 11/20/2024 23:07:42 11/16/19 25 11/20/2024 TOXAS SURE SELEC T 14 MINISTERIO-D IS tramadol NOT DETECT ED . Resul t Units : ng/mg creat Not Available [facility] [address] [place], [address] 11/20/2024 23:07:42 11/16/19 25 11/20/2024 TOXAS SURE SELEC T 14 MINISTERIO-D IS O-desmethylt ramadol NOT DETECT ED . Resul t Units : ng/mg creat Not Available [facility] [address] [place], [address] 11/20/2024 23:07:42 11/16/19 25 11/20/2024 TOXAS SURE SELEC T 14 MINISTERIO-D IS N-desmethylt ramadol NOT DETECT ED . Resul t Units : ng/mg creat Not Available [facility] [address] [place] [address], [id number] 11/20/2024 23:07:42 11/16/19 25 11/20/2024 TOXAS SURE SELEC T 14 MINISTERIO-D IS barbiturates NEGATI VE . Not Available [facility] [address] [place] [address], 30118 11/20/2024 23:07:42 11/16/19 25 11/20/2024 TOXAS SURE SELEC T 14 MINISTERIO-D IS amobarbital NOT DETECT ED . Not Available [facility] [address] [place] [address], [id number] 11/20/2024 23:07:42 11/16/19 25 11/20/2024 TOXAS SURE SELEC T 14 MINISTERIO-D IS barbital NOT DETECT ED . Not Available [facility] [address] [place] [address], [id number] 11/20/2024 23:07:42 11/16/19 25 11/20/2024 TOXAS SURE SELEC T 14 MINISTERIO-D IS butabarbital NOT DETECT ED . Not Available [facility] [address] [place] [address], [id number] 11/20/2024 23:07:42 11/16/19 25 11/20/2024 TOXAS SURE SELEC T 14 MINISTERIO-D IS butalbital NOT DETECT ED . Not Available [facility] [address] [place] [address], [id number] 11/20/2024 23:07:42 11/16/19 25 11/20/2024 TOXAS SURE SELEC T 14 MINISTERIO-D IS mephobarbita l NOT DETECT ED . Not Available [facility] [address] [place] [address], 52925 11/20/2024 23:07:42 11/16/19 25 11/20/2024 TOXAS SURE SELEC T 14 MINISTERIO-D IS pentobarbita l NOT DETECT ED . Not Available [facility] [address] [place] [address], 21286 11/20/2024 23:07:42 11/16/19 25 11/20/2024 TOXAS SURE SELEC T 14 MINISTERIO-D IS phenobarbita l NOT DETECT ED . Not Available [facility] [address] [place] [address], [id number] 11/20/2024 23:07:42 11/16/19 25 11/20/2024 TOXAS SURE SELEC T 14 MINISTERIO-D IS secobarbital NOT DETECT ED . Not Available [facility] [address] [place] [address], 27942 11/20/2024 23:07:42 11/16/19 25 11/20/2024 TOXAS SURE SELEC T 14 MINISTERIO-D IS thiopental NOT DETECT ED . Not Available [facility] [address] [place] [address], 34184 11/20/2024 23:07:42 11/16/19 25 11/20/2024 TOXAS SURE SELEC T 14 MINISTERIO-D IS other hallucinogen s NEGATI VE . Not Available [facility] [address] [place] [address], 76127 11/20/2024 23:07:42 11/16/19 25 11/20/2024 TOXAS SURE SELEC T 14 MINISTERIO-D IS phencyclidin e NOT DETECT ED . Not Available [facility] [address] [place] [address], 93581 11/20/2024 23:07:42 11/16/19 25 11/20/2024 TOXAS SURE [...] [facility] [address] [id number] Lab Direc tor: Ara barroso [facility] , Phone : [phone] Not Available [facility] [address] [place], [address] 11/20/2024 23:07:42 12/14/19 25 12/21/2024 TOXAS SURE [...] scott consu ltati on, pleas e call [phone]. ===== ===== ===== ===== ===== ===== ===== ===== ===== ===== ===== ===== ===== === Not Available [facility] [address] [place], [address] 12/21/2024 15:07:25 12/14/1912/21/2024 TOXAS SURE SELEC T 14 MINISTERIO-D IS urine creatinine 48 mg/dL . REFER ENCE RANGE : Ref Range >=20 Not Available [facility] [address] [place], [address] 12/21/2024 15:07:25 12/14/19 25 12/21/2024 TOXAS SURE SELEC T 14 MINISTERIO-D IS ethanol biomarkers NEGATI VE . Not Available [facility] [address] [place], [address] 12/21/2024 15:07:25 12/14/19 25 12/21/2024 TOXAS SURE SELEC T 14 MINISTERIO-D IS ethyl glucuronide NOT DETECT ED . Resul t Units : ng/mg creat Not Available [facility] [address] [place] [address], [id number] 12/21/2024 15:07:25 12/14/19 25 12/21/2024 TOXAS SURE SELEC T 14 MINISTERIO-D IS ethyl sulfate NOT DETECT ED . Resul t Units : ng/mg creat Not Available [facility] [address] [place] [address], [id number] 12/21/2024 15:07:25 12/14/19 25 12/21/2024 TOXAS SURE SELEC T 14 MINISTERIO-D IS amphetamines NEGATI VE . Not Available [facility] [address] [place] [address], [id number] 12/21/2024 15:07:25 12/14/19 25 12/21/2024 TOXAS SURE SELEC T 14 MINISTERIO-D IS methamphetam ine NOT DETECT ED . Resul t Units : ng/mg creat Not Available [facility] [address] [place] [address], [id number] 12/21/2024 15:07:25 12/14/19 25 12/21/2024 TOXAS SURE SELEC T 14 MINISTERIO-D IS amphetamine NOT DETECT ED . Resul t Units : ng/mg creat Not Available [facility] [address] [place] [address], [id number] 12/21/2024 15:07:25 12/14/19 25 12/21/2024 TOXAS SURE SELEC T 14 MINISTERIO-D IS MDMA (ecstasy) NOT DETECT ED . Resul t Units : ng/mg creat Not Available [facility] [address] [place] [address], [id number] 12/21/2024 15:07:25 12/14/19 25 12/21/2024 TOXAS SURE SELEC T 14 MINISTERIO-D IS mda (ecstasy mtb) NOT DETECT ED . Resul t Units : ng/mg creat Not Available [facility] [address] [place] [address], [id number] 12/21/2024 15:07:25 0412/21/2024 TOXAS SURE SELEC T 14 MINISTERIO-D IS benzodiazepi cammie +POSIT ARIADNE+ . Not Available [facility] [address] [place] [address], [id number] 12/21/2024 15:07:25 12/14/19 25 12/21/2024 TOXAS SURE SELEC T 14 MINISTERIO-D IS diazepam NOT DETECT ED . Resul t Units : ng/mg creat Not Available [facility] [address] [place] [address], [id number] 12/21/2024 15:07:25 12/14/19 25 12/21/2024 TOXAS SURE SELEC T 14 MINISTERIO-D IS desmethyldia zepam NOT DETECT ED . Resul t Units : ng/mg creat Not Available [facility] [address] [place] [address], [id number] 12/21/2024 15:07:25 12/14/19 25 12/21/2024 TOXAS SURE SELEC T 14 MINISTERIO-D IS oxazepam NOT DETECT ED . Resul t Units : ng/mg creat Not Available [facility] [address] [place] [address], [id number] 12/21/2024 15:07:25 12/14/1912/21/2024 TOXAS SURE SELEC T [...] Oxaze catherine Oxaze catherine: None Not Available [facility] [address] [place] [address], [id number] 12/21/2024 15:07:25 12/14/19 25 12/21/2024 TOXAS SURE SELEC T 14 MINISTERIO-D IS alprazolam NOT DETECT ED . Resul t Units : ng/mg creat Not Available [facility] [address] [place] [address], [id number] 12/21/2024 15:07:25 12/14/19 25 12/21/2024 TOXAS SURE SELEC T 14 MINISTERIO-D IS alpha-hydrox yalprazolam NOT DETECT ED . Resul t Units : ng/mg creat Not Available [facility] [address] [place] [address], [id number] 12/21/2024 15:07:25 12/14/19 25 12/21/2024 TOXAS SURE SELEC T 14 MINISTERIO-D IS desalkylflur azepam NOT DETECT ED . Resul t Units : ng/mg creat Not Available [facility] [address] [place] [address], [id number] 12/21/2024 15:07:25 12/14/19 25 12/21/2024 TOXAS SURE SELEC T 14 MINISTERIO-D IS lorazepam NOT DETECT ED . Resul t Units : ng/mg creat Not Available [facility] [address] [place] [address], [id number] 12/21/2024 15:07:25 12/14/19 25 12/21/2024 TOXAS SURE SELEC T 14 MINISTERIO-D IS alpha-hydrox ytriazolam NOT DETECT ED . Resul t Units : ng/mg creat Not Available [facility] [address] [place] [address], [id number] 12/21/2024 15:07:25 12/14/19 25 12/21/2024 TOXAS SURE SELEC T 14 MINISTERIO-D IS clonazepam NOT DETECT ED . Resul t Units : ng/mg creat Not Available [facility] [address] [place] [address], [id number] 12/21/2024 15:07:25 12/14/19 25 12/21/2024 TOXAS SURE SELEC T 14 MINISTERIO-D IS 7-aminoclona zepam 288 . Resul t Units : ng/mg creat Not Available [facility] [address] [place] [address], [id number] 12/21/2024 15:07:25 12/14/19 25 12/21/2024 TOXAS SURE SELEC T 14 MINISTERIO-D IS midazolam NOT DETECT ED . Resul t Units : ng/mg creat Not Available [facility] [address] [place] [address], [id number] 12/21/2024 15:07:25 12/14/19 25 12/21/2024 TOXAS SURE SELEC T 14 MINISTERIO-D IS alpha-hydrox ymidazolam NOT DETECT ED . Resul t Units : ng/mg creat Not Available [facility] [address] [place] [address], [id number] 12/21/2024 15:07:25 12/14/19 25 12/21/2024 TOXAS SURE SELEC T 14 MINISTERIO-D IS flunitrazepa m NOT DETECT ED . Resul t Units : ng/mg creat Not Available [facility] [address] [place] [address], [id number] 12/21/2024 15:07:25 12/14/19 25 12/21/2024 TOXAS SURE SELEC T 14 MINISTERIO-D IS desmethylflu nitrazepam NOT DETECT ED . Resul t Units : ng/mg creat Not Available [facility] [address] [place] [address], [id number] 12/21/2024 15:07:25 12/14/19 25 12/21/2024 TOXAS SURE SELEC T 14 MINISTERIO-D IS cocaine metabolite NEGATI VE . Not Available [facility] [address] [place] [address], [id number] 12/21/2024 15:07:25 12/14/19 25 12/21/2024 TOXAS SURE SELEC T 14 MINISTERIO-D IS cocaine NOT DETECT ED . Resul t Units : ng/mg creat Not Available [facility] [address] [place] [address], [id number] 12/21/2024 15:07:25 12/14/19 25 12/21/2024 TOXAS SURE SELEC T 14 MINISTERIO-D IS benzoylecgon ine NOT DETECT ED . Resul t Units : ng/mg creat Not Available [facility] [address] [place] [address], [id number] 12/21/2024 15:07:25 12/14/19 25 12/21/2024 TOXAS SURE SELEC T 14 MINISTERIO-D IS cocaethylene NOT DETECT ED . Resul t Units : ng/mg creat Not Available [facility] [address] [place] [address], [id number] 12/21/2024 15:07:25 12/14/19 25 12/21/2024 TOXAS SURE SELEC T 14 MINISTERIO-D IS cannabinoids NEGATI VE . Not Available [facility] [address] [place] [address], [id number] 12/21/2024 15:07:25 12/14/19 25 12/21/2024 TOXAS SURE SELEC T 14 MINISTERIO-D IS carboxy-THC NOT DETECT ED . Resul t Units : ng/mg creat Not Available [facility] [address] [place] [address], [id number] 12/21/2024 15:07:25 12/14/19 25 12/21/2024 TOXAS SURE SELEC T 14 MINISTERIO-D IS 6-acetylmorp kathrine scr NEGATI VE . Not Available [facility] [address] [place] [address], [id number] 12/21/2024 15:07:25 12/14/19 25 12/21/2024 TOXAS SURE SELEC T 14 MINISTERIO-D IS 6-acetylmorp kathrine NOT DETECT ED . Resul t Units : ng/mg creat Not Available [facility] [address] [place] [address], [id number] 12/21/2024 15:07:25 12/14/19 25 12/21/2024 TOXAS SURE SELEC T 14 MINISTERIO-D IS opiate class NEGATI VE . Not Available [facility] [address] [place] [address], [id number] 12/21/2024 15:07:25 12/14/19 25 12/21/2024 TOXAS SURE SELEC T 14 MINISTERIO-D IS codeine NOT DETECT ED . Resul t Units : ng/mg creat Not Available [facility] [address] [place] [address], [id number] 12/21/2024 15:07:25 12/14/19 25 12/21/2024 TOXAS SURE SELEC T 14 MINISTERIO-D IS morphine NOT DETECT ED . Resul t Units : ng/mg creat Not Available [facility] [address] [place] [address], [id number] 12/21/2024 15:07:25 12/14/19 25 12/21/2024 TOXAS SURE SELEC T 14 MINISTERIO-D IS normorphine NOT DETECT ED . Resul t Units : ng/mg creat Not Available [facility] [address] [place], [id number] 12/21/2024 15:07:25 12/14/19 25 12/21/2024 TOXAS SURE SELEC T 14 MINISTERIO-D IS norcodeine NOT DETECT ED . Resul t Units : ng/mg creat Not Available [facility] [address] [place], [id number] 12/21/2024 15:07:25 12/14/1912/21/2024 TOXAS SURE SELEC T 14 MINISTERIO-D IS hydrocodone NOT DETECT ED . Resul t Units : ng/mg creat Not Available [facility] [address] [place] [address], [id number] 12/21/2024 15:07:25 12/14/19 25 12/21/2024 TOXAS SURE SELEC T 14 MINISTERIO-D IS hydromorphon e NOT DETECT ED . Resul t Units : ng/mg creat Not Available [facility] [address] [place] [address], [id number] 12/21/2024 15:07:25 12/14/19 25 12/21/2024 TOXAS SURE SELEC T 14 MINISTERIO-D IS dihydrocodei ne NOT DETECT ED . Resul t Units : ng/mg creat Not Available [facility] [address] [place] [address], [id number] 12/21/2024 15:07:25 12/14/19 25 12/21/2024 TOXAS SURE SELEC T 14 MINISTERIO-D IS norhydrocodo ne NOT DETECT ED . Resul t Units : ng/mg creat Expec soto metab olism of opiat e class drugs : Paren t Drug Detec soto Metab olite s ----- ----- - ----- ----- ----- ----- Codei ne: Major : Morph ine, [place] deine Minor : [place] codon e, [place] morph one, Dihyd rocod eine, Norhy droco done, Normo rphin e Morph ine: Major : Normo rphin e Minor : [place] morph one [place] codon e: [place] morph one, Dihyd rocod eine, Norhy droco done [place] morph one: None Dihyd rocod eine: None Heroi n: 6-Stepan tylmo rphin e (if inclu ded), Morph ine, Normo rphin e Codei ne, in small amoun ts in margaret r[place] to morph ine, is often detec soto when heroi n is the sourc e drug. Not Available [facility] [address] [place], [id number] 12/21/2024 15:07:25 12/14/19 25 12/21/2024 TOXAS SURE SELEC T 14 MINISTERIO-D IS oxycodone class NEGATI VE . Not Available [facility] [address] [place] [address], [id number] 12/21/2024 15:07:25 12/14/19 25 12/21/2024 TOXAS SURE SELEC T 14 MINISTERIO-D IS oxycodone NOT DETECT ED . Resul t Units : ng/mg creat Not Available [facility] [address] [place] [address], [id number] 12/21/2024 15:07:25 12/14/19 25 12/21/2024 TOXAS SURE SELEC T 14 MINISTERIO-D IS oxymorphone NOT DETECT ED . Resul t Units : ng/mg creat Not Available [facility] [address] [place] [address], [id number] 12/21/2024 15:07:25 12/14/19 25 12/21/2024 TOXAS SURE SELEC T 14 MINISTERIO-D IS noroxycodone NOT DETECT ED . Resul t Units : ng/mg creat Not Available [facility] [address] [place] [address], [id number] 12/21/2024 15:07:25 12/14/19 25 12/21/2024 TOXAS SURE [...] rphon e: Norox ymorp moncho Not Available [facility] [address] [place] [address], [id number] 12/21/2024 15:07:25 12/14/1912/21/2024 TOXAS SURE SELEC T 14 MINISTERIO-D IS methadone scr NEGATI VE . Not Available [facility] [address] [place] [address], [id number] 12/21/2024 15:07:25 12/14/1912/21/2024 TOXAS SURE SELEC T 14 MINISTERIO-D IS methadone NOT DETECT ED . Resul t Units : ng/mg creat Not Available [facility] [address] [place] [address], [id number] 12/21/2024 15:07:25 12/14/1912/21/2024 TOXAS SURE SELEC T 14 MINISTERIO-D IS EDDP (methadone mtb) NOT DETECT ED . Resul t Units : ng/mg creat Not Available [facility] [address] [place] [address], [id number] 12/21/2024 15:07:25 12/14/1912/21/2024 TOXAS SURE SELEC T 14 MINISTERIO-D IS fentanyl analogues NEGATI VE . Not Available [facility] [address] [place] [address], [id number] 12/21/2024 15:07:25 12/14/1912/21/2024 TOXAS SURE SELEC T 14 MINISTERIO-D IS fentanyl NOT DETECT ED . Resul t Units : ng/mg creat Not Available [facility] [address] [place] [address], [id number] 12/21/2024 15:07:25 12/14/1912/21/2024 TOXAS SURE SELEC T 14 MINISTERIO-D IS norfentanyl NOT DETECT ED . Resul t Units : ng/mg creat Not Available [facility] [address] [place] [address], [id number] 12/21/2024 15:07:25 12/14/1912/21/2024 TOXAS SURE SELEC T 14 MINISTERIO-D IS sufentanil NOT DETECT ED . Resul t Units : ng/mg creat Not Available [facility] [address] [place] [address], [id number] 12/21/2024 15:07:25 12/14/19 25 12/21/2024 TOXAS SURE SELEC T 14 MINISTERIO-D IS alfentanil NOT DETECT ED . Resul t Units : ng/mg creat Not Available [facility] [address] [place] [address], [id number] 12/21/2024 15:07:25 12/14/19 25 12/21/2024 TOXAS SURE SELEC T 14 MINISTERIO-D IS buprenorphin e scr +POSIT ARIADNE+ . Not Available [facility] [address] [place] [address], [id number] 12/21/2024 15:07:25 12/14/19 25 12/21/2024 TOXAS SURE SELEC T 14 MINISTERIO-D IS buprenorphin e 42 . Resul t Units : ng/mg creat Not Available [facility] [address] [place] [address], [id number] 12/21/2024 15:07:25 12/14/19 25 12/21/2024 TOXAS SURE SELEC T 14 MINISTERIO-D IS norbuprenorp kathrine 242 . Resul t Units : ng/mg creat Not Available [facility] [address] [place] [address], [id number] 12/21/2024 15:07:25 12/14/19 25 12/21/2024 TOXAS SURE SELEC T 14 MINISTERIO-D IS tapentadol scr NEGATI VE . Not Available [facility] [address] [place] [address], [id number] 12/21/2024 15:07:25 12/14/19 25 12/21/2024 TOXAS SURE SELEC T 14 MINISTERIO-D IS tapentadol NOT DETECT ED . Resul t Units : ng/mg creat Not Available [facility] [address] [place] [address], [id number] 12/21/2024 15:07:25 12/14/19 25 12/21/2024 TOXAS SURE SELEC T 14 MINISTERIO-D IS other opioids NEGATI VE . Not Available [facility] [address] [place] [address], [id number] 12/21/2024 15:07:25 12/14/19 25 12/21/2024 TOXAS SURE SELEC T 14 MINISTERIO-D IS tramadol NOT DETECT ED . Resul t Units : ng/mg creat Not Available [facility] [address] [place] [address], [id number] 12/21/2024 15:07:25 12/14/19 25 12/21/2024 TOXAS SURE SELEC T 14 MINISTERIO-D IS O-desmethylt ramadol NOT DETECT ED . Resul t Units : ng/mg creat Not Available [facility] [address] [place] [address], [id number] 12/21/2024 15:07:25 12/14/19 25 12/21/2024 TOXAS SURE SELEC T 14 MINISTERIO-D IS N-desmethylt ramadol NOT DETECT ED . Resul t Units : ng/mg creat Not Available [facility] [address] [place] [address], [id number] 12/21/2024 15:07:25 12/14/19 25 12/21/2024 TOXAS SURE SELEC T 14 MINISTERIO-D IS barbiturates NEGATI VE . Not Available [facility] [address] [place] [address], [id number] 12/21/2024 15:07:25 12/14/19 25 12/21/2024 TOXAS SURE SELEC T 14 MINISTERIO-D IS amobarbital NOT DETECT ED . Not Available [facility] [address] [place] [address], [id number] 12/21/2024 15:07:25 12/14/19 25 12/21/2024 TOXAS SURE SELEC T 14 MINISTERIO-D IS barbital NOT DETECT ED . Not Available [facility] [address] [place] [address], [id number] 12/21/2024 15:07:25 12/14/19 25 12/21/2024 TOXAS SURE SELEC T 14 MINISTERIO-D IS butabarbital NOT DETECT ED . Not Available [facility] [address] [place] [address], [id number] 12/21/2024 15:07:25 12/14/19 25 12/21/2024 TOXAS SURE SELEC T 14 MINISTERIO-D IS butalbital NOT DETECT ED . Not Available [facility] [address] [place], [address] 12/21/2024 15:07:25 12/14/19 25 12/21/2024 TOXAS SURE SELEC T 14 MINISTERIO-D IS mephobarbita l NOT DETECT ED . Not Available [facility] [address] [place], [address] 12/21/2024 15:07:25 12/14/19 25 12/21/2024 TOXAS SURE SELEC T 14 MINISTERIO-D IS pentobarbita l NOT DETECT ED . Not Available [facility] [address] [place], [address] 12/21/2024 15:07:25 12/14/19 25 12/21/2024 TOXAS SURE SELEC T 14 MINISTERIO-D IS phenobarbita l NOT DETECT ED . Not Available [facility] [address] [place], [address] 12/21/2024 15:07:25 12/14/19 25 12/21/2024 TOXAS SURE SELEC T 14 MINISTERIO-D IS secobarbital NOT DETECT ED . Not Available [facility] [address] [place], [address] 12/21/2024 15:07:25 12/14/19 25 12/21/2024 TOXAS SURE SELEC T 14 MINISTERIO-D IS thiopental NOT DETECT ED . Not Available [facility] [address] [place], [address] 12/21/2024 15:07:25 12/14/19 25 12/21/2024 TOXAS SURE SELEC T 14 MINISTERIO-D IS other hallucinogen s NEGATI VE . Not Available [facility] [address] [place], [address] 12/21/2024 15:07:25 12/14/19 25 12/21/2024 TOXAS SURE SELEC T 14 MINISTERIO-D IS phencyclidin e NOT DETECT ED . Not Available [facility] [address] [place] [address], [id number] 12/21/2024 15:07:25 12/14/19 25 12/21/2024 TOXAS SURE SELEC T 14 MINISTERIO-D IS level of detection: COMMMATT T . TESTI NG THRES HOLDS ARE [...] [facility] [address] [place] [address] 937 Lab Direc tor: Ara barroso [facility] , Phone : [phone] Not Available [facility] [address] [place] [address], [id number] 12/21/2024 15:07:25 05/10/2005/13/2025 TOXAS SURE SELEC T [...] ===== ===== ===== ===== === Not Available [facility] [address] [place] [address], [id number] 05/13/2025 20:13:33 05/10/2005/13/2025 TOXAS SURE SELEC T 14 MINISTERIO-D IS urine creatinine 10 mg/dL >=20 abnormal Note: Urina ry creat inine is low; abili ty to detec t some drugs may be compr omise d. Inter pret resul ts with cauti on. REFER ENCE RANGE : Ref Range >=20 Not Available [facility] [address] [place] [address], [id number] 05/13/2025 20:13:33 05/10/2005/13/2025 TOXAS SURE SELEC T 14 MINISTERIO-D IS ethanol biomarkers NEGATI VE . Not Available [facility] [address] [place] [address], [id number] 05/13/2025 20:13:33 05/10/2005/13/2025 TOXAS SURE SELEC T 14 MINISTERIO-D IS ethyl glucuronide NOT DETECT ED . Resul t Units : ng/mg creat Not Available [facility] [address] [place] [address], [id number] 05/13/2025 20:13:33 05/10/2005/13/2025 TOXAS SURE SELEC T 14 MINISTERIO-D IS ethyl sulfate NOT DETECT ED . Resul t Units : ng/mg creat Not Available [facility] [address] [place] [address], [id number] 05/13/2025 20:13:33 05/10/20 25 05/13/2025 TOXAS SURE SELEC T 14 MINISTERIO-D IS amphetamines NEGATI VE . Not Available [facility] [address] [place] [address], [id number] 05/13/2025 20:13:33 05/10/20 25 05/13/2025 TOXAS SURE SELEC T 14 MINISTERIO-D IS methamphetam ine NOT DETECT ED . Resul t Units : ng/mg creat Not Available [facility] [address] [place] [address], [id number] 05/13/2025 20:13:33 05/10/20 25 05/13/2025 TOXAS SURE SELEC T 14 MINISTERIO-D IS amphetamine NOT DETECT ED . Resul t Units : ng/mg creat Not Available [facility] [address] [place] [address], [id number] 05/13/2025 20:13:33 05/10/20 25 05/13/2025 TOXAS SURE SELEC T 14 MINISTERIO-D IS MDMA (ecstasy) NOT DETECT ED . Resul t Units : ng/mg creat Not Available [facility] [address] [place] [address], [id number] 05/13/2025 20:13:33 05/10/20 25 05/13/2025 TOXAS SURE SELEC T 14 MINISTERIO-D IS mda (ecstasy mtb) NOT DETECT ED . Resul t Units : ng/mg creat Not Available [facility] [address] [place] [address], [id number] 05/13/2025 20:13:33 05/10/20 25 05/13/2025 TOXAS SURE SELEC T 14 MINISTERIO-D IS benzodiazepi cammie +POSIT ARIADNE+ . Not Available [facility] [address] [place] [address], [id number] 05/13/2025 20:13:33 05/10/20 25 05/13/2025 TOXAS SURE SELEC T 14 MINISTERIO-D IS diazepam NOT DETECT ED . Resul t Units : ng/mg creat Not Available [facility] [address] [place] [address], [id number] 05/13/2025 20:13:33 05/10/20 25 05/13/2025 TOXAS SURE SELEC T 14 MINISTERIO-D IS desmethyldia zepam NOT DETECT ED . Resul t Units : ng/mg creat Not Available [facility] [address] [place] [address], [id number] 05/13/2025 20:13:33 05/10/20 25 05/13/2025 TOXAS SURE SELEC T 14 MINISTERIO-D IS oxazepam NOT DETECT ED . Resul t Units : ng/mg creat Not Available [facility] [address] [place] [address], [id number] 05/13/2025 20:13:33 05/10/2005/13/2025 TOXAS SURE SELEC T [...] Oxaze catherine Oxaze catherine: None Not Available [facility] [address] [place] [address], [id number] 05/13/2025 20:13:33 05/10/2005/13/2025 TOXAS SURE SELEC T 14 MINISTERIO-D IS alprazolam NOT DETECT ED . Resul t Units : ng/mg creat Not Available [facility] [address] [place] [address], [id number] 05/13/2025 20:13:33 05/10/20 25 05/13/2025 TOXAS SURE SELEC T 14 MINISTERIO-D IS alpha-hydrox yalprazolam NOT DETECT ED . Resul t Units : ng/mg creat Not Available [facility] [address] [place] [address], [id number] 05/13/2025 20:13:33 05/10/20 25 05/13/2025 TOXAS SURE SELEC T 14 MINISTERIO-D IS desalkylflur azepam NOT DETECT ED . Resul t Units : ng/mg creat Not Available [facility] [address] [place] [address], [id number] 05/13/2025 20:13:33 05/10/20 25 05/13/2025 TOXAS SURE SELEC T 14 MINISTERIO-D IS lorazepam NOT DETECT ED . Resul t Units : ng/mg creat Not Available [facility] [address] [place] [address], [id number] 05/13/2025 20:13:33 05/10/20 25 05/13/2025 TOXAS SURE SELEC T 14 MINISTERIO-D IS alpha-hydrox ytriazolam NOT DETECT ED . Resul t Units : ng/mg creat Not Available [facility] [address] [place] [address], [id number] 05/13/2025 20:13:33 05/10/20 25 05/13/2025 TOXAS SURE SELEC T 14 MINISTERIO-D IS clonazepam NOT DETECT ED . Resul t Units : ng/mg creat Not Available [facility] [address] [place] [address], [id number] 05/13/2025 20:13:33 05/10/20 25 05/13/2025 TOXAS SURE SELEC T 14 MINISTERIO-D IS 7-aminoclona zepam 950 . Resul t Units : ng/mg creat Not Available [facility] [address] [place] [address], [id number] 05/13/2025 20:13:33 05/10/20 25 05/13/2025 TOXAS SURE SELEC T 14 MINISTERIO-D IS midazolam NOT DETECT ED . Resul t Units : ng/mg creat Not Available [facility] [address] [place] [address], [id number] 05/13/2025 20:13:33 05/10/20 25 05/13/2025 TOXAS SURE SELEC T 14 MINISTERIO-D IS alpha-hydrox ymidazolam NOT DETECT ED . Resul t Units : ng/mg creat Not Available [facility] [address] [place] [address], [id number] 05/13/2025 20:13:33 05/10/20 25 05/13/2025 TOXAS SURE SELEC T 14 MINISTERIO-D IS flunitrazepa m NOT DETECT ED . Resul t Units : ng/mg creat Not Available [facility] [address] [place] [address], [id number] 05/13/2025 20:13:33 05/10/20 25 05/13/2025 TOXAS SURE SELEC T 14 MINISTERIO-D IS desmethylflu nitrazepam NOT DETECT ED . Resul t Units : ng/mg creat Not Available [facility] [address] [place] [address], [id number] 05/13/2025 20:13:33 05/10/20 25 05/13/2025 TOXAS SURE SELEC T 14 MINISTERIO-D IS cocaine metabolite NEGATI VE . Not Available [facility] [address] [place] [address], [id number] 05/13/2025 20:13:33 05/10/2005/13/2025 TOXAS SURE SELEC T 14 MINISTERIO-D IS cocaine NOT DETECT ED . Resul t Units : ng/mg creat Not Available [facility] [address] [place] [address], [id number] 05/13/2025 20:13:33 05/10/2005/13/2025 TOXAS SURE SELEC T 14 MINISTERIO-D IS benzoylecgon ine NOT DETECT ED . Resul t Units : ng/mg creat Not Available [facility] [address] [place] [address], [id number] 05/13/2025 20:13:33 05/10/20 25 05/13/2025 TOXAS SURE SELEC T 14 MINISTERIO-D IS cocaethylene NOT DETECT ED . Resul t Units : ng/mg creat Not Available [facility] [address] [place] [address], [id number] 05/13/2025 20:13:33 05/10/20 25 05/13/2025 TOXAS SURE SELEC T 14 MINISTERIO-D IS cannabinoids NEGATI VE . Not Available [facility] [address] [place] [address], [id number] 05/13/2025 20:13:33 05/10/20 25 05/13/2025 TOXAS SURE SELEC T 14 MINISTERIO-D IS carboxy-THC NOT DETECT ED . Resul t Units : ng/mg creat Not Available [facility] [address] [place] [address], [id number] 05/13/2025 20:13:33 05/10/20 25 05/13/2025 TOXAS SURE SELEC T 14 MINISTERIO-D IS 6-acetylmorp kathrine scr NEGATI VE . Not Available [facility] [address] [place] [address], [id number] 05/13/2025 20:13:33 05/10/20 25 05/13/2025 TOXAS SURE SELEC T 14 MINISTERIO-D IS 6-acetylmorp kathrine NOT DETECT ED . Resul t Units : ng/mg creat Not Available [facility] [address] [place] [address], [id number] 05/13/2025 20:13:33 05/10/20 25 05/13/2025 TOXAS SURE SELEC T 14 MINISTERIO-D IS opiate class NEGATI VE . Not Available [facility] [address] [place] [address], [id number] 05/13/2025 20:13:33 05/10/2005/13/2025 TOXAS SURE SELEC T 14 MINISTERIO-D IS codeine NOT DETECT ED . Resul t Units : ng/mg creat Not Available [facility] [address] [place] [address], [id number] 05/13/2025 20:13:33 05/10/2005/13/2025 TOXAS SURE SELEC T 14 MINISTERIO-D IS morphine NOT DETECT ED . Resul t Units : ng/mg creat Not Available [facility] [address] [place] [address], [id number] 05/13/2025 20:13:33 05/10/2005/13/2025 TOXAS SURE SELEC T 14 MINISTERIO-D IS normorphine NOT DETECT ED . Resul t Units : ng/mg creat Not Available [facility] [address] [place] [address], [id number] 05/13/2025 20:13:33 05/10/2005/13/2025 TOXAS SURE SELEC T 14 MINISTERIO-D IS norcodeine NOT DETECT ED . Resul t Units : ng/mg creat Not Available [facility] [address] [place] [address], [id number] 05/13/2025 20:13:33 05/10/20 25 05/13/2025 TOXAS SURE SELEC T 14 MINISTERIO-D IS hydrocodone NOT DETECT ED . Resul t Units : ng/mg creat Not Available [facility] [address] [place], [address] 05/13/2025 20:13:33 05/10/20 25 05/13/2025 TOXAS SURE SELEC T 14 MINISTERIO-D IS hydromorphon e NOT DETECT ED . Resul t Units : ng/mg creat Not Available [facility] [address] [place], [address] 05/13/2025 20:13:33 05/10/20 25 05/13/2025 TOXAS SURE SELEC T 14 MINISTERIO-D IS dihydrocodei ne NOT DETECT ED . Resul t Units : ng/mg creat Not Available [facility] [address] [place] [address], [id number] 05/13/2025 20:13:33 05/10/2005/13/2025 TOXAS SURE SELEC T 14 MINISTERIO-D IS norhydrocodo ne NOT DETECT ED . Resul t Units : ng/mg creat Expec soto metab olism of opiat e class drugs : Paren t Drug Detec soto Metab olite s ----- ----- - ----- ----- ----- ----- Codei ne: Major : Morph ine, [place] deine Minor : [place] codon e, [place] morph one, Dihyd rocod eine, Norhy droco done, Normo rphin e Morph ine: Major : Normo rphin e Minor : [place] morph one [place] codon e: [place] morph one, Dihyd rocod eine, Norhy droco done [place] morph one: None Dihyd rocod eine: None Heroi n: 6-Stepan tylmo rphin e (if inclu ded), Morph ine, Normo rphin e Codei ne, in small amoun ts in margaret rison to morph ine, is often detec soto when heroi n is the sourc e drug. Not Available [facility] [address] [place] [address], [id number] 05/13/2025 20:13:33 05/10/20 25 05/13/2025 TOXAS SURE SELEC T 14 MINISTERIO-D IS oxycodone class NEGATI VE . Not Available [facility] [address] [place], [address] 05/13/2025 20:13:33 05/10/2005/13/2025 TOXAS SURE SELEC T 14 MINISTERIO-D IS oxycodone NOT DETECT ED . Resul t Units : ng/mg creat Not Available [facility] [address] [place] [address], [id number] 05/13/2025 20:13:33 05/10/2005/13/2025 TOXAS SURE SELEC T 14 MINISTERIO-D IS oxymorphone NOT DETECT ED . Resul t Units : ng/mg creat Not Available [facility] [address] [place] [address], [id number] 05/13/2025 20:13:33 05/10/2005/13/2025 TOXAS SURE SELEC T 14 MINISTERIO-D IS noroxycodone NOT DETECT ED . Resul t Units : ng/mg creat Not Available [facility] [address] [place] [address], [id number] 05/13/2025 20:13:33 05/10/2005/13/2025 TOXAS SURE SELEC T [...] rphon e: Norox ymorp moncho Not Available [facility] [address] [place] [address], [id number] 05/13/2025 20:13:33 05/10/2005/13/2025 TOXAS SURE SELEC T 14 MINISTERIO-D IS methadone scr NEGATI VE . Not Available [facility] [address] [place] [address], [id number] 05/13/2025 20:13:33 05/10/20 25 05/13/2025 TOXAS SURE SELEC T 14 MINISTERIO-D IS methadone NOT DETECT ED . Resul t Units : ng/mg creat Not Available [facility] [address] [place] [address], [id number] 05/13/2025 20:13:33 05/10/2005/13/2025 TOXAS SURE SELEC T 14 MINISTERIO-D IS EDDP (methadone mtb) NOT DETECT ED . Resul t Units : ng/mg creat Not Available [facility] [address] [place] [address], [id number] 05/13/2025 20:13:33 05/10/20 25 05/13/2025 TOXAS SURE SELEC T 14 MINISTERIO-D IS fentanyl analogues NEGATI VE . Not Available [facility] [address] [place] [address], [id number] 05/13/2025 20:13:33 05/10/2005/13/2025 TOXAS SURE SELEC T 14 MINISTERIO-D IS fentanyl NOT DETECT ED . Resul t Units : ng/mg creat Not Available [facility] [address] [place] [address], [id number] 05/13/2025 20:13:33 05/10/20 25 05/13/2025 TOXAS SURE SELEC T 14 MINISTERIO-D IS norfentanyl NOT DETECT ED . Resul t Units : ng/mg creat Not Available [facility] [address] [place] [address], [id number] 05/13/2025 20:13:33 05/10/20 25 05/13/2025 TOXAS SURE SELEC T 14 MINISTERIO-D IS sufentanil NOT DETECT ED . Resul t Units : ng/mg creat Not Available [facility] [address] [place] [address], [id number] 05/13/2025 20:13:33 05/10/20 25 05/13/2025 TOXAS SURE SELEC T 14 MINISTERIO-D IS alfentanil NOT DETECT ED . Resul t Units : ng/mg creat Not Available [facility] [address] [place] [address], [id number] 05/13/2025 20:13:33 05/10/20 25 05/13/2025 TOXAS SURE SELEC T 14 MINISTERIO-D IS buprenorphin e scr +POSIT ARIADNE+ . Not Available [facility] [address] [place] [address], [id number] 05/13/2025 20:13:33 05/10/20 25 05/13/2025 TOXAS SURE SELEC T 14 MINISTERIO-D IS buprenorphin e 120 . Resul t Units : ng/mg creat Not Available [facility] [address] [place], [address] 05/13/2025 20:13:33 05/10/20 25 05/13/2025 TOXAS SURE SELEC T 14 MINISTERIO-D IS norbuprenorp kathrine 350 . Resul t Units : ng/mg creat Not Available [facility] [address] [place], [address] 05/13/2025 20:13:33 05/10/2005/13/2025 TOXAS SURE SELEC T 14 MINISTERIO-D IS tapentadol scr NEGATI VE . Not Available [facility] [address] [place], [address] 05/13/2025 20:13:33 05/10/2005/13/2025 TOXAS SURE SELEC T 14 MINISTERIO-D IS tapentadol NOT DETECT ED . Resul t Units : ng/mg creat Not Available [facility] [address] [place] [address], [id number] 05/13/2025 20:13:33 05/10/2005/13/2025 TOXAS SURE SELEC T 14 MINISTERIO-D IS other opioids NEGATI VE . Not Available [facility] [address] [place] [address], [id number] 05/13/2025 20:13:33 05/10/2005/13/2025 TOXAS SURE SELEC T 14 MINISTERIO-D IS tramadol NOT DETECT ED . Resul t Units : ng/mg creat Not Available [facility] [address] [place], [address] 05/13/2025 20:13:33 05/10/2005/13/2025 TOXAS SURE SELEC T 14 MINISTERIO-D IS O-desmethylt ramadol NOT DETECT ED . Resul t Units : ng/mg creat Not Available [facility] [address] [place], [address] 05/13/2025 20:13:33 09/02/05/13/2025 TOXAS SURE SELEC T 14 MINISTERIO-D IS N-desmethylt ramadol NOT DETECT ED . Resul t Units : ng/mg creat Not Available [facility] [address] [place] [address], [id number] 05/13/2025 20:13:33 05/10/2005/13/2025 TOXAS SURE SELEC T 14 MINISTERIO-D IS barbiturates NEGATI VE . Not Available [facility] [address] [place] [address], [id number] 05/13/2025 20:13:33 05/10/2005/13/2025 TOXAS SURE SELEC T 14 MINISTERIO-D IS amobarbital NOT DETECT ED . Not Available [facility] [address] [place] [address], [id number] 05/13/2025 20:13:33 05/10/2005/13/2025 TOXAS SURE SELEC T 14 MINISTERIO-D IS barbital NOT DETECT ED . Not Available [facility] [address] [place] [address], [id number] 05/13/2025 20:13:33 05/10/2005/13/2025 TOXAS SURE SELEC T 14 MINISTERIO-D IS butabarbital NOT DETECT ED . Not Available [facility] [address] [place] [address], [id number] 05/13/2025 20:13:33 05/10/2005/13/2025 TOXAS SURE SELEC T 14 MINISTERIO-D IS butalbital NOT DETECT ED . Not Available [facility] [address] [place] [address], [id number] 05/13/2025 20:13:33 05/10/2005/13/2025 TOXAS SURE SELEC T 14 MINISTERIO-D IS mephobarbita l NOT DETECT ED . Not Available [facility] [address] [place] [address], [id number] 05/13/2025 20:13:33 05/10/2005/13/2025 TOXAS SURE SELEC T 14 MINISTERIO-D IS pentobarbita l NOT DETECT ED . Not Available [facility] [address] [place] [address], 45786 05/13/2025 20:13:33 05/10/2005/13/2025 TOXAS SURE SELEC T 14 MINISTERIO-D IS phenobarbita l NOT DETECT ED . Not Available [facility] [address] [place] [address], [id number] 05/13/2025 20:13:33 05/10/2005/13/2025 TOXAS SURE SELEC T 14 MINISTERIO-D IS secobarbital NOT DETECT ED . Not Available [facility] [address] [place] [address], [id number] 05/13/2025 20:13:33 05/10/2005/13/2025 TOXAS SURE SELEC T 14 MINISTERIO-D IS thiopental NOT DETECT ED . Not Available [facility] [address] [place] [address], 67203 05/13/2025 20:13:33 05/10/2005/13/2025 TOXAS SURE SELEC T 14 MINISTERIO-D IS other hallucinogen s NEGATI VE . Not Available [facility] [address] [place] [address], 36024 05/13/2025 20:13:33 05/10/2005/13/2025 TOXAS SURE SELEC T 14 MINISTERIO-D IS phencyclidin e NOT DETECT ED . Not Available [facility] [address] [place] [address], 10630 05/13/2025 20:13:33 05/10/2005/13/2025 TOXAS SURE SELEC T [...] [facility] [address] [address] Lab Direc tor: Araapryl barroso [facility] , Phone : [phone] Not Available [facility] [address] [place], [address] 05/13/2025 20:13:33 Result Notes None recorded. Medical Equipment None Reported. Allergies Allergen ID Allergen Name Allergen Category Reaction Reaction Severity Criticality Documentation Date Start Date Code Code System Note Provider Name and Address Organization Details Recorded Time [id number] aspirin medicatio n Not available Not available Not available 11/15/2024 1191 RxNorm [place], [place] - [facility] 12:15:29 570436 ibuprofen medicatio n Not available Not available Not available 08/25/2025 5640 RxNorm Not Available peter - External Data Service - prod 13:47:30 151476 codeine medicatio n Not available Not available Not available 08/25/20252024 2670 RxNorm unrec ogniz ed react ion (text : Stoma ch upset , code: [id number]) (from exter nal sour e) Not Available peter - External Data Service - prod 13:48:52 Medications [...] 11/15/2024 83 /min 123/60 mm[Hg] Gloria Erwin [facility] 11/15/2024 12:40:22 Date Recorded Heart rate Systolic And Diastolic Provider Name and Address Organization Details Last Updated DateTime 12/13/2024 103 /min 171/82 mm[Hg] Rossi Ro [facility] 12/13/2024 14:57:17 Date Recorded Heart rate Systolic And Diastolic Provider Name and Address Organization Details Last Updated DateTime 03/02/2025 121 /min 125/85 mm[Hg] Rossi Ro [facility] 03/02/2025 16:14:19 Date Recorded Heart rate Systolic And Diastolic Provider Name and Address Organization Details Last Updated DateTime 05/10/2025 80 /min 132/77 mm[Hg] Gloria Erwin CNA [facility] 05/10/2025 14:07:06 Date Recorded Heart rate Systolic And Diastolic Provider Name and Address Organization Details Last Updated DateTime 07/19/2025 88 /min 146/84 mm[Hg] Gloria Erwin CNA [facility] 07/19/2025 14:33:01 Social History Question Answer Notes LastModified by [employer] Details LastModified Time Tobacco Smoking Status Never Smoker Gloria Erwin CNA null [facility] 11/15/2024 12:20:05 What Is Your Relationship Status? Information not available 11/15/2024 Sex: Unknown Functional Status Question Answer Note LastModified by [employer] Details LastModified Time Do you use any [...] ICD10 Code Diagnosis IMO Codes Diagnosis Note [id number] Arnaud Odell MD [facility] [address] [place] [address] [place] [address] 11/15/2024 11:54:19 11/15/2024 14:09:06 Lumbar spondylosis 156671205 M47.816 64141 Spinal katie nosis of lumbar region 26475880 M48.062 666665 Spinal katie nosis in cervical region 96550430 M48.02 13509 Cervical spondylosis 387 142488 M47.812 23892 Chronic pain 75765274 G8 9.29 706521 Idiopathic peripheral neuropathy 14793881 G60.8 18487 [id number] BARBARA MUSE [facility] [address] [place] [address] [place] [address] 12/13/2024 14:21:35 12/13/2024 15:33:54 Lumbar spondylosis 709078422 M47.816 74582 Spinal katie nosis of lumbar region 68638475 M48.062 755389 Spinal katie nosis in cervical region 26322995 M48.02 53313 Cervical spondylosis 387 409399 M47.812 15949 Chronic pain 01784385 G8 9.29 197485 Idiopathic peripheral neuropathy 67144454 G60.8 06228 [id number] Arnaud Odell MD [facility] [address] [place] [address] [place] [address] 03/02/2025 15:58:24 03/03/2025 08:02:51 Lumbar spondylosis 098928479 M47.816 58867 Spinal katie nosis of lumbar region 27390245 M48.062 893738 Spinal katie nosis in cervical region 41811030 M48.02 51993 Cervical spondylosis 387 781555 M47.812 17225 Chronic pain 51081170 G8 9.29 914679 Idiopathic peripheral neuropathy 08625490 G60.8 03159 Myofascial pain 99229678 9 M79.18 568038 lumbar paraspinal s and traps Osteoarthr itis of right knee joint 9746756647 88931 M17.11 8569077 [id number] Mj Giraldo DNP [facility] [address] [place] [address] [place] [address] 05/10/2025 13:28:10 05/10/2025 14:43:16 Lumbar spondylosis 301421241 M47.816 59117 Spinal katie nosis of lumbar region 82193192 M48.062 808584 Spinal katie nosis in cervical region 31523637 M48.02 79973 Cervical spondylosis 387 998125 M47.812 32026 Chronic pain 11670885 G8 9.29 654652 Idiopathic peripheral neuropathy 93270744 G60.8 93014 Myofascial pain 43240814 9 M79.18 221425 lumbar paraspinal s and traps Osteoarthr itis of right knee joint 6381444114 24768 M17.11 6409180 [id number] Mj Giraldo DNP [facility] [address] [place] [address] [place] [address] 07/19/2025 14:15:57 07/19/2025 14:48:40 Lumbar spondylosis 308654868 M47.816 46376 Spinal katie nosis of lumbar region 66779183 M48.062 989883 Spinal katie nosis in cervical region 95324185 M48.02 79064 Cervical spondylosis 387 255493 M47.812 19103 Chronic pain 96098488 G8 9.29 746653 Idiopathic peripheral neuropathy 58157233 G60.8 82073 Myofascial pain 51021046 9 M79.18 571101 lumbar paraspinal s and traps Osteoarthr itis of right knee joint 2837051070 65849 M17.11 [id number] Health Concerns Section Related Observation LastModified by Organization Detai ls LastModified Time None Recorded Concern Status LastModified by Organization Details LastModified Time None Recorded Advance Directives Directive None Recorded Payers Insurance Date Sequence Insurance Name Policy Number Policy Lira Covered Member ID Lira Member ID Guarantor Name 07/22/2025 1 [employer] (MEDICARE REPLACEMENT/A DVANTAGE - PPO) Michelle Miner [id number] Michelle Miner 07/14/2025 2 [place]: [facility] Michelle Miner [id number] Michelle Miner Notes Date Note Type Note [...] 9. For prior tests?, patient reportsx-rays,mri,ct scan, [facility]g([facility] For conditions associated with your pain?, patient reportsmuscle weakness,difficulty walking, andnumbness / tingling / pins/ needles. For prior treatments?, patient reportsphysical therapy (spine & sports - 6 months ago for neck spine & sportshelped for a short period of time)andinjection(s) (spine & sports in [facility] - cortizone injection every 3 months - neck/shoulders/kneessomewhat helpful)(ice -sometimes). For location, (neck into the arms and forearms and lower back pain and burning in the legsused to get belbuca 900 bid from [facility], was discharged as she was missing 3 films). For how long have you had this pain?, (several years). For prior medications you've tried?, (belbuca - helpful). Arnaud Odell MD [address] [place] [address], [phone], [facility] 11/15/2024 13:31:53 12/14/19 25 text/htm l Pain [...] new concerns today. Arnaud Odell MD [address] [place], [address], [facility] 12/13/2024 15:49:02 03/02/20 25 text/htm l Pain [...] with current medications, (belbuca). Arnaud Odell MD [address] [place], [address], [facility] 03/02/2025 16:54:32 05/10/20 25 text/htm l Pain [...] current medications, patient reportsno side effects from [id number]%(belbuca). For location, (chronic lower back pain , b/l le painful numbness and neck pain radiating into b/l ue).no changes Arnaud Odell MD [address] [place], [address], [facility] 05/10/2025 14:40:20 07/19/20 25 text/htm l Pain [...] current medications, patient reportsno side effects from [id number]%(belbuca). For location, (chronic lower back pain , b/l le painful numbness and neck pain radiating into b/l ue).no changes Arnaud Odell MD [address] [place], [address], [facility] 07/20/2025 10:03:31 OBGyn Episode No OBEpisode recorded.
--- OUTSIDE RECORDS SUMMARY | 2025-08-31 14:23 | XMS_ITS | Encounter Summary ---
Author Organization [facility] Address [address] [place] [address] Care Team Providers Care Extermination Supervisor Name Role Phone Luis Montero Primary Care Provider [phone] Encounter Details Date Type Department Care Team (Late st Contact Info) Description 01/20/2025 Lab Requisition [facility] - Main Lab [address] [facility] [place] [address] Florian Richmond MD [address] [place] [id number] Essential (primary) hypertension Social History Tobacco Use [...] Department Care Team (Late Contact Info) Description 10/19/2025 3:00 PM EST Office Visit Adult Medicine [address] [address] Luis Montero PA [address] [place] [address] documented as of this encounter Procedures Procedure Name Priority Date/Time Associated Diagnosis Comments COMPLETE BLOOD COUNT Routine 01/20/2025 5:06 AM EDT Essential (primary) hypertension BASIC METABOLIC PANEL Routine 01/20/2025 5:06 AM EDT Essential (primary) hypertension documented in this encounter Results * Basic metabolic panel (01/20/2025 5:06 AM EDT) Sodium 141 133 - 145 mmol/L LAB CHEMISTRY METHOD 01/20/2025 10:09 AM [facility] Potassium 3.7 3.5 - 5.5 mmol/L LAB CHEMISTRY METHOD 01/20/2025 10:09 AM [facility] Chloride 103 96 - 110 mmol/L LAB CHEMISTRY METHOD 01/20/2025 10:09 AM [facility] CO2 32 21 - 32 mmol/L LAB CHEMISTRY METHOD 01/20/2025 10:09 AM [facility] Anion Gap 6 3 - 11 LAB CHEMISTRY METHOD 01/20/2025 10:09 AM [facility] Glucose 93 70 - 100 mg/dL LAB CHEMISTRY METHOD 01/20/2025 10:09 AM [facility] BUN 8 5 - 25 mg/dL LAB CHEMISTRY METHOD 01/20/2025 10:09 AM [facility] Creatinine 0.50 0.50 - 1.10 mg/dL LAB CHEMISTRY METHOD 01/20/2025 10:09 AM [facility] eGFR 99 >=60 mL/min/1. 73m2 LAB CHEMISTRY METHOD 01/20/2025 10:09 AM [facility] Comment:Calculation based on the Chronic Kidney Disease Epidemiology Collaboration (CKD-EPI) equation refit without adjustment for race. BUN/Creatinine Ratio 16.0 LAB CHEMISTRY METHOD 01/20/2025 10:09 AM [facility] Calcium 8.5 8.5 - 10.5 mg/dL LAB CHEMISTRY METHOD 01/20/2025 10:09 AM [facility] Blood Venous blood specimen / Unknown Venipuncture / Unknown 01/20/2025 5:06 AM EDT 01/20/2025 9:08 AM EDT us Florian Richmond MD LAB BLOOD ORDERABLES Final Resu lt [facility] [address] [place] [address], [place] [phone] * (ABNORMAL) Complete blood count (01/20/2025 5:06 AM EDT) WBC 9.8 4.8 - 10.8 K/mcL LAB HEMETOLOGY METHOD 01/20/2025 9:31 AM EDT [facility] RBC 3.20(L) 3.80 - 4.80 M/mcL LAB HEMETOLOGY METHOD 01/20/2025 9:31 AM EDT [facility] Hemoglobin 9.6(L) 11.5 - 16.0 g/dL LAB [facility] Hematocrit 31.1(L) 35.0 - 47.0 % LAB HEMETOLOGY [facility]20[facility] MCV 97.8 79.0 - 98.0 FL LAB HEMETOLOGY METHOD [facility]/20[facility] MCH 30.2 27.0 - 32.0 pcg LAB HEMETOLOGY METHOD [facility]20[facility] MCHC 30.9(L) 32.0 - 37.0 g/dL LAB HEMETOLOGY METHOD [facility]20[facility]2025 [facility] RDW 15.4(H) 11.0 - 15.0 % LAB HEMETOLOGY METHOD [facility]20[facility]2025 [facility] Platelets 384 130 - 400 K/mcL LAB HEMETOLOGY METHOD 01/20/2025 9:31 AM EDT [facility] MPV 9.5 7.0 - 11.0 FL LAB HEMETOLOGY METHOD 01/20/2025 9:31 AM EDT [facility] NRBC 0.0 <1.0 % LAB [facility] METHOD 01/20/2025 9:31 AM EDT [facility] NRBC Absolute 0.00 <0.10 K/mcL LAB [facility] METHOD 01/20/2025 9:31 AM EDT [facility] Blood Venous blood specimen / Unknown Venipuncture / Unknown 01/20/2025 5:06 AM EDT 01/20/2025 9:08 AM EDT us Florian Richmond MD LAB BLOOD ORDERABLES Final Resu lt [facility] [address] [place] [address], documented in this encounter Visit Diagnoses Diagnosis Essential (primary) hypertension Unspecified essential hypertension documented in this encounter Care Teams Extermination Supervisor Relationship Specialty Start Date End Date Luis Montero PA [address] [place] [address] PCP - General Internal Medicine 07/13/21 documented as of this encounter
--- OUTSIDE RECORDS SUMMARY | 2025-08-31 14:23 | XMS_ITS | Patient Health Record ---
Author Organization [facility] Address [address] [place] [address] Care Team Providers Care Waste Water Worker Name Role Phone JACKIE DE JESUS MD Primary Care Provider YUDITH Thorne Unavailable [phone] Allergies Allergen (clinical drug ingredient) Drug/Non Drug Allergy documented on EMR Reaction Allergy Type Onset Date Status aspirin Aspirin Stomach ulcer Drug Allergy Act [place] ibuprofen Ibuprofen Stomach ulcer Drug Allergy Act [place] Reason For Referral No Information Medications Medication SIG (Take, Route, Frequency, Duration) Notes Start Date End Date Status oxyCODONE HCl 5 MG Tablet 1 tab(s) orall y up to three times daily Active Gabapentin 300 MG Capsule 1 cap(s) orall y x4 times daily Active clonazePAM 0.5 MG Tablet 1 tab(s) orally BID Active Omeprazole Magnesium 20 MG Tablet Delayed Release 1 tab(s) orally BID Active PROzac 20 MG Capsule 2 cap(s) orally onc e a day Active hydroCHLOROthiazide 25 MG Tablet 1 tab(s) orally once a day; Duration: 30 day(s) Active Vitamin D3 1.25 MG (70193 UT ) Capsule 1 cap(s) orally once a week; Duration: 30 day(s) Active Social History Tobacco Use: Social History Observation Description Date Details (start date - stop date) Never Smoker NA - NA Social History Drug/Alcohol: Social Info Question Answer Notes Alcohol Screen Did you have a drink containing alcohol in the past year? Yes How often did you have a drink containing alcohol in the past year? Monthly or less (1 point) How many drinks did you have on a tpical day when you were drinking in the past year? 1 or 2 (0 points) How often did you have six or more drinks on one occassion in the past year? 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 exposure: no alcohol use: yes rarely drug use: no Coffee/Tea/Soda: yes Coffee 2 cups d aily Marital Status experience no Living with alone smokers in household no Problems Problem Type SNOMED Code ICD Code Onset Dates Problem Status W/U Status Risk Notes Problem Arthralgia of multiple joints (59674788) Arthralgia of multiple joints (M25.50) Active confirmed Plan Of Treatment No Information Insurance Providers Payer Name Payer Address Payer Phone Subscriber Number Group Number Insured Name Patient Relationship to Insured Coverage Start Date Coverage End Date MEDICARE Invoice2go [facility] [employer] [address] [facility] [place] [phone] [id number] NATHAN LAI Self - patient is the insured [facility] [employer] [employer] [address] [place] [address] [id number] NATHAN LAI Self - patient is the insured Medical (General) History Medical History History ICD Code Allergy Arthritis Circulation issues Depression Fibromyalgia Osteoarthritis Osteoporosis Neuropathy Stomach Ulcers Surgical History Surgery Date(Month/Year) Left Hip surgery 07/13/2019 Hospitalization History Reason Date(Month/Year) Fall [facility] [place]/12[place]19
--- OUTSIDE RECORDS SUMMARY | 2025-08-31 14:23 | XMS_ITS | Encounter Summary ---
Author Organization [facility] Address [address] [place] [address] Phone Care Team Providers Care Tree Chipper Name Role Phone Tito Enrique MD Primary Care Provider [phone] Tito Enrique MD Unavailable [phone] Pcp, Unknown Primary Care Provider Unavailabl e Encounter Details Date Type Department Care Team (Late st Contact Info) Description 05/02/2020 Procedure Pass [facility] [address] [place] [phone] Social History Tobacco Use Types Packs/Day Years [...] documented as of this encounter Care Teams Tree Chipper Relationship Specialty Start Date End Date Tito Enrique MD [address] [place] [address] Dr AdamyokeAMINA [id number] PCP - General Internal Medicine 03/13/20 02/08/21 Pcp, Unknown PCP - General 02/09/21 Tito Enrique MD [address] [place] [address] [place] [address] Primary Care Physician Internal Medicine 04/26/20 documented as of this encounter Additional Source Comments The information contained in this document represents components of the legal health record. It is not the complete legal health record.[facility]
--- OUTSIDE RECORDS SUMMARY | 2025-08-31 14:23 | XMS_ITS | Clinical Summary ---
Author Organization [facility] [address] [place] [address] Address [address] [facility] [place] Phone Care Team Providers Care Television Cable Installer Name Role Phone Luis Montero Primary Care Provider [phone] Allergies Active Allergy Reactions Criticality Noted Date Comments Aspirin Nausea And Vomiting 01/29/2013 Medications diphenhydrAMI NE HCL (BenadryL) 2 % gel [...] ANXIETY 270 tablet 1 02/05/20 25 Active guaiFENesin (Mucinex) 600 mg 12 hr tablet Take 2 tablets (1,200 mg total) by mouth 2 (two) times a day. Do not crush, chew, or split. 120 each 11 02/19/20 25 026 Active Additional Information Patient not taking.Reported on 02/22/2025 furosemide (LASIX) 80 mg tablet Take 1 tablet (80 mg total) by mouth 2 (two) times a day. 180 tablet 3 02/23/20 25 Active diclofenac (VOLTAREN) 1 % topical gel Apply 2 gram four times daily to affected joint 100 g 3 02/23/20 25 Active Additional Information Patient not taking.Reported on 03/29/2025 mirtazapine (REMERON) 7.5 mg tablet Take 1 tablet (7.5 mg total) by mouth at bedtime. 30 each 03/29/20 25 Active senna 8.6 mg tablet Take 2 tablets (17.2 mg total) by mouth 1 (one) time each day. 60 each 04/20/20 25 Active cholecalcifer ol (VITAMIN D-3) 125 mcg (5,000 unit) capsule Take 1 capsule (5,000 Units total) by mouth 1 (one) time each day. 90 capsule 3 05/30/20 25 Active lidocaine (LIDODERM) 5 % patch APPLY 2 PATCH TOPICALLY DAILY NEEDED FOR PAIN FOR 30 DAYS LEAVE ON MOST PAINFUL AREA FOR UP TO 12 HRSP 60 patch 06/20/20 25 Active pregabalin (LYRICA) 100 mg capsule Take 1 capsule (100 mg total) by mouth 3 (three) times a day. Max Daily Amount: 300 mg 90 each 08/17/20 25 Active phentermine 15 mg capsule Take 1 capsule (15 mg total) by mouth 1 (one) time each day before breakfast. Max Daily Amount: 15 mg 30 each 2 08/17/20 25 Active pregabalin (LYRICA) 75 mg capsule Take 1 capsule (75 mg total) by mouth 2 (two) times a day. Max Daily Amount: 150 mg 60 each 5 02/10/20 25 025 Discontinued phentermine 15 mg capsule Take 1 capsule (15 mg total) by mouth 1 (one) time each day before breakfast. Max Daily Amount: 15 mg 30 each 05/26/20 25 025 Discontinued(Re order) Active Problems Problem Noted Date Diagnosed Date History of right hip hemiarthroplasty 02/07/2025 Abnormal EKG 06/22/2024 Overview (07/20/2024): Tachycardic at 129 bpm. Appears in sinus rhythm with frequent multiform PVCs. Refused ER evaluation AGAINST MEDICAL ADVICE. 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 Osteoarthritis 07/12/2021 Overview (07/20/2024): Bilateral knees and hands. Osteonecrosis 07/12/2021 Overview (07/20/2024): Hx L femoral fracture (? original injury date 07/2010 or fall 07/11/2019. ORIF, s/p femoral juan alberto, revision and L total hip arthroplasty 05/2020. Osteoporosis 07/12/2021 Overview (07/20/2024): Started 01/2023 Rheumatoid arthritis 07/12/2021 Anxiety 03/18/2019 Cervical radiculitis 03/12/2019 Overview (07/20/2024): 08/2019 CT: Multilevel cervical stenosis, greatest at C5-C6. Hypertension 03/12/2019 Diastolic CHF, acute 01/26/2014 Vitamin D deficiency 11/03/2013 Depression 05/03/2013 Back pain 01/29/2013 Fibromyalgia 01/29/2013 Peptic ulcer disease 01/29/2013 Restless leg syndrome 01/29/2013 Encounters Date Type Department Care Team Description 08/25/2025 Telephone Adult Medicine [address] [phone] Luis Montero PA 08/19/2025 Results Follow-Up Adult Medicine [address] [phone] Luis Montero PA 08/17/2025 11:15 AM EST Lab Draw Station [address] Arthritis of knee, right; Primary hypertension; Osteoporosis, unspecified osteoporosis type, unspecified pathological fracture presence; Diastolic CHF, acute ([facility] V24, [facility] V28); Abnormal level of blood mineral; Pre-op examination 08/17/2025 10:00 AM EST [facility] [address] [phone] Luis Montero PA Preoperative cardiovascular examination (Primary Dx); Arthritis of knee, right; Primary hypertension; Osteoporosis, unspecified osteoporosis type, unspecified pathological fracture presence; Diastolic CHF, acute ([facility] V24, [facility] V28); Fibromyalgia; Abnormal level of blood mineral from Last 3 Months Immunizations Immunization Administration [...] 07/12/2021 DX:Osteoarthriti s; COMMENT: Bilateral knees Osteonecrosis ([facility] V24, [facility] V28) 07/12/2021 DX:Osteonecrosis (HCC); COMM ENT: Hx L femoral fracture (? original injury date 07/2010 or fall 07/11/2019. ORIF, s/p femoral juan alberto, revision and L total hip arthroplasty 05/2020. Rheumatoid arthritis (CMS/HC C V24, CMS/HCC V28) 07/12/2021 DX:Rheumatoid arthritis (HCC ) Bilateral [...] V24, CMS/HCC V28) 01/26/2014 DX:Diastolic CHF, acute ([facility] ) Cervical radiculitis 03/12/2019 DX:Cervical radiculitis; COMMENT: [...] do you feel lonely or isolated from ose around you? Never 02/22/2025 Food Risk [...] care for your loved ones. For example, child care coordinator or elderly care for an older adult? [...] on file Sexual Orientation Not on file Last Filed Vital Signs Vital Sign Reading Time Taken Comments Blood Pressure 138/80 08/17/2025 10:15 AM EST Pulse 87 08/17/2025 10:14 AM EST Temperature 36.4 C (97.6 F) 08/17/2025 10:14 AM EST Respiratory Rate 13 08/17/2025 10:14 AM EST Oxygen Saturation 94% 08/17/2025 10:14 AM EST Inhaled Oxygen Concentration - - Weight 60 kg (132 lb 3.2 oz) 08/17/2025 10:14 AM EST Height 165.1 cm (5' 5 ) 08/17/2025 10:14 AM EST Body Mass Index 22 08/17/2025 10:14 AM EST Plan of Treatment Upcoming Encounters Date Type Department Care Team (Late st Contact Info) Description 10/19/2025 3:00 PM EST Office Visit Adult Medicine [address] [phone] Luis Montero PA [address] [place] [phone] Health Maintenance Due Date Last Done Comments Drug Screen 1950 Non-Opioid Controlled Substance Agreement 1950 Hepatitis A Vaccines (1 of 2 - Risk 2-dose series) 1969 RSV Immunization Adult Patients (1 - Risk 50-74 years 1-dose series) 2000 Zoster Vaccines (1 of 2) 2000 Colorectal Cancer Screening: Stool Based Tests (FOBT/FIT) 08/18/2022 Medicare Annual Wellness Visit 08/18/2022 Breast Cancer Screening 01/06/2025 01/06/2023, 10/04 COVID-19 Vaccine ( season) 2025 Influenza Vaccine (#1) 2025 , 08/06/2023, 07/12/2022, Additional history exists DTaP,Tdap,and Td Vaccines (2 - Td or Tdap) 08/29/2025 08/29/2015 Falls Risk Assessment 02/22/2026 02/22/2025 , 02/22/2025, 08/06/2023 Social Influencers of Health Screening 02/22/2026 02/22/2025 Hypertension/CHF/CAD Annual BMP Blood Test 08/17/2026 08/17/2025, 02/22/2025, 01/20/2025, Additional history exists Cholesterol Screening (Lipid Panel) 09/03/2029 09/03/2024, 11/13/2023, 11/13/2023 Osteoporosis Screening (Bone Density Screening) 01/06/2033 [...] Procedure Name Priority Date/Time Associated Diagnosis Comments MANUAL DIFFERENTIAL - SYSMEX WAM Routine 08/17/2025 11:19 AM EST Arthritis of knee, right Primary hypertension Osteoporosis, unspecified osteoporosis type, unspecified pathological fracture presence Diastolic CHF, acute (CMS/HCC V24, CMS/HCC V28) CBC WITH AUTO DIFFERENTIAL Routine 08/17/2025 11:19 AM EST Arthritis of knee, right Primary hypertension Osteoporosis, unspecified osteoporosis type, unspecified pathological fracture presence Diastolic CHF, acute (CMS/HCC V24, CMS/HCC V28) COMPREHENSIVE METABOLIC PANEL Routine 08/17/2025 11:19 AM EST Arthritis of knee, right Primary hypertension Osteoporosis, unspecified osteoporosis type, unspecified pathological fracture presence Diastolic CHF, acute (CMS/HCC V24, CMS/HCC V28) CBC AND DIFFERENTIAL Routine 08/17/2025 11:19 AM EST Arthritis of knee, right Primary hypertension Osteoporosis, unspecified osteoporosis type, unspecified pathological fracture presence Diastolic CHF, acute (CMS/HCC V24, CMS/HCC V28) HEMOGLOBIN A1C Routine 08/17/2025 11:19 AM EST Arthritis of knee, right Primary hypertension Osteoporosis, unspecified osteoporosis type, unspecified pathological fracture presence Diastolic CHF, acute (CMS/HCC V24, CMS/HCC V28) Abnormal level of blood mineral ECG 12-LEAD Routine 08/17/2025 10:47 AM EST Arthritis of knee, right Primary hypertension Osteoporosis, unspecified osteoporosis type, unspecified pathological fracture presence Diastolic CHF, acute (CMS/HCC V24, CMS/HCC V28) LIPID PANEL WITH REFLEX TO DIRECT LDL [...] Relevant to Health Maintenance Results * (ABNORMAL) Manual differential (08/17/2025 11:19 AM EST) Neutrophils % 41.0 % LAB HEMETOLOGY METHOD 08/17/2025 12:38 PM EST [facility] Lymphocytes % 29.0 % LAB HEMETOLOGY METHOD 08/17/2025 12:38 PM [facility] Reactive Lymphocyte 17.00 % LAB HEMETOLOGY METHOD 08/17/2025 12:38 PM [facility] Monocytes % 10.0 % LAB HEMETOLOGY METHOD 08/17/2025 12:38 PM [facility] Eosinophils % 3.0 % LAB HEMETOLOGY METHOD 08/17/2025 12:38 PM [facility] Basophils % 0.0 % LAB HEMETOLOGY METHOD 08/17/2025 12:38 PM [facility] Neutrophils Absolute Manual 2.87 1.50 - 7.00 K/mcL LAB HEMETOLOGY METHOD 08/17/2025 12:38 PM [facility] Lymphocytes Absolute 2.03 1.00 - 5.00 K/mcL LAB HEMETOLOGY METHOD 08/17/2025 12:38 PM [facility] Reactive Lymph Abs Manual 1.19(H) 0.00 - 0.00 lym LAB HEMETOLOGY METHOD 08/17/2025 12:38 PM [facility] Monocytes Absolute Manual 0.70 0.20 - 1.00 K/mcL LAB HEMETOLOGY METHOD 08/17/2025 12:38 PM [facility] Eosinophils Absolute Manual 0.21 0.00 - 0.50 K/mcL LAB HEMETOLOGY METHOD 08/17/2025 12:38 PM [facility] Basophils Absolute Manual 0.00 0.00 - 0.20 K/mcL LAB HEMETOLOGY METHOD 08/17/2025 12:38 PM [facility] Rbc Morphology Consistent with indices Consistent with indices, Normal for [place] LAB HEMETOLOGY METHOD 08/17/2025 12:38 PM [facility] Platelet Morphology - WAM See Note(A) Normal LAB HEMETOLOGY METHOD 08/17/2025 12:38 PM [facility] Comment:PLT: Normal Blood Venous blood specimen / Unknown Venipuncture / Unknown 08/17/2025 11:19 AM EST 08/17/2025 11:19 AM EST Luis JIMENEZ LAB BLOOD ORDERABLES Shanda l Result [facility] [address] [place] [address], * CBC auto differential (08/17/2025 11:19 AM EST) WBC 7.0 4.8 - 10.8 K/mcL LAB HEMETOLOGY METHOD 08/17/2025 12:38 PM [facility] RBC 4.40 3.80 - 4.80 M/mcL LAB HEMETOLOGY METHOD 08/17/2025 12:38 PM [facility] Hemoglobin 13.3 11.5 - 16.0 g/dL LAB HEMETOLOGY METHOD 08/17/2025 12:38 PM [facility] Hematocrit 41.5 35.0 - 47.0 % LAB HEMETOLOGY METHOD 08/17/2025 12:38 PM [facility] MCV 93.7 79.0 - 98.0 FL LAB HEMETOLOGY METHOD 08/17/2025 12:38 PM [facility] MCH 30.0 27.0 - 32.0 pcg LAB HEMETOLOGY METHOD 08/17/2025 12:38 PM [facility] MCHC 32.0 32.0 - 37.0 g/dL LAB HEMETOLOGY METHOD 08/17/2025 12:38 PM [facility] RDW 15.0 11.0 - 15.0 % LAB HEMETOLOGY METHOD 08/17/2025 12:38 PM [facility] Platelets 246 130 - 400 K/mcL LAB HEMETOLOGY METHOD 08/17/2025 12:38 PM EST [facility] MPV 10.1 7.0 - 11.0 FL LAB HEMETOLOGY METHOD 08/17/2025 12:38 PM EST [facility] NRBC 0.0 <1.0 % LAB HEMETOLOGY METHOD 08/17/2025 12:38 PM EST [facility] NRBC Absolute 0.00 <0.10 K/mcL LAB HEMETOLOGY METHOD 08/17/2025 12:38 PM EST [facility] Blood Venous blood specimen / Unknown Venipuncture / Unknown 08/17/2025 11:19 AM EST 08/17/2025 11:19 AM EST Narrative [facility] - 08/17/2025 12:38 PM EST [phone] Luis JIMENEZ LAB BLOOD ORDERABLES Shanda l Result [facility] [address] [place] [address], [place] [phone] * Hemoglobin A1c (08/17/2025 11:19 AM EST) [facility] Hemoglobin A1C 5.2 <6.5 % LAB CHEMISTRY METHOD 08/19/2025 8:34 AM EST [facility] Mean Bld Glu Estim. 103 mg/dL LAB CHEMISTRY METHOD 08/19/2025 8:34 AM EST [facility] Blood Venous blood specimen / Unknown Venipuncture / Unknown 08/17/2025 11:19 AM EST 08/17/2025 11:19 AM EST Luis JIMENEZ LAB BLOOD ORDERABLES Shanda l Result Performing Organization Address City/[facility]/ZIP Co de Phone Number [facility] [address] [place] [address], [place] [phone] * (ABNORMAL) Comprehensive metabolic panel (08/17/2025 11:19 AM EST) Sodium 143 133 - 145 mmol/L 08/17/2025 3:45 PM [facility] Potassium 3.6 3.5 - 5.5 mmol/L 08/17/2025 3:45 PM [facility] Chloride 101 96 - 110 mmol/L 08/17/2025 3:45 PM [facility] CO2 33(H) 21 - 32 mmol/L 08/17/2025 3:45 PM [facility] Anion Gap 9 3 - 11 08/17/2025 3:45 PM [facility] Glucose 96 70 - 100 mg/dL 08/17/2025 3:45 PM [facility] BUN 7 5 - 25 mg/dL 08/17/2025 3:45 PM [facility] Creatinine 0.74 0.50 - 1.10 mg/dL 08/17/2025 3:45 PM [facility] eGFR 85 >=60 mL/min/1. 73m2 08/17/2025 3:45 PM [facility] Comment:Calculation based on the Chronic Kidney Disease Epidemiology Collaboration (CKD-EPI) equation refit without adjustment for race. BUN/Creatinine Ratio 9.5 08/17/2025 3:45 PM [facility] Calcium 8.7 8.5 - 10.5 mg/dL 08/17/2025 3:45 PM [facility] AST (SGOT) 23 10 - 42 unit/L 08/17/2025 3:45 PM [facility] ALT (SGPT) 12 10 - 60 unit/L 08/17/2025 3:45 PM [facility] Alkaline Phosphatase 108 42 - 121 unit/L 08/17/2025 3:45 PM [facility] Total Protein 6.5 6.0 - 8.0 g/dL 08/17/2025 3:45 PM [facility] Albumin 4.3 3.2 - 5.0 g/dL 08/17/2025 3:45 PM [facility] Total Bilirubin 0.3 0.0 - 1.4 mg/dL 08/17/2025 3:45 PM [facility] Blood Venous blood specimen / Unknown Venipuncture / Unknown 08/17/2025 11:19 AM EST 08/17/2025 11:19 AM EST Luis JIMENEZ LAB BLOOD ORDERABLES Shanda l Result [facility] [address] [place] [address], [place] [phone] * ECG 12 lead (08/17/2025 10:47 AM EST) Luis JIMENEZ ECG ORDERABLES Final Res ult * Lipid panel with reflex to direct LDL (09/03/2024 9:35 AM EST) Cholesterol 181 0 - 200 mg/dL LAB CHEMISTRY METHOD 09/03/2024 11:58 AM [facility] Triglycerides 149 0 - 150 mg/dL LAB CHEMISTRY METHOD 09/03/2024 11:58 AM [facility] HDL 62 >=40 mg/dL LAB CHEMISTRY METHOD 09/03/2024 11:58 AM [facility] LDL Calculated 89 0 - 100 mg/dL LAB CHEMISTRY METHOD 09/03/2024 11:58 AM [facility] VLDL Cholesterol Jur[place] 29.8 mg/dL LAB CHEMISTRY METHOD 09/03/2024 11:58 AM [facility] Non HDL Chol. (LDL+VLDL) 119 <145 mg/dL LAB CHEMISTRY METHOD 09/03/2024 11:58 AM EST [facility] Chol/HDL Ratio 2.9 0.0 - 4.4 LAB CHEMISTRY METHOD 09/03/2024 11:58 AM EST [facility] Blood Venous blood specimen / Unknown Venipuncture / Unknown 09/03/2024 9:35 AM EST 09/03/2024 9:35 AM EST Luis JIMENEZ LAB BLOOD ORDERABLES Shanda l Result [facility] [address] [place] [address], * Falls Risk Assessment (08/06/2023) Falls Risk Assessment abstracted [facility] Provider MD HEALTH MAINTENANCE Final Result * Depression Screening (08/06/2023) Depression Screening abstracted [facility] Provider MD HEALTH MAINTENANCE Final Result * [...] should be classified as having osteoporosis. [facility] Department of Internal Medicine recommends using [...] Lai should beclassified as having osteoporosis. The [facility] Department of Internal Medicine recommendsusing National [...] or over-estimation of fracture risk by FRAX. Result [facility] Luis JIMENEZ IMG DXA PROCEDURES Final Result * Hepatitis C Screening (07/12/2021) Pathologist [facility] Hepatitis C Screening abstracted Historical Provider MD HEALTH MAINTENANCE Final Result from Last 3 Months or Most Recently Relevant to Health Maintenance Insurance [employer]AGE on file Care Teams Television Cable Installer Relationship Specialty Start Date End Date Luis Montero, BARBARA [address] [place] [address] [place] [address] PCP - General Internal Medicine 07/13/21
--- OUTSIDE RECORDS SUMMARY | 2025-08-31 14:23 | XMS_ITS | Encounter Summary ---
Author Organization [facility] Address [address] [place] [address] Phone Care Team Providers Care Atomic Welder Name Role Phone Tito Enrique MD Primary Care Provider [phone] Tito Enrique MD Unavailable [phone] Pcp, Unknown Primary Care Provider Unavailabl e Encounter Details Date Type Department Care Team (Late st Contact Info) Description 05/16/2020 Procedure Pass [facility] PERIOPER[facility]IVE DEPT [address] [place] [phone] Social History Tobacco Use Types Packs/Day Years [...] documented as of this encounter Care Teams Atomic Welder Relationship Specialty Start Date End Date Tito Enrique MD [address] [place] [address] Dr AdamyokeAMINA [id number] PCP - General Internal Medicine 03/13/20 02/08/21 Pcp, Unknown PCP - General 02/09/21 Tito Enrique MD [address] [place] [address] [place] [address] Primary Care Physician Internal Medicine 04/26/20 documented as of this encounter Additional Source Comments The information contained in this document represents components of the legal health record. It is not the complete legal health record.[facility]
--- OUTSIDE RECORDS SUMMARY | 2025-08-31 14:23 | XMS_ITS | Clinical Summary ---
Author Organization [facility] Address [address] [place] [address] Phone Care Team Providers Care Vacuum Plastic Forming Machine Operator Name Role Phone Pcp, Unknown Primary Care [...] this topic Medical Devices Implanted Type Area Automotive Artist Device Identifier Shelf Expiration Date Model / Serial / Lot Hip Stem [id number] Yarsanism Conical Titanium Straight Modular - [id number] Implanted:Qty: 1 on 05/16/2020 by Farrukh García MD at [facility] Left: Hip [employer] 07/09/2023 6276-7-0 20 / / [id number] Acetabular Insert 28.0x48mm Yarsanism Crosslinked Polyethylene Dual Mobility - [id number] Implanted:Qty: 1 on 05/16/2020 by Farrukh García MD at [facility] Left: Hip [employer] 03/13/2025 1236-2-8 48 / / [id number] Acetabular Liner 42mm Size E She Module Dual Mobility Titanium Noncemented - [id number] Implanted:Qty: 1 on 05/16/2020 by Farrukh García MD at [facility] Left: Hip [employer] 04/27/2025 626-00-4 2E / / [id number] Dante Dante Left: Femur Hip Stem 20mm Modular Yarsanism Cone Body Proximalimal 27 Plus - [id number] Implanted:Qty: 1 on 05/16/2020 by Farrukh García MD at [facility] STANDARD Left: Hip [employer] 06/02/2022 6276-1-2 27 / / [id number] Screw Screw Left: Hip Shell Acetabular 52e Clusterhole 3d Surface Tritanium Trident Ii - [id number] Implanted:Qty: 1 on 05/16/2020 by Farrukh García MD at [facility] Acetabulum [employer] 10/11/2024 702-04-5 2E / / [id number] A Hip 4.0mm 28 Implant Biolox Delta Ceramic V40 04 - [id number] Implanted:Qty: 1 on 05/16/2020 by Farrukh García MD at [facility] Left: Hip [employer] 04/11/2025 6570-0-2 28 / / [id number] Screw Hex 6.5x30mm Low Profile - [id number] Implanted:Qty: 1 on 05/16/2020 by Farrukh García MD at [facility] Left: Hip [employer] 10/05/2024 7030-653 0 / / [id number] Screw Hex 6.5x30mm Low Profile - [id number] Implanted:Qty: 1 on 05/16/2020 by Farrukh García MD at [facility] Left: Hip [employer] 10/05/2024 7030-653 0 / / 2VDE Screw Hex 6.5x20mm Low Profile - [id number] Implanted:Qty: 1 on 05/16/2020 by Farrukh García MD at [facility] Left: Hip [employer] 05/10/2024 7030-652 0 / / [id number] Insurance MEDICARE PART A & B [facility] MEDICARE PART A & B [place] [facility]IC[facility] PART [facility] B HEALTH MEDICARE PART A & B [id number] [place] [address] MEDICARE PART A & B Member Subscriber Plan / Payer ( fective 2015-Present) Name:Michelle Miner Member ID:[id number] Relation to Subscriber:Self Name:Michelle Miner Subscriber ID:[id number] Payer ID:[id number] Group ID:Not on file Type:Medicare Address: [employer] [id number] [place], [place] [address]HEALTH MEDICARE PART A & B MEDICARE PART A & B [id number] [place] [address] [employer] Advance Directives For more information, please contact: [phone] (9AM - 5PM [facility], Friday-Friday) * Full Code (Latest Code Status on File) Date Activated Date Inactivated Comments 05/15/2020 10:33 AM Question Answer Comments Code Status Confirmed With: Patient Care Teams Vacuum Plastic Forming Machine Operator Relationship Specialty Start Date End Date Pcp, Unknown PCP - General 02/09/21 Additional Source Comments The information contained in this document represents components of the legal health record. It is not the complete legal health record.[facility]
== END 2025-08-31 14:55 | disposition home or self-care (01) ==
LOC: HO.HOS 14:20
PROVIDERS: Visit Provider Orthopaedic Surgery
DX: M17.11 Unilateral primary osteoarthritis, right knee (principal)
CPT/HCPCS: 99214; G2211

== ENCOUNTER 2025-09-05 06:51 | Day surgery (SDC) | payer MEDICARE, SELFPAY ==
--- OUTSIDE RECORDS SUMMARY | 2025-07-28 18:42 | XMS_ITS | Continuity of Care Document ---
Author Organization [place] [facility] Klaudia Cruz AONE [place] Address [address] [facility] [address] [place] [address] Care Team Providers Care Director Name Role Phone SAEID ORTIZ Primary Care [...] it sounds like. This was done at [facility]. She is having increasing right knee [...] degrees. The knee is stable within that [id number] to AP and ML stress. The alignment [...] with right total knee arthroplasty using the [place] total knee replacement system. However, it is [...] will be able to come down to [place] for surgery based on her insurance. If yes we will plan on right total knee replacement, robotic assisted, at [place] [facility] [place]. If not we will give her referral [...] total knee arthroplast y (SURG) 2024 025 [email or web address] 0 Not available 12:13:31 Imaging XR, knee, 4 or more view 2024 025 [email or web address] 2 [facility], [address], [address], [place], [address], 15:16:06 Medication Orders None recorded. Patient TargetsNo targets recorded. Patient Instructions Encounter Date Encounter Id Patient Instructions Last Modified By Organization Details Last Modified Time 05/20/2025 [id number] AP, lateral, Long, and patellar view radiographs of the right knee taken today demonstrate right knee degenerative joint disease with joint space narrowing, osteophyte formation, and subchondral sclerosis. There is dfzz-vq-[id number] articulation in the medial and lateral compartment. AP view of the left leg shows a broken screw along the distal femur area. Not available 05/20/2025 15:10:47 Reason for Referral None Reported. Problems Name Problem SNOMED Code Status Onset Date Resolution Date Notes Provider Name and Address Organization Details Recorded Time Osteoarthri tis of right knee joint 5629078806924 00 Active 2024 Franco Marie MD [address] [facility] [address], [place], [address], [place] [facility] [place], P 5 15:07:35 Arthritis of knee 950237501 Active 2024 Franco Marie MD [address] [facility] [address], [place], [address], [place] - [facility] [place], P 5 15:07:41 Problem Notes None recorded. Procedures Surgical History Date Name Laterality Status Provider Name and Address Organization Details Recorded Time total replacement of hip completed [facility] - [facility] [place], P 05/20/2025 15:52:47 Imaging Results None recorded. Procedure Notes None recorded. Medical Equipment None Reported. Allergies Allergen ID Allergen Name Allergen Category Reaction Reaction Severity Criticality Documentation Date Start Date Code Code System Note Provider Name and Address Organization Details Recorded Time 72995 aspirin medicatio n Not available Not available Not available 05/20/2025 1191 RxNorm Margarita Dougherty null, [place] - [facility] [place], P 15:49:20 Medications Name Sig Start Date [...] Updated DateTime 05/20/2025 165.1 cm 21.6 kg/m2 89010.01 g Margarita Dougherty [facility], [facility] 05/20/2025 15:49:55 Social History Question Answer Notes LastModified by 1CLICKat ion Details LastModified Time Tobacco Smoking Status Never Smoker Margarita lilly [facility], P 05/20/2025 15:52:24 Are You Currently In School? No gabby Information not available 05/20/2025 Sex: Unknown Functional Status Question Answer Note LastModified by Giveterizat ion Details LastModified Time How many times per week do you consume alcohol? Less than 1 time per week has a drink if she goes out for dinner [email or web address] Information not available 05/20/2025 Do you use any illicit or recreational drugs? No [email or web address] Information not available 05/20/2025 Do you or have you ever used any other forms of tobacco or nicotine? No [email or web address] Information not available 05/20/2025 What is your level of alcohol consumption? Occasional [email or web address] Information not available 05/20/2025 Are you currently employed? No [email or web address] Information not available 05/20/2025 Mental Status None recorded. Family History Relationship Description Onset Age of this Age Resolved Age Notes LastModified by Organization Details LastModified Time Father car accide nt [email or web address] Not available 05/20/2025 15:50:51 Medical History Condition Response Coronary Artery Disease N Gout N Hyperthyroidism N Blood Transfusion N MRSA N Emphysema N Depression N COPD Y Hypothyroidism N Pacemaker N Vascular Disease N Gastrointestinal Disease N Anxiety Disorder N Autoimmune disease N Arthritis N Cancer N Stroke N High Cholesterol N Neurologic Disorder N Liver Disease N Organ Transplant N Rheumatoid Arthritis Y Arrhythmia N Fibromyalgia N Kidney Disease N Allergies/Hayfever N Adverse Reaction to Anesthesia N Thyroid Problems N Anemia N Brain Injury N Heart Attack ([place]) N Osteopenia N Diabetes N Bleeding Disorder [...] ICD10 Code Diagnosis IMO Codes Diagnosis Note [id number] MD LETHA Cardoso [address] [address] 05/20/2025 14:37:55 05/20/2025 15:16:06 Pain of right knee region 9597561718 14714 M25.561 60995816 Osteoarthr itis of right knee joint 1743109411 27895 M17.11 6250272 Arthritis of knee 014882 002 M13.869 Health Concerns Section Related Observation LastModified by Organization Detai ls LastModified Time None Recorded Concern Status LastModified by Organization Details LastModified Time None Recorded Payers Encounter Date Sequence Insurance Name Policy Number Policy Lira Covered Member ID Lira Member ID Guarantor Name 05/20/2025 1 [employer] (MEDICARE REPLACEMENT/A DVANTAGE - PPO) Michelle Miner [id number] Michelle Miner 05/20/2025 2 [place] [facility] Michelle Miner [id number] Michelle Miner OBGyn Episode No OBEpisode recorded.
--- OUTSIDE RECORDS SUMMARY | 2025-07-28 18:42 | XMS_ITS | Data Portability ---
Author Organization [place] - [facility] Address [address] [place] [address] Assessment No assessment recorded. Plan of Treatment Reminders Order Date Submit Date Provider Last Modified By Organization Details Last Modified Time Details Appointments Follow up 2025 02:30P Jorge Luis Giraldo DNP Not available Not available Not available Lab None recorded. Referral None recorded. Procedures None recorded. Surgeries None recorded. Imaging XR, cervical spine, 2 or 3 view [address] (Central Scheduling), [address] [place] [address], [id number], 12/28/2024 10:30:18 XR, lumbosacr al spine, 2 or 3 view [address] (Central Scheduling), [address] [place] [address], 97[address], 12/28/2024 10:30:18 Medication Orders Belbuca 900 mcg buccal film 2024 025 [facility]/Pharmacy #[id number], [address] [place], [address], 07/19/2025 14:45:43 Narcan 4 mg/actuat ion nasal spray 2024 025 [facility]/Pharmacy #[id number], [address] [place], [address], 07/19/2025 14:45:42 Belbuca 900 mcg buccal film 2024 025 [email or web address]/Pharmacy #[id number], [address] [place], [address], 05/10/2025 14:40:12 Narcan 4 mg/actuat ion nasal spray 2024 025 [id number] [address] [place], [address], 05/10/2025 14:40:13 Belbuca 900 mcg buccal film 2024 025 [id number] [address] [place], [address], 03/02/2025 16:39:50 Narcan 4 mg/actuat ion nasal spray 2024 025 [id number] [address] [place], [address], 03/02/2025 16:39:50 acetamino phen 300 mg-codein e 30 mg tablet 2024 025 [id number] [address] [place], [address], 05/10/2025 14:33:49 Belbuca 900 mcg buccal film 2024 025 [id number] [address] [place], [address], 12/24/2024 09:53:47 Narcan 4 mg/actuat ion nasal spray 2024 025 [id number] [address] [place], [address], 12/13/2024 15:48:56 Belbuca 900 mcg buccal film 2024 025 [id number] [address] [place], [address], 11/15/2024 13:30:20 Patient TargetsNo targets recorded. Patient Instructions Encounter Date Encounter Id Patient Instructions Last Modified By Organization Details Last Modified Time 11/15/2024 [id number] 1. PHYSICAL THERAPY: pt encouraged to stay [...] UE kkalava Not available 11/15/2024 13:31:44 12/13/2024 [id number] 1. PHYSICAL THERAPY: pt encouraged to stay [...] kk kkalava Not available 12/13/2024 15:48:38 03/02/2025 [id number] 1. PHYSICAL THERAPY: pt encouraged to stay active. home exercises 2. BEHAVIORAL THERAPY: stable depression/psych issues 3. MEDICATIONS: Cont belbuca 900 q12 hr and lyrica(PCP). will add t3 4. INTERVENTIONS: none. pt gets interventions in [place] 5. FUNCTION: pain moderately impairs her function [...] UE kkalava Not available 03/02/2025 16:54:24 05/10/2025 [id number] 1. PHYSICAL THERAPY: pt encouraged to stay active. home exercises 2. BEHAVIORAL THERAPY: stable depression/psych issues 3. MEDICATIONS: Cont belbuca 900 q12 hr and lyrica(PCP) 4. INTERVENTIONS: none. pt gets interventions in [place] 5. FUNCTION: pain moderately impairs her function [...] - kk kkalava Not available 05/10/2025 14:39:50 07/19/2025 [id number] 1. PHYSICAL THERAPY: pt encouraged to stay active. home exercises 2. BEHAVIORAL THERAPY: stable depression/psych issues 3. MEDICATIONS: Cont belbuca 900 q12 hr and lyrica(PCP) 4. INTERVENTIONS: none. pt gets interventions in [place] 5. FUNCTION: pain moderately impairs her function, improved with meds 6. PAIN ASSESSMENT: some relief w belbuca 7. COMPLIANCE: no concerns. mpat verified 8. WEIGHT LOSS/DIET/SMOKING CESSATION: counseled 9. LABS/RADIOLOGY: MRI LS and cervical spine 11/2024 reviewed. UDS 12/2024 consistent UDS 05/2025 - consistent UDS JUL 19. REFERRALS : none 10. FOLLOW UP: 10 weeks 12. OPIOID RISK ASSESSMENT: MILD TO MOD pt w chronic lower back pain , b/l LE painful paresthesias and neck pain radiating into b/l UE i agree - kk kkalava Not available 07/20/2025 10:03:27 Reason for Referral None Reported. Results Created [...] scott consu ltati on, pleas e call [phone]. ===== ===== ===== ===== ===== ===== ===== ===== ===== ===== ===== ===== ===== === Not Available [facility] [address] [place] [address], [address] 11/20/2024 23:07:42 11/16/19 25 11/20/2024 TOXAS SURE SELEC T 14 MINISTERIO-D IS urine creatinine 37 mg/dL . REFER ENCE RANGE : Ref Range >=20 Not Available [facility] [address] [place] [address], 65208 11/20/2024 23:07:42 11/16/19 25 11/20/2024 TOXAS SURE SELEC T 14 MINISTERIO-D IS ethanol biomarkers NEGATI VE . Not Available [facility] [address] [place] [address], 14826 11/20/2024 23:07:42 11/16/19 25 11/20/2024 TOXAS SURE SELEC T 14 MINISTERIO-D IS ethyl glucuronide NOT DETECT ED . Resul t Units : ng/mg creat Not Available [facility] [address] [place], [address] 11/20/2024 23:07:42 11/16/19 25 11/20/2024 TOXAS SURE SELEC T 14 MINISTERIO-D IS ethyl sulfate NOT DETECT ED . Resul t Units : ng/mg creat Not Available [facility] [address] [place] [address], 08080 11/20/2024 23:07:42 11/16/19 25 11/20/2024 TOXAS SURE SELEC T 14 MINISTERIO-D IS amphetamines NEGATI VE . Not Available [facility] [address] [place] [address], 82101 11/20/2024 23:07:42 11/16/19 25 11/20/2024 TOXAS SURE SELEC T 14 MINISTERIO-D IS methamphetam ine NOT DETECT ED . Resul t Units : ng/mg creat Not Available [facility] [address] [place] [address], 70939 11/20/2024 23:07:42 11/16/19 25 11/20/2024 TOXAS SURE SELEC T 14 MINISTERIO-D IS amphetamine NOT DETECT ED . Resul t Units : ng/mg creat Not Available [facility] [address] [place] [address], 64168 11/20/2024 23:07:42 11/16/19 25 11/20/2024 TOXAS SURE SELEC T 14 MINISTERIO-D IS MDMA (ecstasy) NOT DETECT ED . Resul t Units : ng/mg creat Not Available [facility] [address] [place] [address], 56980 11/20/2024 23:07:42 11/16/19 25 11/20/2024 TOXAS SURE SELEC T 14 MINISTERIO-D IS mda (ecstasy mtb) NOT DETECT ED . Resul t Units : ng/mg creat Not Available [facility] [address] [place] [address], 86972 11/20/2024 23:07:42 11/16/19 25 11/20/2024 TOXAS SURE SELEC T 14 MINISTERIO-D IS benzodiazepi cammie +POSIT ARIADNE+ . Not Available [facility] [address] [place] [address], 38108 11/20/2024 23:07:42 11/16/19 25 11/20/2024 TOXAS SURE SELEC T 14 MINISTERIO-D IS diazepam NOT DETECT ED . Resul t Units : ng/mg creat Not Available [facility] [address] [place] [address], 33681 11/20/2024 23:07:42 11/16/19 25 11/20/2024 TOXAS SURE SELEC T 14 MINISTERIO-D IS desmethyldia zepam NOT DETECT ED . Resul t Units : ng/mg creat Not Available [facility] [address] [place] [address], 35484 11/20/2024 23:07:42 11/16/19 25 11/20/2024 TOXAS SURE SELEC T 14 MINISTERIO-D IS oxazepam NOT DETECT ED . Resul t Units : ng/mg creat Not Available [facility] [address] [place] [address], 12901 11/20/2024 23:07:42 11/16/19 25 11/20/2024 TOXAS SURE [...] Oxaze catherine Oxaze catherine: None Not Available [facility] [address] [place] [address], 34869 11/20/2024 23:07:42 11/16/19 25 11/20/2024 TOXAS SURE SELEC T 14 MINISTERIO-D IS alprazolam NOT DETECT ED . Resul t Units : ng/mg creat Not Available [facility] [address] [place] [address], 17940 11/20/2024 23:07:42 11/16/19 25 11/20/2024 TOXAS SURE SELEC T 14 MINISTERIO-D IS alpha-hydrox yalprazolam NOT DETECT ED . Resul t Units : ng/mg creat Not Available [facility] [address] [place] [address], 05047 11/20/2024 23:07:42 11/16/19 25 11/20/2024 TOXAS SURE SELEC T 14 MINISTERIO-D IS desalkylflur azepam NOT DETECT ED . Resul t Units : ng/mg creat Not Available [facility] [address] [place], [address] 11/20/2024 23:07:42 11/16/19 25 11/20/2024 TOXAS SURE SELEC T 14 MINISTERIO-D IS lorazepam NOT DETECT ED . Resul t Units : ng/mg creat Not Available [facility] [address] [place] [address], 97898 11/20/2024 23:07:42 11/16/19 25 11/20/2024 TOXAS SURE SELEC T 14 MINISTERIO-D IS alpha-hydrox ytriazolam NOT DETECT ED . Resul t Units : ng/mg creat Not Available [facility] [address] [place] [address], 59556 11/20/2024 23:07:42 11/16/19 25 11/20/2024 TOXAS SURE SELEC T 14 MINISTERIO-D IS clonazepam NOT DETECT ED . Resul t Units : ng/mg creat Not Available [facility] [address] [place] [address], 69172 11/20/2024 23:07:42 11/16/19 25 11/20/2024 TOXAS SURE SELEC T 14 MINISTERIO-D IS 7-aminoclona zepam 289 . Resul t Units : ng/mg creat Not Available [facility] [address] [place] [address], 77615 11/20/2024 23:07:42 11/16/19 25 11/20/2024 TOXAS SURE SELEC T 14 MINISTERIO-D IS midazolam NOT DETECT ED . Resul t Units : ng/mg creat Not Available [facility] [address] [place] [address], 54089 11/20/2024 23:07:42 11/16/19 25 11/20/2024 TOXAS SURE SELEC T 14 MINISTERIO-D IS alpha-hydrox ymidazolam NOT DETECT ED . Resul t Units : ng/mg creat Not Available [facility] [address] [place] [address], 78796 11/20/2024 23:07:42 11/16/19 25 11/20/2024 TOXAS SURE SELEC T 14 MINISTERIO-D IS flunitrazepa m NOT DETECT ED . Resul t Units : ng/mg creat Not Available [facility] [address] [place] [address], 39839 11/20/2024 23:07:42 11/16/19 25 11/20/2024 TOXAS SURE SELEC T 14 MINISTERIO-D IS desmethylflu nitrazepam NOT DETECT ED . Resul t Units : ng/mg creat Not Available [facility] [address] [place] [address], 34394 11/20/2024 23:07:42 11/16/19 25 11/20/2024 TOXAS SURE SELEC T 14 MINISTERIO-D IS cocaine metabolite NEGATI VE . Not Available [facility] [address] [place] [address], 53596 11/20/2024 23:07:42 11/16/19 25 11/20/2024 TOXAS SURE SELEC T 14 MINISTERIO-D IS cocaine NOT DETECT ED . Resul t Units : ng/mg creat Not Available [facility] [address] [place] [address], 84126 11/20/2024 23:07:42 11/16/19 25 11/20/2024 TOXAS SURE SELEC T 14 MINISTERIO-D IS benzoylecgon ine NOT DETECT ED . Resul t Units : ng/mg creat Not Available [facility] [address] [place] [address], 16869 11/20/2024 23:07:42 11/16/19 25 11/20/2024 TOXAS SURE SELEC T 14 MINISTERIO-D IS cocaethylene NOT DETECT ED . Resul t Units : ng/mg creat Not Available [facility] [address] [place] [address], 76202 11/20/2024 23:07:42 11/16/19 25 11/20/2024 TOXAS SURE SELEC T 14 MINISTERIO-D IS cannabinoids NEGATI VE . Not Available [facility] [address] [place] [address], 70487 11/20/2024 23:07:42 11/16/19 25 11/20/2024 TOXAS SURE SELEC T 14 MINISTERIO-D IS carboxy-THC NOT DETECT ED . Resul t Units : ng/mg creat Not Available [facility] [address] [place] [address], 58763 11/20/2024 23:07:42 11/16/19 25 11/20/2024 TOXAS SURE SELEC T 14 MINISTERIO-D IS 6-acetylmorp kathrine scr NEGATI VE . Not Available [facility] [address] [place] [address], 24305 11/20/2024 23:07:42 11/16/19 25 11/20/2024 TOXAS SURE SELEC T 14 MINISTERIO-D IS 6-acetylmorp kathrine NOT DETECT ED . Resul t Units : ng/mg creat Not Available [facility] [address] [place] [address], 05106 11/20/2024 23:07:42 11/16/19 25 11/20/2024 TOXAS SURE SELEC T 14 MINISTERIO-D IS opiate class NEGATI VE . Not Available [facility] [address] [place] [address], 94044 11/20/2024 23:07:42 11/16/19 25 11/20/2024 TOXAS SURE SELEC T 14 MINISTERIO-D IS codeine NOT DETECT ED . Resul t Units : ng/mg creat Not Available [facility] [address] [place] [address], 10698 11/20/2024 23:07:42 11/16/19 25 11/20/2024 TOXAS SURE SELEC T 14 MINISTERIO-D IS morphine NOT DETECT ED . Resul t Units : ng/mg creat Not Available [facility] [address] [place] [address], 64266 11/20/2024 23:07:42 11/16/19 25 11/20/2024 TOXAS SURE SELEC T 14 MINISTERIO-D IS normorphine NOT DETECT ED . Resul t Units : ng/mg creat Not Available [facility] [address] [place] [address], 99660 11/20/2024 23:07:42 11/16/19 25 11/20/2024 TOXAS SURE SELEC T 14 MINISTERIO-D IS norcodeine NOT DETECT ED . Resul t Units : ng/mg creat Not Available [facility] [address] [place] [address], 92627 11/20/2024 23:07:42 11/16/19 25 11/20/2024 TOXAS SURE SELEC T 14 MINISTERIO-D IS hydrocodone NOT DETECT ED . Resul t Units : ng/mg creat Not Available [facility] [address] [place], [address] 11/20/2024 23:07:42 11/16/19 25 11/20/2024 TOXAS SURE SELEC T 14 MINISTERIO-D IS hydromorphon e NOT DETECT ED . Resul t Units : ng/mg creat Not Available [facility] [address] [place], [address] 11/20/2024 23:07:42 11/16/19 25 11/20/2024 TOXAS SURE SELEC T 14 MINISTERIO-D IS dihydrocodei ne NOT DETECT ED . Resul t Units : ng/mg creat Not Available [facility] [address] [place], [address] 11/20/2024 23:07:42 11/16/19 25 11/20/2024 TOXAS SURE SELEC T 14 MINISTERIO-D IS norhydrocodo ne NOT DETECT ED . Resul t Units : ng/mg creat Expec soto metab olism of opiat e class drugs : Paren t Drug Detec soto Metab olite s ----- ----- - ----- ----- ----- ----- Codei ne: Major : Morph ine, [place] deine Minor : Troup codon e, Troup morph one, Dihyd rocod eine, Norhy droco done, Normo rphin e Morph ine: Major : Normo rphin e Minor : Troup morph one Troup codon e: Troup morph one, Dihyd rocod eine, Norhy droco done Troup morph one: None Dihyd rocod eine: None Heroi n: 6-Stepan tylmo rphin e (if inclu ded), Morph ine, Normo rphin e Codei ne, in small amoun ts in margaret rison to morph ine, is often detec soto when heroi n is the sourc e drug. Not Available [facility] [address] [place], [address] 11/20/2024 23:07:42 11/16/19 25 11/20/2024 TOXAS SURE SELEC T 14 MINISTERIO-D IS oxycodone class NEGATI VE . Not Available [facility] [address] [place], [address] 11/20/2024 23:07:42 11/16/1911/20/2024 TOXAS SURE SELEC T 14 MINISTERIO-D IS oxycodone NOT DETECT ED . Resul t Units : ng/mg creat Not Available [facility] [address] [place] [address], 75934 11/20/2024 23:07:42 11/16/19 25 11/20/2024 TOXAS SURE SELEC T 14 MINISTERIO-D IS oxymorphone NOT DETECT ED . Resul t Units : ng/mg creat Not Available [facility] [address] [place] [address], 35532 11/20/2024 23:07:42 11/16/1911/20/2024 TOXAS SURE SELEC T 14 MINISTERIO-D IS noroxycodone NOT DETECT ED . Resul t Units : ng/mg creat Not Available [facility] [address] [place] [address], 07145 11/20/2024 23:07:42 11/16/1911/20/2024 TOXAS SURE SELEC T [...] rphon e: Norox ymorp moncho Not Available [facility] [address] [place] [address], 04026 11/20/2024 23:07:42 11/16/1911/20/2024 TOXAS SURE SELEC T 14 MINISTERIO-D IS methadone scr NEGATI VE . Not Available [facility] [address] [place], [address] 11/20/2024 23:07:42 11/16/19 25 11/20/2024 TOXAS SURE SELEC T 14 MINISTERIO-D IS methadone NOT DETECT ED . Resul t Units : ng/mg creat Not Available [facility] [address] [place] [address], 91322 11/20/2024 23:07:42 11/16/19 25 11/20/2024 TOXAS SURE SELEC T 14 MINISTERIO-D IS EDDP (methadone mtb) NOT DETECT ED . Resul t Units : ng/mg creat Not Available [facility] [address] [place] [address], 26605 11/20/2024 23:07:42 11/16/19 25 11/20/2024 TOXAS SURE SELEC T 14 MINISTERIO-D IS fentanyl analogues NEGATI VE . Not Available [facility] [address] [place] [address], 57039 11/20/2024 23:07:42 11/16/19 25 11/20/2024 TOXAS SURE SELEC T 14 MINISTERIO-D IS fentanyl NOT DETECT ED . Resul t Units : ng/mg creat Not Available [facility] [address] [place] [address], 32853 11/20/2024 23:07:42 11/16/19 25 11/20/2024 TOXAS SURE SELEC T 14 MINISTERIO-D IS norfentanyl NOT DETECT ED . Resul t Units : ng/mg creat Not Available [facility] [address] [place] [address], 30832 11/20/2024 23:07:42 11/16/19 25 11/20/2024 TOXAS SURE SELEC T 14 MINISTERIO-D IS sufentanil NOT DETECT ED . Resul t Units : ng/mg creat Not Available [facility] [address] [place] [address], 77447 11/20/2024 23:07:42 11/16/19 25 11/20/2024 TOXAS SURE SELEC T 14 MINISTERIO-D IS alfentanil NOT DETECT ED . Resul t Units : ng/mg creat Not Available [facility] [address] [place] [address], 81421 11/20/2024 23:07:42 11/16/19 25 11/20/2024 TOXAS SURE SELEC T 14 MINISTERIO-D IS buprenorphin e scr +POSIT ARIADNE+ . Not Available [facility] [address] [place] [address], 39074 11/20/2024 23:07:42 11/16/19 25 11/20/2024 TOXAS SURE SELEC T 14 MINISTERIO-D IS buprenorphin e 27 . Resul t Units : ng/mg creat Not Available [facility] [address] [place], [address] 11/20/2024 23:07:42 11/16/19 25 11/20/2024 TOXAS SURE SELEC T 14 MINISTERIO-D IS norbuprenorp kathrine 173 . Resul t Units : ng/mg creat Not Available [facility] [address] [place], [address] 11/20/2024 23:07:42 11/16/19 25 11/20/2024 TOXAS SURE SELEC T 14 MINISTERIO-D IS tapentadol scr NEGATI VE . Not Available [facility] [address] [place] [address], 37966 11/20/2024 23:07:42 11/16/19 25 11/20/2024 TOXAS SURE SELEC T 14 MINISTERIO-D IS tapentadol NOT DETECT ED . Resul t Units : ng/mg creat Not Available [facility] [address] [place] [address], 22523 11/20/2024 23:07:42 11/16/19 25 11/20/2024 TOXAS SURE SELEC T 14 MINISTERIO-D IS other opioids NEGATI VE . Not Available [facility] [address] [place] [address], 86203 11/20/2024 23:07:42 11/16/19 25 11/20/2024 TOXAS SURE SELEC T 14 MINISTERIO-D IS tramadol NOT DETECT ED . Resul t Units : ng/mg creat Not Available [facility] [address] [place], [address] 11/20/2024 23:07:42 11/16/19 25 11/20/2024 TOXAS SURE SELEC T 14 MINISTERIO-D IS O-desmethylt ramadol NOT DETECT ED . Resul t Units : ng/mg creat Not Available [facility] [address] [place] [address], 74238 11/20/2024 23:07:42 11/16/19 25 11/20/2024 TOXAS SURE SELEC T 14 MINISTERIO-D IS N-desmethylt ramadol NOT DETECT ED . Resul t Units : ng/mg creat Not Available [facility] [address] [place] [address], 21667 11/20/2024 23:07:42 11/16/19 25 11/20/2024 TOXAS SURE SELEC T 14 MINISTERIO-D IS barbiturates NEGATI VE . Not Available [facility] [address] [place] [address], 20343 11/20/2024 23:07:42 11/16/19 25 11/20/2024 TOXAS SURE SELEC T 14 MINISTERIO-D IS amobarbital NOT DETECT ED . Not Available [facility] [address] [place] [address], 34256 11/20/2024 23:07:42 11/16/19 25 11/20/2024 TOXAS SURE SELEC T 14 MINISTERIO-D IS barbital NOT DETECT ED . Not Available [facility] [address] [place] [address], 67455 11/20/2024 23:07:42 11/16/19 25 11/20/2024 TOXAS SURE SELEC T 14 MINISTERIO-D IS butabarbital NOT DETECT ED . Not Available [facility] [address] [place] [address], 51666 11/20/2024 23:07:42 11/16/19 25 11/20/2024 TOXAS SURE SELEC T 14 MINISTERIO-D IS butalbital NOT DETECT ED . Not Available [facility] [address] [place] [address], 16698 11/20/2024 23:07:42 11/16/19 25 11/20/2024 TOXAS SURE SELEC T 14 MINISTERIO-D IS mephobarbita l NOT DETECT ED . Not Available [facility] [address] [place] [address], 91982 11/20/2024 23:07:42 11/16/19 25 11/20/2024 TOXAS SURE SELEC T 14 MINISTERIO-D IS pentobarbita l NOT DETECT ED . Not Available [facility] [address] [place] [address], 93380 11/20/2024 23:07:42 11/16/19 25 11/20/2024 TOXAS SURE SELEC T 14 MINISTERIO-D IS phenobarbita l NOT DETECT ED . Not Available [facility] [address] [place] [address], 81321 11/20/2024 23:07:42 11/16/1911/20/2024 TOXAS SURE SELEC T 14 MINISTERIO-D IS secobarbital NOT DETECT ED . Not Available [facility] [address] [place] [address], 87369 11/20/2024 23:07:42 11/16/19 25 11/20/2024 TOXAS SURE SELEC T 14 MINISTERIO-D IS thiopental NOT DETECT ED . Not Available [facility] [address] [place] [address], 13076 11/20/2024 23:07:42 11/16/19 25 11/20/2024 TOXAS SURE SELEC T 14 MINISTERIO-D IS other hallucinogen s NEGATI VE . Not Available [facility] [address] [place] [address], 48814 11/20/2024 23:07:42 11/16/1911/20/2024 TOXAS SURE SELEC T 14 MINISTERIO-D IS phencyclidin e NOT DETECT ED . Not Available [facility] [address] [place] [address], 22998 11/20/2024 23:07:42 11/16/1911/20/2024 TOXAS SURE SELEC T 14 MINISTERIO-D IS level of detection: JOS Badillo TESTI NG THRES HOLDS ARE FOLLO WS: [...] PCP: 25 ng/mL This test was devel jassed and its perfo rmanc e yecenia cteri stics deter mined by [facility]. It has not been clear ed or appro nataly by the Food and Drug Admin istra tion. Perfo rmed at: 01 - [facility] [address] [id number] Lab Direc tor: Ara barroso [facility] , Phone : [phone] Not Available [facility] [address] [place], [address] 11/20/2024 23:07:42 12/14/19 25 12/21/2024 TOXAS SURE [...] scott consu ltati on, pleas e call [phone]. ===== ===== ===== ===== ===== ===== ===== ===== ===== ===== ===== ===== ===== === Not Available [facility] [address] [place], [address] 12/21/2024 15:07:25 12/14/1912/21/2024 TOXAS SURE SELEC T 14 MINISTERIO-D IS urine creatinine 48 mg/dL . REFER ENCE RANGE : Ref Range >=20 Not Available [facility] [address] [place], [address] 12/21/2024 15:07:25 12/14/1912/21/2024 TOXAS SURE SELEC T 14 MINISTERIO-D IS ethanol biomarkers NEGATI VE . Not Available [facility] [address] [place], [address] 12/21/2024 15:07:25 12/14/19 25 12/21/2024 TOXAS SURE SELEC T 14 MINISTERIO-D IS ethyl glucuronide NOT DETECT ED . Resul t Units : ng/mg creat Not Available [facility] [address] [place] [address], 35555 12/21/2024 15:07:25 12/14/19 25 12/21/2024 TOXAS SURE SELEC T 14 MINISTERIO-D IS ethyl sulfate NOT DETECT ED . Resul t Units : ng/mg creat Not Available [facility] [address] [place] [address], 45366 12/21/2024 15:07:25 12/14/19 25 12/21/2024 TOXAS SURE SELEC T 14 MINISTERIO-D IS amphetamines NEGATI VE . Not Available [facility] [address] [place] [address], 57930 12/21/2024 15:07:25 12/14/19 25 12/21/2024 TOXAS SURE SELEC T 14 MINISTERIO-D IS methamphetam ine NOT DETECT ED . Resul t Units : ng/mg creat Not Available [facility] [address] [place] [address], [id number] 12/21/2024 15:07:25 12/14/19 25 12/21/2024 TOXAS SURE SELEC T 14 MINISTERIO-D IS amphetamine NOT DETECT ED . Resul t Units : ng/mg creat Not Available [facility] [address] [place] [address], [id number] 12/21/2024 15:07:25 12/14/19 25 12/21/2024 TOXAS SURE SELEC T 14 MINISTERIO-D IS MDMA (ecstasy) NOT DETECT ED . Resul t Units : ng/mg creat Not Available [facility] [address] [place] [address], [id number] 12/21/2024 15:07:25 12/14/19 25 12/21/2024 TOXAS SURE SELEC T 14 MINISTERIO-D IS mda (ecstasy mtb) NOT DETECT ED . Resul t Units : ng/mg creat Not Available [facility] [address] [place] [address], [id number] 12/21/2024 15:07:25 04/0712/21/2024 TOXAS SURE SELEC T 14 MINISTERIO-D IS benzodiazepi cammie +POSIT ARIADNE+ . Not Available [facility] [address] [place] [address], [id number] 12/21/2024 15:07:25 12/14/19 25 12/21/2024 TOXAS SURE SELEC T 14 MINISTERIO-D IS diazepam NOT DETECT ED . Resul t Units : ng/mg creat Not Available [facility] [address] [place] [address], [id number] 12/21/2024 15:07:25 12/14/19 25 12/21/2024 TOXAS SURE SELEC T 14 MINISTERIO-D IS desmethyldia zepam NOT DETECT ED . Resul t Units : ng/mg creat Not Available [facility] [address] [place] [address], [id number] 12/21/2024 15:07:25 12/14/19 25 12/21/2024 TOXAS SURE SELEC T 14 MINISTERIO-D IS oxazepam NOT DETECT ED . Resul t Units : ng/mg creat Not Available [facility] [address] [place] [address], 23517 12/21/2024 15:07:25 12/14/1912/21/2024 TOXAS SURE SELEC T [...] Oxaze catherine Oxaze catherine: None Not Available [facility] [address] [place] [address], [id number] 12/21/2024 15:07:25 12/14/19 25 12/21/2024 TOXAS SURE SELEC T 14 MINISTERIO-D IS alprazolam NOT DETECT ED . Resul t Units : ng/mg creat Not Available [facility] [address] [place] [address], 53465 12/21/2024 15:07:25 12/14/19 25 12/21/2024 TOXAS SURE SELEC T 14 MINISTERIO-D IS alpha-hydrox yalprazolam NOT DETECT ED . Resul t Units : ng/mg creat Not Available [facility] [address] [place] [address], 40196 12/21/2024 15:07:25 12/14/19 25 12/21/2024 TOXAS SURE SELEC T 14 MINISTERIO-D IS desalkylflur azepam NOT DETECT ED . Resul t Units : ng/mg creat Not Available [facility] [address] [place] [address], 96975 12/21/2024 15:07:25 12/14/19 25 12/21/2024 TOXAS SURE SELEC T 14 MINISTERIO-D IS lorazepam NOT DETECT ED . Resul t Units : ng/mg creat Not Available [facility] [address] [place] [address], 18017 12/21/2024 15:07:25 12/14/19 25 12/21/2024 TOXAS SURE SELEC T 14 MINISTERIO-D IS alpha-hydrox ytriazolam NOT DETECT ED . Resul t Units : ng/mg creat Not Available [facility] [address] [place] [address], 95481 12/21/2024 15:07:25 12/14/19 25 12/21/2024 TOXAS SURE SELEC T 14 MINISTERIO-D IS clonazepam NOT DETECT ED . Resul t Units : ng/mg creat Not Available [facility] [address] [place] [address], 39758 12/21/2024 15:07:25 12/14/19 25 12/21/2024 TOXAS SURE SELEC T 14 MINISTERIO-D IS 7-aminoclona zepam 288 . Resul t Units : ng/mg creat Not Available [facility] [address] [place] [address], 13448 12/21/2024 15:07:25 12/14/19 25 12/21/2024 TOXAS SURE SELEC T 14 MINISTERIO-D IS midazolam NOT DETECT ED . Resul t Units : ng/mg creat Not Available [facility] [address] [place] [address], 87398 12/21/2024 15:07:25 12/14/19 25 12/21/2024 TOXAS SURE SELEC T 14 MINISTERIO-D IS alpha-hydrox ymidazolam NOT DETECT ED . Resul t Units : ng/mg creat Not Available [facility] [address] [place] [address], 89209 12/21/2024 15:07:25 12/14/19 25 12/21/2024 TOXAS SURE SELEC T 14 MINISTERIO-D IS flunitrazepa m NOT DETECT ED . Resul t Units : ng/mg creat Not Available [facility] [address] [place] [address], [id number] 12/21/2024 15:07:25 12/14/19 25 12/21/2024 TOXAS SURE SELEC T 14 MINISTERIO-D IS desmethylflu nitrazepam NOT DETECT ED . Resul t Units : ng/mg creat Not Available [facility] [address] [place] [address], [id number] 12/21/2024 15:07:25 12/14/19 25 12/21/2024 TOXAS SURE SELEC T 14 MINISTERIO-D IS cocaine metabolite NEGATI VE . Not Available [facility] [address] [place] [address], 20421 12/21/2024 15:07:25 12/14/19 25 12/21/2024 TOXAS SURE SELEC T 14 MINISTERIO-D IS cocaine NOT DETECT ED . Resul t Units : ng/mg creat Not Available [facility] [address] [place] [address], [id number] 12/21/2024 15:07:25 12/14/19 25 12/21/2024 TOXAS SURE SELEC T 14 MINISTERIO-D IS benzoylecgon ine NOT DETECT ED . Resul t Units : ng/mg creat Not Available [facility] [address] [place] [address], 16369 12/21/2024 15:07:25 12/14/19 25 12/21/2024 TOXAS SURE SELEC T 14 MINISTERIO-D IS cocaethylene NOT DETECT ED . Resul t Units : ng/mg creat Not Available [facility] [address] [place] [address], 78500 12/21/2024 15:07:25 12/14/1912/21/2024 TOXAS SURE SELEC T 14 MINISTERIO-D IS cannabinoids NEGATI VE . Not Available [facility] [address] [place] [address], 03382 12/21/2024 15:07:25 12/14/1912/21/2024 TOXAS SURE SELEC T 14 MINISTERIO-D IS carboxy-THC NOT DETECT ED . Resul t Units : ng/mg creat Not Available [facility] [address] [place] [address], 10733 12/21/2024 15:07:25 12/14/1912/21/2024 TOXAS SURE SELEC T 14 MINISTERIO-D IS 6-acetylmorp kathrine scr NEGATI VE . Not Available [facility] [address] [place] [address], 11746 12/21/2024 15:07:25 12/14/19 25 12/21/2024 TOXAS SURE SELEC T 14 MINISTERIO-D IS 6-acetylmorp kathrine NOT DETECT ED . Resul t Units : ng/mg creat Not Available [facility] [address] [place] [address], 58172 12/21/2024 15:07:25 12/14/19 25 12/21/2024 TOXAS SURE SELEC T 14 MINISTERIO-D IS opiate class NEGATI VE . Not Available [facility] [address] [place] [address], 75663 12/21/2024 15:07:25 12/14/19 25 12/21/2024 TOXAS SURE SELEC T 14 MINISTERIO-D IS codeine NOT DETECT ED . Resul t Units : ng/mg creat Not Available [facility] [address] [place] [address], [id number] 12/21/2024 15:07:25 12/14/19 25 12/21/2024 TOXAS SURE SELEC T 14 MINISTERIO-D IS morphine NOT DETECT ED . Resul t Units : ng/mg creat Not Available [facility] [address] [place] [address], 09049 12/21/2024 15:07:25 12/14/19 25 12/21/2024 TOXAS SURE SELEC T 14 MINISTERIO-D IS normorphine NOT DETECT ED . Resul t Units : ng/mg creat Not Available [facility] [address] [place] [address], 39903 12/21/2024 15:07:25 12/14/19 25 12/21/2024 TOXAS SURE SELEC T 14 MINISTERIO-D IS norcodeine NOT DETECT ED . Resul t Units : ng/mg creat Not Available [facility] [address] [place] [address], 39709 12/21/2024 15:07:25 12/14/19 25 12/21/2024 TOXAS SURE SELEC T 14 MINISTERIO-D IS hydrocodone NOT DETECT ED . Resul t Units : ng/mg creat Not Available [facility] [address] [place] [address], 78758 12/21/2024 15:07:25 12/14/19 25 12/21/2024 TOXAS SURE SELEC T 14 MINISTERIO-D IS hydromorphon e NOT DETECT ED . Resul t Units : ng/mg creat Not Available [facility] [address] [place] [address], 19763 12/21/2024 15:07:25 12/14/19 25 12/21/2024 TOXAS SURE SELEC T 14 MINISTERIO-D IS dihydrocodei ne NOT DETECT ED . Resul t Units : ng/mg creat Not Available [facility] [address] [place] [address], 82481 12/21/2024 15:07:25 12/14/19 25 12/21/2024 TOXAS SURE SELEC T 14 MINISTERIO-D IS norhydrocodo ne NOT DETECT ED . Resul t Units : ng/mg creat Expec soto metab olism of opiat e class drugs : Paren t Drug Detec soto Metab olite s ----- ----- - ----- ----- ----- ----- Codei ne: Major : Morph ine, [place] deine Minor : Troup codon e, Troup morph one, Dihyd rocod eine, Norhy droco done, Normo rphin e Morph ine: Major : Normo rphin e Minor : Troup morph one Troup codon e: Troup morph one, Dihyd rocod eine, Norhy droco done Troup morph one: None Dihyd rocod eine: None Heroi n: 6-Stepan tylmo rphin e (if inclu ded), Morph ine, Normo rphin e Codei ne, in small amoun ts in margaret r[place] to morph ine, is often detec soto when heroi n is the sourc e drug. Not Available [facility] [address] [place] [address], [id number] 12/21/2024 15:07:25 12/14/19 25 12/21/2024 TOXAS SURE SELEC T 14 MINISTERIO-D IS oxycodone class NEGATI VE . Not Available [facility] [address] [place] [address], [id number] 12/21/2024 15:07:25 12/14/19 25 12/21/2024 TOXAS SURE SELEC T 14 MINISTERIO-D IS oxycodone NOT DETECT ED . Resul t Units : ng/mg creat Not Available [facility] [address] [place] [address], 35669 12/21/2024 15:07:25 12/14/19 25 12/21/2024 TOXAS SURE SELEC T 14 MINISTERIO-D IS oxymorphone NOT DETECT ED . Resul t Units : ng/mg creat Not Available [facility] [address] [place] [address], 33326 12/21/2024 15:07:25 12/14/1912/21/2024 TOXAS SURE SELEC T 14 MINISTERIO-D IS noroxycodone NOT DETECT ED . Resul t Units : ng/mg creat Not Available [facility] [address] [place] [address], 78086 12/21/2024 15:07:25 12/14/19 25 12/21/2024 TOXAS SURE [...] rphon e: Norox ymorp moncho Not Available [facility] [address] [place] [address], 38552 12/21/2024 15:07:25 12/14/1912/21/2024 TOXAS SURE SELEC T 14 MINISTERIO-D IS methadone scr NEGATI VE . Not Available [facility] [address] [place] [address], 58536 12/21/2024 15:07:25 12/14/19 25 12/21/2024 TOXAS SURE SELEC T 14 MINISTERIO-D IS methadone NOT DETECT ED . Resul t Units : ng/mg creat Not Available [facility] [address] [place] [address], 67635 12/21/2024 15:07:25 12/14/1912/21/2024 TOXAS SURE SELEC T 14 MINISTERIO-D IS EDDP (methadone mtb) NOT DETECT ED . Resul t Units : ng/mg creat Not Available [facility] [address] [place] [address], 33208 12/21/2024 15:07:25 12/14/1912/21/2024 TOXAS SURE SELEC T 14 MINISTERIO-D IS fentanyl analogues NEGATI VE . Not Available [facility] [address] [place] [address], 29092 12/21/2024 15:07:25 12/14/1912/21/2024 TOXAS SURE SELEC T 14 MINISTERIO-D IS fentanyl NOT DETECT ED . Resul t Units : ng/mg creat Not Available [facility] [address] [place] [address], 81155 12/21/2024 15:07:25 12/14/1912/21/2024 TOXAS SURE SELEC T 14 MINISTERIO-D IS norfentanyl NOT DETECT ED . Resul t Units : ng/mg creat Not Available [facility] [address] [place] [address], 66866 12/21/2024 15:07:25 12/14/1912/21/2024 TOXAS SURE SELEC T 14 MINISTERIO-D IS sufentanil NOT DETECT ED . Resul t Units : ng/mg creat Not Available [facility] [address] [place] [address], [id number] 12/21/2024 15:07:25 12/14/19 25 12/21/2024 TOXAS SURE SELEC T 14 MINISTERIO-D IS alfentanil NOT DETECT ED . Resul t Units : ng/mg creat Not Available [facility] [address] [place] [address], 20327 12/21/2024 15:07:25 12/14/19 25 12/21/2024 TOXAS SURE SELEC T 14 MINISTERIO-D IS buprenorphin e scr +POSIT ARIADNE+ . Not Available [facility] [address] [place] [address], [id number] 12/21/2024 15:07:25 12/14/19 25 12/21/2024 TOXAS SURE SELEC T 14 MINISTERIO-D IS buprenorphin e 42 . Resul t Units : ng/mg creat Not Available [facility] [address] [place] [address], 88589 12/21/2024 15:07:25 12/14/19 25 12/21/2024 TOXAS SURE SELEC T 14 MINISTERIO-D IS norbuprenorp kathrine 242 . Resul t Units : ng/mg creat Not Available [facility] [address] [place] [address], 33729 12/21/2024 15:07:25 12/14/19 25 12/21/2024 TOXAS SURE SELEC T 14 MINISTERIO-D IS tapentadol scr NEGATI VE . Not Available [facility] [address] [place] [address], 49972 12/21/2024 15:07:25 12/14/19 25 12/21/2024 TOXAS SURE SELEC T 14 MINISTERIO-D IS tapentadol NOT DETECT ED . Resul t Units : ng/mg creat Not Available [facility] [address] [place] [address], 74956 12/21/2024 15:07:25 12/14/19 25 12/21/2024 TOXAS SURE SELEC T 14 MINISTERIO-D IS other opioids NEGATI VE . Not Available [facility] [address] [place] [address], 10886 12/21/2024 15:07:25 12/14/19 25 12/21/2024 TOXAS SURE SELEC T 14 MINISTERIO-D IS tramadol NOT DETECT ED . Resul t Units : ng/mg creat Not Available [facility] [address] [place] [address], 70091 12/21/2024 15:07:25 12/14/19 25 12/21/2024 TOXAS SURE SELEC T 14 MINISETRIO-D IS O-desmethylt ramadol NOT DETECT ED . Resul t Units : ng/mg creat Not Available [facility] [address] [place] [address], 37799 12/21/2024 15:07:25 12/14/19 25 12/21/2024 TOXAS SURE SELEC T 14 MINISTERIO-D IS N-desmethylt ramadol NOT DETECT ED . Resul t Units : ng/mg creat Not Available [facility] [address] [place] [address], 05716 12/21/2024 15:07:25 12/14/19 25 12/21/2024 TOXAS SURE SELEC T 14 MINISTERIO-D IS barbiturates NEGATI VE . Not Available [facility] [address] [place] [address], 78976 12/21/2024 15:07:25 12/14/19 25 12/21/2024 TOXAS SURE SELEC T 14 MINISTERIO-D IS amobarbital NOT DETECT ED . Not Available [facility] [address] [place] [address], 68265 12/21/2024 15:07:25 12/14/19 25 12/21/2024 TOXAS SURE SELEC T 14 MINISTERIO-D IS barbital NOT DETECT ED . Not Available [facility] [address] [place] [address], 98555 12/21/2024 15:07:25 12/14/19 25 12/21/2024 TOXAS SURE SELEC T 14 MINISTERIO-D IS butabarbital NOT DETECT ED . Not Available [facility] [address] [place] [address], 95391 12/21/2024 15:07:25 12/14/19 25 12/21/2024 TOXAS SURE SELEC T 14 MINISTERIO-D IS butalbital NOT DETECT ED . Not Available [facility] [address] [place], [address] 12/21/2024 15:07:25 12/14/19 25 12/21/2024 TOXAS SURE SELEC T 14 MINISTERIO-D IS mephobarbita l NOT DETECT ED . Not Available [facility] [address] [place], [address] 12/21/2024 15:07:25 12/14/19 25 12/21/2024 TOXAS SURE SELEC T 14 MINISTERIO-D IS pentobarbita l NOT DETECT ED . Not Available [facility] [address] [place], [address] 12/21/2024 15:07:25 12/14/19 25 12/21/2024 TOXAS SURE SELEC T 14 MINISTERIO-D IS phenobarbita l NOT DETECT ED . Not Available [facility] [address] [place], [address] 12/21/2024 15:07:25 12/14/19 25 12/21/2024 TOXAS SURE SELEC T 14 MINISTERIO-D IS secobarbital NOT DETECT ED . Not Available [facility] [address] [place], [address] 12/21/2024 15:07:25 12/14/19 25 12/21/2024 TOXAS SURE SELEC T 14 MINISTERIO-D IS thiopental NOT DETECT ED . Not Available [facility] [address] [place], [address] 12/21/2024 15:07:25 12/14/19 25 12/21/2024 TOXAS SURE SELEC T 14 MINISTERIO-D IS other hallucinogen s NEGATI VE . Not Available [facility] [address] [place], [address] 12/21/2024 15:07:25 12/14/19 25 12/21/2024 TOXAS SURE SELEC T 14 MINISTERIO-D IS phencyclidin e NOT DETECT ED . Not Available [facility] [address] [place], [address] 12/21/2024 15:07:25 12/14/19 25 12/21/2024 TOXAS SURE SELEC T 14 MINISTERIO-D IS level of detection: COMMMATT Badillo TESTI NG THRES HOLDS ARE FOLLO WS: [...] [facility] [address] [place] [address] 776 Lab Direc tor: Ara barroso [facility] , Phone : [phone] Not Available [facility] [address] [place] [address], 27777 12/21/2024 15:07:25 05/10/2005/13/2025 TOXAS SURE SELEC T 14 MINISTERIO-D IS report summary FINAL . ===== ===== ===== ===== ===== ===== ===== ===== ===== ===== ===== ===== ===== === TOXAS SURE SELEC T 14 MINISTERIO-D IS ===== ===== ===== ===== ===== ===== ===== ===== ===== ===== ===== ===== ===== === Speci men Alert Note: Urina ry creat inine is low; abili ty to detec t some drugs may be compr omise d. Inter pret resul ts with cauti on. ===== ===== ===== ===== ===== ===== ===== ===== ===== ===== ===== ===== ===== === Test Resul t Flag Units Drug Prese nt 7-ami noclo nazep am 950 ng/mg creat 7-ami noclo nazep am is an expec soto metab olite of clona zepam . Sourc e of clona zepam is a sched uled presc ripti on medic ation . Bupre norph ine 120 ng/mg creat Norbu preno rphin e 350 ng/mg creat Sourc e of bupre norph ine is a sched uled presc ripti on medic ation . Norbu preno rphin e is an expec soto metab olite of bupre norph ine. ===== ===== ===== ===== ===== ===== ===== ===== ===== ===== ===== ===== ===== === Test Resul t Flag Units Ref Range Creat inine 10 L mg/dL >=20 ===== ===== ===== ===== ===== [...] ===== ===== ===== ===== === Not Available [facility] [address] [place] [address], 34705 05/13/2025 20:13:33 05/10/2005/13/2025 TOXAS SURE SELEC T 14 MINISTERIO-D IS urine creatinine 10 mg/dL >=20 abnormal Note: Urina ry creat inine is low; abili ty to detec t some drugs may be compr omise d. Inter pret resul ts with cauti on. REFER ENCE RANGE : Ref Range >=20 Not Available [facility] [address] [place] [address], 60005 05/13/2025 20:13:33 05/10/2005/13/2025 TOXAS SURE SELEC T 14 MINISTERIO-D IS ethanol biomarkers NEGATI VE . Not Available [facility] [address] [place] [address], 32766 05/13/2025 20:13:33 05/10/2005/13/2025 TOXAS SURE SELEC T 14 MINISTERIO-D IS ethyl glucuronide NOT DETECT ED . Resul t Units : ng/mg creat Not Available [facility] [address] [place] [address], 38296 05/13/2025 20:13:33 05/10/2005/13/2025 TOXAS SURE SELEC T 14 MINISTERIO-D IS ethyl sulfate NOT DETECT ED . Resul t Units : ng/mg creat Not Available [facility] [address] [place] [address], 13116 05/13/2025 20:13:33 05/10/20 25 05/13/2025 TOXAS SURE SELEC T 14 MINISTERIO-D IS amphetamines NEGATI VE . Not Available [facility] [address] [place] [address], 93388 05/13/2025 20:13:33 05/10/20 25 05/13/2025 TOXAS SURE SELEC T 14 MINISTERIO-D IS methamphetam ine NOT DETECT ED . Resul t Units : ng/mg creat Not Available [facility] [address] [place] [address], 96748 05/13/2025 20:13:33 05/10/20 25 05/13/2025 TOXAS SURE SELEC T 14 MINISTERIO-D IS amphetamine NOT DETECT ED . Resul t Units : ng/mg creat Not Available [facility] [address] [place] [address], 34343 05/13/2025 20:13:33 05/10/2005/13/2025 TOXAS SURE SELEC T 14 MINISTERIO-D IS MDMA (ecstasy) NOT DETECT ED . Resul t Units : ng/mg creat Not Available [facility] [address] [place] [address], 13493 05/13/2025 20:13:33 05/10/20 25 05/13/2025 TOXAS SURE SELEC T 14 MINISTERIO-D IS mda (ecstasy mtb) NOT DETECT ED . Resul t Units : ng/mg creat Not Available [facility] [address] [place] [address], [id number] 05/13/2025 20:13:33 05/10/20 25 05/13/2025 TOXAS SURE SELEC T 14 MINISTERIO-D IS benzodiazepi cammie +POSIT ARIADNE+ . Not Available [facility] [address] [place] [address], 69842 05/13/2025 20:13:33 05/10/20 25 05/13/2025 TOXAS SURE SELEC T 14 MINISTERIO-D IS diazepam NOT DETECT ED . Resul t Units : ng/mg creat Not Available [facility] [address] [place] [address], 60956 05/13/2025 20:13:33 05/10/20 25 05/13/2025 TOXAS SURE SELEC T 14 MINISTERIO-D IS desmethyldia zepam NOT DETECT ED . Resul t Units : ng/mg creat Not Available [facility] [address] [place] [address], 55817 05/13/2025 20:13:33 05/10/20 25 05/13/2025 TOXAS SURE SELEC T 14 MINISTERIO-D IS oxazepam NOT DETECT ED . Resul t Units : ng/mg creat Not Available [facility] [address] [place] [address], 92647 05/13/2025 20:13:33 05/10/20 25 05/13/2025 TOXAS SURE SELEC T 14 MINISTERIO-D IS [...] Oxaze catherine Oxaze catherine: None Not Available [facility] [address] [place] [address], 14152 05/13/2025 20:13:33 05/10/20 25 05/13/2025 TOXAS SURE SELEC T 14 MINISTERIO-D IS alprazolam NOT DETECT ED . Resul t Units : ng/mg creat Not Available [facility] [address] [place] [address], 33380 05/13/2025 20:13:33 05/10/20 25 05/13/2025 TOXAS SURE SELEC T 14 MINISTERIO-D IS alpha-hydrox yalprazolam NOT DETECT ED . Resul t Units : ng/mg creat Not Available [facility] [address] [place] [address], 24999 05/13/2025 20:13:33 05/10/20 25 05/13/2025 TOXAS SURE SELEC T 14 MINISTERIO-D IS desalkylflur azepam NOT DETECT ED . Resul t Units : ng/mg creat Not Available [facility] [address] [place] [address], 97283 05/13/2025 20:13:33 05/10/20 25 05/13/2025 TOXAS SURE SELEC T 14 MINISTERIO-D IS lorazepam NOT DETECT ED . Resul t Units : ng/mg creat Not Available [facility] [address] [place] [address], 04735 05/13/2025 20:13:33 05/10/20 25 05/13/2025 TOXAS SURE SELEC T 14 MINISTERIO-D IS alpha-hydrox ytriazolam NOT DETECT ED . Resul t Units : ng/mg creat Not Available [facility] [address] [place] [address], 03576 05/13/2025 20:13:33 05/10/2005/13/2025 TOXAS SURE SELEC T 14 MINISTERIO-D IS clonazepam NOT DETECT ED . Resul t Units : ng/mg creat Not Available [facility] [address] [place] [address], 61678 05/13/2025 20:13:33 05/10/20 25 05/13/2025 TOXAS SURE SELEC T 14 MINISTERIO-D IS 7-aminoclona zepam 950 . Resul t Units : ng/mg creat Not Available [facility] [address] [place] [address], 22202 05/13/2025 20:13:33 05/10/20 25 05/13/2025 TOXAS SURE SELEC T 14 MINISTERIO-D IS midazolam NOT DETECT ED . Resul t Units : ng/mg creat Not Available [facility] [address] [place] [address], 16297 05/13/2025 20:13:33 05/10/20 25 05/13/2025 TOXAS SURE SELEC T 14 MINISTERIO-D IS alpha-hydrox ymidazolam NOT DETECT ED . Resul t Units : ng/mg creat Not Available [facility] [address] [place] [address], 51685 05/13/2025 20:13:33 05/10/20 25 05/13/2025 TOXAS SURE SELEC T 14 MINISTERIO-D IS flunitrazepa m NOT DETECT ED . Resul t Units : ng/mg creat Not Available [facility] [address] [place], [address] 05/13/2025 20:13:33 05/10/20 25 05/13/2025 TOXAS SURE SELEC T 14 MINISTERIO-D IS desmethylflu nitrazepam NOT DETECT ED . Resul t Units : ng/mg creat Not Available [facility] [address] [place] [address], 90813 05/13/2025 20:13:33 05/10/20 25 05/13/2025 TOXAS SURE SELEC T 14 MINISTERIO-D IS cocaine metabolite NEGATI VE . Not Available [facility] [address] [place] [address], 20969 05/13/2025 20:13:33 05/10/20 25 05/13/2025 TOXAS SURE SELEC T 14 MINISTERIO-D IS cocaine NOT DETECT ED . Resul t Units : ng/mg creat Not Available [facility] [address] [place] [address], 84754 05/13/2025 20:13:33 05/10/20 25 05/13/2025 TOXAS SURE SELEC T 14 MINISTERIO-D IS benzoylecgon ine NOT DETECT ED . Resul t Units : ng/mg creat Not Available [facility] [address] [place] [address], 28052 05/13/2025 20:13:33 05/10/20 25 05/13/2025 TOXAS SURE SELEC T 14 MINISTERIO-D IS cocaethylene NOT DETECT ED . Resul t Units : ng/mg creat Not Available [facility] [address] [place] [address], 12965 05/13/2025 20:13:33 05/10/20 25 05/13/2025 TOXAS SURE SELEC T 14 MINISTERIO-D IS cannabinoids NEGATI VE . Not Available [facility] [address] [place] [address], 50912 05/13/2025 20:13:33 05/10/20 25 05/13/2025 TOXAS SURE SELEC T 14 MINISTERIO-D IS carboxy-THC NOT DETECT ED . Resul t Units : ng/mg creat Not Available [facility] [address] [place] [address], 28465 05/13/2025 20:13:33 05/10/2005/13/2025 TOXAS SURE SELEC T 14 MINISTERIO-D IS 6-acetylmorp kathrine scr NEGATI VE . Not Available [facility] [address] [place] [address], 39357 05/13/2025 20:13:33 05/10/20 25 05/13/2025 TOXAS SURE SELEC T 14 MINISTERIO-D IS 6-acetylmorp kathrine NOT DETECT ED . Resul t Units : ng/mg creat Not Available [facility] [address] [place] [address], 67352 05/13/2025 20:13:33 05/10/20 25 05/13/2025 TOXAS SURE SELEC T 14 MINISTERIO-D IS opiate class NEGATI VE . Not Available [facility] [address] [place] [address], 64954 05/13/2025 20:13:33 05/10/2005/13/2025 TOXAS SURE SELEC T 14 MINISTERIO-D IS codeine NOT DETECT ED . Resul t Units : ng/mg creat Not Available [facility] [address] [place] [address], 42311 05/13/2025 20:13:33 05/10/2005/13/2025 TOXAS SURE SELEC T 14 MINISTERIO-D IS morphine NOT DETECT ED . Resul t Units : ng/mg creat Not Available [facility] [address] [place] [address], 63255 05/13/2025 20:13:33 05/10/2005/13/2025 TOXAS SURE SELEC T 14 MINISTERIO-D IS normorphine NOT DETECT ED . Resul t Units : ng/mg creat Not Available [facility] [address] [place] [address], 70987 05/13/2025 20:13:33 05/10/20 25 05/13/2025 TOXAS SURE SELEC T 14 MINISTERIO-D IS norcodeine NOT DETECT ED . Resul t Units : ng/mg creat Not Available [facility] [address] [place] [address], 60573 05/13/2025 20:13:33 05/10/20 25 05/13/2025 TOXAS SURE SELEC T 14 MINISTERIO-D IS hydrocodone NOT DETECT ED . Resul t Units : ng/mg creat Not Available [facility] [address] [place], [address] 05/13/2025 20:13:33 05/10/2005/13/2025 TOXAS SURE SELEC T 14 MINISTERIO-D IS hydromorphon e NOT DETECT ED . Resul t Units : ng/mg creat Not Available [facility] [address] [place], [address] 05/13/2025 20:13:33 05/10/20 25 05/13/2025 TOXAS SURE SELEC T 14 MINISTERIO-D IS dihydrocodei ne NOT DETECT ED . Resul t Units : ng/mg creat Not Available [facility] [address] [place], [address] 05/13/2025 20:13:33 05/10/2005/13/2025 TOXAS SURE SELEC T 14 MINISTERIO-D IS norhydrocodo ne NOT DETECT ED . Resul t Units : ng/mg creat Expec soto metab olism of opiat e class drugs : Paren t Drug Detec soto Metab olite s ----- ----- - ----- ----- ----- ----- Codei ne: Major : Morph ine, [place] deine Minor : Troup codon e, Troup morph one, Dihyd rocod eine, Norhy droco done, Normo rphin e Morph ine: Major : Normo rphin e Minor : Troup morph one Troup codon e: Troup morph one, Dihyd rocod eine, Norhy droco done Troup morph one: None Dihyd rocod eine: None Heroi n: 6-Stepan tylmo rphin e (if inclu ded), Morph ine, Normo rphin e Codei ne, in small amoun ts in margaret rison to morph ine, is often detec soto when heroi n is the sourc e drug. Not Available [facility] [address] [place], [address] 05/13/2025 20:13:33 05/10/20 25 05/13/2025 TOXAS SURE SELEC T 14 MINISTERIO-D IS oxycodone class NEGATI VE . Not Available [facility] [address] [place] [address], 37398 05/13/2025 20:13:33 05/10/2005/13/2025 TOXAS SURE SELEC T 14 MINISTERIO-D IS oxycodone NOT DETECT ED . Resul t Units : ng/mg creat Not Available [facility] [address] [place] [address], 69647 05/13/2025 20:13:33 05/10/2005/13/2025 TOXAS SURE SELEC T 14 MINISTERIO-D IS oxymorphone NOT DETECT ED . Resul t Units : ng/mg creat Not Available [facility] [address] [place] [address], 86304 05/13/2025 20:13:33 05/10/2005/13/2025 TOXAS SURE SELEC T 14 MINISTERIO-D IS noroxycodone NOT DETECT ED . Resul t Units : ng/mg creat Not Available [facility] [address] [place] [address], 12664 05/13/2025 20:13:33 05/10/2005/13/2025 TOXAS SURE SELEC T 14 MINISTERIO-D IS noroxymorpho ne NOT DETECT ED . Resul t Units : ng/mg creat Expec soto metab olism of oxyco done class drugs : Paren t Drug Detec soto Metab olite s ----- ----- - ----- ----- ----- ----- Oxyco done: Oxymo rphon e, Norox ycodo ne, Norox ymorp moncho Oxymo rphon e: Norox ymorp moncho Not Available [facility] [address] [place] [address], 82941 05/13/2025 20:13:33 05/10/2005/13/2025 TOXAS SURE SELEC T 14 MINISTERIO-D IS methadone scr NEGATI VE . Not Available [facility] [address] [place] [address], 35851 05/13/2025 20:13:33 05/10/20 25 05/13/2025 TOXAS SURE SELEC T 14 MINISTERIO-D IS methadone NOT DETECT ED . Resul t Units : ng/mg creat Not Available [facility] [address] [place] [address], 50988 05/13/2025 20:13:33 05/10/2005/13/2025 TOXAS SURE SELEC T 14 MINISTERIO-D IS EDDP (methadone mtb) NOT DETECT ED . Resul t Units : ng/mg creat Not Available [facility] [address] [place] [address], 16064 05/13/2025 20:13:33 05/10/20 25 05/13/2025 TOXAS SURE SELEC T 14 MINISTERIO-D IS fentanyl analogues NEGATI VE . Not Available [facility] [address] [place] [address], 33100 05/13/2025 20:13:33 05/10/2005/13/2025 TOXAS SURE SELEC T 14 MINISTERIO-D IS fentanyl NOT DETECT ED . Resul t Units : ng/mg creat Not Available [facility] [address] [place] [address], 31536 05/13/2025 20:13:33 05/10/2005/13/2025 TOXAS SURE SELEC T 14 MINISTERIO-D IS norfentanyl NOT DETECT ED . Resul t Units : ng/mg creat Not Available [facility] [address] [place] [address], 58094 05/13/2025 20:13:33 05/10/2005/13/2025 TOXAS SURE SELEC T 14 MINISTERIO-D IS sufentanil NOT DETECT ED . Resul t Units : ng/mg creat Not Available [facility] [address] [place] [address], 49041 05/13/2025 20:13:33 05/10/2005/13/2025 TOXAS SURE SELEC T 14 MINISTERIO-D IS alfentanil NOT DETECT ED . Resul t Units : ng/mg creat Not Available [facility] [address] [place] [address], 53227 05/13/2025 20:13:33 05/10/20 25 05/13/2025 TOXAS SURE SELEC T 14 MINISTERIO-D IS buprenorphin e scr +POSIT ARIADNE+ . Not Available [facility] [address] [place] [address], 66991 05/13/2025 20:13:33 05/10/20 25 05/13/2025 TOXAS SURE SELEC T 14 MINISTERIO-D IS buprenorphin e 120 . Resul t Units : ng/mg creat Not Available [facility] [address] [place] [address], 91727 05/13/2025 20:13:33 05/10/20 25 05/13/2025 TOXAS SURE SELEC T 14 MINISTERIO-D IS norbuprenorp kathrine 350 . Resul t Units : ng/mg creat Not Available [facility] [address] [place], [address] 05/13/2025 20:13:33 05/10/2005/13/2025 TOXAS SURE SELEC T 14 MINISTERIO-D IS tapentadol scr NEGATI VE . Not Available [facility] [address] [place] [address], 98499 05/13/2025 20:13:33 05/10/2005/13/2025 TOXAS SURE SELEC T 14 MINISTERIO-D IS tapentadol NOT DETECT ED . Resul t Units : ng/mg creat Not Available [facility] [address] [place] [address], 51759 05/13/2025 20:13:33 05/10/2005/13/2025 TOXAS SURE SELEC T 14 MINISTERIO-D IS other opioids NEGATI VE . Not Available [facility] [address] [place] [address], 25155 05/13/2025 20:13:33 05/10/2005/13/2025 TOXAS SURE SELEC T 14 MINISTERIO-D IS tramadol NOT DETECT ED . Resul t Units : ng/mg creat Not Available [facility] [address] [place] [address], 08013 05/13/2025 20:13:33 05/10/2005/13/2025 TOXAS SURE SELEC T 14 MINISTERIO-D IS O-desmethylt ramadol NOT DETECT ED . Resul t Units : ng/mg creat Not Available [facility] [address] [place] [address], [id number] 05/13/2025 20:13:33 05/10/20 25 05/13/2025 TOXAS SURE SELEC T 14 MINISTERIO-D IS N-desmethylt ramadol NOT DETECT ED . Resul t Units : ng/mg creat Not Available [facility] [address] [place] [address], 96166 05/13/2025 20:13:33 05/10/2005/13/2025 TOXAS SURE SELEC T 14 MINISTERIO-D IS barbiturates NEGATI VE . Not Available [facility] [address] [place] [address], 59523 05/13/2025 20:13:33 05/10/2005/13/2025 TOXAS SURE SELEC T 14 MINISTERIO-D IS amobarbital NOT DETECT ED . Not Available [facility] [address] [place] [address], 13397 05/13/2025 20:13:33 05/10/2005/13/2025 TOXAS SURE SELEC T 14 MINISTERIO-D IS barbital NOT DETECT ED . Not Available [facility] [address] [place] [address], 88605 05/13/2025 20:13:33 05/10/2005/13/2025 TOXAS SURE SELEC T 14 MINISTERIO-D IS butabarbital NOT DETECT ED . Not Available [facility] [address] [place] [address], 77563 05/13/2025 20:13:33 05/10/2005/13/2025 TOXAS SURE SELEC T 14 MINISTERIO-D IS butalbital NOT DETECT ED . Not Available [facility] [address] [place] [address], 59888 05/13/2025 20:13:33 05/10/2005/13/2025 TOXAS SURE SELEC T 14 MINISTERIO-D IS mephobarbita l NOT DETECT ED . Not Available [facility] [address] [place] [address], 53294 05/13/2025 20:13:33 05/10/2005/13/2025 TOXAS SURE SELEC T 14 MINISTERIO-D IS pentobarbita l NOT DETECT ED . Not Available [facility] [address] [place] [address], 72420 05/13/2025 20:13:33 05/10/20 25 05/13/2025 TOXAS SURE SELEC T 14 MINISTERIO-D IS phenobarbita l NOT DETECT ED . Not Available [facility] [address] [place], [address] 05/13/2025 20:13:33 05/10/20 25 05/13/2025 TOXAS SURE SELEC T 14 MINISTERIO-D IS secobarbital NOT DETECT ED . Not Available [facility] [address] [place] [address], 92805 05/13/2025 20:13:33 05/10/20 25 05/13/2025 TOXAS SURE SELEC T 14 MINISTERIO-D IS thiopental NOT DETECT ED . Not Available [facility] [address] [place] [address], 52906 05/13/2025 20:13:33 05/10/20 25 05/13/2025 TOXAS SURE SELEC T 14 MINISTERIO-D IS other hallucinogen s NEGATI VE . Not Available [facility] [address] [place] [address], 35705 05/13/2025 20:13:33 05/10/2005/13/2025 TOXAS SURE SELEC T 14 MINISTERIO-D IS phencyclidin e NOT DETECT ED . Not Available [facility] [address] [place] [address], 96750 05/13/2025 20:13:33 05/10/2005/13/2025 TOXAS SURE SELEC T 14 MINISTERIO-D IS [...] [facility] [address] [place] [address] 116 Lab Direc tor: Ara Campo chio [facility] , Phone : [phone] Not Available [facility] [address] [place], [address] 05/13/2025 20:13:33 Result Notes None recorded. Medical Equipment None Reported. Allergies Allergen ID Allergen Name Allergen Category Reaction Reaction Severity Criticality Documentation Date Start Date Code Code System Note Provider Name and Address Organization Details Recorded Time [id number] aspirin medicatio n Not available Not available Not available 11/15/2024 1191 RxNorm ZEKE [place], [place] - [facility] 12:15:29 Medications Name Sig Start Date [...] t Available prednisone 20 mg tablet TAKE 3 TABLETS DAILY FOR 3 DAYS, 2 TABS DAILY FOR 3 DAYS, 1 TAB DAILY FOR 3 DAYS active Not Available Not Available No t Available clonazepam 0.5 mg tablet TAKE 1 TABLET BY MOUTH TWICE A DAY NEEDED FOR ANXIETY active Not Available Not Available No t Available phentermin e 15 mg capsule TAKE 1 CAPSULE (15 MG TOTAL) BY MOUTH ONCE DAILY BEFORE BREAKFAS T MAX DAILY AMOUNT: 15 MG active Not Available Not Available No [...] t Available lidocaine 5 % topical patch APPLY 2 PATCH DAILY NEEDED FOR PAIN FOR 30 DAYS LEAVE ON MOST PAINFUL AREA FOR UP TO 12 HRS/DAY active Not Available Not Available No t [...] unit) capsule TAKE 1 CAPSULE BY MOUTH EVERY DAY active Not Available Not Available No t Available amoxicilli n 875 mg-potassi um clavulanat e 125 mg tablet TAKE 1 TABLET BY MOUTH TWICE A DAY FOR 2 WEEKS 07/16 completed Not Available Not Available Not Available oxycodone 5 mg tablet TAKE 1 [...] t Available Belbuca [address] 1 film twice a day by buccal route as directed for 28 days. 2024 active Not Available Not Available Not Avai lable Narcan 4 mg/actuati on nasal spray as directed if needed 2024 active Not Available Not Available Not Avai lable Vitals Date Recorded Heart rate Systolic And Diastolic Provider Name and Address Organization Details Last Updated DateTime 11/15/2024 83 /min 123/60 mm[Hg] Gloria Erwin CNA [facility] 11/15/2024 12:40:22 Date Recorded Heart rate Systolic And Diastolic Provider Name and Address Organization Details Last Updated DateTime 12/13/2024 103 /min 171/82 mm[Hg] [facility] 12/13/2024 14:57:17 Date Recorded Heart rate Systolic And Diastolic Provider Name and Address Organization Details Last Updated DateTime 03/02/2025 121 /min 125/85 mm[Hg] [facility] 03/02/2025 16:14:19 Date Recorded Heart rate Systolic And Diastolic Provider Name and Address Organization Details Last Updated DateTime 05/10/2025 80 /min 132/77 mm[Hg] Gloria Erwin CNA [facility] 05/10/2025 14:07:06 Date Recorded Heart rate Systolic And Diastolic Provider Name and Address Organization Details Last Updated DateTime 07/19/2025 88 /min 146/84 mm[Hg] Gloria Erwin CNA [facility] 07/19/2025 14:33:01 Social History Question Answer Notes LastModified by Organizat ion Details LastModified Time Tobacco Smoking Status Never Smoker Gloria Erwin CNA [facility] 11/15/2024 12:20:05 What Is Your Relationship Status? [...] ICD10 Code Diagnosis IMO Codes Diagnosis Note [id number] Arnaud Odell MD [facility] [address] [place] [address] [place] [address] 11/15/2024 11:54:19 11/15/2024 14:09:06 Lumbar spondylosis 967022263 M47.816 81471 Spinal katei nosis of lumbar region 64821963 M48.062 542493 Spinal katie nosis in cervical region 00934868 M48.02 08184 Cervical spondylosis 387 350903 M47.812 85772 Chronic pain 15036769 G8 9.29 127686 Idiopathic peripheral neuropathy 45943947 G60.8 44490 [id number] BARBARA MUSE [facility] [address] [place] [address] [place] [address] 12/13/2024 14:21:35 12/13/2024 15:33:54 Lumbar spondylosis 827809719 M47.816 05427 Spinal katie nosis of lumbar region 62065758 M48.062 772068 Spinal katie nosis in cervical region 97067058 M48.02 60584 Cervical spondylosis 387 276786 M47.812 89104 Chronic pain 39842692 G8 9.29 001778 Idiopathic peripheral neuropathy 62211122 G60.8 19091 [id number] Arnaud Odell MD [facility] [address] [place] [address] [place] [address] 03/02/2025 15:58:24 03/03/2025 08:02:51 Lumbar spondylosis 997498562 M47.816 82532 Spinal katie nosis of lumbar region 84384470 M48.062 986917 Spinal katie nosis in cervical region 55248123 M48.02 66904 Cervical spondylosis 387 979273 M47.812 08351 Chronic pain 05839335 G8 9.29 928382 Idiopathic peripheral neuropathy 12377991 G60.8 92304 Myofascial pain 56035416 9 M79.18 568255 lumbar paraspinal s and traps Osteoarthr itis of right knee joint 4150005057 05033 M17.11 [id number] Mj Giraldo DNP [facility] [address] [place] [address] [place] [address] 05/10/2025 13:28:10 05/10/2025 14:43:16 Lumbar spondylosis 709967733 M47.816 92866 Spinal katie nosis of lumbar region 42282824 M48.062 745844 Spinal katie nosis in cervical region 27234502 M48.02 77104 Cervical spondylosis 387 893529 M47.812 29497 Chronic pain 87173341 G8 9.29 565588 Idiopathic peripheral neuropathy 28764597 G60.8 78142 Myofascial pain 19033497 9 M79.18 324473 lumbar paraspinal s and traps Osteoarthr itis of right knee joint 0568991497 33648 M17.11 [id number] [id number] Mj Giraldo DNP [facility] [address] [place] [address] [place] [address] 07/19/2025 14:15:57 07/19/2025 14:48:40 Lumbar spondylosis 553730638 M47.816 79203 Spinal katie nosis of lumbar region 69403967 M48.062 494946 Spinal katie nosis in cervical region 72477761 M48.02 73473 Cervical spondylosis 387 799600 M47.812 37512 Chronic pain 40243757 G8 9.29 191789 Idiopathic peripheral neuropathy 29847069 G60.8 08666 Myofascial pain 71744487 9 M79.18 161026 lumbar paraspinal s and traps Osteoarthr itis of right knee joint 0667773158 40114 M17.11 [id number] Health Concerns Section Related Observation LastModified by Organization Detai ls LastModified Time None Recorded Concern Status LastModified by Organization Details LastModified Time None Recorded Advance Directives Directive None Recorded Payers Insurance Date Sequence Insurance Name Policy Number Policy Lira Covered Member ID Lira Member ID Guarantor Name 07/22/2025 1 [employer] (MEDICARE REPLACEMENT/A DVANTAGE - PPO) Michelle Miner [id number] Michelle Miner 07/14/2025 2 [place] [facility] Michelle Miner [id number] Michelle Miner Notes Date Note Type Note [...] 9. For prior tests?, patient reportsx-rays,mri,ct scan, andemg([facility]). For conditions associated with your pain?, patient reportsmuscle weakness,difficulty walking, andnumbness / tingling / pins/ needles. For prior treatments?, patient reportsphysical therapy (spine & sports - 6 months ago for neck spine & sportshelped for a short period of time)andinjection(s) [facility] cortizone injection every 3 months - neck/shoulders/kneessomewhat helpful)(ice -sometimes). For location, (neck into the arms and forearms and lower back pain and burning in the legsused to get belbuca 900 bid from [facility], was discharged as she was missing 3 films). For how long have you had this pain?, (several years). For prior medications you've tried?, (belbuca - helpful). Arnaud Odell MD [address] [place], [address], [facility] 11/15/2024 13:31:53 12/14/19 text/htm l Pain Management: Follow-upReported by PatientHPIFor [...] previous evaluation. Denies any new concerns today. rAnaud Odell MD [address] [place], [address], [facility] 12/13/2024 15:49:02 03/02/20 25 text/htm l [...] with current medications, (belbuca). Arnaud Odell MD [address] [place] [address], [phone], [facility] 03/02/2025 16:54:32 05/10/20 25 text/htm l [...] current medications, patient reportsno side effects from [id number]%(belbuca). For location, (chronic lower back pain , b/l le painful numbness and neck pain radiating into b/l ue).no changes Arnaud Odell MD [address] [place] [address], [phone], [facility] 05/10/2025 14:40:20 07/19/20 25 text/htm l Pain Management: Follow-upReported by [...] For timing, patient reportsconstant. For progression, patient reportsno change. For alleviating factors, patient reportsnothing helps. For aggravating factors, patient reportswalking. For adl (activities of daily living), patient reportsimprove with medication(belbuca). For pain relief with current medications, patient reportsno side effects from [id number]%(belbuca). For location, (chronic lower back pain , b/l le painful numbness and neck pain radiating into b/l ue).no changes Arnaud Odell MD [address] [place] [address], [phone], [facility] 07/20/2025 10:03:31 OBGyn Episode No OBEpisode recorded.
--- OUTSIDE RECORDS SUMMARY | 2025-07-28 18:42 | XMS_ITS | Data Portability ---
Author Organization [place] [facility] Klaudia Cruz AONE [place] Address [address] [facility] [address] [place] [address] Care Team Providers Care Telecom Network Manager Name Role Phone SAEID ORTIZ Primary Care [...] it sounds like. This was done at [facility]. She is having increasing right knee [...] degrees. The knee is stable within that [id number] to AP and ML stress. The alignment [...] with right total knee arthroplasty using the Dre total knee replacement system. However, it is [...] will be able to come down to [place] for surgery based on her insurance. If yes we will plan on right total knee replacement, robotic assisted, at [facility] [place]. If not we will give her referral [...] total knee arthroplast y (SURG) 2024 025 [email or web address] [id number] Not available 12:13:31 Imaging XR, knee, 4 or more view 2024 025 [email or web address] 2 [facility], [address], [address], [place], [address], 15:16:06 Medication Orders None recorded. Patient TargetsNo targets recorded. Patient Instructions Encounter Date Encounter Id Patient Instructions Last Modified By Organization Details Last Modified Time 05/20/2025 [id number] AP, lateral, Long, and patellar view radiographs of the right knee taken today demonstrate right knee degenerative joint disease with joint space narrowing, osteophyte formation, and subchondral sclerosis. There is [id number] articulation in the medial and lateral compartment. AP view of the left leg shows a broken screw along the distal femur area. Not available 05/20/2025 15:10:47 Reason for Referral None Reported. Problems Name Problem SNOMED Code Status Onset Date Resolution Date Notes Provider Name and Address Organization Details Recorded Time Osteoarthri tis of right knee joint 4175406985589 00 Active 2024 Franco Marie MD [address] [facility],[address], [place], [address], [place] [facility] [place], P 5 15:07:35 Arthritis of knee 902232762 Active 2024 Franco Marie MD [address] [facility],[address], [place], [address], [place] [facility] [place] [facility], P 5 15:07:41 Problem Notes None recorded. Procedures Surgical History Date Name Laterality Status Provider Name and Address Organization Details Recorded Time total replacement of hip completed [facility] [place] [facility] [place], P 05/20/2025 15:52:47 Imaging Results None recorded. Procedure Notes None recorded. Medical Equipment None Reported. Allergies Allergen ID Allergen Name Allergen Category Reaction Reaction Severity Criticality Documentation Date Start Date Code Code System Note Provider Name and Address Organization Details Recorded Time 88334 aspirin medicatio n Not available Not available Not available 05/20/2025 1191 RxNorm Margarita Dougherty null, [place] [facility] [place], P 15:49:20 Medications Name Sig Start Date [...] Updated DateTime 05/20/2025 165.1 cm 21.6 kg/m2 47242.01 g Margarita Dougherty [facility] [place] 05/20/2025 15:49:55 Social History Question Answer Notes LastModified by Monkey[employer] ion Details LastModified Time Tobacco Smoking Status Never Smoker Margarita lilly [facility] [place], P 05/20/2025 15:52:24 Are You Currently In School? No gabby Information not available 05/20/2025 Sex: Unknown Functional Status Question Answer Note LastModified by [employer] ion Details LastModified Time How many times per week do you consume alcohol? Less than 1 time per week has a drink if she goes out for dinner [email or web address] Information not available 05/20/2025 Do you use any illicit or recreational drugs? No [email or web address] Information not available 05/20/2025 Do you or have you ever used any other forms of tobacco or nicotine? No [email or web address] Information not available 05/20/2025 What is your level of alcohol consumption? Occasional [email or web address] Information not available 05/20/2025 Are you currently employed? No [email or web address] Information not available 05/20/2025 Mental Status None recorded. Family History Relationship Description Onset Age of this Age Resolved Age Notes LastModified by Organization Details LastModified Time Father car accide nt [email or web address] Not available 05/20/2025 15:50:51 Medical History Condition Response Coronary Artery Disease N Gout N Hyperthyroidism N MRSA N Blood Transfusion N Emphysema N Depression N COPD Y [...] Anemia N Brain Injury N Heart Attack ([place]) N Osteopenia N Diabetes N Bleeding Disorder [...] ICD10 Code Diagnosis IMO Codes Diagnosis Note [id number] MD LETHA Cardoso [address] [address] 05/20/2025 14:37:55 05/20/2025 15:16:06 Pain of right knee region 6004081794 00250 M25.561 [id number] Osteoarthr itis of right knee joint 0351467430 80293 M17.11 4214818 Arthritis of knee 533360 002 M13.869 Health Concerns Section Related Observation LastModified by Organization Detai ls LastModified Time None Recorded Concern Status LastModified by Organization Details LastModified Time None Recorded Advance Directives Directive None Recorded Payers Insurance Date Sequence Insurance Name Policy Number Policy Lira Covered Member ID Lira Member ID Guarantor Name 05/20/2025 1 [employer] (MEDICARE REPLACEMENT/A DVANTAGE - PPO) Michelle Miner [id number] Michelle Miner 05/27/2025 2 [place] [facility] Michelle Miner [id number] Michelle Miner OBGyn Episode No OBEpisode recorded.
--- OUTSIDE RECORDS SUMMARY | 2025-07-28 18:43 | XMS_ITS | Continuity of Care Document ---
Author Organization ID - [facility] Address [address] [facility] [place] [phone] Assessment No assessment recorded. Plan of Treatment Reminders Order Date Submit Date Provider Last Modified By Organization Details Last Modified Time Details Appointments Follow up 2025 02:30P M Mj Giraldo DNP Not available Not available Not available Lab None recorded . Referral None recorded . Procedures None recorded . Surgeries None recorded . Imaging None recorded . Medication Orders Belbuca 900 mcg buccal film 2024 025 [id number], [address] [facility] [place], [address], 05/10/2025 14:40:12 Narcan 4 mg/actua tion nasal spray 2024 025 [id number], [address] [facility] [place], [address], 05/10/2025 14:40:13 Patient TargetsNo targets recorded. Patient Instructions Encounter Date Encounter Id Patient Instructions Last Modified By Organization Details Last Modified Time 05/10/2025 [id number] 1. PHYSICAL THERAPY: pt encouraged to stay active. home exercises 2. BEHAVIORAL THERAPY: stable depression/psych issues 3. MEDICATIONS: Cont belbuca 900 q12 hr and lyrica(PCP) 4. INTERVENTIONS: none. [place] interventions [place] 5. FUNCTION: pain moderately impairs her function [...] Abnormal Flag Note LastModifiedBy Organization Detail LastModifiedTime 05/10/20 25 05/13/2025 TOXAS SURE SELEC T [...] an expec soto metab olite of bupre norkali dowd. ===== ===== ===== ===== ===== ===== ===== [...] scott consu ltati on, pleas e call [phone]. ===== ===== ===== ===== ===== ===== ===== ===== ===== ===== ===== ===== ===== === Not Available [facility] [address] [place], [address] 05/13/2025 20:13:33 05/10/20 25 05/13/2025 TOXAS SURE SELEC T 14 MINISTERIO-D IS urine creatinine 10 mg/dL >=20 abnormal Note: Urina ry creat inine is low; abili ty to detec t some drugs may be compr omise d. Inter pret resul ts with cauti on. REFER ENCE RANGE : Ref Range >=20 Not Available [facility] [address] [place], [address] 05/13/2025 20:13:33 05/10/20 25 05/13/2025 TOXAS SURE SELEC T 14 MINISTERIO-D IS ethanol biomarkers NEGATI VE . Not Available [facility] [address] [place] [address], [id number] 05/13/2025 20:13:33 05/10/20 25 05/13/2025 TOXAS SURE SELEC T 14 MINISTERIO-D IS ethyl glucuronide NOT DETECT ED . Resul t Units : ng/mg creat Not Available [facility] [address] [place] [address], [id number] 05/13/2025 20:13:33 05/10/20 25 05/13/2025 TOXAS SURE SELEC T 14 MINISTERIO-D IS ethyl sulfate NOT DETECT ED . Resul t Units : ng/mg creat Not Available [facility] [address] [place] [address], [id number] 05/13/2025 20:13:33 05/10/20 25 05/13/2025 TOXAS SURE SELEC T 14 MINISTERIO-D IS amphetamines NEGATI VE . Not Available [facility] [address] [place] [address], [id number] 05/13/2025 20:13:33 05/10/20 25 05/13/2025 TOXAS SURE SELEC T 14 MINISTERIO-D IS methamphetam ine NOT DETECT ED . Resul t Units : ng/mg creat Not Available [facility] [address] [place] [address], [id number] 05/13/2025 20:13:33 05/10/20 25 05/13/2025 TOXAS SURE SELEC T 14 MINISTERIO-D IS amphetamine NOT DETECT ED . Resul t Units : ng/mg creat Not Available [facility] [address] [place] [address], [id number] 05/13/2025 20:13:33 05/10/20 25 05/13/2025 TOXAS SURE SELEC T 14 MINISTERIO-D IS MDMA (ecstasy) NOT DETECT ED . Resul t Units : ng/mg creat Not Available [facility] [address] [place] [address], [id number] 05/13/2025 20:13:33 05/10/20 25 05/13/2025 TOXAS SURE SELEC T 14 MINISTERIO-D IS mda (ecstasy mtb) NOT DETECT ED . Resul t Units : ng/mg creat Not Available [facility] [address] [place], [address] 05/13/2025 20:13:33 05/10/2005/13/2025 TOXAS SURE SELEC T 14 MINISTERIO-D IS benzodiazepi cammie +POSIT ARIADNE+ . Not Available [facility] [address] [place] [address], [address] 05/13/2025 20:13:33 05/10/2005/13/2025 TOXAS SURE SELEC T 14 MINISTERIO-D IS diazepam NOT DETECT ED . Resul t Units : ng/mg creat Not Available [facility] [address] [place] [address], [id number] 05/13/2025 20:13:33 05/10/2005/13/2025 TOXAS SURE SELEC T 14 MINISTERIO-D IS desmethyldia zepam NOT DETECT ED . Resul t Units : ng/mg creat Not Available [facility] [address] [place] [address], [id number] 05/13/2025 20:13:33 05/10/2005/13/2025 TOXAS SURE SELEC T 14 MINISTERIO-D IS oxazepam NOT DETECT ED . Resul t Units : ng/mg creat Not Available [facility] [address] [place] [address], [id number] 05/13/2025 20:13:33 05/10/2005/13/2025 TOXAS SURE SELEC T [...] Oxaze catherine Oxaze catherine: None Not Available [facility] [address] [place] [address], 41029 05/13/2025 20:13:33 05/10/20 25 05/13/2025 TOXAS SURE SELEC T 14 MINISTERIO-D IS alprazolam NOT DETECT ED . Resul t Units : ng/mg creat Not Available [facility] [address] [place] [address], 388[address] 05/13/2025 20:13:33 05/10/20 25 05/13/2025 TOXAS SURE SELEC T 14 MINISTERIO-D IS alpha-hydrox yalprazolam NOT DETECT ED . Resul t Units : ng/mg creat Not Available [facility] [address] [place] [address], 53947 05/13/2025 20:13:33 05/10/20 25 05/13/2025 TOXAS SURE SELEC T 14 MINISTERIO-D IS desalkylflur azepam NOT DETECT ED . Resul t Units : ng/mg creat Not Available [facility] [address] [place] [address], 16449 05/13/2025 20:13:33 05/10/20 25 05/13/2025 TOXAS SURE SELEC T 14 MINISTERIO-D IS lorazepam NOT DETECT ED . Resul t Units : ng/mg creat Not Available [facility] [address] [place] [address], [id number] 05/13/2025 20:13:33 05/10/2005/13/2025 TOXAS SURE SELEC T 14 MINISTERIO-D IS alpha-hydrox ytriazolam NOT DETECT ED . Resul t Units : ng/mg creat Not Available [facility] [address] [place] [address], [id number] 05/13/2025 20:13:33 05/10/20 25 05/13/2025 TOXAS SURE SELEC T 14 MINISTERIO-D IS clonazepam NOT DETECT ED . Resul t Units : ng/mg creat Not Available [facility] [address] [place] [address], [id number] 05/13/2025 20:13:33 05/10/20 25 05/13/2025 TOXAS SURE SELEC T 14 MINISTERIO-D IS 7-aminoclona zepam 950 . Resul t Units : ng/mg creat Not Available [facility] [address] [place] [address], [id number] 05/13/2025 20:13:33 05/10/20 25 05/13/2025 TOXAS SURE SELEC T 14 MINISTERIO-D IS midazolam NOT DETECT ED . Resul t Units : ng/mg creat Not Available [facility] [address] [place] [address], [id number] 05/13/2025 20:13:33 05/10/20 25 05/13/2025 TOXAS SURE SELEC T 14 MINISTERIO-D IS alpha-hydrox ymidazolam NOT DETECT ED . Resul t Units : ng/mg creat Not Available [facility] [address] [place] [address], [id number] 05/13/2025 20:13:33 05/10/20 25 05/13/2025 TOXAS SURE SELEC T 14 MINISTERIO-D IS flunitrazepa m NOT DETECT ED . Resul t Units : ng/mg creat Not Available [facility] [address] [place] [address], [id number] 05/13/2025 20:13:33 05/10/20 25 05/13/2025 TOXAS SURE SELEC T 14 MINISTERIO-D IS desmethylflu nitrazepam NOT DETECT ED . Resul t Units : ng/mg creat Not Available [facility] [address] [place] [address], [id number] 05/13/2025 20:13:33 05/10/20 25 05/13/2025 TOXAS SURE SELEC T 14 MINISTERIO-D IS cocaine metabolite NEGATI VE . Not Available [facility] [address] [place] [address], 31952 05/13/2025 20:13:33 05/10/20 25 05/13/2025 TOXAS SURE SELEC T 14 MINISTERIO-D IS cocaine NOT DETECT ED . Resul t Units : ng/mg creat Not Available [facility] [address] [place] [address], 10135 05/13/2025 20:13:33 05/10/20 25 05/13/2025 TOXAS SURE SELEC T 14 MINISTERIO-D IS benzoylecgon ine NOT DETECT ED . Resul t Units : ng/mg creat Not Available [facility] [address] [place] [address], [id number] 05/13/2025 20:13:33 05/10/2005/13/2025 TOXAS SURE SELEC T 14 MINISTERIO-D IS cocaethylene NOT DETECT ED . Resul t Units : ng/mg creat Not Available [facility] [address] [place] [address], 47131 05/13/2025 20:13:33 05/10/2005/13/2025 TOXAS SURE SELEC T 14 MINISTERIO-D IS cannabinoids NEGATI VE . Not Available [facility] [address] [place] [address], 67564 05/13/2025 20:13:33 05/10/2005/13/2025 TOXAS SURE SELEC T 14 MINISTERIO-D IS carboxy-THC NOT DETECT ED . Resul t Units : ng/mg creat Not Available [facility] [address] [place] [address], 27697 05/13/2025 20:13:33 05/10/2005/13/2025 TOXAS SURE SELEC T 14 MINISTERIO-D IS 6-acetylmorp kathrine scr NEGATI VE . Not Available [facility] [address] [place] [address], [id number] 05/13/2025 20:13:33 05/10/2005/13/2025 TOXAS SURE SELEC T 14 MINISTERIO-D IS 6-acetylmorp kathrine NOT DETECT ED . Resul t Units : ng/mg creat Not Available [facility] [address] [place] [address], [id number] 05/13/2025 20:13:33 05/10/20 25 05/13/2025 TOXAS SURE SELEC T 14 MINISTERIO-D IS opiate class NEGATI VE . Not Available [facility] [address] [place] [address], [id number] 05/13/2025 20:13:33 05/10/2005/13/2025 TOXAS SURE SELEC T 14 MINISTERIO-D IS codeine NOT DETECT ED . Resul t Units : ng/mg creat Not Available [facility] [address] [place] [address], [id number] 05/13/2025 20:13:33 0905/13/2025 TOXAS SURE SELEC T 14 MINISTERIO-D IS morphine NOT DETECT ED . Resul t Units : ng/mg creat Not Available [facility] [address] [place] [address], [id number] 05/13/2025 20:13:33 05/10/2005/13/2025 TOXAS SURE SELEC T 14 MINISTERIO-D IS normorphine NOT DETECT ED . Resul t Units : ng/mg creat Not Available [facility] [address] [place] [address], 07206 05/13/2025 20:13:33 05/10/2005/13/2025 TOXAS SURE SELEC T 14 MINISTERIO-D IS norcodeine NOT DETECT ED . Resul t Units : ng/mg creat Not Available [facility] [address] [place] [address], [id number] 05/13/2025 20:13:33 05/10/2005/13/2025 TOXAS SURE SELEC T 14 MINISTERIO-D IS hydrocodone NOT DETECT ED . Resul t Units : ng/mg creat Not Available [facility] [address] [place] [address], 27047 05/13/2025 20:13:33 05/10/2005/13/2025 TOXAS SURE SELEC T 14 MINISTERIO-D IS hydromorphon e NOT DETECT ED . Resul t Units : ng/mg creat Not Available [facility] [address] [place] [address], 31563 05/13/2025 20:13:33 05/10/2005/13/2025 TOXAS SURE SELEC T 14 MINISTERIO-D IS dihydrocodei ne NOT DETECT ED . Resul t Units : ng/mg creat Not Available [facility] [address] [place] [address], 75675 05/13/2025 20:13:33 05/10/2005/13/2025 TOXAS SURE SELEC T 14 MINISTERIO-D IS norhydrocodo ne NOT DETECT ED . Resul t Units : ng/mg creat Expec soto metab olism of opiat e class drugs : Paren t Drug Detec soto Metab olite s ----- ----- - ----- ----- ----- ----- Codei ne: Major : Morph ine, Thorp deine Minor : [place] codon e, [place] morph one, Dihyd rocod eine, Norhy droco done, Normo rphin e Morph ine: Major : Normo rphin e Minor : [place] morph one [place] codon e: [place] morph one, Dihyd rocod eine, Norhy droco done [place] morph one: None Dihyd rocod eine: None Heroi n: 6-Stepan tylmo rphin e (if inclu ded), Morph ine, Normo rphin e Codei ne, in small amoun ts in margaret rison to morph ine, is often detec soto when heroi n is the sourc e drug. Not Available [facility] [address] [place] [address], [id number] 05/13/2025 20:13:33 05/10/2005/13/2025 TOXAS SURE SELEC T 14 MINISTERIO-D IS oxycodone class NEGATI VE . Not Available [facility] [address] [place] [address], 42457 05/13/2025 20:13:33 05/10/2005/13/2025 TOXAS SURE SELEC T 14 MINISTERIO-D IS oxycodone NOT DETECT ED . Resul t Units : ng/mg creat Not Available [facility] [address] [place] [address], [id number] 05/13/2025 20:13:33 05/10/2005/13/2025 TOXAS SURE SELEC T 14 MINISTERIO-D IS oxymorphone NOT DETECT ED . Resul t Units : ng/mg creat Not Available [facility] [address] [place] [address], [id number] 05/13/2025 20:13:33 05/10/2005/13/2025 TOXAS SURE SELEC T 14 MINISTERIO-D IS noroxycodone NOT DETECT ED . Resul t Units : ng/mg creat Not Available [facility] [address] [place] [address], [id number] 05/13/2025 20:13:33 05/10/2005/13/2025 TOXAS SURE SELEC T [...] rphon e: Norox ymorp moncho Not Available [facility] [address] [place] [address], 73121 05/13/2025 20:13:33 05/10/20 25 05/13/2025 TOXAS SURE SELEC T 14 MINISTERIO-D IS methadone scr NEGATI VE . Not Available [facility] [address] [place] [address], [id number] 05/13/2025 20:13:33 05/10/20 25 05/13/2025 TOXAS SURE SELEC T 14 MINISTERIO-D IS methadone NOT DETECT ED . Resul t Units : ng/mg creat Not Available [facility] [address] [place] [address], [id number] 05/13/2025 20:13:33 05/10/20 25 05/13/2025 TOXAS SURE SELEC T 14 MINISTERIO-D IS EDDP (methadone mtb) NOT DETECT ED . Resul t Units : ng/mg creat Not Available [facility] [address] [place] [address], 30045 05/13/2025 20:13:33 05/10/20 25 05/13/2025 TOXAS SURE SELEC T 14 MINISTERIO-D IS fentanyl analogues NEGATI VE . Not Available [facility] [address] [place] [address], 72838 05/13/2025 20:13:33 05/10/20 25 05/13/2025 TOXAS SURE SELEC T 14 MINISTERIO-D IS fentanyl NOT DETECT ED . Resul t Units : ng/mg creat Not Available [facility] [address] [place] [address], [id number] 05/13/2025 20:13:33 05/10/20 25 05/13/2025 TOXAS SURE SELEC T 14 MINISTERIO-D IS norfentanyl NOT DETECT ED . Resul t Units : ng/mg creat Not Available [facility] [address] [place] [address], 28482 05/13/2025 20:13:33 05/10/2005/13/2025 TOXAS SURE SELEC T 14 MINISTERIO-D IS sufentanil NOT DETECT ED . Resul t Units : ng/mg creat Not Available [facility] [address] [place] [address], [id number] 05/13/2025 20:13:33 05/10/2005/13/2025 TOXAS SURE SELEC T 14 MINISTERIO-D IS alfentanil NOT DETECT ED . Resul t Units : ng/mg creat Not Available [facility] [address] [place] [address], 46125 05/13/2025 20:13:33 05/10/2005/13/2025 TOXAS SURE SELEC T 14 MINISTERIO-D IS buprenorphin e scr +POSIT ARIADNE+ . Not Available [facility] [address] [place] [address], 51471 05/13/2025 20:13:33 05/10/2005/13/2025 TOXAS SURE SELEC T 14 MINISTERIO-D IS buprenorphin e 120 . Resul t Units : ng/mg creat Not Available [facility] [address] [place] [address], [id number] 05/13/2025 20:13:33 05/10/2005/13/2025 TOXAS SURE SELEC T 14 MINISTERIO-D IS norbuprenorp kathrine 350 . Resul t Units : ng/mg creat Not Available [facility] [address] [place] [address], [id number] 05/13/2025 20:13:33 05/10/2005/13/2025 TOXAS SURE SELEC T 14 MINISTERIO-D IS tapentadol scr NEGATI VE . Not Available [facility] [address] [place] [address], 97051 05/13/2025 20:13:33 05/10/2005/13/2025 TOXAS SURE SELEC T 14 MINISTERIO-D IS tapentadol NOT DETECT ED . Resul t Units : ng/mg creat Not Available [facility] [address] [place] [address], 07498 05/13/2025 20:13:33 05/10/20 25 05/13/2025 TOXAS SURE SELEC T 14 MINISTERIO-D IS other opioids NEGATI VE . Not Available [facility] [address] [place], [address] 05/13/2025 20:13:33 05/10/20 25 05/13/2025 TOXAS SURE SELEC T 14 MINISTERIO-D IS tramadol NOT DETECT ED . Resul t Units : ng/mg creat Not Available [facility] [address] [place], [address] 05/13/2025 20:13:33 05/10/20 25 05/13/2025 TOXAS SURE SELEC T 14 MINISTERIO-D IS O-desmethylt ramadol NOT DETECT ED . Resul t Units : ng/mg creat Not Available [facility] [address] [place] [address], 50702 05/13/2025 20:13:33 05/10/20 25 05/13/2025 TOXAS SURE SELEC T 14 MINISTERIO-D IS N-desmethylt ramadol NOT DETECT ED . Resul t Units : ng/mg creat Not Available [facility] [address] [place] [address], 20748 05/13/2025 20:13:33 05/10/20 25 05/13/2025 TOXAS SURE SELEC T 14 MINISTERIO-D IS barbiturates NEGATI VE . Not Available [facility] [address] [place] [address], 93790 05/13/2025 20:13:33 05/10/20 25 05/13/2025 TOXAS SURE SELEC T 14 MINISTERIO-D IS amobarbital NOT DETECT ED . Not Available [facility] [address] [place] [address], 27050 05/13/2025 20:13:33 05/10/20 25 05/13/2025 TOXAS SURE SELEC T 14 MINISTERIO-D IS barbital NOT DETECT ED . Not Available [facility] [address] [place] [address], 79439 05/13/2025 20:13:33 05/10/20 25 05/13/2025 TOXAS SURE SELEC T 14 MINISTERIO-D IS butabarbital NOT DETECT ED . Not Available [facility] [address] [place], [address] 05/13/2025 20:13:33 05/10/20 25 05/13/2025 TOXAS SURE SELEC T 14 MINISTERIO-D IS butalbital NOT DETECT ED . Not Available [facility] [address] [place], [address] 05/13/2025 20:13:33 05/10/20 25 05/13/2025 TOXAS SURE SELEC T 14 MINISTERIO-D IS mephobarbita l NOT DETECT ED . Not Available [facility] [address] [place], [address] 05/13/2025 20:13:33 05/10/20 25 05/13/2025 TOXAS SURE SELEC T 14 MINISTERIO-D IS pentobarbita l NOT DETECT ED . Not Available [facility] [address] [place], [address] 05/13/2025 20:13:33 05/10/20 25 05/13/2025 TOXAS SURE SELEC T 14 MINISTERIO-D IS phenobarbita l NOT DETECT ED . Not Available [facility] [address] [place], [address] 05/13/2025 20:13:33 05/10/20 25 05/13/2025 TOXAS SURE SELEC T 14 MINISTERIO-D IS secobarbital NOT DETECT ED . Not Available [facility] [address] [place], [address] 05/13/2025 20:13:33 05/10/20 25 05/13/2025 TOXAS SURE SELEC T 14 MINISTERIO-D IS thiopental NOT DETECT ED . Not Available [facility] [address] [place], [address] 05/13/2025 20:13:33 05/10/20 25 05/13/2025 TOXAS SURE SELEC T 14 MINISTERIO-D IS other hallucinogen s NEGATI VE . Not Available [facility] [address] [place], [address] 05/13/2025 20:13:33 05/10/20 25 05/13/2025 TOXAS SURE SELEC T 14 MINISTERIO-D IS phencyclidin e NOT DETECT ED . Not Available [facility] [address] [place], [address] 05/13/2025 20:13:33 05/10/20 25 05/13/2025 TOXAS SURE [...] [facility] [address] [id number] Lab Direc tor: Ara barroso [facility] , Phone : [phone] Not Available [facility] [address] [place], [address] 05/13/2025 20:13:33 Result Notes None recorded. Medical Equipment None Reported. Allergies Allergen ID Allergen Name Allergen Category Reaction Reaction Severity Criticality Documentation Date Start Date Code Code System Note Provider Name and Address Organization Details Recorded Time [id number] aspirin medicatio n Not available Not available Not available 11/15/2024 1191 RxNorm ZEKE Chaudhry [place] - [facility] 12:15:29 Medications Name Sig Start Date Stop [...] 80 /min 132/77 mm[Hg] Gloria Erwin CNA [facility] 05/10/2025 14:07:06 Social History Question Answer Notes LastModified by Organizat ion Details LastModified Time Tobacco Smoking Status Never Smoker ZEKE Chaudhry [facility] 11/15/2024 12:20:05 What Is Your Relationship [...] ICD10 Code Diagnosis IMO Codes Diagnosis Note [id number] Mj Giraldo DNP [facility] [address] [place] [address] [place] [address] 05/10/2025 13:28:10 05/10/2025 14:43:16 Lumbar spondylosis 774218222 M47.816 65998 Spinal katie nosis of lumbar region 16706248 M48.062 040016 Spinal katie nosis in cervical region 91882857 M48.02 48509 Cervical spondylosis 387 391027 M47.812 54138 Chronic pain 77446045 G8 9.29 210241 Idiopathic peripheral neuropathy 10718772 G60.8 53020 Myofascial pain 25582689 9 M79.18 022039 lumbar paraspinal s and traps Osteoarthr itis of right knee joint [id number] 13271 M17.11 [id number] Health Concerns Section Related Observation LastModified by Organization Detai ls LastModified Time None Recorded Concern Status LastModified by Organization Details LastModified Time None Recorded Payers Encounter Date Sequence Insurance Name Policy Number Policy Lira Covered Member ID Lira Member ID Guarantor Name 05/10/2025 1 [employer] (MEDICARE REPLACEMENT/A DVANTAGE - PPO) Michelle Miner [id number] Michelle Miner 05/10/2025 2 MEDICAID-ID: [facility] Michelle Miner [id number] Michelle Miner Notes Date Note Type Note Provider Name and Address Organization Details Recorded Time 05/10/2025 text/html Pain Management: Follow-upReported by PatientHPIFor quality, patient [...] current medications, patient reportsno side effects from [id number]%(bel buca). For location, (chronic lower back pain , b/l le painful numbness and neck pain radiating into b/l ue).no changes Arnaud Odell MD [address] [place] [address], [place], [phone], [facility] 05/10/2025 14:40:20 OBGyn Episode No OBEpisode recorded.
--- OUTSIDE RECORDS SUMMARY | 2025-07-28 18:43 | XMS_ITS | Continuity of Care Document ---
Author Organization [place] - [facility] Address [address] [facility] [place] [address] Assessment No assessment recorded. Plan of Treatment [...] Belbuca 900 mcg buccal film 2024 025 [id number], [address] [facility] [place], [address], 07/19/2025 14:45:43 Narcan 4 mg/actua tion nasal spray 2024 025 [facility][id number], [address] [facility] [place], [address], 07/19/2025 14:45:42 Patient TargetsNo targets recorded. Patient Instructions Encounter Date Encounter Id Patient Instructions Last Modified By Organization Details Last Modified Time 07/19/2025 [id number] 1. PHYSICAL THERAPY: pt encouraged to stay active. home exercises 2. BEHAVIORAL THERAPY: stable depression/psych issues 3. MEDICATIONS: Cont belbuca 900 q12 hr and lyrica(PCP) 4. INTERVENTIONS: none. pt gets interventions in [place] 5. FUNCTION: pain moderately impairs her function, [...] 07/20/2025 10:03:27 Reason for Referral None Reported. Medical Equipment None Reported. Allergies Allergen ID Allergen Name Allergen Category Reaction Reaction Severity Criticality Documentation Date Start Date Code Code System Note Provider Name and Address Organization Details Recorded Time 21591015 aspirin medicatio n Not available Not available Not available 11/15/2024 1191 RxNorm Gloria Yaima, ZEKE lilly, [facility] 12:15:29 Medications Name Sig Start Date [...] 88 /min 146/84 mm[Hg] Gloria Erwin CNA [facility] 07/19/2025 14:33:01 Social History Question Answer Notes LastModified by Organizat ion Details LastModified Time Tobacco Smoking Status Never Smoker Gloria Erwin CNA null, [facility] 11/15/2024 12:20:05 What Is Your Relationship Status? Information not available 11/15/2024 Sex: Unknown Functional Status Question Answer Note LastModified by Organizat ion Details LastModified Time Do you use any illicit or recreational drugs? No Information not available 11/15/2024 What is your level of alcohol consumption? Occasional Information not available 11/15/2024 Mental Status None recorded. Family History Nothing Reported. Medical History Condition Response ulcers Y arthritis Y heart attack Gynecological HistoryNo gynecological history recorded. Obstetrics History GPAL:G 0 P 0 0 0 0 Past Encounters Encounter ID Performer Location Encounter Start Date Encounter Closed Date Diagnosis/Indication Diagnosis SNOMED-CT Code Diagnosis ICD10 Code Diagnosis IMO Codes Diagnosis Note [id number] Mj Giraldo DNP [facility] [address] [place] [address] [place] [address] 07/19/2025 14:15:57 07/19/2025 14:48:40 Lumbar spondylosis 697883470 M47.816 93120 Spinal katie nosis of lumbar region 18355965 M48.062 790722 Spinal katie nosis in cervical region 64763509 M48.02 64349 Cervical spondylosis 387 920437 M47.812 48537 Chronic pain 48177505 G8 9.29 054620 Idiopathic peripheral neuropathy 10514140 G60.8 68105 Myofascial pain 26046932 9 M79.18 275835 lumbar paraspinal s and traps Osteoarthr itis of right knee joint 2801068236 38777 M17.11 5199088 Health Concerns Section Related Observation LastModified by Organization Detai ls LastModified Time None Recorded Concern Status LastModified by Organization Details LastModified Time None Recorded Payers Encounter Date Sequence Insurance Name Policy Number Policy Lira Covered Member ID Lira Member ID Guarantor Name 07/19/2025 1 [employer] (MEDICARE REPLACEMENT/A DVANTAGE - PPO) Michelle Miner [id number] Michelle Miner 07/19/2025 2 [place] [facility] Michelle Miner [id number] Michelle Miner Notes Date Note Type Note Provider Name and Address Organization Details Recorded Time 07/19/2025 text/html Pain Management: Follow-upReported by PatientHPIFor quality, [...] current medications, patient reportsno side effects from ehbvvikblelxs78%(bel buca). For location, (chronic lower back pain , b/l le painful numbness and neck pain radiating into b/l ue).no changes Arnaud Odell MD [address] [place] [address], [phone], [facility] 07/20/2025 10:03:31 OBGyn Episode No OBEpisode recorded.
[2025-08-23 13:21] VITALS: BP 109/72; PULSE 88; RESP 16; O2SAT 97; BMI 21.5
[2025-08-23 15:46] LABS: MRSA Nasal PCR NEGATIVE (Negative); SA Nasal PCR POSITIVE (Negative)
[2025-09-05] VITALS (13 sets, daily range): BP systolic 87–131; BP diastolic 36–66; PULSE 64–80; RESP 10–18; TEMP 36.5–37; O2SAT 94–100; BMI 22.1
--- NOTE | ~2025-09-05 | XR_ITS ---
EXAMINATION: XR KNEE 1-2 VIEWS RIGHT HISTORY: s/p Right TKA COMPARISON: Comparison is made with the prior examination dated 06/29/2025. FINDINGS: AP and lateral views of the right knee are submitted. The patient is status post total knee arthroplasty. The orthopedic elements are in anatomic alignment. Postoperative changes are noted in the soft tissues. XR/XR knee RT 2V IMPRESSION: Status post right total knee arthroplasty. Electronically signed by: Duke Mcgill MD 09/05/2025 12:59 PM [facility]
--- NOTE | ~2025-09-05 | XR_ITS ---
EXAMINATION: XR CHEST 1 VIEW HISTORY: wheeze COMPARISON: Comparison is made with the prior examination dated 08/27/2021. FINDINGS: A single AP view of the chest is submitted. There are linear subsegmental atelectasis versus scarring at the left lung base. The right lung is clear. There is no pleural effusion, pneumothorax, or pulmonary vascular congestion. The heart is normal in size. There is mild degenerative disc disease of the spine. XR/XR chest 1V IMPRESSION: Left basilar subsegmental atelectasis versus scarring. Electronically signed by: Duke Mcgill MD 09/07/2025 09:13 AM [facility]
[2025-09-05] MEDS: Lactated Ringers 1,000 ML 50 ML IVCONT ×2 (07:43→14:44)
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
--- NOTE | 2025-09-05 12:49 | P.BOP_ITS ---
Brief Operative Note Date of Service: 09/05/25 Pre-op diagnosis: Right knee degenerative joint disease Post-op diagnosis: same Procedure: Right total knee arthroplasty Implants: Comfort Triathlon cemented posterior stabilized total knee arthroplasty with a femoral component size 4 right, a universal tibial component size 5, tibial stem size 12 mm in diameter by 50 mm in length, polyethylene liner size 5 with 9 mm of thickness, Tritanium metal-backed patellar component size 35 with 10 mm of thickness Surgeon: Nicolas Bourne MD Anesthesia: regional and spinal Was an Concrete Pile Driver Operator used for this Procedure?: No Concrete Pile Driver Operator: Margoth Benton Estimated blood loss (mL): 200 Pathology: other (Bony fragments from the right femur, tibia and patella) Condition: stable Disposition: PACU
--- NOTE | 2025-09-05 12:50 | P.OP_ITS ---
Operative Note Operative Note Date of Service: 09/05/25 Narrative: After the patient was identified as Michelle Miner and her right knee was initialed by myself the patient was brought to the holding area where a right leg nerve block was performed by the anesthesiologist in routine fashion. The patient was then brought to the operating room where conscious sedation and spinal anesthesia were performed by the anesthesiologist in routine fashion. Because of the patient's history of revision left hip surgery she was given both IV Ancef and IV vancomycin preoperatively for infection prophylaxis. The patient's right lower extremity was prepped and draped in sterile fashion. A formal time-out was completed. The patient's right knee was placed onto a small bump to produce 30? of knee flexion during exposure. A #10 scalpel blade was used to make a midline incision extending 1 handbreadth proximal and distal to the patella. A second #10 scalpel blade was used to dissect the subcutaneous tissues down to the extensor mechanism. The subcutaneous flaps were maintained as thick as possible. A medial parapatellar arthrotomy was then performed using a #10 scalpel blade. The arthrotomy was begun just medial to the patellar tendon. The arthrotomy was continued 1 cm medial to the patella and then 5 mm into the medial aspect of the quadriceps tendon. The infrapatellar fat pad was partially excised to help with exposure. The soft tissue retinaculum was raised one-half of the way around the medial aspect of the proximal tibia. The patella was everted and the knee was flexed to 90?. There was no injury to the patellar tendon or its insertion onto the tibial tubercle. A drill bit was introduced into the distal aspect of the femur with a starting point 1 cm anterior to the origin of the posterior cruciate ligament. Of note, there was very little resistance from the cortical and cancellous bone when the drill bit was introduced into the distal femur. The intramedullary alignment juan alberto was put into place. The distal alignment guide was set for a 5 degree valgus cut. The distal cutting block was put into place and we held it with 4 pins. The intramedullary alignment juan alberto was removed. Soft tissues were retracted in the distal femoral cut was made using a sagittal saw. The distal aspect of the femur measured to be a size 4 right component. Two drill holes were placed into the distal aspect of the femur marking 3? of external rotation. The distal cutting block was impacted into place and we held it with 2 pins. Soft tissues were retracted and the 4 distal femoral cuts were made using a sagittal saw. Once again, minimal resistance was met when making the 5 distal femoral cuts consistent with the patient's diagnosis of osteoporosis. Final notching and drilling of the distal aspect of the femur were performed in routine fashion. The trial femoral component was impacted into place. The knee was taken through a full range of motion. The patella tracked well. The patella was everted and the knee was flexed to 90?. The trial component was removed and our attention was directed to the proximal tibia. The medial and lateral menisci were removed using a #10 scalpel blade. A small rim of the medial meniscus was left intact to help prevent injury to the medial collateral ligament. A drill bit was then introduced into the proximal tibia with a starting point midway from medial to lateral and one-third of the way posteriorly. The intramedullary alignment juan alberto was put into place. The proximal tibial cutting guide was placed over the alignment juan alberto in line with the 2nd toe. The guide was held in place using 3 pins. The intramedullary alignment juan alberto was removed. Soft tissues were retracted and the proximal tibial cut was made using a sagittal saw. Like with cutting of the distal femur, minimal resistance was met with making the proximal tibial cut. Thus, the decision was made to use a tibial stem to help optimize fixation of the tibial component. The proximal tibia measured to be a size 5 component. The tibial tray was put into place with a 9 mm liner. The femoral component was impacted into place. The knee was taken through a full range of motion. There was full flexion and full extension. There was no instability with varus or valgus stress testing with the knee in flexion or extension. The patella tracked well with no medially directed force. The rotation of the tibial tray was marked using electrocautery with the knee in extension. The patella was everted and the knee was flexed to 90?. All trial components were removed. The tibial tray was placed onto the proximal tibia in line with the electrocautery michael. The tray was held in place using 3 pins. Final broaching and drilling of the proximal tibia were performed in routine fashion. The trial liner and trial femoral component were put into place. The knee was brought into extension and our attention was directed to the patella. The patella measured 25 mm in thickness. The patellar resection guide was set for a 10 mm resection. Soft tissues were retracted and the patella cut was made using a sagittal saw. The remaining patella measured 15 mm in thickness. The undersurface of the patella was measured to be a size 35 asymmetric component. Three drill holes were placed into the undersurface of the patella in routine fashion. Once again the patient has relatively soft bone was appreciated when the tibial drill guide compressed into the cancellous bone with minimal pressure. The trial component was put into place. The knee was taken through a full range of motion. The patella tracked well. The patella was everted and the knee was flexed to 90?. All trial components were removed. The knee was once again brought into extension and placed onto a small bump. The knee joint was irrigated with copious amounts of normal saline solution via pulse lavage while the cement was mixed. The patella was everted and the knee was flexed to 90?. A small amount of cement was placed along the posterior aspects of the tibial and femoral components. Cement was then pressurized into the proximal tibia. The tibial component was gently impacted into place. Any excess cement was removed. Inspection of the proximal tibia showed cement extravasation through the previous guide pin holes, no obvious fracture line was identified. The polyethylene liner was then impacted into place. Cement was then pressurized into the distal aspect of the femur. A small amount of cement was placed into the intramedullary canal to help reduce bleeding. The femoral component was impacted into place. Any excess cement was removed. The knee was then brought into extension. Cement was pressurized into the undersurface of the patella. The patellar component was put into place and was held with a patella clamp. Any excess cement was removed. Once the cement had hardened the patellar clamp was removed. The knee was taken through a full range of motion. There was full flexion and extension. There was no instability with varus or valgus stress testing with the knee in flexion or extension. The patella tracked well with no medially directed force. The knee joint was irrigated with copious amounts of normal saline solution via pulse lavage. Any significant bleeding vessels were coagulated. The patient's right knee was placed onto a small bump. The arthrotomy was closed with #2 Ethibond [id number] interrupted suture as well as #1 Vicryl [id number] interrupted suture. The wound was once again irrigated. The subcutaneous tissues were closed with 0 Vicryl and 2-0 Vicryl interrupted sutures. The skin was closed with skin carmenza. Dry sterile dressing and Stepan bandages were placed over the patient's right knee. The patient was awake and alert. The patient was transferred to the recovery room in stable condition. Because of the patient's diagnosis of osteoporosis with thin cortical bone in case of the possibility of occult nondisplaced fracture of her distal femur or proximal tibia which was not a ppreciated clinically or on the postoperative x-rays. Justification for PA Detention Attendant: The complexity of this total knee arthroplasty, involving significant bony deformity and soft tissue releases, necessitates the assistance of a qualified surgical scrub technician for optimal surgical exposure, hemostasis and efficient execution of the procedure.
--- NOTE | 2025-09-05 14:42 | HO.PM.IMCN ---
History of Present Illness Data of Consult Service Date: 09/05/25 Primary Care Provider: Unknown Physician HPI 74-year-old woman with a history of osteoporosis, osteoarthritis admitted by Orthopedic surgery and is status post right total knee arthroplasty. Surgery was unremarkable. Patient denies any nausea or vomiting. Pain is minimal at this time. Vital signs are within normal limits. Labs from within a week also within normal limits. Patient has no acute medical complaints at this time. Review of Systems Review of Systems: Denies any recent fever chills or decrease in appetite respiratory denies any shortness of breath or cough cardiovascular denied chest pain gastrointestinal denies any dysphagia abdominal pain nausea vomiting or diarrhea genitourinary denies any dysuria frequency or hematuria musculoskeletal right knee surgery neuropsych denies any weakness or seizures all other systems reviewed are negative [facility] Medical History (Updated 09/05/25 @ 14:45 by Stefany Brooks NP) Neuropathy Depression Rheumatoid arthritis Osteoarthritis Histrionic personality disorder DDD (degenerative disc disease), cervical PVC's (premature ventricular contractions) CHF (congestive heart failure) Anxiety Fibromyalgia PUD (peptic ulcer disease) Overweight (BMI 25.0-29.9) Derangement of left knee History of left shoulder fracture History of fracture of left hip Scoliosis Family History Father Medical history unknown Mother Medical history unknown Surgical History (Updated 09/05/25 @ 12:39 by Nicolas Bourne MD) History of total left hip arthroplasty (07/2019) History of total right hip replacement (01/2025) History of open reduction and internal fixation (ORIF) procedure Social History Household Members: Friend(s) Household Members Other:: friend Housing: House Are you a primary care professionals to a significant other at home: Yes (friend, her son will be here while Michelle is in the hospital) Do you presently have visiting nurse or other home services: No Alcohol intake: current Alcohol intake frequency: holidays/special occasions only Patient Tobacco Use Status: Never used Tobacco e-Cigarette/Vaping Use: Never Used service: No Meds Allergies Allergy/AdvReac Type Severity Reaction Status Date / Time aspirin (ASPIRIN) Allergy Intermediate STOMACH Verified 08/12/25 09:37 UPSET codeine (CODEINE) AdvReac Intermediate STOMACH Verified 08/12/25 09:37 UPSET Active Medications: Current Medications Acetaminophen (Acetaminophen 325 Mg Tablet) 650 mg PO Q6H PRN PRN Reason: Pain, Mild 1-3,fever,headache Albuterol Sulfate (Albuterol Sulfate 90 Mcg 8 Gm Inhaler) 2 puff INHALE QID PRN PRN Reason: Shortness Of Breath Or Wheezing Calcium Carbonate (Calcium Oyster Shell Elemental 500 Mg Tablet) 1,000 mg PO DAILY SARAH Celecoxib (Celecoxib 200 Mg Capsule) 200 mg PO BID SARAH Clonazepam (Clonazepam 0.5 Mg Tablet) 0.5 mg PO BID PRN PRN Reason: Anxiety Docusate Sodium (Docusate Sodium 100 Mg Capsule) 100 mg PO BID SARAH Enoxaparin Sodium (Enoxaparin Sodium 40 Mg/0.4 Ml Syringe) 40 mg SUBCUT Q24H SARAH Furosemide (Furosemide 40 Mg Tablet) 80 mg PO BID SARAH; Protocol Gabapentin (Gabapentin 100 Mg Capsule) 100 mg PO BEDTIME SARAH Hydromorphone HCl (Hydromorphone Hcl 1 Mg/Ml Syringe) 0.25 mg IVPUSH Q4H PRN; Protocol PRN Reason: Pain, Severe (Pain Scale 7-10) Hydroxyzine HCl (Hydroxyzine Hcl 25 Mg Tablet) 25 mg PO Q8H PRN PRN Reason: itch Lactated Ringer's (Lr) 1,000 mls @ 50 mls/hr IVCONT .Q20H [facility] Last Admin: 09/05/25 07:43 Dose: 50 mls/hr Lactated Ringer's (Lr) 1,000 mls @ 100 mls/hr IVCONT .Q10H [facility] Cefazolin Sodium/Dextrose (Ancef) 2 gm in 50 mls @ 100 mls/hr IV Q8H [facility] Stop: 09/06/25 17:59 Vancomycin HCl 1,000 mg/ (Sodium Chloride) 270 mls @ 270 mls/hr IV ONCE@1900 ONE Stop: 09/05/25 19:59 Magnesium Hydroxide (Milk Of Magnesia 30 Ml Oral.Susp) 30 ml PO DAILY PRN PRN Reason: Constipation Melatonin (Melatonin 3 Mg Tablet) 6 mg PO BEDTIME PRN PRN Reason: Insomnia Methocarbamol (Methocarbamol 500 Mg Tablet) 500 mg PO TID [facility] Mirtazapine (Mirtazapine 7.5 Mg Tablet) 7.5 mg PO BEDTIME [facility] Pt Own ( Buprenorphine Hcl [ Belbuca] 900 Mcg Film) 900 mcg BUCCAL BID [facility] Non-Formulary Medication (Phentermine) 15 mg PO DAILY [facility] Ondansetron HCl (Ondansetron Hcl 4 Mg/2 Ml Vial) 4 mg IVPUSH Q8H PRN PRN Reason: Nausea and Vomiting Oxycodone HCl (Oxycodone Hcl Immed Release 5 Mg Tablet) 5 mg PO Q4H PRN PRN Reason: Pain, Moderate(Pain Scale 4-6) Oxycodone HCl (Oxycodone Hcl Er 10 Mg Tab.Er.12h) 10 mg PO BID [facility] Pregabalin (Pregabalin 100 Mg Capsule) 100 mg PO BID [facility] Senna (Sennosides 8.6 Mg Tablet) 17.2 mg PO DAILY [facility] Sodium Chloride (0.9 % Sodium Chloride Flush 3 Ml Syringe) 3 ml IVFLUSH QSHIFT [facility] Home Medications ?Medication ?Instructions ?Recorded ?Confirmed ?Last Taken ?Type cholecalciferol (vitamin D3) 125 125 mcg PO DAILY 09/15/23 08/31/25 02/06/25 History mcg (5,000 unit) capsule acetaminophen 500 mg capsule 1,000 mg PO DAILY@1530 PRN Pain 02/07/25 08/31/25 Unknown History acetaminophen 500 mg capsule 1,500 mg PO DAILY@0930 PRN Pain 02/07/25 08/31/25 Unknown History buprenorphine HCl 900 mcg buccal 900 mcg buccal BID 02/07/25 08/31/25 02/06/25 History film (Belbuca) clonazepam 0.5 mg tablet 0.5 mg PO BID PRN anxiety 02/07/25 08/31/25 Unknown History mirtazapine 7.5 mg tablet 7.5 mg PO BEDTIME 06/29/25 08/31/25 Unknown History albuterol sulfate 90 mcg/actuation 2 puff inhalation QID PRN 08/23/25 08/31/25 Unknown History aerosol inhaler Shortness Of Breath Or Wheezing furosemide 80 mg tablet 80 mg PO BID 08/23/25 08/31/25 Unknown History hydroxyzine HCl 25 mg tablet 25 mg PO Q8H PRN itch 08/23/25 08/31/25 Unknown History lidocaine 5 % topical patch 2 patch topical DAILY 08/23/25 08/31/25 Unknown History phentermine 15 mg capsule 15 mg PO QAM 08/23/25 08/31/25 Unknown History pregabalin 100 mg capsule 100 mg PO BID 08/23/25 09/05/25 09/05/25 History sennosides 8.6 mg tablet (senna) 17.2 mg PO DAILY 08/23/25 08/31/25 Unknown History Physical Exam Vital Signs and Narrative: Vital Signs: Last Vital Signs Temp 98.3 F 09/05/25 14:21 Pulse 73 09/05/25 14:21 Resp 18 09/05/25 14:21 BP 124/60 09/05/25 14:21 Pulse Ox 96 09/05/25 14:21 O2 Del Method Room Air 09/05/25 14:21 O2 Flow Rate 6 09/05/25 13:02 BMI result Body Mass Index 22.1 Appearing in no acute distress head is normocephalic atraumatic eyes pupils are PERRLA sclera is anicteric mouth throat mucous membranes are intact and moist neck is supple no lymphadenopathy, no JVD noted lung sounds are clear to auscultation heart regular rate rhythm, clear S1, S2 positive bowel sounds, abdomen is soft, nontender neuro patient is alert x3, no focal deficits Right knee dressing intact with brace, surgical incision not visualized Results Imaging Radiologist's Impressions: Impressions Knee X-Ray 09/05/25 12:35 IMPRESSION: Status post right total knee arthroplasty. Electronically signed by: Duke Mcgill MD 09/05/2025 12:59 PM [facility] Assessment and Plan (1) Osteoporosis: Status: Acute Plan 74-year-old woman admitted by Orthopedic surgery and is status post right total knee arthroplasty Right total knee arthroplasty Management as per surgical team Pain management History of heart failure with preserved ejection fraction Overt heart failure noted Continue Lasix Mental health Continue home medications DVT prophylaxis with Lovenox Full code Medical consultation complete. Will sign off
[2025-09-05] MEDS: oxyCODONE HCl ER 10 MG TAB.ER.12H PO (14:45)
--- NOTE | 2025-09-05 15:25 | PHA.MEDREC ---
Addendum entered by Donna Welch ernst 09/05/25 17:12: REVIEWED BY PHARMACIST Original Note: Pharmacy Consult ? Medication Reconciliation Pharmacy has completed the medication reconciliation. Spoke with pt and she confirmed her medications. Pt taking her Pregabalin 100mg tabs 1 TID and pt confirmed she is still taking Mirtazapine 7.5mg tabs once daily at bedtime and pt states she fills them at [facility] on [address]; called [facility] and they state pt has not filled Mirtazapine with them since 03/29 for 90 days.
[2025-09-05] MEDS: Lactated Ringers 1,000 ML 100 ML IVCONT (15:42)
[2025-09-05 15:47] LABS: Creatinine Clr Calc Pharmacy 68.3; Estimated Glomerular Filt Rate > 60
[2025-09-05] MEDS: BUPRENORPHINE HCL 900 MCG 900 EACH BUCCAL (17:08)
[2025-09-05] MEDS: oxyCODONE HCl Immed Release 5 MG TABLET PO ×2 (18:18→22:52)
[2025-09-06] MEDS: Lactated Ringers 1,000 ML 50 ML IVCONT (00:51)
[2025-09-06] MEDS: oxyCODONE HCl Immed Release 5 MG TABLET PO ×3 (03:10→18:39)
[2025-09-06 06:55] LABS: MANUAL DIFF FLAG NO
[2025-09-06 07:19] LABS: Hematocrit 28.9 % (37.0-47.0); Hemoglobin 9.4 g/dl (12.0-16.0); Imm Gran Abs Auto 0.03 X10*3/uL (0.00-0.03); Imm Gran Pct Auto 0.4 % (0.0-0.4); Lymphocytes Absolute Auto 2.6 X10*3/uL (1.2-4.9); Mean Corpuscular HGB Conc 32.5 g/dl (31.0-35.0); Mean Corpuscular Hemoglobin 29.8 pg (27.0-33.0); Mean Corpuscular Volume 91.7 fL (80.0-98.0); NRBC Abs Auto 0.000 X10*3/uL (0.0-0.012); NRBC Pct Auto 0.0 /100WBC (0.0-0.2); Platelet Count 182 X10*3/uL (160-400); Red Blood Count 3.15 X10*6/uL (4.20-5.50); White Blood Count 8.2 X10*3/uL (4.8-10.8)
[2025-09-06 07:23] LABS: Anion Gap 11 (12-20); Blood Urea Nitrogen 13 mg/dL (9-16); Calcium 8.1 mg/dL (8.4-10.2); Carbon Dioxide 28 mmol/L (22-29); Chloride 108 mmol/L (96-108); Creatinine Clr Calc Pharmacy 66.2; Estimated Glomerular Filt Rate > 60; Potassium 3.5 mmol/L (3.3-5.1); Sodium 143 mmol/L (135-145)
[2025-09-06 07:52] VITALS: BP 104/52; PULSE 53; RESP 16; TEMP 37.2; O2SAT 98
[2025-09-06] MEDS: Lactated Ringers 1,000 ML 100 ML IVCONT ×2 (07:53→18:28)
--- NOTE | 2025-09-06 08:17 | HO.POSTANES ---
Post Anesthesia Evaluation Post Anesthesia Evaluation Date of Service: 09/06/25 Vital Signs: Vital Signs Temp Pulse Resp BP Pulse Ox O2 Del Method 09/06/25 07:52 99.0 F 53 16 104/52 L 98 Room Air 09/05/25 23:39 97.7 F 80 16 98/52 L 94 Room Air 09/05/25 21:09 98/59 L Anesthesia: Spinal Mental Status: Awake Pain Control: Satisfactory Nausea/Vomiting: None Hydration: Adequate Anesthesia-Related Issues: No Anes. Related Issues
--- NOTE | 2025-09-06 08:29 | PM.PNORT ---
Subjective Subjective Date of Service: 09/06/25 Interval history: POD1 s/p RTKA TTWB RLE Patient is resting in bed comfortably No overnight events Pain is difficult to manage at times No additional complaints Physical Exam Vital Signs: Vital Signs: Last Vital Signs Temp 99.0 F 09/06/25 07:52 Pulse 53 09/06/25 07:52 Resp 16 09/06/25 07:52 BP 104/52 L 09/06/25 07:52 Pulse Ox 98 09/06/25 07:52 O2 Del Method Room Air 09/06/25 07:52 O2 Flow Rate 6 09/05/25 13:02 BMI result Body Mass Index 22.1 Const: General: cooperative, healthy appearing and no acute distress Resp: Effort & Inspection: normal respiratory effort and able to speak in complete sentences Extrem: Other: right knee dressing is c/d/i. Able to dorsi/plantar flex. Calf is supple and nontender. Sensation intact. Pedal pulse intact. Psych: Appearance: grossly normal Mental Status: mental status grossly normal Attitude: cooperative Procedures Date of Service Date of Service: 09/06/25 Progress Note: A&P Assessment and plan (1) Status post right knee replacement: Status: Acute Plan Continue pain mgmnt Begin dvt ppx: Lovenox due to ASA allergy Begin PT for RTKA - TTWB RLE Dispo planning-Pending PT eval, pain mgmnt, able to d/c to rehab from an orthopedic standpoint Time Spent With Patient Time: Total time managing care of this patient today ____ minutes. Quality Stroke Does the patient have a stroke diagnosis?: No VTE Prior VTE?: No VTE Risk Level:: Medical - moderate - high VTE Device Contraindication: N/A - Device Ordered VTE Drug Contraindication: N/A - Med Ordered
[2025-09-06] MEDS: BUPRENORPHINE HCL 900 MCG 900 EACH BUCCAL ×2 (08:41→16:17)
[2025-09-06] MEDS: Calcium Oyster Shell Elemental 500 MG TABLET 1000 MG PO (08:42)
[2025-09-06 11:21] VITALS: BP 93/57; PULSE 71; RESP 16; TEMP 36.8; O2SAT 98
[2025-09-06 16:00] VITALS: BP 96/53; PULSE 76; RESP 19; TEMP 36.8; O2SAT 95
[2025-09-06 20:00] VITALS: BP 103/51; PULSE 83; RESP 19; TEMP 37.2; O2SAT 94
[2025-09-06 23:52] VITALS: BP 105/52; PULSE 74; RESP 18; TEMP 36.6; O2SAT 96
[2025-09-07 02:40] VITALS: BP 110/56; PULSE 74; RESP 18; TEMP 36.7; O2SAT 95
[2025-09-07] MEDS: oxyCODONE HCl Immed Release 5 MG TABLET PO ×2 (02:48→09:53)
[2025-09-07] MEDS: Lactated Ringers 1,000 ML 100 ML IVCONT (03:37)
[2025-09-07 07:27] VITALS: BP 92/50; PULSE 74; RESP 16; TEMP 36.1; O2SAT 93
[2025-09-07 07:37] LABS: Hematocrit 28.6 % (37.0-47.0); Hemoglobin 9.3 g/dl (12.0-16.0); Imm Gran Abs Auto 0.02 X10*3/uL (0.00-0.03); Imm Gran Pct Auto 0.3 % (0.0-0.4); Lymphocytes Absolute Auto 3.0 X10*3/uL (1.2-4.9); MANUAL DIFF FLAG NO; Mean Corpuscular HGB Conc 32.5 g/dl (31.0-35.0); Mean Corpuscular Hemoglobin 30.3 pg (27.0-33.0); Mean Corpuscular Volume 93.2 fL (80.0-98.0); NRBC Abs Auto 0.000 X10*3/uL (0.0-0.012); NRBC Pct Auto 0.0 /100WBC (0.0-0.2); Platelet Count 172 X10*3/uL (160-400); Red Blood Count 3.07 X10*6/uL (4.20-5.50); White Blood Count 7.5 X10*3/uL (4.8-10.8)
[2025-09-07 07:55] LABS: Anion Gap 11 (12-20); Blood Urea Nitrogen 15 mg/dL (9-16); Calcium 7.8 mg/dL (8.4-10.2); Carbon Dioxide 28 mmol/L (22-29); Chloride 111 mmol/L (96-108); Creatinine Clr Calc Pharmacy 60.0; Estimated Glomerular Filt Rate > 60; Potassium 3.7 mmol/L (3.3-5.1); Sodium 146 mmol/L (135-145)
[2025-09-07 08:24] VITALS: BP 130/69
[2025-09-07] MEDS: BUPRENORPHINE HCL 900 MCG 900 EACH BUCCAL (08:30)
[2025-09-07] MEDS: Calcium Oyster Shell Elemental 500 MG TABLET 1000 MG PO (08:30)
[2025-09-07 09:13] LABS: NT Pro B Type Natriuretic Pept 701.0 pg/mL (<300)
[2025-09-07 10:15] LABS: Resp Syncy Virus RNA Qual PCR NEGATIVE (Negative); SARS COV2 PCR INHOUSE NEGATIVE (Negative)
--- NOTE | 2025-09-07 10:24 | PM.EVENT ---
Event Note Date of Service: 09/07/25 Event Note: Patient with some congestion, mild shortness of breath and cough. Left lower lung with some crackles and wheezing that quickly clears after several breaths. Chest x-ray with left lower lobe atelectasis, viral swab negative. Likely combination of atelectasis and possible upper respiratory tract infection. Recommend incentive spirometry and symptomatic treatment. Time Spent With Patient Time: Total time managing care of this patient today ____ minutes.
--- NOTE | 2025-09-07 10:50 | MHC.CM.PN ---
DP: PT HAS BEEN MEDICALLY CLEARED FOR DC TO STR AT [facility]. BLS TRANSPORT BOOKED FOR 12:30 PM VIA [facility]. RN/PROVIDER UPDATED.
[2025-09-07 11:29] VITALS: BP 108/67; PULSE 80; RESP 16; TEMP 36; O2SAT 95
--- NOTE | 2025-09-07 12:59 | PC.NURSE ---
pt own med, Lasha 3 films, offloaded from [facility] with Cynthia from pharmacy. Pt being discharged to SNF, 3 films Lasha handed to [facility] transport [facility].
[2025-09-07 13:00] VITALS: BP 123/65; PULSE 79; RESP 16; TEMP 36.9; O2SAT 98
== END 2025-09-07 13:02 | disposition short-term general hospital (02) ==
LOC: HO.SSS 08:36 → HO.S3 12:55
PROVIDERS: Internal Medicine; Physician Assistant; Visit Provider Orthopaedic Surgery
PROC: (CPT 27447; principal; 2025-09-05 09:30)
DX: M17.11 Unilateral primary osteoarthritis, right knee (principal); M81.0 Age-related osteoporosis without current pathological fracture; J95.89 Other postprocedural complications and disorders of respiratory system, not elsewhere classified; J98.11 Atelectasis; R06.02 Shortness of breath; R05.9 Cough, unspecified; Z96.643 Presence of artificial hip joint, bilateral; I50.30 Unspecified diastolic (congestive) heart failure; G62.9 Polyneuropathy, unspecified; M79.7 Fibromyalgia; M06.9 Rheumatoid arthritis, unspecified; Z79.899 Other long term (current) drug therapy; Z88.6 Allergy status to analgesic agent; Z88.5 Allergy status to narcotic agent; Z98.890 Other specified postprocedural states
CPT/HCPCS: 27447; 36415; 71045; 73560; 80048; 82565; 83880; 85025; 86850; 86900; 86901; 87637; 87640; 87641; 88304; 88305; 88311; 97110; 97162; 97530; A6260; C1776; J0131; J0665; J0690; J0897; J1171; J1650; J2003; J2151; J2250; J2371; J2405; J2704; J3010; J3374; J7120

== ENCOUNTER → 2025-09-05 06:51 | Outpatient (BNV) | payer MEDICARE, SELFPAY | PROVIDERS: Visit Provider Nurse Practitioner Acute Care | DX: M81.0 Age-related osteoporosis without current pathological fracture (principal) | CPT/HCPCS: 99223 ==

== ENCOUNTER → 2025-09-05 06:51 | Outpatient (BNV) | payer MEDICARE, SELFPAY | PROVIDERS: Visit Provider Orthopaedic Surgery | DX: Z96.651 Presence of right artificial knee joint (principal) | CPT/HCPCS: 27447; 99024 ==

== ENCOUNTER → 2025-09-05 11:51 | Outpatient (BNV) | payer MEDICARE, SELFPAY | PROVIDERS: Visit Provider Radiology Diagnostic Radiology | DX: Z96.651 Presence of right artificial knee joint (principal) | CPT/HCPCS: 73560 ==

== ENCOUNTER → 2025-09-07 08:57 | Outpatient (BNV) | payer MEDICARE, SELFPAY | PROVIDERS: Visit Provider Radiology Diagnostic Radiology | DX: R06.2 Wheezing (principal) | CPT/HCPCS: 71045 ==